=== PATIENT | female | born 1930 | race Caucasian/White ===

== ENCOUNTER 2018-04-07 15:16 | Emergency (ER) | payer OTHER, MEDICARE ==
--- NOTE | 2018-04-07 15:22 | PDOC ---
History of Present Illness - General History Source: Patient Exam Limitations: No Limitations - History of Present Illness Initial Comments: 04/07/18 15:58 The patient is an 87 year old female, with no significant past medical history, who presents to the emergency department with right shoulder pain. The patient states that she fell approximately 10 days ago. She did not seek medical attention at that time but her shoulder continued to bother her so yesterday, she had x-rays done by her PCP (Dr. Garza) which revealed a comminuted fracture of the right humeral neck with significant impaction and angulation in addition to inferior subluxation of the right humeral head. She has been taking Ibuprofen for her symptoms, without relief of symptoms. She states that Dr. Garza called her in a prescription for pain medication which she has picked up but has not started taking yet. She presents to the ED for further evaluation. She denies any other injury. She ambulates with a cane at baseline. Allergies: None reported. Past Surgical History: None reported. Social History: Non-smoker. Denies alcohol or drug use. PCP: Dr. Garza <Mariposa Wilkinson - Last Filed: 04/07/18 16:01> <Tari Novoa - Last Filed: 04/07/18 16:06> - General Chief Complaint: Injury Stated Complaint: PAIN S/P FALL Time Seen by Provider: 04/07/18 15:21 Past History <Mariposa Wilkinson - Last Filed: 04/07/18 16:01> <Tari Novoa - Last Filed: 04/07/18 16:06> - Past Medical History Allergies/Adverse Reactions: Allergies Allergy/AdvReac Type Severity Reaction Status Date / Time No Known Allergies Allergy Verified 04/07/18 15:33 Home Medications: Ambulatory Orders Vitamin E 1,000 unit PO DAILY 04/07/18 Review of Systems - Review of Systems Able to Perform ROS?: Yes Comments:: 04/07/18 16:01 GENERAL/CONSTITUTIONAL: No fever or chills. No weakness. HEAD, EYES, EARS, NOSE AND THROAT: No change in vision. No ear pain or discharge. No sore throat. CARDIOVASCULAR: No chest pain or shortness of breath. RESPIRATORY: No cough, wheezing, or hemoptysis. GASTROINTESTINAL: No nausea, vomiting, diarrhea or constipation. GENITOURINARY: No dysuria, frequency, or change in urination. MUSCULOSKELETAL: +Right shoulder pain. No muscle swelling or pain. No neck or back pain. SKIN: No rash. NEUROLOGIC: No headache, vertigo, loss of consciousness, or change in strength/ sensation. ENDOCRINE: No increased thirst. No abnormal weight change. HEMATOLOGIC/LYMPHATIC: No anemia, easy bleeding or history of blood clots. ALLERGIC/IMMUNOLOGIC: No hives or skin allergy. <Mariposa Wilkinson - Last Filed: 04/07/18 16:01> *Physical Exam - Vital Signs Last Vital Signs Temp Pulse Resp BP Pulse Ox 98 F 82 20 156/67 99 04/07/18 15:18 04/07/18 15:18 04/07/18 15:18 04/07/18 15:18 04/07/18 15:18 <Mariposa Wilkinson - Last Filed: 04/07/18 16:01> - Physical Exam Comments: GENERAL: Awake, alert, and fully oriented, in no acute distress HEAD: No signs of trauma EYES: PERRLA, EOMI, sclera anicteric, conjunctiva clear ENT: Auricles normal inspection, hearing grossly normal, nares patent, oropharynx clear without exudates. Moist mucosa NECK: Normal ROM, supple, no lymphadenopathy, JVD, or masses EXTREMITIES: R shoulder with tenderness over the proximal humerus. Dec ROM due to pain. Distal N/V intact. Remainder of extremities normal range of motion, no edema. No clubbing or cyanosis. No cords, erythema, or tenderness NEUROLOGICAL: Cranial nerves II through XII grossly intact. Normal speech. Motor and sensation intact. Walks with a cane on L side. SKIN: Warm, Dry, normal turgor, no rashes or lesions noted. <Tari Novoa - Last Filed: 04/07/18 16:06> Procedures - Splinting Sling: Yes <Tari Novoa - Last Filed: 04/07/18 16:06> Medical Decision Making - Medical Decision Making 04/07/18 16:05 Pt placed in sling. She just filled rx for pain medication from Dr. Garza. She walks with a cane, but uses it on the left side, so this will not interfere. Stable for NE home. <Tari Novoa - Last Filed: 04/07/18 16:06> *DC/Admit/Observation/Transfer - Attestations Scribe Attestion: 04/07/18 15:48 Documentation prepared by Mariposa Wilkinson, acting as medical associate for Tari Novoa MD. <Mariposa Wilkinson - Last Filed: 04/07/18 16:01> - Discharge Dispostion Decision to Admit order: No <Tari Novoa - Last Filed: 04/07/18 16:06> Diagnosis at time of Disposition: Fracture, humerus Qualifiers: Encounter type: initial encounter Humerus Location: proximal Fracture type: closed Fracture morphology: unspecified fracture morphology Laterality: right Qualified Code(s): S42.201A - Unspecified fracture of upper end of right humerus , initial encounter for closed fracture - Discharge Dispostion Disposition: HOME Condition at time of disposition: Stable
[2018-04-07 15:40] VITALS: BP 156/67; PULSE 82; TEMP 98; BMI 24.0
== END 2018-04-07 16:17 | disposition home or self-care (01) ==
LOC: FER 15:16
DX: S42.201A Unspecified fracture of upper end of right humerus, initial encounter for closed fracture (principal); W18.39XA Other fall on same level, initial encounter; Y93.89 Activity, other specified; Y92.9 Unspecified place or not applicable
CPT/HCPCS: 99281-25

== ENCOUNTER 2018-05-01 17:17 | Inpatient (IN) | payer MEDICARE, OTHER ==
[2018-05-01 18:44] LABS: BASO % 0.9 % (0-2.0); EOS % 1.3 % (0-4.5); HEMATOCRIT 24.3 % (32.4-45.2); HEMOGLOBIN 7.8 GM/dL (10.7-15.3); LYMPH % 17.2 % (8-40); MCH 26.5 pg (25.7-33.7); MCHC 32.2 g/dl (32.0-36.0); MEAN CELL VOLUME 82.3 fl (80-96); MEAN PLT VOLUME 6.7 fl (7.5-11.1); MONO % 7.8 % (3.8-10.2); NEUT % 72.8 % (42.8-82.8); PLATELET COUNT 420 K/MM3 (134-434); RBC 2.96 M/mm3 (3.60-5.2); RDW 17.7 % (11.6-15.6); WHITE BLOOD COUNT 7.7 K/mm3 (4.0-10.0)
--- NOTE | 2018-05-01 18:44 | PDOC ---
History of Present Illness - General Chief Complaint: Shortness of Breath Stated Complaint: CHEST PAIN Time Seen by Provider: 05/01/18 18:31 History Source: Patient - History of Present Illness Presenting Symptoms: Other Past History - Past Medical History Allergies/Adverse Reactions: Allergies Allergy/AdvReac Type Severity Reaction Status Date / Time No Known Allergies Allergy Verified 05/01/18 17:35 Home Medications: Ambulatory Orders Aspirin 324 mg PO PRN 05/01/18 COPD: No - Suicide/Smoking/Psychosocial Hx Smoking History: Former smoker Have you smoked in the past 12 months: No If you are a former smoker, when did you quit?: 1997 Information on smoking cessation initiated: No Hx Alcohol Use: No Drug/Substance Use Hx: No Substance Use Type: None Review of Systems - Review of Systems Constitutional: No: Chills, Fever Respiratory: No: Cough, Shortness of Breath Cardiac (ROS): No: Chest Pain, Lightheadedness, Palpitations ABD/GI: No: Nausea, Vomiting Neurological: No: Headache, Dizziness *Physical Exam - Vital Signs Last Vital Signs Temp Pulse Resp BP Pulse Ox 98.7 F 73 18 171/72 100 05/05/18 09:54 05/05/18 09:54 05/05/18 09:54 05/05/18 09:54 05/05/18 09:00 - Physical Exam Comments: 05/01/18 18:43 well nora pleasant elderly female lying on stretcher General Appearance: Yes: Appropriately Dressed. No: Apparent Distress HEENT: positive: Normal Voice Neck: positive: Supple Respiratory/Chest: positive: Lungs Clear, Normal Breath Sounds. negative: Respiratory Distress Cardiovascular: positive: Regular Rate, S1, S2 Extremity: positive: Pedal Edema Integumentary: positive: Dry, Warm, Other (small stage 2 ulcer to R buttocks, no e/o infection) Neurologic: positive: Fully Oriented, Alert, Normal Mood/Affect ED Treatment Course - LABORATORY CBC & Chemistry Diagram: 05/05/18 05:15 05/05/18 05:15 - ADDITIONAL ORDERS Additional order review: 05/01/18 18:15 RBC 2.96 L MCV 82.3 MCHC 32.2 RDW 17.7 H MPV 6.7 L Neutrophils % 72.8 Lymphocytes % 17.2 Monocytes % 7.8 Eosinophils % 1.3 Basophils % 0.9 - Medications Given in the ED: ED Medications Discontinued Medications Generic Name Dose Route Start Last Admin Trade Name Yoni PRN Reason Stop Dose Admin Acetaminophen 650 mg 05/01/18 19:00 05/01/18 19:22 Tylenol - PO 05/01/18 19:01 650 mg ONCE ONE Administration Acetaminophen 650 mg 05/01/18 22:50 05/04/18 02:17 Tylenol - PO 650 mg Q4H PRN Administration PAIN LEVEL 1-5 Amlodipine Besylate 5 mg 05/01/18 23:54 05/02/18 00:02 Norvasc - PO 05/01/18 23:55 5 mg ONCE ONE Administration Amlodipine Besylate 5 mg 05/02/18 10:00 05/02/18 09:28 Norvasc - PO 5 mg DAILY ELINA Administration Carvedilol 3.125 mg 05/02/18 12:00 05/04/18 09:54 Coreg - PO 3.125 mg BID ELINA Administration Collagenase 1 applic 05/03/18 10:00 05/04/18 10:42 Santyl - TP 1 applic DAILY ELINA Administration Enoxaparin Sodium 90 mg 05/02/18 16:30 05/02/18 16:30 Lovenox - SQ 05/02/18 16:31 Not Given ONCE ONE Furosemide 40 mg 05/01/18 20:46 05/01/18 20:57 Lasix Injection - IVPUSH 05/01/18 20:47 40 mg ONCE ONE Administration Furosemide 40 mg 05/02/18 12:00 05/04/18 09:54 Lasix Injection - IVPUSH 40 mg DAILY ELINA Administration Heparin Sodium (Porcine) 5,000 unit 05/02/18 06:00 05/02/18 13:21 Heparin - SQ 5,000 unit TID ELINA Administration Heparin Sodium (Porcine) 5,000 unit 05/03/18 22:00 05/04/18 09:54 Heparin - SQ 5,000 unit BID ELINA Administration Lisinopril 5 mg 05/02/18 10:00 05/04/18 09:54 Prinivil PO 5 mg DAILY ELINA Administration Oxycodone HCl 5 mg 05/02/18 09:35 05/02/18 10:14 Roxicodone - PO 05/02/18 09:36 5 mg ONCE ONE Administration Oxycodone HCl 5 mg 05/02/18 18:46 05/04/18 02:18 Roxicodone - PO 5 mg Q4H PRN Administration PAIN LEVEL 6-10 Oxycodone/Acetaminophen 1 combo 05/01/18 21:33 05/01/18 21:42 Percocet 5/325 - PO 05/01/18 21:34 1 combo ONCE ONE Administration Pantoprazole Sodium 40 mg 05/03/18 22:00 05/04/18 09:58 Protonix Iv IVPUSH 40 mg BID ELINA Administration Pneumococcal 13-Valent Conj Vacc 0.5 ml 05/02/18 09:00 05/02/18 09:19 Prevnar 13 Syringe - IM 05/02/18 09:01 0.5 ml .ONCE ONE Administration Senna 2 tab 05/02/18 22:00 05/03/18 22:48 Senna - PO Not Given HS ELINA Medical Decision Making - Medical Decision Making 05/01/18 18:39 87-year-old female, history of R breast cancer s/p surgery and XRT remotely, here with intermittent left-sided "discomfort" 2 days, but denies true pain. States sensation present whether at rest or on exertion. No shortness of breath , diaphoresis, nausea, vomiting or palpitations. No history of similar symptoms in the past. While in the ED, patient noted to have bilateral lower extremity edema, which patient states she did not notice until she was made aware when she got here. No leg pain, cough, f/c. Also c/o painful sore to R buttocks "for some time". 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 have PMD or die cutter and admits she has not seen a doctor in many years See exam R/o new onset CHF, less likely ACS, dissection or PE Stable w/ chest/lungs and b/l 2 edema -ekg -cxr -labs -anticipate admission 05/01/18 18:46 Signed out to AMINTA Ruiz pending w/u and admission 05/01/18 18:49 *DC/Admit/Observation/Transfer Diagnosis at time of Disposition: CHF exacerbation, Chest pain - Referrals - Patient Instructions - Post Discharge Activity
[2018-05-01 18:56] LABS: INR 1.14 (0.82-1.09); PROTHROMBIN TIME (PATIENT) 12.9 SEC (9.7-13.0)
[2018-05-01] MEDS ORDERED: ACETAMINOPHEN 325 MG TABLET (FP) PO ONE (19:00)
[2018-05-01 19:06] LABS: ALBUMIN 3.2 g/dl (3.4-5.0); ANION GAP 10 (8-16); BILIRUBIN,TOTAL 0.3 mg/dL (0.2-1.0); BLOOD UREA NITROGEN 35 mg/dL (7-18); CALCIUM 8.9 mg/dL (8.5-10.1); CHLORIDE 109 mmol/L (98-107); CO2 25 mmol/L (21-32); CREATININE 1.3 mg/dL (0.55-1.02); GLUCOSE,RANDOM 89 mg/dL (74-106); MAGNESIUM 2.4 mg/dL (1.8-2.4); POTASSIUM 4.2 mmol/L (3.5-5.1); SGOT/AST 19 U/L (15-37); SGPT/ALT 17 U/L (12-78); SODIUM 144 mmol/L (136-145); TOT PROT 6.7 g/dl (6.4-8.2)
[2018-05-01 19:10] LABS: ALK PHOS 241 U/L (45-117); N-TERMINAL BNP 2907.68 pg/ml (5-450)
[2018-05-01] MEDS ORDERED: ACETAMINOPHEN 325 MG TABLET (FP) ONE (19:20)
[2018-05-01] MEDS ORDERED: FUROSEMIDE 40 MG/4 ML INJECTABLE VIAL IVPUSH ONE (20:46)
[2018-05-01] MEDS ORDERED: FUROSEMIDE 40 MG/4 ML INJECTABLE VIAL ONE (20:51)
--- NOTE | 2018-05-01 20:51 | PDOC ---
*Physical Exam - Vital Signs Last Vital Signs Temp Pulse Resp BP Pulse Ox 98.0 F 86 16 172/81 100 05/01/18 17:35 05/01/18 20:33 05/01/18 20:33 05/01/18 20:33 05/01/18 20:33 - Physical Exam General Appearance: Yes: Appropriately Dressed Respiratory/Chest: positive: Rapid RR, Rales Cardiovascular: positive: Regular Rhythm, Regular Rate Female Pelvic Exam: positive: other (1 cm stage III sacral ulcer) Gastrointestinal/Abdominal: positive: Normal Bowel Sounds, Soft Extremity: positive: Normal Capillary Refill, Normal Inspection, Normal Range of Motion, Pedal Edema (b/l), Swelling. negative: Calf Tenderness, Erythema, Inflammation Integumentary: positive: Normal Color, Dry, Warm Neurologic: positive: Fully Oriented, Alert, Normal Mood/Affect Heart Score/ECG Review - History History: Moderately suspicious - Age Age: >/= 65 - ECG Intrepretation Rhythm: Regular Rhythm Comment:: 05/01/18 21:12 Sinus rhythm with PACs : 86bpm ED Treatment Course - LABORATORY CBC & Chemistry Diagram: 05/01/18 18:15 05/01/18 18:15 - ADDITIONAL ORDERS Additional order review: Laboratory Results 05/01/18 05/01/18 18:15 18:15 PT with INR 12.90 INR 1.14 Sodium 144 Potassium 4.2 Chloride 109 H Carbon Dioxide 25 Anion Gap 10 BUN 35 H Creatinine 1.3 H Creat Clearance w eGFR 38.93 Random Glucose 89 Calcium 8.9 Magnesium 2.4 Total Bilirubin 0.3 AST 19 ALT 17 Alkaline Phosphatase 241 H Creatine Kinase 52 Troponin I 0.02 B-Natriuretic Peptide 2907.68 H Total Protein 6.7 Albumin 3.2 L 05/01/18 18:15 RBC 2.96 L MCV 82.3 MCHC 32.2 RDW 17.7 H MPV 6.7 L Neutrophils % 72.8 Lymphocytes % 17.2 Monocytes % 7.8 Eosinophils % 1.3 Basophils % 0.9 - Medications Given in the ED: ED Medications Discontinued Medications Generic Name Dose Route Start Last Admin Trade Name Freq PRN Reason Stop Dose Admin Acetaminophen 650 mg 05/01/18 19:00 05/01/18 19:22 Tylenol - PO 05/01/18 19:01 650 mg ONCE ONE Administration Medical Decision Making - Medical Decision Making 05/01/18 20:49 Rales on exam. SOb on exertion, b/l lower extremity edema. will give lasix x 1 05/01/18 21:24 patient to admitted under hospitalist service *DC/Admit/Observation/Transfer Diagnosis at time of Disposition: CHF exacerbation Qualifiers: Heart failure type: unspecified Qualified Code(s): I50.9 - Heart failure, unspecified Chest pain Qualifiers: Chest pain type: chest pain on breathing Qualified Code(s): R07.1 - Chest pain on breathing - Discharge Dispostion Decision to Admit order: Yes - Referrals Referrals: Aashish Garza MD [Primary Care Provider] - - Patient Instructions - Post Discharge Activity
[2018-05-01] MEDS ORDERED: INSULIN (LEVEMIR) 100 UNITS/ML UNITS SQ ONE (21:55)
--- NOTE | 2018-05-01 22:19 | PN ---
Teaching Attending Note Name of Resident: Piero Zambrano ATTENDING PHYSICIAN STATEMENT I saw and evaluated the patient. I reviewed the resident's note and discussed the case with the resident. I agree with the resident's findings and plan as documented. SUBJECTIVE: Patient is an 87 year old woman with history of right breast cancer s/p surgery and radiotherapy here with upper abdominal pain 2 days. States sensation present whether at rest or on exertion. No shortness of breath, diaphoresis, nausea, vomiting or palpitations. No history of similar symptoms in the past. While in the ED, patient noted to have bilateral lower extremity edema, which patient states she did not notice until she was made aware when she got here. No leg pain, cough, f/c. Also c/o painful sore to R buttocks "for some time". 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 Normocephalic, atraumatic. External ears are normal and hearing is grossly intact. No nasal discharge. Neck: Supple, nontender. No palpable adenopathy or thyromegaly. No JVD Chest: Good effort. Clear to auscultation and percussion. Heart: Regular. Has S3; no rub or murmur Abdomen: Not distended, soft, nontender and no HSM. No rebound or guarding. Normoactive bowel sounds. Has kyphosis. Stage 3 intergluteal cleft ulcer. Ext: Peripheral pulses intact. Leg edema. Skin: Warm and dry. No petechiae, rash or ecchymosis. Neuro: Alert. Oriented x3. CN 2-12 grossly intact. Sensation grossly intact in all four extremities and DTR are symmetric. Home Medications Medication Instructions Recorded Aspirin 324 mg PO PRN 05/01/18 Abnormal Lab Results 05/01/18 05/01/18 18:15 18:15 RBC 2.96 L Hgb 7.8 L Hct 24.3 L RDW 17.7 H MPV 6.7 L Chloride 109 H BUN 35 H Creatinine 1.3 H Alkaline Phosphatase 241 H B-Natriuretic Peptide 2907.68 H Albumin 3.2 L Current Medications Generic Name Dose Route Start Last Admin Trade Name Freq PRN Reason Stop Dose Admin Acetaminophen 650 mg 05/01/18 22:50 Tylenol - PO Q4H PRN PAIN LEVEL 1-5 Amlodipine Besylate 5 mg 05/02/18 10:00 Norvasc - PO DAILY [facility] Docusate Sodium 100 mg 05/01/18 23:12 Colace - PO BID PRN CONSTIPATION Heparin Sodium (Porcine) 5,000 unit 05/02/18 06:00 Heparin - SQ TID [facility] Pneumococcal 13-Valent Conj Vacc 0.5 ml 05/02/18 08:00 Prevnar 13 Syringe - IM 05/02/18 08:01 .ONCE ONE Senna 2 tab 05/02/18 22:00 Senna - PO HS [facility] ASSESSMENT AND PLAN: 1. Abdominal pain - findings consistent with CHF. CXR shows cardiomegaly with possible right middle lobe cavitary lesions. No ACS changes on EKG. Made very little urine with 40 mg IV lasix. Will get ECHO, rule ACS, monitor on telemetry and give higher dose of lasix after ECHO. CT chest/abd/pelvis and d-dimer being done. Cardiology consult. 2. Hypertension - Treat with lisinopril and amlodipien. 3. Stage 3 Sacral Ulcer - Daily wound care, wound culture and consult wound care. Appropriate repositioning to avoid exacerbation of ulcer. 4. Anemia and elevated Alkaline Phosphate - Check GTT and do basic anemia work up. Concern - history of breast cancer 5. NATHAN - May signal reduced renal perfusion due to yet to be confirmed CHF. But based on her small size, age, poor nutritional intake and gender, she may indeed have advanced CKD despite creatinine of "only 1.3". Do basic nephrologic work up including kidney sonogram, PTH, phosphate etc. Avoid nephrotoxins. 6. DVT prophylaxis - Heparin 5000u sq tid. 7. Advance directives - Full code
[2018-05-01] MEDS ORDERED: DOCUSATE SODIUM 100 MG CAPSULE (FP) PO PRN (23:12)
--- NOTE | 2018-05-01 23:12 | HP ---
CHIEF COMPLAINT: upper abdominal discomfort and buttock "abscess" PCP: Dr. Garza HISTORY OF PRESENT ILLNESS: 87F w/ hx of R breast cancer s/p surgery and radiation presenting with upper abdominal pain and a painful right buttock "abscess." Per pt, her upper abdominal discomfort began a few months ago, is intermittent, dull in quality, sometimes radiates to her back, and is affected by change in position but not type of food. Her right buttock "abscess" began about 4-6 weeks ago and has remained stable since then. Pt endorses using warm compresses, "aloveri," and tylenol for it without significant relief. It is worsened by sitting or lying directly on it. Pt also endorses occasional pleuritic chest pain and occasional SOB. She denies fevers, chills, headache, palpitations, cough, PND, orthopnea, LE swelling, nausea, emesis, diarrhea, hematochezia, melena, change in stool caliber, dysuria, and urinary frequency. She endorses some constipation. She has not seen her PCP in several years, and has not seen her oncologist in about 12 years. She has never had a colonoscopy. At baseline, she ambulates with a cane and can walk about a half block and 2 flights of stairs, limited by leg weakness. ER course was notable for: (1) history (2) exam (3) HTN, anemia, elevated BNP, elevated creatinine, elevated ALP Recent Travel: PAST MEDICAL HISTORY: as stated above PAST SURGICAL HISTORY: right heel/foot surgery after injury Social History: Smokin pack year hx, 1 PPD x 5 years, quit decades ago Alcohol: social Drugs: denies Pt lives with in [place], has one child. She has an aid which helps around the house. 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 Family History: mother- MD father- MD sister- breast cancer Allergies No Known Allergies Allergy (Verified 05/01/18 17:35) HOME MEDICATIONS: Home Medications Medication Instructions Recorded Aspirin 324 mg PO PRN 05/01/18 REVIEW OF SYSTEMS CONSTITUTIONAL: Absent: fever, chills, diaphoresis, malaise, loss of appetite, weight change present: weakness HEENT: Absent: rhinorrhea, nasal congestion, throat pain, throat swelling, difficulty swallowing, mouth swelling, ear pain, eye pain, visual changes CARDIOVASCULAR: Absent: syncope, palpitations, irregular heart rate, lightheadedness present: chest pain, RESPIRATORY: Absent: cough, dyspnea with exertion, orthopnea, wheezing, stridor, hemoptysis present: shortness of breath GASTROINTESTINAL: Absent: abdominal distension, nausea, vomiting, diarrhea, melena, hematochezia present: abdominal discomfort, constipation, GENITOURINARY: Absent: dysuria, frequency, urgency, hesitancy, hematuria, flank pain, genital pain MUSCULOSKELETAL: Absent: myalgia, arthralgia, joint swelling, back pain, neck pain SKIN: Absent: rash, itching, pallor HEMATOLOGIC/IMMUNOLOGIC: Absent: easy bleeding, easy bruising, lymphadenopathy, frequent infections ENDOCRINE: Absent: unexplained weight gain, unexplained weight loss, heat intolerance, cold intolerance NEUROLOGIC: Absent: headache, focal weakness or paresthesias, dizziness, unsteady gait, seizure, mental status changes, bladder or bowel incontinence PSYCHIATRIC: Absent: anxiety, depression, suicidal or homicidal ideation, hallucinations. PHYSICAL EXAMINATION Vital Signs - 24 hr 05/01/18 05/01/18 05/01/18 17:35 20:33 22:20 Temperature 98.0 F Pulse Rate 84 Pulse Rate [ 86 85 Apical] Respiratory 24 16 Rate Blood Pressure 165/74 Blood Pressure 172/81 174/75 [Left Arm] O2 Sat by Pulse 99 100 Oximetry (%) GENERAL: elderly female, sitting in wheelchair, AAOx3, in NAD HEENT: NC, AT NECK: no JVD LUNGS: CTAB, no rales, wheezing, or rhonchi HEART: Regular rate and rhythm, normal S1 and S2 without murmur, rub or gallop. ABDOMEN: normoactive BS, soft, moderately tender in RUQ and epigastric region, ND, no organomegaly MUSCULOSKELETAL: 2+ b/l pitting LE edema NEUROLOGICAL: Cranial nerves II-XII intact. Normal speech, strength 5/5 throughout, sensory function intact throughout Buttock: stage 2-3 ulcer, about 1cm, in gluteal cleft. non-tender to palpation, minimal surrounding erythema Laboratory Results - last 24 hr 05/01/18 05/01/18 05/01/18 18:15 18:15 18:15 WBC 7.7 RBC 2.96 L Hgb 7.8 L Hct 24.3 L MCV 82.3 MCH 26.5 MCHC 32.2 RDW 17.7 H Plt Count 420 MPV 6.7 L Absolute Neuts (auto) 5.6 Neutrophils % 72.8 Lymphocytes % 17.2 Monocytes % 7.8 Eosinophils % 1.3 Basophils % 0.9 Nucleated RBC % 0 PT with INR 12.90 INR 1.14 Sodium 144 Potassium 4.2 Chloride 109 H Carbon Dioxide 25 Anion Gap 10 BUN 35 H Creatinine 1.3 H Creat Clearance w eGFR 38.93 Random Glucose 89 Calcium 8.9 Magnesium 2.4 Total Bilirubin 0.3 AST 19 ALT 17 Alkaline Phosphatase 241 H Creatine Kinase 52 Troponin I 0.02 B-Natriuretic Peptide 2907.68 H Total Protein 6.7 Albumin 3.2 L EKG: NSR CXR: My read- shallow lung robert, possible small left sided pleural effusion CT chest/abdomen/pelvis: ASSESSMENT/PLAN: 87F w/ hx of R breast cancer s/p surgery and radiation presenting with upper abdominal pain and a painful buttock ulcer. #chronic abdominal discomfort and RUQ/epigastric tenderness -possibly 2/2 cholelithiasis vs. constipation vs. diverticulosis vs. recurrence of cancer -f/u CT -f/u D-dimer -consider RUQ US -pain control -senna and colace #SOB -possibly 2/2 mild CHF exacerbation as evidenced by b/l LE edema, elevated BNP of 2900, SOB, and possibly pre-renal picture. R/O ACS -f/u echo -cards consult, Dr. Coto, f/u recs -strict I/Os, daily weights -one dose of lasix 40 given in ED. Denies current SOB, satting fine on RA, and no rales or JVD on exam. -continue to monitor clinical status and administer further doses of lasix if indicated -1st trop negative, f/u serial trops -cardiac tele #right shoulder pain -shoulder/humeral XR: comminuted fx in right humeral neck w/ moderate impaction and angulation. Inferior subluxation of humeral head. -ortho consulted, Dr. Gay, f/u recs -pain control #HTN -BP of 165/74 in ED, no hx of HTN -monitor BP -started norvasc 5mg and lisinopril daily #normocytic anemia -Hgb of 7.8, MCV of 82 -f/u FOBT and iron studies -pt has never had colonoscopy -possibly 2/2 recurrence of breast cancer #NATHAN vs. CKD -creatinine of 1.3, <20:1 BUN/creatinine ratio supporting pre-renal NATHAN -f/u renal US -f/u urine lytes -f/u PTH and Ph -trend creatinine #elevated ALP -f/u GGT to distinguish hepatic vs. bone etiology #buttock ulcer -stage 2-3 -pain control -warm compresses -wound care -reposition pt off of ulcer #FEN/ppx -no IVF -electrolytes wnl -sodium controlled diet -no GI ppx indicated -heparin 5000U TID #dispo -admit to tele Case discussed with attending, Dr. Cox. -Piero Zambrano MD PGY1 Visit type - Emergency Visit Emergency Visit: Yes ED Registration Date: 05/01/18 Care time: The patient presented to the Emergency Department on the above date and was hospitalized for further evaluation of their emergent condition. - New Patient This patient is new to me today: Yes Date on this admission: 05/02/18 - Critical Care Critical Care patient: No Hospitalist Screening - Colonoscopy Questionnaire Colonoscopy Questionnaire: Colonoscopy Questionnaire - Patient: 50 - 75 years old and never had a screening colonoscopy: Yes History of colon or rectal polyps, or CA: No History of IBD, Crohn's disease or UC: No History of abdominal radiation therapy as a child: No - Relative: 1 with colon or rectal CA, or polyps at age 60 or younger: Unknown Colon or rectal CA diagnosed at age 45 or younger: Unknown Multiple relatives with colon or rectal CA: Unknown - Outcome: Screening Result: Positive Screen
[2018-05-01] MEDS ORDERED: amLODIPine BESYLATE 5 MG TABLET (FP) PO ONE (23:54)
[2018-05-02] MEDS: HEPARIN NA (PORCINE) 5,000 UNITS/ML 1ML VIAL SQ SCH ×2 (06:10→13:21)
[2018-05-02 06:28] LABS: BASO % 0.5 % (0-2.0); EOS % 2.1 % (0-4.5); HEMATOCRIT 25.6 % (32.4-45.2); HEMOGLOBIN 8.5 GM/dL (10.7-15.3); LYMPH % 18.9 % (8-40); MCH 27.1 pg (25.7-33.7); MCHC 33.1 g/dl (32.0-36.0); MEAN CELL VOLUME 82.1 fl (80-96); NEUT % 71.5 % (42.8-82.8); PLATELET COUNT 440 K/MM3 (134-434); RBC 3.12 M/mm3 (3.60-5.2); RDW 18.1 % (11.6-15.6); WHITE BLOOD COUNT 8.6 K/mm3 (4.0-10.0)
[2018-05-02 06:58] LABS: ALBUMIN 3.4 g/dl (3.4-5.0); ANION GAP 9 (8-16); BLOOD UREA NITROGEN 33 mg/dL (7-18); CHLORIDE 105 mmol/L (98-107); CO2 27 mmol/L (21-32); GLUCOSE,RANDOM 100 mg/dL (74-106); POTASSIUM 3.9 mmol/L (3.5-5.1); SODIUM 141 mmol/L (136-145)
[2018-05-02 07:02] LABS: ALK PHOS 257 U/L (45-117); BILIRUBIN,TOTAL 0.3 mg/dL (0.2-1.0); CHOLESTEROL 161 mg/dL (50-200); CREATININE 1.3 mg/dL (0.55-1.02); HDL CHOLESTEROL 52 mg/dL (40-60); SGOT/AST 24 U/L (15-37); SGPT/ALT 17 U/L (12-78); TOT PROT 7.1 g/dl (6.4-8.2); TRIGLYCERIDES 150 mg/dL (35-160)
[2018-05-02] MEDS ORDERED: PNEUMOC 13-VAL CONJ-DIP CRM/PF 0.5 ML DISP.SYRIN IM ONE (09:00)
[2018-05-02] MEDS: LISINOPRIL 5 MG TABLET (FP) PO SCH (09:28)
[2018-05-02] MEDS ORDERED: oxyCODONE HCL 5 MG TABLET PO ONE (09:35)
[2018-05-02] MEDS ORDERED: amLODIPine BESYLATE 5 MG TABLET (FP) PO SCH (10:00)
--- NOTE | 2018-05-02 10:01 | CON.CARD ---
Consult Consult Specialty:: cardiology - History of Present Illness History of Present Illness: Patient is an 87 year old woman with history of right breast cancer s/p surgery and radiotherapy here with upper abdominal pain 2 days. States sensation present whether at rest or on exertion. No shortness of breath, diaphoresis, nausea, vomiting or palpitations. No history of similar symptoms in the past. While in the ED, patient noted to have bilateral lower extremity edema, which patient states she did not notice until she was made aware when she got here. No leg pain, cough, f/c. Also c/o painful sore to R buttocks "for some time". 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 and admits she has not seen a doctor in many years - History Source History Provided By: Patient, Medical Record - Alcohol/Substance Use Hx Alcohol Use: No - Smoking History Smoking history: Former smoker Have you smoked in the past 12 months: No If you are a former smoker, when did you quit?: 1997 Home Medications - Allergies Allergies/Adverse Reactions: Allergies Allergy/AdvReac Type Severity Reaction Status Date / Time No Known Allergies Allergy Verified 05/01/18 17:35 - Home Medications Home Medications: Ambulatory Orders Aspirin 324 mg PO PRN 05/01/18 Review of Systems - Review of Systems Constitutional: reports: No Symptoms Eyes: reports: No Symptoms HENT: reports: No Symptoms Neck: reports: No Symptoms Cardiovascular: reports: Edema Respiratory: reports: No Symptoms Gastrointestinal: reports: No Symptoms Genitourinary: reports: No Symptoms Breasts: reports: No Symptoms Reported Musculoskeletal: reports: No Symptoms Integumentary: reports: No Symptoms Neurological: reports: No Symptoms Endocrine: reports: No Symptoms Hematology/Lymphatic: reports: No Symptoms Psychiatric: reports: No Symptoms Vital Signs: Vital Signs Temperature 98.2 F 05/02/18 07:27 Pulse Rate 72 05/02/18 07:27 Respiratory Rate 18 05/02/18 07:39 Blood Pressure 159/82 05/02/18 07:27 O2 Sat by Pulse Oximetry (%) 98 05/02/18 07:39 Constitutional: Yes: Well Nourished, No Distress, Calm Eyes: Yes: WNL, Conjunctiva Clear, EOM Intact HENT: Yes: WNL, Atraumatic, Normocephalic Neck: Yes: WNL, Supple, Trachea Midline Respiratory: Yes: WNL, Regular, CTA Bilaterally Gastrointestinal: Yes: WNL, Normal Bowel Sounds Renal/: Yes: WNL Cardiovascular: Yes: WNL, Regular Rate and Rhythm Heart Sounds: Yes: S1, S2 Musculoskeletal: Yes: WNL Extremities: Yes: WNL Edema: Yes Integumentary: Yes: WNL Neurological: Yes: WNL, Alert, Oriented ...Motor Strength: WNL Psychiatric: Yes: WNL, Alert, Oriented - Other Data Labs, Other Data: CBC, BMP 05/02/18 05:30 05/02/18 05:30 INR, PTT INR 1.14 (0.82-1.09) 05/01/18 18:15 Troponin, BNP 05/01/18 05/02/18 05/02/18 18:15 01:24 05:30 Troponin I 0.02 0.02 0.02 B-Natriuretic Peptide 2907.68 H 05/02/18 06:25 Troponin I Cancelled B-Natriuretic Peptide Troponin, BNP 05/01/18 05/02/18 05/02/18 18:15 01:24 05:30 Troponin I 0.02 0.02 0.02 B-Natriuretic Peptide 2907.68 H 05/02/18 06:25 Troponin I Cancelled B-Natriuretic Peptide Imaging - Results Chest X-ray: Image Reviewed (no i/e) EKG: Image Reviewed (sr apc's) Problem List - Problems (1) CHF exacerbation Code(s): I50.9 - HEART FAILURE, UNSPECIFIED Qualifiers: Heart failure type: unspecified Qualified Code(s): I50.9 - Heart failure, unspecified (2) Chest pain Code(s): R07.9 - CHEST PAIN, UNSPECIFIED Qualifiers: Chest pain type: chest pain on breathing Qualified Code(s): R07.1 - Chest pain on breathing; R07.81 - Pleurodynia (3) Fracture, humerus Code(s): S42.309A - UNSP FRACTURE OF SHAFT OF HUMERUS, UNSP ARM, INIT Qualifiers: Encounter type: initial encounter Humerus Location: proximal Fracture type: closed Fracture morphology: unspecified fracture morphology Laterality : right Qualified Code(s): S42.201A - Unspecified fracture of upper end of right humerus, initial encounter for closed fracture Assessment/Plan edema chf exac echo showed lvh diastolic dysfunction , nl ef mod to severe mr, severe tr mild pht anemia h/o breast ca plan anemia w/u telemetry d/c norvasc (can exacerbate edema) LAsix IV increase SRAVAN i as needed add coreg 3.125
[2018-05-02] MEDS: ACETAMINOPHEN 325 MG TABLET (FP) PO PRN ×2 (10:12→22:10)
[2018-05-02 10:27] LABS: ARTERIAL BLD GAS O2 SATURATION 97.5 % (90-98.9); ARTERIAL BLOOD GAS BASE EXCESS 1.7 meq/l (-2-2); ARTERIAL BLOOD GAS PCO2 34.4 mmHg (35-45); ARTERIAL BLOOD GAS PO2 85.5 mmHg (68-100); ARTERIAL BLOOD GAS pH 7.47 (7.35-7.45)
[2018-05-02 10:30] LABS: ALLENS TEST POSITIVE
--- NOTE | 2018-05-02 10:41 | EKG ---
Test Reason : Blood Pressure : / mmHG Vent. Rate : 082 BPM Atrial Rate : 082 BPM P-R Int : 158 ms QRS Dur : 094 ms QT Int : 416 ms P-R-T Axes : 049 003 064 degrees QTc Int : 486 ms SINUS RHYTHM WITH PREMATURE ATRIAL COMPLEXES MODERATE VOLTAGE CRITERIA FOR LVH, MAY BE NORMAL VARIANT CANNOT RULE OUT SEPTAL INFARCT , AGE UNDETERMINED ABNORMAL ECG NO PREVIOUS ECGS AVAILABLE Confirmed by SAMANTHA SAEZ, PAVEL ([id number]) on 05/02/2018 10:41:42 AM Referred By: Confirmed By:PAVEL SINGH MD
--- NOTE | 2018-05-02 11:22 | PN ---
Progress Note (short form) - Note Progress Note: Subjective: The patient was seen and examined at the bedside she has complaints of left lateral breast pain. Pain was reproducible on exam. She also reports having lower extremity swelling but she does not know how long she has had it for. She states she hasn't seen a provider in "many years" D-dimer elevated. ABG performed, Aa gradient 21.2. Patient is not hypoxic, no tachycardia noted. Will check lower extremity duplex to r/o DVT. Discussed with Dr. Thompson who will evaluate the patient for V/Q scan (CTA considered and discussed with Dr. Austin, concern for ATN as the patient's CrCl 30 and would be unable to give the patient adequate hydration after contrast given possible CHF exacerbation component as well). Current Medications Generic Name Dose Route Start Last Admin Trade Name Freq PRN Reason Stop Dose Admin Acetaminophen 650 mg 05/01/18 22:50 05/02/18 10:12 Tylenol - PO 650 mg Q4H PRN Administration PAIN LEVEL 1-5 Amlodipine Besylate 5 mg 05/02/18 10:00 05/02/18 09:28 Norvasc - PO 5 mg DAILY ELINA Administration Docusate Sodium 100 mg 05/01/18 23:12 Colace - PO BID PRN CONSTIPATION Heparin Sodium (Porcine) 5,000 unit 05/02/18 06:00 05/02/18 06:10 Heparin - SQ 5,000 unit TID ELINA Administration Lisinopril 5 mg 05/02/18 10:00 05/02/18 09:28 Prinivil PO 5 mg DAILY ELINA Administration Senna 2 tab 05/02/18 22:00 Senna - PO HS ELINA Objective: Vital Signs Period Temp Pulse Resp BP Sys/Beltre Pulse Ox Last 24 Hr 97.7 F-98.4 F 70-86 16-24 155-189/74-84 98-100 Physical Exam: General: NAD, A&Ox3 Lungs: CTA bilaterally Heart: Left lateral breast with reproducible pain. RRR, S1S2 Abd: Distended. Soft, non-tender Ext: B/l lower extremity 1+ edema. No calf tenderness Neuro: CN 2-12 intact CBCD WBC 8.6 K/mm3 (4.0-10.0) 05/02/18 05:30 RBC 3.12 M/mm3 (3.60-5.2) L 05/02/18 05:30 Hgb 8.5 GM/dL (10.7-15.3) L 05/02/18 05:30 Hct 25.6 % (32.4-45.2) L 05/02/18 05:30 MCV 82.1 fl (80-96) 05/02/18 05:30 MCHC 33.1 g/dl (32.0-36.0) 05/02/18 05:30 RDW 18.1 % (11.6-15.6) H 05/02/18 05:30 Plt Count 440 K/MM3 (134-434) H 05/02/18 05:30 MPV 7.0 fl (7.5-11.1) L 05/02/18 05:30 CMP Sodium 141 mmol/L (136-145) 05/02/18 05:30 Potassium 3.9 mmol/L (3.5-5.1) 05/02/18 05:30 Chloride 105 mmol/L (98-107) 05/02/18 05:30 Carbon Dioxide 27 mmol/L (21-32) 05/02/18 05:30 Anion Gap 9 (8-16) 05/02/18 05:30 BUN 33 mg/dL (7-18) H 05/02/18 05:30 Creatinine 1.3 mg/dL (0.55-1.02) H 05/02/18 05:30 Creat Clearance w eGFR 38.93 (>60) 05/02/18 05:30 Random Glucose 100 mg/dL (74-106) 05/02/18 05:30 Calcium 9.0 mg/dL (8.5-10.1) 05/02/18 05:30 Total Bilirubin 0.3 mg/dL (0.2-1.0) 05/02/18 05:30 AST 24 U/L (15-37) 05/02/18 05:30 ALT 17 U/L (12-78) 05/02/18 05:30 Alkaline Phosphatase 257 U/L (45-117) H 05/02/18 05:30 Total Protein 7.1 g/dl (6.4-8.2) 05/02/18 05:30 Albumin 3.4 g/dl (3.4-5.0) 05/02/18 05:30 CARDIAC ENZYMES Creatine Kinase 52 IU/L (26-192) 05/01/18 18:15 Troponin I 0.02 ng/ml (0.00-0.05) 05/02/18 05:30 Assessment: This is an 87 year old female with PMHx of right breast cancer s/p lumpectomy/radiation, who presented to the ED with upper abdominal pain and right buttock pressure ulcers. Plan: 1) Shortness of breath, elevated d-dimer - CHF exacerbation vs. PE vs. malignancy CHF - Elevated BNP - ECHO reviewed - Strict I&O - Continue IV lasix - Appreciate cardiology consult PE - Clinical suspicion for PE given hx of malignancy and lytic lesions of CT - Per heme/onc, will hold off on giving dose of full dose lovenox for now until V/Q scan results - Cannot perform Chest CTA given elevated Cr - B/l lower extremity dopplers negative for DVT - For V/Q scan in the AM - Appreciate pulmonary consult - Appreciate heme/onc consult 2) Hx of right breast cancer, now with extensive lytic lesion and prominent pancreatic head - Head CT and chest CT to r/o mets - Awaiting oncology consult - Awaiting GI consult for evaluation of pancreatic head - Palliative care consult 3) NATHAN on CKD? - Unclear baseline - F/u kidney bladder ultrasound - F/u urine electrolytes - Appreciate nephrology consult 4) Anemia - F/u iron studies - Continue to trend H/H - F/u hematology consult 5) Right proximal humerus fracture - Continue sling - Appreciate ortho consult 6) pressure ulcers - turn and reposition - f/u wound consult CODE STATUS: FULL CODE Visit type - Emergency Visit Emergency Visit: Yes ED Registration Date: 05/01/18 Care time: The patient presented to the Emergency Department on the above date and was hospitalized for further evaluation of their emergent condition. - New Patient This patient is new to me today: Yes Date on this admission: 05/02/18 - Critical Care Critical Care patient: No
--- NOTE | 2018-05-02 12:06 | PN ---
Progress Note (short form) - Note Progress Note: PULMONARY CONSULTATION DICTATED 05/02/18 IMP CHEST PAIN LIKELY MUSCULOSKELETAL,CANNOT EXCLUDE PE,?METS DYSPNEA ?CHF LOWER EXT EDEMA HTN NATHAN ELEVATED D-DIMER NON-SPECIFIC ANEMIA H/O R BREAST CA S/P LUMPECTOMY/RT PLAN V/Q DUPLEX LOWER EXT ECHO DIURETICS MONITOR H+H,RENAL FUNCTION NORMAL TRANSFUSION THRESHOLD ANALGESICS DR NAZARIO Problem List - Problems (1) Anemia Code(s): D64.9 - ANEMIA, UNSPECIFIED (2) CHF exacerbation Code(s): I50.9 - HEART FAILURE, UNSPECIFIED Qualifiers: Heart failure type: unspecified Qualified Code(s): I50.9 - Heart failure, unspecified (3) Chest pain Code(s): R07.9 - CHEST PAIN, UNSPECIFIED Qualifiers: Chest pain type: chest pain on breathing Qualified Code(s): R07.1 - Chest pain on breathing; R07.81 - Pleurodynia (4) Elevated d-dimer Code(s): R79.89 - OTHER SPECIFIED ABNORMAL FINDINGS OF BLOOD CHEMISTRY (5) Acute kidney injury Code(s): N17.9 - ACUTE KIDNEY FAILURE, UNSPECIFIED
--- NOTE | 2018-05-02 13:02 | PN ---
Progress Note (short form) - Note Progress Note: Pt with minimally displaced R proximal humerus fracture. X-rays reviewed. Plan nonop care with sling. Will do full evaluation tomorrow AM.
--- NOTE | 2018-05-02 13:20 | CONS ---
DATE OF CONSULTATION: 05/02/2018 REFERRING PROVIDER: RAMAN Reed The patient is an 87-year-old white female with past right breast CA, status post lumpectomy and postoperatively treated with RT approximately 8 years ago, history of tobacco use, approximately 3 packs per week, quit 15 to 20 years ago. Recently diagnosed with hypertension. No history of cardiac and/or pulmonary disease, admitted to [facility] with complaint of left-sided chest pain, increasing with movement as well as inspiration, as well as increased bilateral lower extremity edema. Patient denied any fevers or chills, nausea, vomiting or diaphoresis. Patient apparently states that she fell approximately 3 years ago on her right side. Denied any chest trauma to the left. Patient denies any fevers or chills, nausea, vomiting or diaphoresis. Denies any history of DVT or PE in the past. She does complain of some shortness of breath with exertion. She denies orthopnea or PND. On admission, she had labs obtained, noted to have an elevated D-dimer of 2227, which is nonspecific. BNP was slightly elevated at 2907. She was also found to be in mild renal insufficiency with a BUN of 33, a creatinine 3.3. She was admitted to the telemetry unit for further monitoring. She was evaluated. She was placed on heparin subcutaneous, continued on anti- hypertensive medications as well as some Lasix for possible CHF. The patient is still complaining of left-sided chest pain, again, increasing with movement as well as occasional inspiration. Past medical history, again, includes right breast CA, status post lumpectomy, status post radiation therapy. SOCIAL HISTORY: History of smoking, quit 15 years ago. No occupational exposures. Current medications include Tylenol, Prinivil, Coreg, Colace, senna, and Lasix. PHYSICAL EXAMINATION: General: The patient is an elderly white female, awake, alert, in no acute distress. Vital Signs: She is afebrile. Blood pressure is 159/82. Respiratory rate 18. O2 saturation 98% on room air. HEENT: Normocephalic, atraumatic. Neck: Supple. Heart: Regular, S1, S2. Chest: Clear. Abdomen: Soft. Bowel sounds positive. Extremities: Bilateral extremity edema. LABORATORY DATA: BUN 33, creatinine 1.3. BNP is 2207. WBC is 7.7, hemoglobin 7.8, hematocrit 24.3. Blood gas: pH 7.47, pCO2 of 34, pO2 of 85, bicarbonate 24, and a saturation of 97.5. D-dimer, again, was 2227. Chest x-ray reveals no infiltrates and no effusions. IMPRESSION: 1. Chest pain syndrome, likely musculoskeletal, although cannot exclude possible pulmonary embolism. Patient has increased risk secondary to history of malignancy, relatively sedentary lifestyle. Cannot exclude possible metastatic disease, bone metastasis, in view of history of breast cancer. 2. Mild congestive heart failure. 3. Anemia. 4. Hypertension. 5. Acute kidney injury. PLAN: Ventilation/perfusion lung scan, duplex of lower extremities, echocardiogram. Continue Lasix, monitor renal function, supplemental O2 p.r.n., analgesics. Normal transfusion threshold, monitor hemoglobin and hematocrit, daily weight. KANDY NAZARIO M.D. [id number] MTDD
[2018-05-02] MEDS: FUROSEMIDE 40 MG/4 ML INJECTABLE VIAL IVPUSH SCH (13:21)
[2018-05-02] MEDS: CARVEDILOL 3.125 MG TABLET (FP) PO SCH ×2 (13:21→22:10)
--- NOTE | 2018-05-02 13:22 | CONSULT ---
Consultation: REQUESTING PROVIDER: Jazzmine Martinez NP CONSULT REQUEST: We have been asked to medically evaluate this patient for creatinine of 1.3. HISTORY OF PRESENT ILLNESS: This is a 87 year old female with a history of right breast cancer s/p mastectomy and radiation 5yrs ago, who presents with right abscess of the right buttock. We were called to evaluate lab finding of a creatinine of 1.3. Baseline unknown. No history of kidney disease as per patient. She has not seen her primary in "a few years". Ms. Crowder admits to taking Advil 2-3 pills per day for the past 2 weeks due to non specific musculoskeletal pain. She also takes aspirin daily. Of note she endorses some occasional shortness of breath, chest discomfort and bilateral leg swelling for the past two weeks. Do to these symptoms she took old pills she had at home from a previous surgery, she does not know exactly what medication, she thinks it was called hydrochlorothiazide. She took 5-6 of these pills with in the last few days. ER course notable for elevated D dimer; vital stable; PMHx: right breast CA, right femur fracture PSHx: right mastectomy, rods put in right leg due to fracture? NKDA PCP: Dr. Garza REVIEW OF SYSTEMS: CONSTITUTIONAL: Positive: generalized weakness Absent: fever, chills, diaphoresis, malaise, loss of appetite, weight change HEENT: Absent: rhinorrhea, nasal congestion, throat pain, throat swelling, difficulty swallowing, mouth swelling, ear pain, eye pain, visual changes CARDIOVASCULAR: Positive: chest discomfort around lateral chest gutierrez, bilateral lower extremity edema Absent: chest pain, syncope, palpitations, irregular heart rate, lightheadedness , RESPIRATORY: Positive: occasional SOB, dyspnea with exertion, Absent: cough, orthopnea, wheezing, stridor, hemoptysis GASTROINTESTINAL: Positive: abdominal pain Absent: abdominal distension, nausea, vomiting, diarrhea, constipation, melena , hematochezia GENITOURINARY: Absent: dysuria, frequency, urgency, hesitancy, hematuria, flank pain, genital pain MUSCULOSKELETAL: Absent: myalgia, arthralgia, joint swelling, back pain, neck pain SKIN: Absent: rash, itching, pallor HEMATOLOGIC/IMMUNOLOGIC: Absent: easy bleeding, easy bruising, lymphadenopathy, frequent infections ENDOCRINE: Absent: unexplained weight gain, unexplained weight loss, heat intolerance, cold intolerance NEUROLOGIC: Absent: headache, focal weakness or paresthesias, dizziness, unsteady gait, seizure, mental status changes, bladder or bowel incontinence PSYCHIATRIC: Absent: anxiety, depression, suicidal or homicidal ideation, hallucinations. PHYSICAL EXAMINATION Vital Signs - 24 hr 05/01/18 05/01/18 05/01/18 17:35 20:33 22:20 Temperature 98.0 F Pulse Rate 84 Pulse Rate [ 86 85 Apical] Respiratory 24 16 Rate Blood Pressure 165/74 Blood Pressure 172/81 174/75 [Left Arm] O2 Sat by Pulse 99 100 Oximetry (%) 05/01/18 05/02/18 05/02/18 22:30 02:00 03:47 Temperature 98.4 F 97.7 F Pulse Rate 79 72 Pulse Rate [ Apical] Respiratory 20 18 Rate Blood Pressure 189/84 180/81 155/77 Blood Pressure [Left Arm] O2 Sat by Pulse 100 Oximetry (%) 05/02/18 05/02/18 05/02/18 06:13 07:27 07:39 Temperature 98.2 F Pulse Rate 70 72 Pulse Rate [ Apical] Respiratory 20 18 18 Rate Blood Pressure 157/79 159/82 Blood Pressure [Left Arm] O2 Sat by Pulse 98 98 Oximetry (%) GENERAL: Awake, alert, and fully oriented, in no acute distress. LUNGS: scattered rhonchi HEART: Regular rate and rhythm, normal S1 and S2 without murmur, rub or gallop. ABDOMEN: Soft, nontender, not distended, normoactive bowel sounds, no guarding, no rebound, no masses. No hepatomegaly or splenomegaly. MUSCULOSKELETAL: Normal range of motion at all joints. No bony deformities or tenderness. No CVA tenderness. UPPER EXTREMITIES: 2+ pulses, warm, well-perfused. No cyanosis. No clubbing. Cap refill <2 seconds. No peripheral edema. LOWER EXTREMITIES: 2+ pulses, warm, well-perfused. No calf tenderness. bilateral pitting edema 2+ NEUROLOGICAL: Cranial nerves II-XII intact. Normal speech. Normal gait. PSYCHIATRIC: Cooperative. Good eye contact. Appropriate mood and affect. SKIN: right buttock pressure ulcer stage 2-3 Laboratory Results - last 24 hr 05/01/18 05/01/18 05/01/18 18:15 18:15 18:15 WBC 7.7 RBC 2.96 L Hgb 7.8 L Hct 24.3 L MCV 82.3 MCH 26.5 MCHC 32.2 RDW 17.7 H Plt Count 420 MPV 6.7 L Absolute Neuts (auto) 5.6 Neutrophils % 72.8 Lymphocytes % 17.2 Monocytes % 7.8 Eosinophils % 1.3 Basophils % 0.9 Nucleated RBC % 0 PT with INR 12.90 INR 1.14 D-Dimer Puncture Site ABG pH ABG pCO2 at Pt Temp ABG pO2 at Pt Temp ABG HCO3 ABG O2 Sat (Measured) ABG O2 Content ABG Base Excess Cory Test Oxygen Flow Rate Sodium 144 Potassium 4.2 Chloride 109 H Carbon Dioxide 25 Anion Gap 10 BUN 35 H Creatinine 1.3 H Creat Clearance w eGFR 38.93 Random Glucose 89 Hemoglobin A1c % Calcium 8.9 Phosphorus Magnesium 2.4 Ferritin Total Bilirubin 0.3 GGT AST 19 ALT 17 Alkaline Phosphatase 241 H Creatine Kinase 52 Troponin I 0.02 B-Natriuretic Peptide 2907.68 H Total Protein 6.7 Albumin 3.2 L Triglycerides Cholesterol Total LDL Cholesterol HDL Cholesterol 05/02/18 05/02/18 05/02/18 01:24 05:30 05:30 WBC 8.6 RBC 3.12 L Hgb 8.5 L Hct 25.6 L MCV 82.1 MCH 27.1 MCHC 33.1 RDW 18.1 H Plt Count 440 H MPV 7.0 L Absolute Neuts (auto) 6.1 Neutrophils % 71.5 Lymphocytes % 18.9 Monocytes % 7.0 Eosinophils % 2.1 Basophils % 0.5 Nucleated RBC % 0 PT with INR INR D-Dimer Puncture Site ABG pH ABG pCO2 at Pt Temp ABG pO2 at Pt Temp ABG HCO3 ABG O2 Sat (Measured) ABG O2 Content ABG Base Excess Cory Test Oxygen Flow Rate Sodium 141 Potassium 3.9 Chloride 105 Carbon Dioxide 27 Anion Gap 9 BUN 33 H Creatinine 1.3 H Creat Clearance w eGFR 38.93 Random Glucose 100 Hemoglobin A1c % Calcium 9.0 Phosphorus Magnesium Ferritin Total Bilirubin 0.3 GGT AST 24 ALT 17 Alkaline Phosphatase 257 H Creatine Kinase Troponin I 0.02 0.02 B-Natriuretic Peptide Total Protein 7.1 Albumin 3.4 Triglycerides 150 Cholesterol 161 Total LDL Cholesterol 94 HDL Cholesterol 52 05/02/18 05/02/18 05/02/18 05:30 06:25 06:25 WBC RBC Hgb Hct MCV MCH MCHC RDW Plt Count MPV Absolute Neuts (auto) Neutrophils % Lymphocytes % Monocytes % Eosinophils % Basophils % Nucleated RBC % PT with INR INR D-Dimer Puncture Site ABG pH ABG pCO2 at Pt Temp ABG pO2 at Pt Temp ABG HCO3 ABG O2 Sat (Measured) ABG O2 Content ABG Base Excess Cory Test Oxygen Flow Rate Sodium Potassium Chloride Carbon Dioxide Anion Gap BUN Creatinine Creat Clearance w eGFR Random Glucose Hemoglobin A1c % 6.1 H Calcium Phosphorus Magnesium Ferritin 53.4 Total Bilirubin GGT 323 H AST ALT Alkaline Phosphatase Creatine Kinase Troponin I Cancelled B-Natriuretic Peptide Total Protein Albumin Triglycerides Cholesterol Total LDL Cholesterol HDL Cholesterol 05/02/18 05/02/18 05/02/18 07:43 07:43 10:20 WBC RBC Hgb Hct MCV MCH MCHC RDW Plt Count MPV Absolute Neuts (auto) Neutrophils % Lymphocytes % Monocytes % Eosinophils % Basophils % Nucleated RBC % PT with INR INR D-Dimer 2227 H Puncture Site Left radial ABG pH 7.47 H ABG pCO2 at Pt Temp 34.4 L ABG pO2 at Pt Temp 85.5 ABG HCO3 24.8 ABG O2 Sat (Measured) 97.5 ABG O2 Content 10.6 L ABG Base Excess 1.7 Cory Test Positive Oxygen Flow Rate Yes Sodium Potassium Chloride Carbon Dioxide Anion Gap BUN Creatinine Creat Clearance w eGFR Random Glucose Hemoglobin A1c % Calcium Phosphorus 3.7 Magnesium Ferritin Total Bilirubin GGT AST ALT Alkaline Phosphatase Creatine Kinase Troponin I B-Natriuretic Peptide Total Protein Albumin Triglycerides Cholesterol Total LDL Cholesterol HDL Cholesterol Active Medications Generic Name Dose Route Start Last Admin Trade Name Freq PRN Reason Stop Dose Admin Acetaminophen 650 mg 05/01/18 22:50 05/02/18 10:12 Tylenol - PO 650 mg Q4H PRN Administration PAIN LEVEL 1-5 Carvedilol 3.125 mg 05/02/18 12:00 Coreg - PO BID ELINA Docusate Sodium 100 mg 05/01/18 23:12 Colace - PO BID PRN CONSTIPATION Furosemide 40 mg 05/02/18 12:00 Lasix Injection - IVPUSH DAILY ELINA Heparin Sodium (Porcine) 5,000 unit 05/02/18 06:00 05/02/18 06:10 Heparin - SQ 5,000 unit TID ELINA Administration Lisinopril 5 mg 05/02/18 10:00 05/02/18 09:28 Prinivil PO 5 mg DAILY ELINA Administration Senna 2 tab 05/02/18 22:00 Senna - PO HS ELINA ASSESSMENT/PLAN: This is a 87 year old female with a history of right breast Ca s/p mastectomy, who presents with generalized pain, shortness of breath, leg swelling, and elevated creatinine. Had not seen a doctor in many years. NO baseline labs. NATHAN vs CKD?. Need to evaluate to CHF. R/O PE. #NATHAN vs CKD: -urine studies, urine electrolytes, urine creatinine, urine urea -renal/ bladder ultrasound -primary office does not have any labs on patient for baseline -avoid nephrotoxic agents; #sob/edema; eval for CHF; PE -doppler -echo -v/q scan due to risk on RODNEY with contract for CTA -cont lasix #Anemia: work up Dispo: We will continue to follow the patient. Thank you for this consultative opportunity. Visit type - Emergency Visit Emergency Visit: No - New Patient This patient is new to me today: Yes Date on this admission: 05/02/18 - Critical Care Critical Care patient: No
--- NOTE | 2018-05-02 13:37 | PN ---
Teaching Attending Note Name of Resident: Donna Felix (Nephrology) ATTENDING PHYSICIAN STATEMENT I saw and evaluated the patient. I reviewed the resident's note and discussed the case with the resident. I agree with the resident's findings and plan as documented. Nephrology Pt is an 87 year old female with pmhx of right breast cancer who presents to the ER with lower extremity edema and mild progressive shortness of breath. I was called to evaluate her for elevated creatinine. She says that she has been taking daily nsaids (advil) daily for the last 2 weeks. She feels that her legs are starting to swell up. pmhx breast cancer pshx mastectomy nkda ros see hpi familh hx non contrib Current Medications Generic Name Dose Route Start Last Admin Trade Name Freq PRN Reason Stop Dose Admin Acetaminophen 650 mg 05/01/18 22:50 05/02/18 10:12 Tylenol - PO 650 mg Q4H PRN Administration PAIN LEVEL 1-5 Carvedilol 3.125 mg 05/02/18 12:00 05/02/18 13:21 Coreg - PO 3.125 mg BID ELINA Administration Docusate Sodium 100 mg 05/01/18 23:12 Colace - PO BID PRN CONSTIPATION Furosemide 40 mg 05/02/18 12:00 05/02/18 13:21 Lasix Injection - IVPUSH 40 mg DAILY ELINA Administration Heparin Sodium (Porcine) 5,000 unit 05/02/18 06:00 05/02/18 13:21 Heparin - SQ 5,000 unit TID ELINA Administration Lisinopril 5 mg 05/02/18 10:00 05/02/18 09:28 Prinivil PO 5 mg DAILY ELINA Administration Senna 2 tab 05/02/18 22:00 Senna - PO HS ELINA Laboratory Tests 05/01/18 05/01/18 05/02/18 18:15 18:15 05:30 Hgb 7.8 L 8.5 L ABG pH ABG pCO2 at Pt Temp ABG pO2 at Pt Temp Sodium Potassium Creatinine 1.3 H Iron TIBC Iron Saturation 05/02/18 05/02/18 05/02/18 05:30 05:30 10:20 Hgb ABG pH 7.47 H ABG pCO2 at Pt Temp 34.4 L ABG pO2 at Pt Temp 85.5 Sodium 141 Potassium 3.9 Creatinine 1.3 H Iron Pending TIBC Pending Iron Saturation Pending cardio s1s2 pulm scattered rhonchi GI soft ext edema neuro awake and alert skin neg rash circ pos pulses Impression 1. CKD vs NATHAN with unclear baseline 2. CHF 3. HTN 4. hx breast cancer 5. dyspnea 6. anemia 7. 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
[2018-05-02] MEDS ORDERED: ENOXAPARIN NA (PORCINE) 100 MG/1 ML DISP.SYRIN SQ ONE (16:30)
[2018-05-02 16:41] LABS: URINE APPEARANCE CLEAR; URINE BILIRUBIN NEGATIVE (<2.0 mg/dL); URINE COLOR STRAW; URINE GLUCOSE (UA) NEGATIVE (NEGATIVE); URINE KETONE NEGATIVE (NEGATIVE); URINE LEUK ESTERASE NEGATIVE (NEGATIVE); URINE NITRITE NEGATIVE (NEGATIVE); URINE PROTEIN NEGATIVE (NEGATIVE); URINE UROBILINOGEN NEGATIVE mg/dL (0.2-1.0)
--- NOTE | 2018-05-02 18:17 | CONSULT ---
Consult Consult Specialty:: Hematology/Oncology - History of Present Illness History of Present Illness: 87F w/ hx of R breast cancer s/p surgery and radiation presenting with upper abdominal pain and a painful right buttock "abscess." Per pt, her upper abdominal discomfort began a few months ago, is intermittent, dull in quality, sometimes radiates to her back, and is affected by change in position but not type of food. Her right buttock "abscess" began about 4-6 weeks ago and has remained stable since then. Pt endorses using warm compresses, "aloveri," and tylenol for it without significant relief. It is worsened by sitting or lying directly on it. Pt also endorses occasional pleuritic chest pain and occasional SOB. She denies fevers, chills, headache, palpitations, cough, PND, orthopnea, LE swelling, nausea, emesis, diarrhea, hematochezia, melena, change in stool caliber, dysuria, and urinary frequency. She endorses some constipation. She has not seen her PCP in several years, and has not seen her oncologist in about 12 years. She has never had a colonoscopy. At baseline, she ambulates with a cane and can walk about a half block and 2 flights of stairs, limited by leg weakness. - History Source History Provided By: Patient, Medical Record - Alcohol/Substance Use Hx Alcohol Use: No - Smoking History Smoking history: Former smoker Have you smoked in the past 12 months: No If you are a former smoker, when did you quit?: 1997 Home Medications - Allergies Allergies/Adverse Reactions: Allergies Allergy/AdvReac Type Severity Reaction Status Date / Time No Known Allergies Allergy Verified 05/01/18 17:35 - Home Medications Home Medications: Ambulatory Orders Aspirin 324 mg PO PRN 05/01/18 Physical Exam Vital Signs: Vital Signs Temperature 98.2 F 05/02/18 14:00 Pulse Rate 89 05/02/18 14:00 Respiratory Rate 18 05/02/18 07:39 Blood Pressure 137/67 05/02/18 14:00 O2 Sat by Pulse Oximetry (%) 98 05/02/18 07:39 Constitutional: Yes: Well Nourished, No Distress, Calm Eyes: Yes: Conjunctiva Clear HENT: Yes: Atraumatic, Normocephalic Neck: Yes: Supple, Trachea Midline Cardiovascular: Yes: Regular Rate and Rhythm Respiratory: Yes: Regular Gastrointestinal: Yes: Normal Bowel Sounds, Soft Edema: Yes Edema: LLE: 1+, RLE: 1+ Labs: CBC, BMP 05/02/18 05:30 05/02/18 05:30 Assessment/Plan concern for a metastatic malignancy MM labs tumor markers CT chest ?pain would be helped with RT pt to discuss with family on further proceedings DVT ppx, not treatment doses. await V/Q scan, non-specific D-dimer further recs through the course d/w pt
[2018-05-02] MEDS: SENNOSIDES 8.6MG TABLET (FP) PO SCH (22:10)
[2018-05-02] MEDS: oxyCODONE HCL 5 MG TABLET PO PRN (22:10)
--- NOTE | 2018-05-02 22:26 | PN ---
Progress Note (short form) - Note Progress Note: VAscular surgery Pt seen and examined. Coccyx ulcer - stage 3. Size is 1x1cm. clean , pink, good granulation. Cont to offload. Start santyl and optifoam dressing. Murali mena DO
[2018-05-03 06:23] LABS: BASO % 0.6 % (0-2.0); EOS % 1.9 % (0-4.5); HEMATOCRIT 24.3 % (32.4-45.2); HEMOGLOBIN 7.9 GM/dL (10.7-15.3); LYMPH % 17.4 % (8-40); MCH 26.6 pg (25.7-33.7); MCHC 32.6 g/dl (32.0-36.0); MEAN CELL VOLUME 81.9 fl (80-96); MONO % 8.1 % (3.8-10.2); PLATELET COUNT 358 K/MM3 (134-434); RBC 2.97 M/mm3 (3.60-5.2); RDW 17.1 % (11.6-15.6); WHITE BLOOD COUNT 6.1 K/mm3 (4.0-10.0)
[2018-05-03 06:55] LABS: CHLORIDE 103 mmol/L (98-107); POTASSIUM 4.2 mmol/L (3.5-5.1); SODIUM 139 mmol/L (136-145)
[2018-05-03 07:05] LABS: ALBUMIN 3.1 g/dl (3.4-5.0); ALK PHOS 227 U/L (45-117); ANION GAP 7 (8-16); BILIRUBIN,TOTAL 0.3 mg/dL (0.2-1.0); BLOOD UREA NITROGEN 41 mg/dL (7-18); CALCIUM 8.9 mg/dL (8.5-10.1); CO2 29 mmol/L (21-32); CREATININE 1.3 mg/dL (0.55-1.02); GLUCOSE,RANDOM 103 mg/dL (74-106); SGOT/AST 19 U/L (15-37); SGPT/ALT 16 U/L (12-78); TOT PROT 6.4 g/dl (6.4-8.2)
[2018-05-03 08:07] LABS: SERUM IRON SATURATION 9 % (15-55); TOTAL IRON BINDING CAPACITY 336 ug/dL (250-450); UIBC 306 ug/dL (118-369)
[2018-05-03] MEDS: CARVEDILOL 3.125 MG TABLET (FP) PO SCH ×2 (09:23→21:39)
[2018-05-03] MEDS: FUROSEMIDE 40 MG/4 ML INJECTABLE VIAL IVPUSH SCH (09:23)
[2018-05-03] MEDS: LISINOPRIL 5 MG TABLET (FP) PO SCH (09:23)
[2018-05-03] MEDS: COLLAGENASE CLOSTRIDIUM HIST. 30 GRAMS TUBE TP SCH (09:25)
--- NOTE | 2018-05-03 10:34 | PN ---
Physical Exam: SUBJECTIVE: Patient seen and examined. NO new complaints. Legs feel less heavy. Denies shortness of breath, chest pain. OBJECTIVE: Vital Signs Period Temp Pulse Resp BP Sys/Beltre Pulse Ox Last 24 Hr 98.2 F-98.6 F 65-89 18-18 121-137/57-74 97-100 GENERAL: The patient is awake, alert, and fully oriented, in no acute distress. LUNGS: scattered rhonchi HEART: Regular rate and rhythm, S1, S2 without murmur, rub or gallop. ABDOMEN: Soft, nontender, nondistended, normoactive bowel sounds, no guarding, no rebound, no hepatosplenomegaly, no masses. EXTREMITIES: 2+ pulses, warm, well-perfused, 2+ bilateral edema NEUROLOGICAL: Cranial nerves II through XII grossly intact. Normal speech, gait not observed. PSYCH: Normal mood, normal affect. SKIN: stage 3 right buttock decub ulcer; clean intact; no erythema or drainage Laboratory Results - last 24 hr 05/02/18 05/02/18 05/02/18 05:30 06:25 15:55 WBC RBC Hgb Hct MCV MCH MCHC RDW Plt Count MPV Absolute Neuts (auto) Neutrophils % Lymphocytes % Monocytes % Eosinophils % Basophils % Nucleated RBC % Sodium Potassium Chloride Carbon Dioxide Anion Gap BUN Creatinine Creat Clearance w eGFR Random Glucose Hemoglobin A1c % 6.1 H Calcium Iron 30 TIBC 336 Iron Saturation 9 L Total Bilirubin AST ALT Alkaline Phosphatase Total Protein Albumin Urine Color Urine Appearance Urine pH Ur Specific [place] Urine Protein Urine Glucose (UA) Urine Ketones Urine Blood Urine Nitrite Urine Bilirubin Urine Urobilinogen Ur Leukocyte Esterase Ur Random Sodium 116 Ur Random Potassium 28.0 Ur Random Chloride 136 Ur Random Urea Nitrogn Urine Creatinine 05/02/18 05/02/18 05/02/18 15:55 15:55 17:55 WBC RBC Hgb Hct MCV MCH MCHC RDW Plt Count MPV Absolute Neuts (auto) Neutrophils % Lymphocytes % Monocytes % Eosinophils % Basophils % Nucleated RBC % Sodium Potassium Chloride Carbon Dioxide Anion Gap BUN Creatinine Creat Clearance w eGFR Random Glucose Hemoglobin A1c % Calcium Iron TIBC Iron Saturation Total Bilirubin AST ALT Alkaline Phosphatase Total Protein Albumin Urine Color Straw Urine Appearance Clear Urine pH 5.0 Ur Specific [place] 1.011 Urine Protein Negative Urine Glucose (UA) Negative Urine Ketones Negative Urine Blood Negative Urine Nitrite Negative Urine Bilirubin Negative Urine Urobilinogen Negative Ur Leukocyte Esterase Negative Ur Random Sodium Ur Random Potassium Ur Random Chloride Ur Random Urea Nitrogn 387 Urine Creatinine 46.5 05/03/18 05/03/18 05:30 05:30 WBC 6.1 RBC 2.97 L Hgb 7.9 L Hct 24.3 L MCV 81.9 MCH 26.6 MCHC 32.6 RDW 17.1 H Plt Count 358 MPV 7.0 L Absolute Neuts (auto) 4.4 Neutrophils % 72.0 Lymphocytes % 17.4 Monocytes % 8.1 Eosinophils % 1.9 Basophils % 0.6 Nucleated RBC % 0 Sodium 139 Potassium 4.2 Chloride 103 Carbon Dioxide 29 Anion Gap 7 L BUN 41 H Creatinine 1.3 H Creat Clearance w eGFR 38.93 Random Glucose 103 Hemoglobin A1c % Calcium 8.9 Iron TIBC Iron Saturation Total Bilirubin 0.3 AST 19 ALT 16 Alkaline Phosphatase 227 H Total Protein 6.4 Albumin 3.1 L Urine Color Urine Appearance Urine pH Ur Specific [place] Urine Protein Urine Glucose (UA) Urine Ketones Urine Blood Urine Nitrite Urine Bilirubin Urine Urobilinogen Ur Leukocyte Esterase Ur Random Sodium Ur Random Potassium Ur Random Chloride Ur Random Urea Nitrogn Urine Creatinine Active Medications Generic Name Dose Route Start Last Admin Trade Name Freq PRN Reason Stop Dose Admin Acetaminophen 650 mg 05/01/18 22:50 05/02/18 22:10 Tylenol - PO 650 mg Q4H PRN Administration PAIN LEVEL 1-5 Carvedilol 3.125 mg 05/02/18 12:00 05/03/18 09:23 Coreg - PO 3.125 mg BID ELINA Administration Collagenase 1 applic 05/03/18 10:00 05/03/18 09:25 Santyl - TP 1 applic DAILY ELINA Administration Docusate Sodium 100 mg 05/01/18 23:12 Colace - PO BID PRN CONSTIPATION Furosemide 40 mg 05/02/18 12:00 05/03/18 09:23 Lasix Injection - IVPUSH 40 mg DAILY ELINA Administration Lisinopril 5 mg 05/02/18 10:00 05/03/18 09:23 Prinivil PO 5 mg DAILY ELINA Administration Oxycodone HCl 5 mg 05/02/18 18:46 05/02/18 22:10 Roxicodone - PO 5 mg Q4H PRN Administration PAIN LEVEL 6-10 Senna 2 tab 05/02/18 22:00 05/02/18 22:10 Senna - PO 2 tab HS ELINA Administration ASSESSMENT/PLAN: This is a 87 year old female with a history of right breast Ca s/p mastectomy, who presents with generalized pain, shortness of breath, leg swelling, and elevated creatinine. Had not seen a doctor in many years. NO baseline labs. NATHAN vs CKD?. Need to evaluate to CHF. R/O PE. #CKD: baseline unknown -currently stable creatinine still remains at 1.3; trend bmp -electrolytes wnl -renal imaging showing small non morphologic kidneys bilaterally -FeNa: 0.0: most likely from the CHF; continue dieresis -avoid nephrotoxic agents; #sob/edema;most likely secondary to CHF; r/o PE -ECHO evident for left ventricular diastolic dysfunction with normal ejection fraction; mod to severe mr, severe tr mild pht -v/q scan due to risk on RODNEY with contract for CTA -cont lasix -cardio on board #Anemia: work up in progress #breast CA with yasmin: -CT abdomen showing extensive lytic disease with multiple vertebral compressions with dilated bile ducts; need further eval -heme/onc recs #stage 3 decub ulcer -santly -vascular recs DVt ppl Visit type - Emergency Visit Emergency Visit: No - New Patient This patient is new to me today: No - Critical Care Critical Care patient: No
--- NOTE | 2018-05-03 12:08 | PN ---
Physical Exam: SUBJECTIVE: Patient seen and examined. OBJECTIVE: Vital Signs Period Temp Pulse Resp BP Sys/Beltre Pulse Ox Last 24 Hr 98.2 F-98.6 F 65-89 18-18 121-137/57-74 97-100 GENERAL: The patient is awake, alert, oriented, in mild distress secondary to pain under left breast LUNGS: CTA HEART: Regular rate and rhythm, S1, S2 ABDOMEN: Soft, nontender, nondistended EXTREMITIES: 2+ pulses, warm, well-perfused, 1+ edema bilaterally NEUROLOGICAL: Cranial nerves II through XII grossly intact. Laboratory Results - last 24 hr 05/02/18 05/02/18 05/02/18 05:30 15:55 15:55 WBC RBC Hgb Hct MCV MCH MCHC RDW Plt Count MPV Absolute Neuts (auto) Neutrophils % Lymphocytes % Monocytes % Eosinophils % Basophils % Nucleated RBC % Sodium Potassium Chloride Carbon Dioxide Anion Gap BUN Creatinine Creat Clearance w eGFR Random Glucose Calcium Iron 30 TIBC 336 Iron Saturation 9 L Total Bilirubin AST ALT Alkaline Phosphatase Total Protein Albumin Urine Color Straw Urine Appearance Clear Urine pH 5.0 Ur Specific [place] 1.011 Urine Protein Negative Urine Glucose (UA) Negative Urine Ketones Negative Urine Blood Negative Urine Nitrite Negative Urine Bilirubin Negative Urine Urobilinogen Negative Ur Leukocyte Esterase Negative Ur Random Sodium 116 Ur Random Potassium 28.0 Ur Random Chloride 136 Ur Random Urea Nitrogn Urine Creatinine 05/02/18 05/02/18 05/03/18 15:55 17:55 05:30 WBC 6.1 RBC 2.97 L Hgb 7.9 L Hct 24.3 L MCV 81.9 MCH 26.6 MCHC 32.6 RDW 17.1 H Plt Count 358 MPV 7.0 L Absolute Neuts (auto) 4.4 Neutrophils % 72.0 Lymphocytes % 17.4 Monocytes % 8.1 Eosinophils % 1.9 Basophils % 0.6 Nucleated RBC % 0 Sodium Potassium Chloride Carbon Dioxide Anion Gap BUN Creatinine Creat Clearance w eGFR Random Glucose Calcium Iron TIBC Iron Saturation Total Bilirubin AST ALT Alkaline Phosphatase Total Protein Albumin Urine Color Urine Appearance Urine pH Ur Specific [place] Urine Protein Urine Glucose (UA) Urine Ketones Urine Blood Urine Nitrite Urine Bilirubin Urine Urobilinogen Ur Leukocyte Esterase Ur Random Sodium Ur Random Potassium Ur Random Chloride Ur Random Urea Nitrogn 387 Urine Creatinine 46.5 05/03/18 05:30 WBC RBC Hgb Hct MCV MCH MCHC RDW Plt Count MPV Absolute Neuts (auto) Neutrophils % Lymphocytes % Monocytes % Eosinophils % Basophils % Nucleated RBC % Sodium 139 Potassium 4.2 Chloride 103 Carbon Dioxide 29 Anion Gap 7 L BUN 41 H Creatinine 1.3 H Creat Clearance w eGFR 38.93 Random Glucose 103 Calcium 8.9 Iron TIBC Iron Saturation Total Bilirubin 0.3 AST 19 ALT 16 Alkaline Phosphatase 227 H Total Protein 6.4 Albumin 3.1 L Urine Color Urine Appearance Urine pH Ur Specific [place] Urine Protein Urine Glucose (UA) Urine Ketones Urine Blood Urine Nitrite Urine Bilirubin Urine Urobilinogen Ur Leukocyte Esterase Ur Random Sodium Ur Random Potassium Ur Random Chloride Ur Random Urea Nitrogn Urine Creatinine Active Medications Generic Name Dose Route Start Last Admin Trade Name Freq PRN Reason Stop Dose Admin Acetaminophen 650 mg 05/01/18 22:50 05/02/18 22:10 Tylenol - PO 650 mg Q4H PRN Administration PAIN LEVEL 1-5 Carvedilol 3.125 mg 05/02/18 12:00 05/03/18 09:23 Coreg - PO 3.125 mg BID ELINA Administration Collagenase 1 applic 05/03/18 10:00 05/03/18 09:25 Santyl - TP 1 applic DAILY ELINA Administration Docusate Sodium 100 mg 05/01/18 23:12 Colace - PO BID PRN CONSTIPATION Furosemide 40 mg 05/02/18 12:00 05/03/18 09:23 Lasix Injection - IVPUSH 40 mg DAILY ELINA Administration Lisinopril 5 mg 05/02/18 10:00 05/03/18 09:23 Prinivil PO 5 mg DAILY ELINA Administration Oxycodone HCl 5 mg 05/02/18 18:46 05/02/18 22:10 Roxicodone - PO 5 mg Q4H PRN Administration PAIN LEVEL 6-10 Senna 2 tab 05/02/18 22:00 05/02/18 22:10 Senna - PO 2 tab HS ELINA Administration Imaging 05/01 CXR: no acute process 05/02 CTAP: (1) extensive lytic metastatic disease, areas of cortical destruction ; (2) multi vertebral compression deformities; (3) intrahepatic ducts moderately dilated extending to pancreatic head ASSESSMENT/PLAN 87 year-old female with PMH significant for right breast cancer s/p lumpectomy/ radiation x 40 years, diastolic heart failure, and severe valvular disease. Breast cancer --multiple pathologic compression fractures spine and multiple rib fractures and right humeral fracture --CEA elevated, PTH elevated, CA19-9 pending --protein studies pending --Dr. Padilla following Diastolic heart failure Severe valvular disease --05/02 Echo: moderate cLVH, LV normal; RV normal; BLAE; moderate to severe MR ; severe TR; pHTN; mild AI; mild PI --Lasix IV 40mg daily Shortness of breath Elevated d-dimer --r/o PE, VQ scan Monday --05/02 US BLE: negative for DVT --per heme/onc, hold off on giving full-dose lovenox until V/Q scan results CKD --Cr steady 1.3-1.4 --US renal unremarkable --US bladder: no acute process; post-void residual 290cc's --renal following Pressure ulcers --daily collagenase FEN Fluids: PO intake adequate Electrolytes: replete as indicated Nutrition: regular diet DVT prophylaxis: subq heparin Dispo: continues to require inpatient care. Full code. Visit type - Emergency Visit Emergency Visit: Yes ED Registration Date: 05/01/18 Care time: The patient presented to the Emergency Department on the above date and was hospitalized for further evaluation of their emergent condition. - New Patient This patient is new to me today: Yes Date on this admission: 05/05/18 - Critical Care Critical Care patient: No
--- NOTE | 2018-05-03 12:23 | PN ---
Progress Note, Physician Chief Complaint: Pt sitting up in chair; c/o left axillary sharp pains, relieved by pressing on the area. History of Present Illness: Patient is an 87 year old white woman with history of right breast cancer s/p surgery and radiotherapy here with upper abdominal pain 2 days. States sensation present whether at rest or on exertion. No shortness of breath, diaphoresis, nausea, vomiting or palpitations. No history of similar symptoms in the past. While in the ED, patient noted to have bilateral lower extremity edema, which patient states she did not notice until she was made aware when she got here. No leg pain, cough, f/c. Also c/o painful sore to R buttocks "for some time". 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 she has not seen a doctor in many years - Current Medication List Current Medications: Active Medications Acetaminophen (Tylenol -) 650 mg PO Q4H PRN PRN Reason: PAIN LEVEL 1-5 Last Admin: 05/02/18 22:10 Dose: 650 mg Carvedilol (Coreg -) 3.125 mg PO BID [facility] Last Admin: 05/03/18 09:23 Dose: 3.125 mg Collagenase (Santyl -) 1 applic TP DAILY [facility] [place] Last Admin: 05/03/18 09:25 Dose: 1 applic Docusate Sodium (Colace -) 100 mg PO BID PRN PRN Reason: CONSTIPATION Furosemide (Lasix Injection -) 40 mg IVPUSH DAILY [facility] [place] Last Admin: 05/03/18 09:23 Dose: 40 mg Lisinopril (Prinivil) 5 mg PO DAILY [facility] [place] Last Admin: 05/03/18 09:23 Dose: 5 mg Oxycodone HCl (Roxicodone -) 5 mg PO Q4H PRN PRN Reason: PAIN LEVEL 6-10 Last Admin: 05/02/18 22:10 Dose: 5 mg Senna (Senna -) 2 tab PO HS [facility] [place] Last Admin: 05/02/18 22:10 Dose: 2 tab - Objective Vital Signs: Vital Signs Temperature 98.3 F 05/03/18 08:13 Pulse Rate 80 05/03/18 08:13 Respiratory Rate 18 05/03/18 08:13 Blood Pressure 132/63 05/03/18 08:13 O2 Sat by Pulse Oximetry (%) 97 06/21/18 08:09 Constitutional: Yes: Calm, Thin Eyes: Yes: WNL HENT: Yes: WNL Neck: Yes: Supple Cardiovascular: Yes: Murmur, S1, S2 Respiratory: Yes: Regular Gastrointestinal: Yes: Soft ...Rectal Exam: Yes: Deferred Genitourinary: No: Anuria Breast(s): Yes: WNL Musculoskeletal: Yes: Back Pain Extremities: Yes: Cool Edema: No Peripheral Pulses WNL: Yes Integumentary: Yes: WNL Neurological: Yes: Alert, Oriented, Weakness Psychiatric: Yes: Alert, Oriented Labs: CBC, BMP 05/03/18 05:30 05/03/18 05:30 INR, PTT INR 1.14 (0.82-1.09) 05/01/18 18:15 Abnormal Lab Results 05/02/18 05/04/18 05/04/18 07:43 05:30 05:30 RBC Hgb Hct RDW MPV Retic Count 1.78 H BUN 45 H Creatinine 1.4 H Alkaline Phosphatase 214 H Total Protein 6.0 L Albumin 2.8 L PTH Intact 104 H Crossmatch 05/04/18 05/04/18 05:30 09:30 RBC 2.84 L Hgb 7.7 L Hct 23.1 L RDW 17.9 H MPV 7.3 L Retic Count BUN Creatinine Alkaline Phosphatase Total Protein Albumin PTH Intact Crossmatch See Detail - ....Imaging Other: Image Reviewed Problem List - Problems (1) Breast CA Assessment/Plan: breast CA with metastases. Chronic "pain in the ribs", usually right-sided. CT chest: extensive bone metastases., especially vertebral. 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 Not in acute distress (respiratory-verdin). On ACEI. Consider stopping furosemide, as BUN/Cr are rising. F/u BUN/Cr, electrolyes, Is and Os, and daily weight/ Code(s): I50.30 - UNSPECIFIED DIASTOLIC (CONGESTIVE) HEART FAILURE
--- NOTE | 2018-05-03 13:00 | PN ---
Progress Note (short form) - Note Progress Note: PULMONARY Denies shortness of breath, still with left sided chest pain. CT chest done not read, but appears to have large hiatal hernia. No infiltrates/masses in lung robert. Vital Signs Period Temp Pulse Resp BP Sys/Beltre Pulse Ox Last 24 Hr 98.2 F-98.6 F 65-89 18-18 121-137/57-74 97-100 Gen: NAD in chair Heart: RRR Lung: decreased breath sounds at the bases Abd: soft, nontender Ext: no edema CBC, BMP 05/03/18 05:30 05/03/18 05:30 Active Medications Acetaminophen (Tylenol -) 650 mg PO Q4H PRN PRN Reason: PAIN LEVEL 1-5 Last Admin: 05/02/18 22:10 Dose: 650 mg Carvedilol (Coreg -) 3.125 mg PO BID [facility] Last Admin: 05/03/18 09:23 Dose: 3.125 mg Collagenase (Santyl -) 1 applic TP DAILY [facility] Last Admin: 05/03/18 09:25 Dose: 1 applic Docusate Sodium (Colace -) 100 mg PO BID PRN PRN Reason: CONSTIPATION Furosemide (Lasix Injection -) 40 mg IVPUSH DAILY [facility] Last Admin: 05/03/18 09:23 Dose: 40 mg Lisinopril (Prinivil) 5 mg PO DAILY [facility] Last Admin: 05/03/18 09:23 Dose: 5 mg Oxycodone HCl (Roxicodone -) 5 mg PO Q4H PRN PRN Reason: PAIN LEVEL 6-10 Last Admin: 05/02/18 22:10 Dose: 5 mg Senna (Senna -) 2 tab PO HS [facility] Last Admin: 05/02/18 22:10 Dose: 2 tab A/P Chest Pain Hiatal Hernia Acute Kidney Injury Anemia h/o Breast Ca - pain control - f/u official CT read - monitor urine output, creatinine - do not suspect pulmonary etiology of her chest pain - DVT prophylaxis
[2018-05-03] MEDS: ACETAMINOPHEN 325 MG TABLET (FP) PO PRN (13:46)
[2018-05-03] MEDS: oxyCODONE HCL 5 MG TABLET PO PRN (13:47)
--- NOTE | 2018-05-03 14:34 | PN ---
Teaching Attending Note Name of Resident: Donna Felix (Nephrology) ATTENDING PHYSICIAN STATEMENT I saw and evaluated the patient. I reviewed the resident's note and discussed the case with the resident. I agree with the resident's findings and plan as documented. Renal Pt seen and examined at bedside. She is out of bed to chair. She denies shortness of breath. She is awake and alert. She feels that her lower ext edema is improving. Current Medications Generic Name Dose Route Start Last Admin Trade Name Freq PRN Reason Stop Dose Admin Acetaminophen 650 mg 05/01/18 22:50 05/03/18 13:46 Tylenol - PO 650 mg Q4H PRN Administration PAIN LEVEL 1-5 Carvedilol 3.125 mg 05/02/18 12:00 05/03/18 09:23 Coreg - PO 3.125 mg BID ELINA Administration Collagenase 1 applic 05/03/18 10:00 05/03/18 09:25 Santyl - TP 1 applic DAILY ELINA Administration Docusate Sodium 100 mg 05/01/18 23:12 Colace - PO BID PRN CONSTIPATION Furosemide 40 mg 05/02/18 12:00 05/03/18 09:23 Lasix Injection - IVPUSH 40 mg DAILY ELINA Administration Heparin Sodium (Porcine) 5,000 unit 05/03/18 22:00 Heparin - SQ BID ELINA Lisinopril 5 mg 05/02/18 10:00 05/03/18 09:23 Prinivil PO 5 mg DAILY ELINA Administration Oxycodone HCl 5 mg 05/02/18 18:46 05/03/18 13:47 Roxicodone - PO 5 mg Q4H PRN Administration PAIN LEVEL 6-10 Senna 2 tab 05/02/18 22:00 05/02/18 22:10 Senna - PO 2 tab HS ELINA Administration Laboratory Tests 05/02/18 05/03/18 15:55 05:30 Creatinine 1.3 H Urine Protein Negative Urine Blood Negative cardio s1s2 reg pulm clear GI soft ext plus 1 edema, improved neuro awake and alert Impression 1. likely CKD 2. CHF 3. HTN 4. hx breast cancer 5. dyspnea 6. anemia 7. elevated d-dimer Plan - cont to monitor renal function - UA is negative for blood or protein - cont with lasix, can likely transition to PO in next day or so - renal ultrasound reviewed - oncology follow up - pulm input appreciated - anemia workup - will follow
--- NOTE | 2018-05-03 15:40 | PN ---
Progress Note (short form) - Note Progress Note: pt seen and examined. feels a bit better than yesterday. No bowel or bladder incontinence. Constitutional: Yes: Well Nourished, No Distress, Calm Eyes: Yes: Conjunctiva Clear HENT: Yes: Atraumatic, Normocephalic Neck: Yes: Supple, Trachea Midline Cardiovascular: Yes: Regular Rate and Rhythm Respiratory: Yes: Regular Gastrointestinal: Yes: Normal Bowel Sounds, Soft Edema: Yes Edema: LLE: 1+, RLE: 1+ Temp Pulse Resp BP Pulse Ox 98.0 F 73 18 118/57 97 05/03/18 14:00 05/03/18 14:00 05/03/18 08:13 05/03/18 14:00 05/03/18 08:09 CBC, BMP 05/03/18 05:30 05/03/18 05:30 Current Medications Generic Name Dose Route Start Last Admin Trade Name Freq PRN Reason Stop Dose Admin Acetaminophen 650 mg 05/01/18 22:50 05/03/18 13:46 Tylenol - PO 650 mg Q4H PRN Administration PAIN LEVEL 1-5 Carvedilol 3.125 mg 05/02/18 12:00 05/03/18 09:23 Coreg - PO 3.125 mg BID ELINA Administration Collagenase 1 applic 05/03/18 10:00 05/03/18 09:25 Santyl - TP 1 applic DAILY ELINA Administration Docusate Sodium 100 mg 05/01/18 23:12 Colace - PO BID PRN CONSTIPATION Furosemide 40 mg 05/02/18 12:00 05/03/18 09:23 Lasix Injection - IVPUSH 40 mg DAILY ELINA Administration Heparin Sodium (Porcine) 5,000 unit 05/03/18 22:00 Heparin - SQ BID ELINA Lisinopril 5 mg 05/02/18 10:00 05/03/18 09:23 Prinivil PO 5 mg DAILY ELINA Administration Oxycodone HCl 5 mg 05/02/18 18:46 05/03/18 13:47 Roxicodone - PO 5 mg Q4H PRN Administration PAIN LEVEL 6-10 Senna 2 tab 05/02/18 22:00 05/02/18 22:10 Senna - PO 2 tab HS ELINA Administration Extensive Bony met disease (pt with personal Hx of Breast Ca) Biliary dilatation--pancreatic mass Multiple vertebral compression fractures Anemia ?NATHAN/CKD sacral ulcer Send anemia screening labs, including ANABELL ,to send FOBT. transfusion if further goes down tumor markers pending CT chest read pending No biopsy ordered yet as of today, because pt says shes is discussing with family and physician acquaintances before proceeding further. Explained to her the current imaging findings. DVT ppx
--- NOTE | 2018-05-03 16:08 | CON.GI ---
Consult Consult Specialty:: Gastroenterology Referred by:: Dr. Cox Reason for Consultation:: Pancreatic lesion - History of Present Illness History of Present Illness: Patient is an 87 year old female with a new diagnosis of Diastolic CHF on this admission, breast cancer s/p lumpectomy/radiation who presented with RUQ, RLQ, and LLQ abdominal pain for the past two weeks. Patient reports the pain is sharp in nature, non-radiating and intermittent occurring sporadically with sudden movements lasting for about 10 minutes. When the pain happens she rates it an 8/10 associated with nausea. Lifting her leg has some mild relief of pain. Patient reports unintentional weight loss of 40 pounds in less than a months with a significant decrease in her appetite. Patient also reports worsening constipation, having bowel movements every 3-4 days. Patient has not followed up with a PCP in over 10 years. Patient admits to taking aleve and advil 2-3 times a day for the past two weeks due to the abdominal pain. Patient's reports her last colonoscopy/endoscopy was over 10 years ago. Otherwise, patient denies fever, chills, vomiting, dysphagia, chest pain, palpitations, shortness of breath, rash, pruritis, jaundice, hematemesis, hematuria, melena, dark urine, dysuria, urgency, recent antibiotic use, diet changes. Patient denies any history of blood transfusions, hepatitis, autoimmune disorders. - History Source History Provided By: Patient Limitations to Obtaining History: No Limitations - Past Medical History Cardio/Vascular: Yes: CHF Heme/Onc: Yes: Cancer (Breast cancer s/p radiation/chemo) - Past Surgical History Past Surgical History: Yes: Cholecystectomy Additional Surgical History: Reports right foot surgery after injury - Alcohol/Substance Use Hx Alcohol Use: No - Smoking History Smoking history: Former smoker Have you smoked in the past 12 months: No If you are a former smoker, when did you quit?: 1997 - Social History Usual Living Arrangement: With Spouse ADL: Support Services History of Recent Travel: No <Tika Vasquez - Last Filed: 05/03/18 18:12> - Past Medical History Heme/Onc: Yes: Cancer - Social History 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 at age 98), Sister (Breast cancer age 61) <Tika Vasquez - Last Filed: 05/03/18 18:12> Review of Systems - Review of Systems Constitutional: reports: Loss of Appetite, Malaise, Unintentional Wgt. Loss. denies: Chills, Diaphoresis, Fever, Lethargy, Night Sweats HENT: reports: No Symptoms. denies: Difficult Swallowing, Epistaxis Neck: reports: No Symptoms. denies: Decreased ROM, Swollen Glands Cardiovascular: reports: No Symptoms. denies: Chest Pain, Edema, Palpitations Respiratory: reports: No Symptoms. denies: Cough, Hemoptysis, SOB Gastrointestinal: reports: Abdominal Pain, Constipation, Nausea. denies: Dysphagia, Melena, Rectal Bleeding, Vomiting, Vomiting Blood Genitourinary: reports: Frequency. denies: Burning, Discharge, Dysuria, Flank Pain, Hematuria Musculoskeletal: reports: Back Pain, Decreased ROM Neurological: reports: Confusion. denies: Change in Speech, Headache, Numbness , Seizure Hematology/Lymphatic: denies: Easily Bruised <Tika Vasquez - Last Filed: 05/03/18 18:12> Physical Exam-GI Vital Signs: Vital Signs Temperature 98.0 F 05/03/18 14:00 Pulse Rate 73 05/03/18 14:00 Respiratory Rate 18 05/03/18 08:13 Blood Pressure 118/57 05/03/18 14:00 O2 Sat by Pulse Oximetry (%) 97 05/03/18 08:09 Constitutional: Yes: Well Nourished, No Distress, Calm Eyes: Yes: Conjunctiva Clear, PERRL. No: Sclera Icterus HENT: Yes: WNL, Atraumatic, Normocephalic. No: Epistaxis, Pharyngeal Erythema Neck: Yes: WNL, Supple, Trachea Midline. No: Decreased ROM, Tenderness Cardiovascular: Yes: Regular Rate and Rhythm, S1, S2. No: Tachycardia, Pulse Irregular, Bruit, JVD Respiratory: Yes: Regular, Diminished (throughout bases bilaterally). No: Accessory Muscle Use, Rales, SOB, Wheezes Gastrointestinal Inspection: Yes: Scars (RUQ incisional scar and below umbilicus ). No: Ascites, Distention ...Auscultate: Yes: Hyperactive Bowel Sounds ...Palpate: Yes: Soft, Tenderness (Upon palpation of RUQ and (+) Mcgraw's sign) . No: Firm/Rigid, Guarding, Hepatomegaly ...Percussion: No: Fluid Wave, Tympanitic ...Rectal Exam: Yes: Guaiac Positive, Hemorrhoids/External, Sphincter Tone Normal. No: Erythema Genitourinary: No: Bladder Distention, CVA Tenderness - Left, CVA Tenderness - Right Extremities: Yes: Other (Right 1x1cm buttock ulceration). No: Calf Tenderness, Cold, Cool, Cyanosis Edema: Yes Edema: LLE: Trace, RLE: Trace Neurological: Yes: Alert, Oriented, Confusion. No: Aphasia, Facial Droop, Lethargy Psychiatric: Yes: WNL, Alert, Oriented Labs: CBC, BMP 05/03/18 05:30 05/03/18 05:30 INR, PTT INR 1.14 (0.82-1.09) 05/01/18 18:15 <Tika Vasquez - Last Filed: 05/03/18 18:12> Vital Signs: Vital Signs Temperature 98.0 F 05/03/18 20:30 Pulse Rate 74 05/03/18 20:30 Respiratory Rate 18 05/03/18 20:30 Blood Pressure 148/73 05/03/18 20:30 O2 Sat by Pulse Oximetry (%) 96 05/03/18 20:30 Labs: CBC, BMP 05/03/18 05:30 05/03/18 05:30 INR, PTT INR 1.14 (0.82-1.09) 05/01/18 18:15 <Damir White - Last Filed: 05/03/18 21:47> Imaging - Results Cat Scan: Report Reviewed, Image Reviewed Ultrasound: Report Reviewed, Image Reviewed <Tika Vasquez - Last Filed: 05/03/18 18:12> Problem List - Problems (1) 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 (2) Anemia Code(s): D64.9 - ANEMIA, UNSPECIFIED Qualifiers: Anemia type: other cause Other causes of anemia: chronic disease, 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 (3) Cholestasis Code(s): K83.1 - OBSTRUCTION OF BILE DUCT (4) CHF exacerbation Code(s): I50.9 - HEART FAILURE, UNSPECIFIED Qualifiers: Heart failure type: diastolic Qualified Code(s): I50.33 - Acute on chronic diastolic (congestive) heart failure (5) Acute kidney injury Code(s): N17.9 - ACUTE KIDNEY FAILURE, UNSPECIFIED <Tika Vasquez - Last Filed: 05/03/18 18:12> Assessment/Plan Patient is an 87 year old female with a history of breast cancer with no follow up with PCP for over [address] revealed marked dilation of intrahepatic ducts and CBD dilation with enlargement of pancreatic head. This might possibly be due to a pancreatic neoplasm causing ductal dilation. Patient would likely need an EUS and biopsy of the pancreas for further evaluation, which is done in tertiary centers, and would defer the decision to oncology. Patient also found to have anemia between 7-8 and given the history of NSAID use, patient might have GI bleed and would ideally require a colonoscopy/endoscopy to rule out GI bleed. However, patient is currently in CHF exacerbation and when speaking to patient about the risks and benefits of the procedure, she was hesitant about going forward with the procedure, as she would like more time to think about it. FOBT done at bedside and was guaiac positive. Until then, patient is to be NPO and Protonix 40mg BID incase patient decompensates and needs an emergent scope <Tika Vasquez - Last Filed: 05/03/18 18:12> ATTENDING PHYSICIAN STATEMENT I saw and evaluated the patient. I reviewed the resident's note and discussed the case with the resident. I agree with the resident's findings and plan as documented with the exception that a shallow decubitus is noted at the sacrum not the right buttock. She also appears to have had rods placed for a right femur fracture rather than a foot surgery. The patient denies having had chemotherapy and upon my further questioning cannot recall whether or not she ever had an EGD or a colonoscopy SUBJECTIVE: 87F with significant weight c/o bilateral subcostal pain, back pain , a sacral sore and weakness has lytic bone metastastases and ductal dilation suggesting a pancreatic head mass ( CT lacked IV contrast) OBJECTIVE: Pale appearing, pleasant and cooperative but forgetful and inconsistent with parts of her history Lungs: crackles at both bases Cor: RR , nl S1S2 Abd: soft, healed short oblique RUQ incision, no masses, no tenderness Sacral decubitus with adjacent other pressure areas on the buttocks and right hip incision c/w erlin insertions Elevated alk phos and GGT noted. 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 Before pursuing EUS at another institution will get either repeat CT with contrast or MRI of pancreas with contrast to confirm pancreatic head neoplasm if/when her renal function permits. I discussed the EUS ability to make a diagnosis with biopsy with Teresa as well as the likely need for ERCP to place palliative stents when jaundice ensues. We discussed the grim prognosis associated with pancreatic neoplasms. She is inclined to decline any invasive measures. I gave her my business card so that her son ( [facility] [employer] professor) can octavio me to discuss her case. I also explained to Teresa that she should ideally have an EGD and a colonoscopy to determine the source of her anemia and bleeding. I discussed the potential risks of perforation and and bleeding and the need for a bowel prep and anesthesia. She again cited her age and is declining such an evaluation. <Damir White - Last Filed: 05/03/18 21:47>
--- NOTE | 2018-05-03 19:22 | CON.ORTH ---
Consult - History of Present Illness History of Present Illness: This is an 87-year-old female who was admitted for multiple medical issues who was noted to have a right proximal humerus fracture. The patient reports she fell about a month ago and suffered the fracture. Since then, it is feeling much better. She feels a little persistent weakness in the arm but no pain. She has no numbness or tingling. She reports no other joint pains. - Past Medical History Cardio/Vascular: Yes: CHF - Past Surgical History Past Surgical History: Yes: Cholecystectomy Additional Surgical History: Reports right foot surgery after injury - Alcohol/Substance Use Hx Alcohol Use: No - Smoking History Smoking history: Former smoker Have you smoked in the past 12 months: No If you are a former smoker, when did you quit?: 1997 - Social History Usual Living Arrangement: With Spouse ADL: Support Services History of Recent Travel: No Home Medications - Allergies Allergies/Adverse Reactions: Allergies Allergy/AdvReac Type Severity Reaction Status Date / Time No Known Allergies Allergy Verified 05/01/18 17:35 - Home Medications Home Medications: Ambulatory Orders Aspirin 324 mg PO PRN 05/01/18 Family Disease History - Family Disease History Family Disease History: Heart Disease: Mother ( from [place] at age 60), [place]: Father (Prostate cancer. at age 98), Sister (Breast cancer age 61) Physical Exam for Ortho Vital Signs: Vital Signs Temperature 98.0 F 05/03/18 14:00 Pulse Rate 73 05/03/18 14:00 Respiratory Rate 18 05/03/18 08:13 Blood Pressure 118/57 05/03/18 14:00 O2 Sat by Pulse Oximetry (%) 97 05/03/18 08:09 Constitutional: Yes: Well Nourished, No Distress, Calm Extremities: Yes: Other (Examination of the right shoulder demonstrates no skin lesions. There is no swelling. There is no tenderness to palpation. There is active forward flexion to 150. There is abduction to 90. There is external rotation to 40. She has good strength in her rotator cuff. Her neurovascular exam is intact distally.) Labs: CBC, BMP 05/03/18 05:30 05/03/18 05:30 INR, PTT INR 1.14 (0.82-1.09) 05/01/18 18:15 Imaging - Results X-ray: Report Reviewed, Image Reviewed (There is an impacted fracture of the right proximal humerus with satisfactory alignment. Mild displacement.) Problem List - Problems (1) 2-part displaced fracture of surgical neck of right humerus, initial encounter for closed fracture Assessment/Plan: I reviewed today's findings with the patient. She is healing amazingly well from her proximal humerus fracture. She should continue to use the arm. She has no restrictions. She can follow up as an outpatient if necessary. Code(s): S42.221A - 2-PART DISP FX OF SURGICAL NECK OF RIGHT HUMERUS, INIT
--- NOTE | 2018-05-03 21:49 | PN ---
Teaching Attending Note Name of Resident: Tika Vasquez (see GI consult note) ATTENDING PHYSICIAN STATEMENT I saw and evaluated the patient. I reviewed the resident's note and discussed the case with the resident. I agree with the resident's findings and plan as documented. SUBJECTIVE: OBJECTIVE: ASSESSMENT AND PLAN:
[2018-05-03] MEDS: SENNOSIDES 8.6MG TABLET (FP) PO SCH ×2 (22:39→22:48)
[2018-05-03] MEDS: HEPARIN NA (PORCINE) 5,000 UNITS/ML 1ML VIAL SQ SCH (22:39)
[2018-05-03] MEDS: PANTOPRAZOLE SODIUM 40 MG VIAL IVPUSH SCH (22:40)
[2018-05-04] MEDS: ACETAMINOPHEN 325 MG TABLET (FP) PO PRN ×2 (02:17→18:55)
[2018-05-04] MEDS: oxyCODONE HCL 5 MG TABLET PO PRN ×2 (02:18→18:48)
[2018-05-04 06:53] LABS: BASO % 0.6 % (0-2.0); EOS % 2.3 % (0-4.5); HEMATOCRIT 23.1 % (32.4-45.2); HEMOGLOBIN 7.7 GM/dL (10.7-15.3); LYMPH % 18.6 % (8-40); MCH 27.1 pg (25.7-33.7); MCHC 33.3 g/dl (32.0-36.0); MEAN CELL VOLUME 81.5 fl (80-96); MEAN PLT VOLUME 7.3 fl (7.5-11.1); MONO % 6.7 % (3.8-10.2); NEUT % 71.8 % (42.8-82.8); PLATELET COUNT 345 K/MM3 (134-434); RBC 2.84 M/mm3 (3.60-5.2); RDW 17.9 % (11.6-15.6); WHITE BLOOD COUNT 6.7 K/mm3 (4.0-10.0)
[2018-05-04 07:01] LABS: ALBUMIN 2.8 g/dl (3.4-5.0); ANION GAP 9 (8-16); BLOOD UREA NITROGEN 45 mg/dL (7-18); CALCIUM 8.5 mg/dL (8.5-10.1); CHLORIDE 103 mmol/L (98-107); CO2 28 mmol/L (21-32); GLUCOSE,RANDOM 98 mg/dL (74-106); MAGNESIUM 2.1 mg/dL (1.8-2.4); POTASSIUM 4.1 mmol/L (3.5-5.1); SODIUM 140 mmol/L (136-145)
[2018-05-04 07:08] LABS: ALK PHOS 214 U/L (45-117); BILIRUBIN,TOTAL 0.3 mg/dL (0.2-1.0); CREATININE 1.4 mg/dL (0.55-1.02); LDH 214 U/L (84-246); SGOT/AST 30 U/L (15-37); SGPT/ALT 18 U/L (12-78)
--- NOTE | 2018-05-04 07:11 | PN ---
Physical Exam: SUBJECTIVE: Patient seen and examined following rapid response. Complaining of dizziness and intermittent, severe pain under left breast radiating laterally "on the chest wall." Rapid response was called and responded to by resident team. Patient had been oob to chair when she became very dizzy. Initial vitals BP 75/28, p46. Transferred to bed and placed in reverse trendelenburg, BP improved 127/54, p59. OBJECTIVE: Vital Signs Period Temp Pulse Resp BP Sys/Beltre Pulse Ox Last 24 Hr 98.0 F-98.5 F 66-80 18-18 118-153/57-76 96-97 GENERAL: The patient is awake, alert, oriented, in mild distress secondary to pain and dizziness. Pale. LUNGS: CTA HEART: Regular rate and rhythm, S1, S2 ABDOMEN: Soft, nontender, nondistended EXTREMITIES: 2+ pulses, warm, well-perfused, 1+ edema bilaterally NEUROLOGICAL: Cranial nerves II through XII grossly intact. Laboratory Results - last 24 hr 05/02/18 05/02/18 05/03/18 05:30 07:43 05:30 Sodium 139 Potassium 4.2 Chloride 103 Carbon Dioxide 29 Anion Gap 7 L BUN 41 H Creatinine 1.3 H Creat Clearance w eGFR 38.93 Random Glucose 103 Calcium 8.9 Iron 30 TIBC 336 Iron Saturation 9 L Total Bilirubin 0.3 AST 19 ALT 16 Alkaline Phosphatase 227 H Total Protein 6.4 Albumin 3.1 L PTH Intact 104 H Active Medications Generic Name Dose Route Start Last Admin Trade Name Freq PRN Reason Stop Dose Admin Acetaminophen 650 mg 05/01/18 22:50 05/04/18 02:17 Tylenol - PO 650 mg Q4H PRN Administration PAIN LEVEL 1-5 Carvedilol 3.125 mg 05/02/18 12:00 05/03/18 21:39 Coreg - PO 3.125 mg BID ELINA Administration Collagenase 1 applic 05/03/18 10:00 05/03/18 09:25 Santyl - TP 1 applic DAILY ELINA Administration Docusate Sodium 100 mg 05/01/18 23:12 Colace - PO BID PRN CONSTIPATION Furosemide 40 mg 05/02/18 12:00 05/03/18 09:23 Lasix Injection - IVPUSH 40 mg DAILY ELINA Administration Heparin Sodium (Porcine) 5,000 unit 05/03/18 22:00 05/03/18 22:39 Heparin - SQ 5,000 unit BID ELINA Administration Lisinopril 5 mg 05/02/18 10:00 05/03/18 09:23 Prinivil PO 5 mg DAILY ELINA Administration Oxycodone HCl 5 mg 05/02/18 18:46 05/04/18 02:18 Roxicodone - PO 5 mg Q4H PRN Administration PAIN LEVEL 6-10 Pantoprazole Sodium 40 mg 05/03/18 22:00 05/03/18 22:40 Protonix Iv IVPUSH 40 mg BID ELINA Administration Senna 2 tab 05/02/18 22:00 05/03/18 22:48 Senna - PO Not Given HS ELINA Imaging 05/01 CXR: no acute process 05/02 CTAP: (1) extensive lytic metastatic disease, areas of cortical destruction ; (2) multi vertebral compression deformities; (3) intrahepatic ducts moderately dilated extending to pancreatic head ASSESSMENT/PLAN 87 year-old female with PMH significant for right breast cancer s/p lumpectomy/ radiation x 40 years, diastolic heart failure, and severe valvular disease. Episode bradycardia and hypotension --transfer back to telemetry --24 hour holter --d/c carvedilol --hold Lasix and increase lisinopril as needed --orthostatics Microcytic anemia Iron-deficiency anemia --pale, dizzy, Hg 7.7 --transfuse 1 U PRBC, check cbc and re-evaluate for possible second unit Breast cancer --multiple pathologic compression fractures spine and multiple rib fractures and right humeral fracture --CEA elevated, PTH elevated, CA19-9 wnl --because rods in leg, will obtain CT of T and L spine (concern for T-10 epidural disease) --protein studies pending --Dr. Padilla following Diastolic heart failure Severe valvular disease --05/02 Echo: moderate cLVH, LV normal; RV normal; BLAE; moderate to severe MR ; severe TR; pHTN; mild AI; mild PI --hold lasix due to hypotensive event Shortness of breath Elevated d-dimer --r/o PE, VQ scan Monday --05/02 US BLE: negative for DVT --per heme/onc, hold off on giving full-dose lovenox until V/Q scan results CKD --Cr steady 1.3-1.4 --US renal unremarkable --US bladder: no acute process; post-void residual 290cc's --renal following Pressure ulcers --daily collagenase FEN Fluids: PO intake adequate Electrolytes: replete as indicated Nutrition: regular diet DVT prophylaxis: subq heparin Dispo: continues to require inpatient care. Full code. Visit type - Emergency Visit Emergency Visit: Yes ED Registration Date: 05/01/18 Care time: The patient presented to the Emergency Department on the above date and was hospitalized for further evaluation of their emergent condition. - New Patient This patient is new to me today: No - Critical Care Critical Care patient: Yes Total Critical Care Time (in minutes): 60 Critical Care Statement: The care of this patient involved high complexity decision making to prevent further life threatening deterioration of the patient 's condition and/or to evaluate & treat vital organ system(s) failure or risk of failure.
[2018-05-04] MEDS ORDERED: PT OWN MED DRAWER 7, Y5N ONE (08:46)
[2018-05-04] MEDS: LISINOPRIL 5 MG TABLET (FP) PO SCH (09:54)
[2018-05-04] MEDS: HEPARIN NA (PORCINE) 5,000 UNITS/ML 1ML VIAL SQ SCH ×2 (09:54→22:02)
[2018-05-04] MEDS: CARVEDILOL 3.125 MG TABLET (FP) PO SCH (09:54)
[2018-05-04] MEDS: FUROSEMIDE 40 MG/4 ML INJECTABLE VIAL IVPUSH SCH (09:54)
[2018-05-04] MEDS: PANTOPRAZOLE SODIUM 40 MG VIAL IVPUSH SCH ×2 (09:58→22:03)
--- NOTE | 2018-05-04 10:18 | PN ---
<Tika Vasquez - Last Filed: 05/04/18 10:41> Progress Note, Physician History of Present Illness: Patient today reports no abdominal pain. She does not know if she had a bowel movement or not. 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 Otherwise, patient denies any shortness of breath, chest pain, palpitations, hematozhezia, hematemesis, melena, hematuria, dizziness, dysuria. - Current Medication List Current Medications: Active Medications Acetaminophen (Tylenol -) 650 mg PO Q4H PRN PRN Reason: PAIN LEVEL 1-5 Last Admin: 05/04/18 02:17 Dose: 650 mg Carvedilol (Coreg -) 3.125 mg PO BID [facility] Last Admin: 05/03/18 21:39 Dose: 3.125 mg Collagenase (Santyl -) 1 applic TP DAILY [facility] Last Admin: 05/03/18 09:25 Dose: 1 applic Docusate Sodium (Colace -) 100 mg PO BID PRN PRN Reason: CONSTIPATION Furosemide (Lasix Injection -) 40 mg IVPUSH DAILY [facility] Last Admin: 05/03/18 09:23 Dose: 40 mg Heparin Sodium (Porcine) (Heparin -) 5,000 unit SQ BID [facility] Last Admin: 05/03/18 22:39 Dose: 5,000 unit Lisinopril (Prinivil) 5 mg PO DAILY [facility] Last Admin: 05/03/18 09:23 Dose: 5 mg Oxycodone HCl (Roxicodone -) 5 mg PO Q4H PRN PRN Reason: PAIN LEVEL 6-10 Last Admin: 05/04/18 02:18 Dose: 5 mg Pantoprazole Sodium (Protonix Iv) 40 mg IVPUSH BID [facility] Last Admin: 05/03/18 22:40 Dose: 40 mg Senna (Senna -) 2 tab PO HS [facility] Last Admin: 05/03/18 22:48 Dose: Not Given - Objective Vital Signs: Vital Signs Temperature 97.8 F 05/04/18 09:10 Pulse Rate 75 05/04/18 09:10 Respiratory Rate 17 05/04/18 09:10 Blood Pressure 130/64 05/04/18 09:10 O2 Sat by Pulse Oximetry (%) 99 05/04/18 09:00 Constitutional: Yes: No Distress, Calm, Thin Eyes: Yes: Conjunctiva Clear. No: Diplopia, Sclera Icterus Cardiovascular: Yes: Regular Rate and Rhythm, S1, S2. No: Bruit, JVD Respiratory: Yes: Regular, Other (bibasilar crackles) Gastrointestinal: Yes: Normal Bowel Sounds, Soft, Other (oblique RUQ incision). No: Ascites, Tenderness, Tenderness, Epigastrium Extremities: Yes: Other (Right 1x1cm buttock ulceration). No: Amputation, Calf Tenderness, Cold, Cool Edema: No Neurological: Yes: WNL, Alert. 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 Anemia workup in progress Will possibly require ERCP to place palliative stents Patient can likely be taken off NPO Continue CBC, hepatic panel, and coag monitoring daily <Damir White - Last Filed: 05/04/18 18:52> Progress Note, Physician - Current Medication List Current Medications: Active Medications Acetaminophen (Tylenol -) 650 mg PO Q4H PRN PRN Reason: PAIN LEVEL 1-5 Collagenase (Santyl -) 1 applic TP DAILY [facility] Docusate Sodium (Colace -) 100 mg PO BID PRN PRN Reason: CONSTIPATION Heparin Sodium (Porcine) (Heparin -) 5,000 unit SQ BID [facility] Lisinopril (Prinivil) 5 mg PO DAILY [facility] Oxycodone HCl (Roxicodone -) 5 mg PO Q8H PRN PRN Reason: PAIN LEVEL 6-10 Pantoprazole Sodium (Protonix Iv) 40 mg IVPUSH BID [facility] Senna (Senna -) 2 tab PO HS [facility] - Objective Vital Signs: Vital Signs Temperature 97.9 F 05/04/18 17:56 Pulse Rate 68 05/04/18 17:56 Respiratory Rate 18 05/04/18 17:56 Blood Pressure 145/70 05/04/18 17:56 O2 Sat by Pulse Oximetry (%) 99 05/04/18 09:00 Labs: CBC, BMP 05/04/18 05:30 05/04/18 05:30 INR, PTT INR 1.14 (0.82-1.09) 05/01/18 18:15 Impression/Plan Impression/Plan: ATTENDING PHYSICIAN STATEMENT I saw and evaluated the patient. I reviewed the resident's note and discussed the case with the resident. I agree with the resident's findings and plan as documented. SUBJECTIVE: Above events noted. Teresa is conversant and free of abdominal pain at present. NO overt bleeding so diet resumed. Still declining and endoscopy. Her son has not yet called me OBJECTIVE: Abd: softly distended, BS normoactive, nontender ASSESSMENT AND PLAN: Diet advanced. Agree with transfusion. Will honor patient' s decision not to undergo evaluation for anemia or pancreatic tumor. Visit type - Emergency Visit Emergency Visit: Yes ED Registration Date: 05/01/18 Care time: The patient presented to the Emergency Department on the above date and was hospitalized for further evaluation of their emergent condition. - New Patient This patient is new to me today: No - Critical Care Critical Care patient: No
--- NOTE | 2018-05-04 10:22 | PN ---
Progress Note, Physician History of Present Illness: pulmonary alert,feeling better,less dyspneic,cp about the same - Current Medication List Current Medications: Active Medications Acetaminophen (Tylenol -) 650 mg PO Q4H PRN PRN Reason: PAIN LEVEL 1-5 Last Admin: 05/04/18 02:17 Dose: 650 mg Carvedilol (Coreg -) 3.125 mg PO BID [facility] Last Admin: 05/04/18 09:54 Dose: 3.125 mg Collagenase (Santyl -) 1 applic TP DAILY [facility] Last Admin: 05/03/18 09:25 Dose: 1 applic Docusate Sodium (Colace -) 100 mg PO BID PRN PRN Reason: CONSTIPATION Furosemide (Lasix Injection -) 40 mg IVPUSH DAILY [facility] Last Admin: 05/04/18 09:54 Dose: 40 mg Heparin Sodium (Porcine) (Heparin -) 5,000 unit SQ BID [facility] Last Admin: 05/04/18 09:54 Dose: 5,000 unit Lisinopril (Prinivil) 5 mg PO DAILY [facility] Last Admin: 05/04/18 09:54 Dose: 5 mg Oxycodone HCl (Roxicodone -) 5 mg PO Q4H PRN PRN Reason: PAIN LEVEL 6-10 Last Admin: 05/04/18 02:18 Dose: 5 mg Pantoprazole Sodium (Protonix Iv) 40 mg IVPUSH BID [facility] Last Admin: 05/04/18 09:58 Dose: 40 mg Senna (Senna -) 2 tab PO HS [facility] Last Admin: 05/03/18 22:48 Dose: Not Given - Objective Vital Signs: Vital Signs Temperature 97.8 F 05/04/18 09:10 Pulse Rate 75 05/04/18 09:10 Respiratory Rate 17 05/04/18 09:10 Blood Pressure 130/64 05/04/18 09:10 O2 Sat by Pulse Oximetry (%) 99 05/04/18 09:00 Constitutional: Yes: Well Nourished, Calm Eyes: Yes: WNL HENT: Yes: WNL Neck: Yes: WNL Cardiovascular: Yes: Regular Rate and Rhythm, S1, S2 Respiratory: Yes: Rales (few rales left base) Gastrointestinal: Yes: Normal Bowel Sounds, Soft Extremities: Yes: WNL Edema: No Labs: CBC, BMP 05/04/18 05:30 05/04/18 05:30 INR, PTT INR 1.14 (0.82-1.09) 05/01/18 18:15 Problem List - Problems (1) Anemia Code(s): D64.9 - ANEMIA, UNSPECIFIED Qualifiers: Qualified 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 (2) CHF exacerbation Code(s): I50.9 - HEART FAILURE, UNSPECIFIED Qualifiers: Qualified Code(s): I50.33 - Acute on chronic diastolic (congestive) heart failure (3) Chest pain Code(s): R07.9 - CHEST PAIN, UNSPECIFIED Qualifiers: Qualified Code(s): R07.1 - Chest pain on breathing; R07.81 - Pleurodynia (4) Elevated d-dimer Code(s): R79.89 - OTHER SPECIFIED ABNORMAL FINDINGS OF BLOOD CHEMISTRY (5) Acute kidney injury Code(s): N17.9 - ACUTE KIDNEY FAILURE, UNSPECIFIED Assessment/Plan IMP CHEST PAIN LIKELY MUSCULOSKELETAL,?METS DYSPNEA ?CHF LOWER EXT EDEMA HTN NATHAN ELEVATED D-DIMER NON-SPECIFIC ANEMIA H/O R BREAST CA S/P LUMPECTOMY/RT EXTENSIVE BONY METS ON CHEST CT PLAN DIURETICS MONITOR H+H,RENAL FUNCTION NORMAL TRANSFUSION THRESHOLD ANALGESICS DR NAZARIO Problem List - Problems (1) Anemia Code(s): D64.9 - ANEMIA, UNSPECIFIED (2) CHF exacerbation Code(s): I50.9 - HEART FAILURE, UNSPECIFIED Qualifiers: Heart failure type: unspecified Qualified Code(s): I50.9 - Heart failure, unspecified (3) Chest pain Code(s): R07.9 - CHEST PAIN, UNSPECIFIED Qualifiers: Chest pain type: chest pain on breathing Qualified Code(s): R07.1 - Chest pain on breathing; R07.81 - Pleurodynia (4) Elevated d-dimer Code(s): R79.89 - OTHER SPECIFIED ABNORMAL FINDINGS OF BLOOD CHEMISTRY (5) Acute kidney injury Code(s): N17.9 - ACUTE KIDNEY FAILURE, UNSPECIFIED
[2018-05-04] MEDS: COLLAGENASE CLOSTRIDIUM HIST. 30 GRAMS TUBE TP SCH (10:42)
[2018-05-04] MEDS ORDERED: DOCUSATE SODIUM 100 MG CAPSULE (FP) PO PRN (11:04)
[2018-05-04] MEDS ORDERED: oxyCODONE HCL 5 MG TABLET PO PRN (11:04)
--- NOTE | 2018-05-04 12:06 | PN ---
Progress Note, Physician Chief Complaint: episode of bradycardia and hypotension History of Present Illness: Patient is an 87 year old woman with history of right breast cancer s/p surgery and radiotherapy here with upper abdominal pain 2 days. States sensation present whether at rest or on exertion. No shortness of breath, diaphoresis, nausea, vomiting or palpitations. No history of similar symptoms in the past. While in the ED, patient noted to have bilateral lower extremity edema, which patient states she did not notice until she was made aware when she got here. No leg pain, cough, f/c. Also c/o painful sore to R buttocks "for some time". 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 and admits she has not seen a doctor in many years - Current Medication List Current Medications: Active Medications Acetaminophen (Tylenol -) 650 mg PO Q4H PRN PRN Reason: PAIN LEVEL 1-5 Collagenase (Santyl -) 1 applic TP DAILY [facility] Docusate Sodium (Colace -) 100 mg PO BID PRN PRN Reason: CONSTIPATION Furosemide (Lasix Injection -) 40 mg IVPUSH DAILY [facility] Heparin Sodium (Porcine) (Heparin -) 5,000 unit SQ BID [facility] Lisinopril (Prinivil) 5 mg PO DAILY [facility] Oxycodone HCl (Roxicodone -) 5 mg PO Q8H PRN PRN Reason: PAIN LEVEL 6-10 Pantoprazole Sodium (Protonix Iv) 40 mg IVPUSH BID [facility] Senna (Senna -) 2 tab PO HS [facility] - Objective Vital Signs: Vital Signs Temperature 97.8 F 05/04/18 11:01 Pulse Rate 72 05/04/18 11:01 Respiratory Rate 18 05/04/18 11:01 Blood Pressure 125/73 05/04/18 11:01 O2 Sat by Pulse Oximetry (%) 99 05/04/18 09:00 Eyes: Yes: WNL, Conjunctiva Clear, EOM Intact HENT: Yes: WNL, Atraumatic, Normocephalic Neck: Yes: WNL, Supple, Trachea Midline Cardiovascular: Yes: WNL, Regular Rate and Rhythm Respiratory: Yes: WNL, Regular, CTA Bilaterally Gastrointestinal: Yes: WNL, Normal Bowel Sounds Genitourinary: Yes: WNL Musculoskeletal: Yes: WNL Extremities: Yes: WNL Edema: No Integumentary: Yes: WNL Neurological: Yes: WNL, Alert, Oriented ...Motor Strength: WNL Psychiatric: Yes: WNL Labs: CBC, BMP 05/04/18 05:30 05/04/18 05:30 INR, PTT INR 1.14 (0.82-1.09) 05/01/18 18:15 Problem List - Problems (1) CHF exacerbation Code(s): I50.9 - HEART FAILURE, UNSPECIFIED Qualifiers: Heart failure type: diastolic Qualified Code(s): I50.33 - Acute on chronic diastolic (congestive) heart failure (2) Chest pain Code(s): R07.9 - CHEST PAIN, UNSPECIFIED Qualifiers: Chest pain type: chest pain on breathing Qualified Code(s): R07.1 - Chest pain on breathing; R07.81 - Pleurodynia (3) Fracture, humerus Code(s): S42.309A - UNSP FRACTURE OF SHAFT OF HUMERUS, UNSP ARM, INIT Qualifiers: Encounter type: initial encounter Humerus Location: proximal Fracture type: closed Fracture morphology: unspecified fracture morphology Laterality : right Qualified Code(s): S42.201A - Unspecified fracture of upper end of right humerus, initial encounter for closed fracture Assessment/Plan episode of bradycardia and hypotension ? vaso vagal? edema- resolved chf exac -resolved echo showed lvh diastolic dysfunction , nl ef mod to severe mr, severe tr mild pht anemia breast ca with mets to the bone plan anemia - consider PRBC transfer back to telemetry 24 holter d/c coreg d/c LAsix IV restart po 24-48 hrs f/u bun cr increase SRAVAN i as needed
--- NOTE | 2018-05-04 13:05 | RAPID ---
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 Coto aware vitals stable now and improved Possible transfusion Primary team notified EKG Trop Labs: CBC, BMP 05/04/18 05:30 05/04/18 05:30
--- NOTE | 2018-05-04 14:38 | PN ---
Progress Note, Physician History of Present Illness: Pt seen and examined at bedside. She is awake and appears comfortable. She denies shortness of breath. - Current Medication List Current Medications: Active Medications Acetaminophen (Tylenol -) 650 mg PO Q4H PRN PRN Reason: PAIN LEVEL 1-5 Collagenase (Santyl -) 1 applic TP DAILY [facility] Docusate Sodium (Colace -) 100 mg PO BID PRN PRN Reason: CONSTIPATION Heparin Sodium (Porcine) (Heparin -) 5,000 unit SQ BID [facility] Lisinopril (Prinivil) 5 mg PO DAILY [facility] Oxycodone HCl (Roxicodone -) 5 mg PO Q8H PRN PRN Reason: PAIN LEVEL 6-10 Pantoprazole Sodium (Protonix Iv) 40 mg IVPUSH BID [facility] Senna (Senna -) 2 tab PO HS [facility] - Objective Vital Signs: Vital Signs Temperature 97.8 F 05/04/18 11:01 Pulse Rate 60 05/04/18 12:18 Respiratory Rate 18 05/04/18 12:18 Blood Pressure 122/53 05/04/18 12:18 O2 Sat by Pulse Oximetry (%) 99 05/04/18 09:00 Constitutional: Yes: Calm Eyes: Yes: Conjunctiva Clear HENT: Yes: Atraumatic Neck: Yes: Supple Cardiovascular: Yes: S1, S2 Respiratory: Yes: CTA Bilaterally Gastrointestinal: Yes: Soft Genitourinary: Yes: WNL Edema: Yes Edema: LLE: Trace, RLE: Trace Neurological: Yes: Oriented Psychiatric: Yes: Oriented Labs: CBC, BMP 05/04/18 05:30 05/04/18 05:30 INR, PTT INR 1.14 (0.82-1.09) 05/01/18 18:15 Problem List - Problems (1) CKD (chronic kidney disease) Code(s): N18.9 - CHRONIC KIDNEY DISEASE, UNSPECIFIED (2) Anemia Code(s): D64.9 - ANEMIA, UNSPECIFIED Qualifiers: Anemia type: other cause Other causes of anemia: chronic disease, 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 (3) Breast CA Code(s): C50.919 - MALIGNANT NEOPLASM OF UNSP SITE OF UNSPECIFIED FEMALE BREAST Assessment/Plan Current Medications Generic Name Dose Route Start Last Admin Trade Name Freq PRN Reason Stop Dose Admin Acetaminophen 650 mg 05/04/18 11:04 Tylenol - PO Q4H PRN PAIN LEVEL 1-5 Collagenase 1 applic 05/05/18 10:00 Santyl - TP DAILY [facility] Docusate Sodium 100 mg 05/04/18 11:04 Colace - PO BID PRN CONSTIPATION Heparin Sodium (Porcine) 5,000 unit 05/04/18 22:00 Heparin - SQ BID [facility] Lisinopril 5 mg 05/05/18 10:00 Prinivil PO DAILY [facility] Oxycodone HCl 5 mg 05/04/18 11:35 Roxicodone - PO Q8H PRN PAIN LEVEL 6-10 Pantoprazole Sodium 40 mg 05/04/18 22:00 Protonix Iv IVPUSH BID [facility] Senna 2 tab 05/04/18 22:00 Senna - PO HS [facility] Impression 1. likely CKD 2. CHF 3. HTN 4. hx breast cancer 5. dyspnea 6. anemia 7. elevated d-dimer Plan - change lasix to PO - repeat labs in am - oncolgy follow up - cont to monitor renal function - UA is negative for blood or protein - anemia workup
--- NOTE | 2018-05-04 16:06 | PN ---
Progress Note (short form) - Note Progress Note: Patient seen and examined Currently receiving packed cells Complains of generalized weakness and discomfort in shoulder ribs. No localizing pain in back Last Vital Signs Temp Pulse Resp BP Pulse Ox 98.2 F 62 18 127/48 99 05/04/18 14:00 05/04/18 14:00 05/04/18 14:00 05/04/18 14:00 05/04/18 09:00 HEENT: HANNAH, EOM Intact Oropharynx: No thrush, No mucositis Neck: Supple Nodes: Without adenopathy Breasts: S/p RT to right breast with radiation changes Cor: RSR, No murmurs, No gallops Lungs: Clear to P&A Abd: Soft, Normal bowel sounds, No organomegaly Ext:No significant edema Skin: No rashes, Integument intact CBC, BMP 05/04/18 05:30 05/04/18 05:30 Current Medications Generic Name Dose Route Start Last Admin Trade Name Freq PRN Reason Stop Dose Admin Acetaminophen 650 mg 05/04/18 11:04 Tylenol - PO Q4H PRN PAIN LEVEL 1-5 Collagenase 1 applic 05/05/18 10:00 Santyl - TP DAILY [facility] Docusate Sodium 100 mg 05/04/18 11:04 Colace - PO BID PRN [facility]ST[facility] Heparin Sodium (Porcine) 5,000 unit 05/04/18 22:00 Heparin - SQ BID [facility] Lisinopril 5 mg 05/05/18 10:00 Prinivil PO DAILY [facility] Oxycodone HCl 5 mg 05/04/18 11:35 Roxicodone - PO Q8H PRN PAIN LEVEL 6-10 Pantoprazole Sodium 40 mg 05/04/18 22:00 Protonix Iv IVPUSH BID [facility] Senna 2 tab 05/04/18 22:00 Senna - PO HS [facility] Impression: \ Anemia- likely multifacorial. Serum Fe++-30 TIBC--330 Fe++ sat--11% Such that one component of anemia is iron deficiency Multiple pathologic compression fractures spine and multiple rib fractures and right humeral fracture As patient has rods in leg , will obtain CT of T and L spine ( concern of T-10 epidural disease) Protein studies pending Distant history of right breast cancer treated with surgery and Rt about 40 years ago.
[2018-05-04 21:48] LABS: HEMATOCRIT 28.1 % (32.4-45.2); HEMOGLOBIN 9.4 GM/dL (10.7-15.3); MCH 27.4 pg (25.7-33.7); MCHC 33.3 g/dl (32.0-36.0); MEAN CELL VOLUME 82.4 fl (80-96); MEAN PLT VOLUME 7.4 fl (7.5-11.1); PLATELET COUNT 379 K/MM3 (134-434); RBC 3.41 M/mm3 (3.60-5.2); WHITE BLOOD COUNT 6.4 K/mm3 (4.0-10.0)
[2018-05-04] MEDS ORDERED: CARVEDILOL 3.125 MG TABLET (FP) PO SCH (22:00)
[2018-05-04] MEDS: SENNOSIDES 8.6MG TABLET (FP) PO SCH (22:02)
[2018-05-05 07:50] LABS: BASO % 0.5 % (0-2.0); EOS % 2.4 % (0-4.5); HEMATOCRIT 26.8 % (32.4-45.2); LYMPH % 22.2 % (8-40); MCH 27.5 pg (25.7-33.7); MCHC 33.7 g/dl (32.0-36.0); MEAN CELL VOLUME 81.6 fl (80-96); MEAN PLT VOLUME 7.2 fl (7.5-11.1); MONO % 8.6 % (3.8-10.2); NEUT % 66.3 % (42.8-82.8); PLATELET COUNT 342 K/MM3 (134-434); RBC 3.28 M/mm3 (3.60-5.2); RDW 17.3 % (11.6-15.6); WHITE BLOOD COUNT 6.4 K/mm3 (4.0-10.0)
[2018-05-05 09:03] LABS: ALBUMIN 2.8 g/dl (3.4-5.0); ALK PHOS 244 U/L (45-117); ANION GAP 8 (8-16); BILIRUBIN,TOTAL 0.6 mg/dL (0.2-1.0); BLOOD UREA NITROGEN 50 mg/dL (7-18); CALCIUM 8.6 mg/dL (8.5-10.1); CHLORIDE 104 mmol/L (98-107); CO2 30 mmol/L (21-32); CREATININE 1.2 mg/dL (0.55-1.02); GLUCOSE,RANDOM 104 mg/dL (74-106); SGOT/AST 83 U/L (15-37); SGPT/ALT 67 U/L (12-78); SODIUM 142 mmol/L (136-145); TOT PROT 6.1 g/dl (6.4-8.2)
[2018-05-05] MEDS ORDERED: FUROSEMIDE 40 MG/4 ML INJECTABLE VIAL IVPUSH SCH (10:00)
[2018-05-05] MEDS: LISINOPRIL 5 MG TABLET (FP) PO SCH (10:09)
[2018-05-05] MEDS: HEPARIN NA (PORCINE) 5,000 UNITS/ML 1ML VIAL SQ SCH ×2 (10:10→21:24)
[2018-05-05] MEDS: PANTOPRAZOLE SODIUM 40 MG VIAL IVPUSH SCH ×2 (10:10→21:24)
[2018-05-05 11:01] LABS: MAGNESIUM 2.2 mg/dL (1.8-2.4)
[2018-05-05] MEDS: ACETAMINOPHEN 325 MG TABLET (FP) PO PRN (12:27)
--- NOTE | 2018-05-05 12:47 | PN ---
Progress Note, Physician Chief Complaint: Pt A&Ozx3; lying in bed; no longer has pain in leftr axillary area. History of Present Illness: Patient is an 87 year old white woman with history of right breast cancer s/p surgery and radiotherapy here with upper abdominal pain 2 days. States sensation present whether at rest or on exertion. No shortness of breath, diaphoresis, nausea, vomiting or palpitations. No history of similar symptoms in the past. While in the ED, patient noted to have bilateral lower extremity edema, which patient states she did not notice until she was made aware when she got here. No leg pain, cough, f/c. Also c/o painful sore to R buttocks "for some time". 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 not seen a doctor in many years - Current Medication List Current Medications: Active Medications Acetaminophen (Tylenol -) 650 mg PO Q4H PRN PRN Reason: PAIN LEVEL 1-5 Last Admin: 05/05/18 12:27 Dose: 650 mg Collagenase (Santyl -) 1 applic TP DAILY [facility] Docusate Sodium (Colace -) 100 mg PO BID PRN PRN Reason: CONSTIPATION Heparin Sodium (Porcine) (Heparin -) 5,000 unit SQ BID [facility] Last Admin: 05/05/18 10:10 Dose: 5,000 unit Lisinopril (Prinivil) 5 mg PO DAILY [facility] Last Admin: 05/05/18 10:09 Dose: 5 mg Oxycodone HCl (Roxicodone -) 5 mg PO Q8H PRN PRN Reason: PAIN LEVEL 6-10 Last Admin: 05/04/18 18:48 Dose: 5 mg Pantoprazole Sodium (Protonix Iv) 40 mg IVPUSH BID [facility] Last Admin: 05/05/18 10:10 Dose: 40 mg Senna (Senna -) 2 tab PO HS [facility] Last Admin: 05/04/18 22:02 Dose: Not Given - Objective Vital Signs: Vital Signs Temperature 98.7 F 05/05/18 09:54 Pulse Rate 73 05/05/18 09:54 Respiratory Rate 18 05/05/18 09:54 Blood Pressure 171/72 05/05/18 09:54 O2 Sat by Pulse Oximetry (%) 100 05/05/18 09:00 Constitutional: Yes: Calm, Thin Eyes: Yes: WNL HENT: Yes: WNL Neck: Yes: WNL Cardiovascular: Yes: Regular Rate and Rhythm Respiratory: Yes: Regular Gastrointestinal: Yes: Soft ...Rectal Exam: Yes: Deferred Genitourinary: No: Anuria Musculoskeletal: Yes: Muscle Weakness Edema: No Peripheral Pulses WNL: Yes Integumentary: Yes: WNL Neurological: Yes: Alert, Oriented, Weakness Psychiatric: Yes: WNL Labs: CBC, BMP 05/05/18 05:15 05/05/18 05:30 INR, PTT INR 1.14 (0.82-1.09) 05/01/18 18:15 Problem List - Problems (1) Breast CA Assessment/Plan: breast CA with metastases. Chronic "pain in the ribs", usually right-sided; presnelty asyjmptomatic. CT chest: extensive bone metastases., especially vertebral. 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 Not in acute distress (respiratory-verdin). On ACEI. Stopped furosemide, as BUN/Cr are rising. Avoid dehydration. F/u BUN/Cr, electrolyes, Is and Os, and daily weight/ Code(s): I50.30 - UNSPECIFIED DIASTOLIC (CONGESTIVE) HEART FAILURE
--- NOTE | 2018-05-05 13:48 | PN ---
Progress Note (short form) - Note Progress Note: PULMONARY States chest pain resolving. Denies shortness of breath. Vital Signs Period Temp Pulse Resp BP Sys/Beltre Pulse Ox Last 24 Hr 97.9 F-99 F 62-73 18-18 127-171/48-73 100-100 Gen: NAD in chair Heart: RRR Lung: decreased breath sounds at the bases Abd: soft, nontender Ext: no edema CBC, BMP 05/05/18 05:15 05/05/18 05:30 Active Medications Acetaminophen (Tylenol -) 650 mg PO Q4H PRN PRN Reason: PAIN LEVEL 1-5 Last Admin: 05/05/18 12:27 Dose: 650 mg Collagenase (Santyl -) 1 applic TP DAILY [facility] Docusate Sodium (Colace -) 100 mg PO BID PRN PRN Reason: CONSTIPATION Heparin Sodium (Porcine) (Heparin -) 5,000 unit SQ BID [facility] Last Admin: 05/05/18 10:10 Dose: 5,000 unit Lisinopril (Prinivil) 5 mg PO DAILY [facility] Last Admin: 05/05/18 10:09 Dose: 5 mg Oxycodone HCl (Roxicodone -) 5 mg PO Q8H PRN PRN Reason: PAIN LEVEL 6-10 Last Admin: 05/04/18 18:48 Dose: 5 mg Pantoprazole Sodium (Protonix Iv) 40 mg IVPUSH BID [facility] Last Admin: 05/05/18 10:10 Dose: 40 mg Senna (Senna -) 2 tab PO HS [facility] Last Admin: 05/04/18 22:02 Dose: Not Given A/P Chest Pain Hiatal Hernia Acute Kidney Injury Anemia h/o Breast Ca - pain control - monitor urine output, creatinine - do not suspect pulmonary etiology of her chest pain - DVT prophylaxis
--- NOTE | 2018-05-05 14:12 | PN ---
Progress Note, Physician History of Present Illness: Pt seen and examined at bedside. She is awake and appears comfortable. She denies shortness of breath. - Current Medication List Current Medications: Active Medications Acetaminophen (Tylenol -) 650 mg PO Q4H PRN PRN Reason: PAIN LEVEL 1-5 Last Admin: 05/05/18 12:27 Dose: 650 mg Collagenase (Santyl -) 1 applic TP DAILY [facility] Docusate Sodium (Colace -) 100 mg PO BID PRN PRN Reason: CONSTIPATION Heparin Sodium (Porcine) (Heparin -) 5,000 unit SQ BID [facility] Last Admin: 05/05/18 10:10 Dose: 5,000 unit Lisinopril (Prinivil) 5 mg PO DAILY [facility] Last Admin: 05/05/18 10:09 Dose: 5 mg Oxycodone HCl (Roxicodone -) 5 mg PO Q8H PRN PRN Reason: PAIN LEVEL 6-10 Last Admin: 05/04/18 18:48 Dose: 5 mg Pantoprazole Sodium (Protonix Iv) 40 mg IVPUSH BID [facility] Last Admin: 05/05/18 10:10 Dose: 40 mg Senna (Senna -) 2 tab PO HS [facility] Last Admin: 05/04/18 22:02 Dose: Not Given - Objective Vital Signs: Vital Signs Temperature 98.7 F 05/05/18 09:54 Pulse Rate 73 05/05/18 09:54 Respiratory Rate 18 05/05/18 09:54 Blood Pressure 171/72 05/05/18 09:54 O2 Sat by Pulse Oximetry (%) 100 05/05/18 09:00 Constitutional: Yes: Calm Eyes: Yes: Conjunctiva Clear HENT: Yes: Atraumatic Cardiovascular: Yes: S1, S2 Gastrointestinal: Yes: Soft Genitourinary: Yes: WNL Edema: Yes Edema: LLE: Trace, RLE: Trace Neurological: Yes: Oriented Psychiatric: Yes: Oriented Labs: CBC, BMP 05/05/18 05:15 05/05/18 05:30 INR, PTT INR 1.14 (0.82-1.09) 05/01/18 18:15 Problem List - Problems (1) CKD (chronic kidney disease) Code(s): N18.9 - CHRONIC KIDNEY DISEASE, UNSPECIFIED (2) Anemia Code(s): D64.9 - ANEMIA, UNSPECIFIED Qualifiers: Anemia type: other cause Other causes of anemia: chronic disease, 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 (3) Breast CA Code(s): C50.919 - MALIGNANT NEOPLASM OF UNSP SITE OF UNSPECIFIED FEMALE BREAST Assessment/Plan Current Medications Generic Name Dose Route Start Last Admin Trade Name Freq PRN Reason Stop Dose Admin Acetaminophen 650 mg 05/04/18 11:04 05/05/18 12:27 Tylenol - PO 650 mg Q4H PRN Administration PAIN LEVEL 1-5 Collagenase 1 applic 05/05/18 10:00 Santyl - TP DAILY [facility] Docusate Sodium 100 mg 05/04/18 11:04 Colace - PO BID PRN CONSTIPATION Heparin Sodium (Porcine) 5,000 unit 05/04/18 22:00 05/05/18 10:10 Heparin - SQ 5,000 unit BID [facility] Administration Lisinopril 5 mg 05/05/18 10:00 05/05/18 10:09 Prinivil PO 5 mg DAILY [facility] Administration Oxycodone HCl 5 mg 05/04/18 11:35 05/04/18 18:48 Roxicodone - PO 5 mg Q8H PRN Administration PAIN LEVEL 6-10 Pantoprazole Sodium 40 mg 05/04/18 22:00 05/05/18 10:10 Protonix Iv IVPUSH 40 mg BID [facility] Administration Senna 2 tab 05/04/18 22:00 05/04/18 22:02 Senna - PO Not Given HS [facility] Impression 1. likely CKD 2. CHF 3. HTN 4. hx breast cancer 5. dyspnea 6. anemia 7. elevated d-dimer 8. metastatic disease Plan - lasix on hold, will evaluate for diuretics in am - renal function is starting to improve - repeat labs in am - oncolgy follow up - cont to monitor renal function - UA is negative for blood or protein
--- NOTE | 2018-05-05 14:41 | PN ---
Physical Exam: SUBJECTIVE: Patient seen and examined OBJECTIVE: Vital Signs Period Temp Pulse Resp BP Sys/Beltre Pulse Ox Last 24 Hr 97.9 F-99 F 68-73 18-18 144-171/57-73 100-100 GENERAL: The patient is awake, alert, oriented, in mild distress secondary to pain and dizziness. Pale. LUNGS: CTA HEART: Regular rate and rhythm, S1, S2 ABDOMEN: Soft, nontender, nondistended EXTREMITIES: 2+ pulses, warm, well-perfused, 1+ edema bilaterally NEUROLOGICAL: Cranial nerves II through XII grossly intact. Laboratory Results - last 24 hr 05/03/18 05/03/18 05/04/18 05:30 05:30 05:30 WBC RBC Hgb Hct MCV MCH MCHC RDW Plt Count MPV Absolute Neuts (auto) Neutrophils % Lymphocytes % Monocytes % Eosinophils % Basophils % Nucleated RBC % Sodium Potassium Chloride Carbon Dioxide Anion Gap BUN Creatinine Creat Clearance w eGFR Random Glucose Calcium Magnesium Total Bilirubin AST ALT Alkaline Phosphatase Troponin I Total Protein Albumin Carcinoembryonic Ag 40.8 H CA 19-9 Antigen 5 Blood Type A POSITIVE Antibody Screen Negative Crossmatch See Detail 05/04/18 05/04/18 05/05/18 18:20 20:45 05:15 WBC 6.4 RBC 3.41 L Hgb 9.4 L Hct 28.1 L D MCV 82.4 MCH 27.4 MCHC 33.3 RDW 17.0 H Plt Count 379 MPV 7.4 L Absolute Neuts (auto) Neutrophils % Lymphocytes % Monocytes % Eosinophils % Basophils % Nucleated RBC % Sodium 142 Potassium 4.0 Chloride 104 Carbon Dioxide 30 Anion Gap 8 BUN 50 H Creatinine 1.2 H Creat Clearance w eGFR 42.70 Random Glucose 104 Calcium 8.6 Magnesium 2.2 Total Bilirubin 0.6 AST 83 H ALT 67 Alkaline Phosphatase 244 H D Troponin I < 0.02 < 0.02 Total Protein 6.1 L Albumin 2.8 L Carcinoembryonic Ag CA 19-9 Antigen Blood Type Antibody Screen Crossmatch 05/05/18 05/05/18 05/05/18 05:15 05:30 05:30 WBC 6.4 RBC 3.28 L Hgb 9.0 L Hct 26.8 L MCV 81.6 MCH 27.5 MCHC 33.7 RDW 17.3 H Plt Count 342 MPV 7.2 L Absolute Neuts (auto) 4.3 Neutrophils % 66.3 Lymphocytes % 22.2 Monocytes % 8.6 Eosinophils % 2.4 Basophils % 0.5 Nucleated RBC % 0 Sodium Cancelled Potassium Cancelled Chloride Cancelled Carbon Dioxide Cancelled Anion Gap Cancelled BUN Cancelled Creatinine Cancelled Creat Clearance w eGFR Cancelled Random Glucose Cancelled Calcium Cancelled Magnesium Cancelled Total Bilirubin Cancelled AST Cancelled ALT Cancelled Alkaline Phosphatase Cancelled Troponin I Cancelled Cancelled Total Protein Cancelled Albumin Cancelled Carcinoembryonic Ag CA 19-9 Antigen Blood Type Antibody Screen Crossmatch Active Medications Generic Name Dose Route Start Last Admin Trade Name Freq PRN Reason Stop Dose Admin Acetaminophen 650 mg 05/04/18 11:04 05/05/18 12:27 Tylenol - PO 650 mg Q4H PRN Administration PAIN LEVEL 1-5 Collagenase 1 applic 05/05/18 10:00 Santyl - TP DAILY [facility] Docusate Sodium 100 mg 05/04/18 11:04 Colace - PO BID PRN CONSTIPATION Heparin Sodium (Porcine) 5,000 unit 05/04/18 22:00 05/05/18 10:10 Heparin - SQ 5,000 unit BID [facility] Administration Lisinopril 5 mg 05/05/18 10:00 05/05/18 10:09 Prinivil PO 5 mg DAILY [facility] Administration Oxycodone HCl 5 mg 05/04/18 11:35 05/04/18 18:48 Roxicodone - PO 5 mg Q8H PRN Administration PAIN LEVEL 6-10 Pantoprazole Sodium 40 mg 05/04/18 22:00 05/05/18 10:10 Protonix Iv IVPUSH 40 mg BID [facility] Administration Senna 2 tab 05/04/18 22:00 05/04/18 22:02 Senna - PO Not Given HS [facility] Imaging 05/01 CXR: no acute process 05/02 CTAP: (1) extensive lytic metastatic disease, areas of cortical destruction ; (2) multi vertebral compression deformities; (3) intrahepatic ducts moderately dilated extending to pancreatic head ASSESSMENT/PLAN 87 year-old female with PMH significant for right breast cancer s/p lumpectomy/ radiation x 40 years, diastolic heart failure, and severe valvular disease. Episode bradycardia and hypotension --transfer back to telemetry --24 hour holter --d/c carvedilol --hold Lasix and increase lisinopril as needed --orthostatics Microcytic anemia Iron-deficiency anemia --Hg 7.7, was transfused 1 U PRBC on 05/04-->9.4-->9.0 Breast cancer --multiple pathologic compression fractures spine and multiple rib fractures and right humeral fracture --CEA elevated, PTH elevated, CA19-9 wnl --because rods in leg, will obtain CT of T and L spine (concern for T-10 epidural disease) --protein studies pending --Dr. Padilla following Diastolic heart failure Severe valvular disease --05/02 Echo: moderate cLVH, LV normal; RV normal; BLAE; moderate to severe MR ; severe TR; pHTN; mild AI; mild PI --hold lasix due to hypotensive event Shortness of breath Elevated d-dimer --r/o PE, VQ scan Monday --05/02 US BLE: negative for DVT --per heme/onc, hold off on giving full-dose lovenox until V/Q scan results CKD --Cr steady 1.3-1.4 --US renal unremarkable --US bladder: no acute process; post-void residual 290cc's --renal following Pressure ulcers --daily collagenase FEN Fluids: PO intake adequate Electrolytes: replete as indicated Nutrition: regular diet DVT prophylaxis: subq heparin Dispo: continues to require inpatient care. Full code. Visit type - Emergency Visit Emergency Visit: Yes ED Registration Date: 05/01/18 Care time: The patient presented to the Emergency Department on the above date and was hospitalized for further evaluation of their emergent condition. - New Patient This patient is new to me today: Yes Date on this admission: 05/06/18 - Critical Care Critical Care patient: No
[2018-05-05] MEDS: COLLAGENASE CLOSTRIDIUM HIST. 30 GRAMS TUBE TP SCH (15:29)
--- NOTE | 2018-05-05 17:39 | PN ---
Progress Note (short form) - Note Progress Note: Patient seen and examined Feels well. Denies any complaints Last Vital Signs Temp Pulse Resp BP Pulse Ox 98.1 F 70 18 148/70 100 05/05/18 14:00 05/05/18 14:00 05/05/18 09:54 05/05/18 14:00 05/05/18 09:00 Cor: RSR, No murmurs, No gallops Lungs: Clear to P&A Abd: Soft, Normal bowel sounds, No organomegaly Ext:No significant edema Abnormal Lab Results 05/04/18 05/04/18 05/05/18 05:30 20:45 05:15 RBC 3.41 L Hgb 9.4 L Hct 28.1 L D RDW 17.0 H MPV 7.4 L BUN 50 H Creatinine 1.2 H AST 83 H Alkaline Phosphatase 244 H D Total Protein 6.1 L Albumin 2.8 L Crossmatch See Detail 05/05/18 05:15 RBC 3.28 L Hgb 9.0 L Hct 26.8 L RDW 17.3 H MPV 7.2 L BUN Creatinine AST Alkaline Phosphatase Total Protein Albumin Crossmatch Active Medications Generic Name Dose Route Start Last Admin Trade Name Freq PRN Reason Stop Dose Admin Acetaminophen 650 mg 05/04/18 11:04 05/05/18 12:27 Tylenol - PO 650 mg Q4H PRN Administration PAIN LEVEL 1-5 Collagenase 1 applic 05/05/18 10:00 05/05/18 15:29 Santyl - TP 1 applic DAILY [facility] Administration Docusate Sodium 100 mg 05/04/18 11:04 Colace - PO BID PRN CONSTIPATION Heparin Sodium (Porcine) 5,000 unit 05/04/18 22:00 05/05/18 10:10 Heparin - SQ 5,000 unit BID [facility] Administration Lisinopril 5 mg 05/05/18 10:00 05/05/18 10:09 Prinivil PO 5 mg DAILY [facility] Administration Oxycodone HCl 5 mg 05/04/18 11:35 05/04/18 18:48 Roxicodone - PO 5 mg Q8H PRN Administration PAIN LEVEL 6-10 Pantoprazole Sodium 40 mg 05/04/18 22:00 05/05/18 10:10 Protonix Iv IVPUSH 40 mg BID [facility] Administration Senna 2 tab 05/04/18 22:00 05/04/18 22:02 Senna - PO Not Given HS [facility]INA A/P 87 y/o patient extensive lytic skeletal disease,T10 fx on CT scans. ? [ pancreatic mass. h/o breast cancer 40 yrs. ago, had taken tamoxifen will check tumor markers. Myeloma w/u pending discussed with patinet --to consider biopsy of lytic lesions
[2018-05-05] MEDS: SENNOSIDES 8.6MG TABLET (FP) PO SCH (21:24)
[2018-05-05] MEDS: oxyCODONE HCL 5 MG TABLET PO PRN (21:36)
[2018-05-06 06:42] LABS: SERUM IRON SATURATION 7 % (15-55); TOTAL IRON BINDING CAPACITY 268 ug/dL (250-450); UIBC 248 ug/dL (118-369)
[2018-05-06] MEDS: LISINOPRIL 5 MG TABLET (FP) PO SCH (10:12)
[2018-05-06] MEDS: PANTOPRAZOLE SODIUM 40 MG VIAL IVPUSH SCH ×2 (10:12→21:26)
[2018-05-06] MEDS: HEPARIN NA (PORCINE) 5,000 UNITS/ML 1ML VIAL SQ SCH ×2 (10:12→21:26)
[2018-05-06] MEDS: oxyCODONE HCL 5 MG TABLET PO PRN ×2 (10:12→21:26)
[2018-05-06] MEDS: COLLAGENASE CLOSTRIDIUM HIST. 30 GRAMS TUBE TP SCH (10:14)
[2018-05-06] MEDS: ACETAMINOPHEN 325 MG TABLET (FP) PO PRN ×2 (12:06→17:29)
--- NOTE | 2018-05-06 12:15 | PN ---
Progress Note (short form) - Note Progress Note: PULMONARY Denies shortness of breath or chest pain. Vital Signs Period Temp Pulse Resp BP Sys/Beltre Pulse Ox Last 24 Hr 98.1 F-99 F 67-77 18-20 146-188/70-85 98-99 Gen: NAD at rest Heart: RRR Lung: decreased breath sounds at the bases Abd: soft, nontender Ext: no edema CBC, BMP 05/05/18 05:15 05/05/18 05:30 Active Medications Acetaminophen (Tylenol -) 650 mg PO Q4H PRN PRN Reason: PAIN LEVEL 1-5 Last Admin: 05/06/18 12:06 Dose: 650 mg Collagenase (Santyl -) 1 applic TP DAILY [facility] Last Admin: 05/06/18 10:14 Dose: 1 applic Docusate Sodium (Colace -) 100 mg PO BID PRN PRN Reason: CONSTIPATION Heparin Sodium (Porcine) (Heparin -) 5,000 unit SQ BID [facility] Last Admin: 05/06/18 10:12 Dose: 5,000 unit Lisinopril (Prinivil) 5 mg PO DAILY [facility] Last Admin: 05/06/18 10:12 Dose: 5 mg Oxycodone HCl (Roxicodone -) 5 mg PO Q8H PRN PRN Reason: PAIN LEVEL 6-10 Last Admin: 05/06/18 10:12 Dose: 5 mg Pantoprazole Sodium (Protonix Iv) 40 mg IVPUSH BID [facility] Last Admin: 05/06/18 10:12 Dose: 40 mg Senna (Senna -) 2 tab PO HS [facility] Last Admin: 05/05/18 21:24 Dose: 2 tab A/P Chest Pain likely from bone lytic lesions Hiatal Hernia Acute Kidney Injury Anemia h/o Breast Ca - pain control - monitor urine output, creatinine - do not suspect pulmonary etiology of her chest pain - DVT prophylaxis
--- NOTE | 2018-05-06 13:21 | PN ---
Physical Exam: SUBJECTIVE: Patient seen and examined at bedside. Very subdued. Asking about her diagnosis, recalls speaking with Dr. Padilla but feels she just wasn't ready "to take it in." Discussed probable cancer diagnosis. Dr. Hoffman will speak to patient today more specifically about disease, testing, and treatment. OBJECTIVE: Vital Signs Period Temp Pulse Resp BP Sys/Beltre Pulse Ox Last 24 Hr 98.1 F-99 F 67-77 18-20 146-188/70-85 98-99 GENERAL: The patient is awake, alert, oriented, subdued. LUNGS: CTA HEART: Regular rate and rhythm, S1, S2 ABDOMEN: Soft, nontender, nondistended EXTREMITIES: 2+ pulses, warm, well-perfused, 1+ edema bilaterally NEUROLOGICAL: Cranial nerves II through XII grossly intact. Laboratory Results - last 24 hr 05/04/18 05:30 Iron 20 L TIBC 268 Iron Saturation 7 L Active Medications Generic Name Dose Route Start Last Admin Trade Name Freq PRN Reason Stop Dose Admin Acetaminophen 650 mg 05/04/18 11:04 05/06/18 12:06 Tylenol - PO 650 mg Q4H PRN Administration PAIN LEVEL 1-5 Collagenase 1 applic 05/05/18 10:00 05/06/18 10:14 Santyl - TP 1 applic DAILY [facility] Administration Docusate Sodium 100 mg 05/04/18 11:04 Colace - PO BID PRN CONSTIPATION Heparin Sodium (Porcine) 5,000 unit 05/04/18 22:00 05/06/18 10:12 Heparin - SQ 5,000 unit BID [facility] Administration Lisinopril 5 mg 05/05/18 10:00 05/06/18 10:12 Prinivil PO 5 mg DAILY [facility] Administration Oxycodone HCl 5 mg 05/04/18 11:35 05/06/18 10:12 Roxicodone - PO 5 mg Q8H PRN Administration PAIN LEVEL 6-10 Pantoprazole Sodium 40 mg 05/04/18 22:00 05/06/18 10:12 Protonix Iv IVPUSH 40 mg BID [facility] Administration Senna 2 tab 05/04/18 22:00 05/05/18 21:24 Senna - PO 2 tab HS [facility] Administration ASSESSMENT/PLAN: Imaging 05/01 CXR: no acute process 05/02 CTAP: (1) extensive lytic metastatic disease, areas of cortical destruction ; (2) multi vertebral compression deformities; (3) intrahepatic ducts moderately dilated extending to pancreatic head ASSESSMENT/PLAN 87 year-old female with PMH significant for right breast cancer s/p lumpectomy/ radiation x 40 years, diastolic heart failure, and severe valvular disease. Episode bradycardia and hypotension 05/04 --continue telemetry Microcytic anemia Iron-deficiency anemia --pale, dizzy, Hg 7.7 on 05/04, transfused 1U PRBC with good response--> 9.4 Breast cancer --multiple pathologic compression fractures spine and multiple rib fractures and right humeral fracture --CEA elevated, PTH elevated, CA19-9 wnl --because rods in leg, will obtain CT of T and L spine (concern for T-10 epidural disease) --protein studies pending --will request IR bone biopsy --oncology following Diastolic heart failure Severe valvular disease --05/02 Echo: moderate cLVH, LV normal; RV normal; BLAE; moderate to severe MR ; severe TR; pHTN; mild AI; mild PI --hold lasix due to hypotensive event Shortness of breath Elevated d-dimer --r/o PE, VQ scan Monday --05/02 US BLE: negative for DVT --per heme/onc, hold off on giving full-dose lovenox until V/Q scan results CKD --Cr steady 1.3-1.4 --US renal unremarkable --US bladder: no acute process; post-void residual 290cc's --renal following Pressure ulcers --daily collagenase FEN Fluids: PO intake adequate Electrolytes: replete as indicated Nutrition: regular diet DVT prophylaxis: subq heparin Dispo: continues to require inpatient care. Full code. Visit type - Emergency Visit Emergency Visit: Yes ED Registration Date: 05/01/18 Care time: The patient presented to the Emergency Department on the above date and was hospitalized for further evaluation of their emergent condition. - New Patient This patient is new to me today: No - Critical Care Critical Care patient: No
[2018-05-06] MEDS: CARVEDILOL 3.125 MG TABLET (FP) PO SCH ×2 (13:43→21:26)
--- NOTE | 2018-05-06 14:08 | PN ---
Progress Note (short form) - Note Progress Note: Patient seen and examined Feels well. Denies any complaints Last Vital Signs Temp Pulse Resp BP Pulse Ox 98.2 F 68 18 160/70 99 05/06/18 17:00 05/06/18 17:00 05/06/18 17:00 05/06/18 17:00 05/06/18 09:00 Cor: RSR, No murmurs, No gallops Lungs: Clear to P&A Abd: Soft, Normal bowel sounds, No organomegaly Ext:No significant edema Abnormal Lab Results 05/04/18 05:30 Iron 20 L Iron Saturation 7 L Active Medications Generic Name Dose Route Start Last Admin Trade Name Freq PRN Reason Stop Dose Admin Acetaminophen 650 mg 05/04/18 11:04 05/06/18 17:29 Tylenol - PO 650 mg Q4H PRN Administration PAIN LEVEL 1-5 Carvedilol 3.125 mg 05/06/18 13:30 05/06/18 21:26 Coreg - PO 3.125 mg BID [facility] Administration Collagenase 1 applic 05/05/18 10:00 05/06/18 10:14 Santyl - TP 1 applic DAILY [facility] Administration Docusate Sodium 100 mg 05/04/18 11:04 Colace - PO BID PRN CONSTIPATION Heparin Sodium (Porcine) 5,000 unit 05/04/18 22:00 05/06/18 21:26 Heparin - SQ 5,000 unit BID [facility] Administration Lisinopril 5 mg 05/05/18 10:00 05/06/18 10:12 Prinivil PO 5 mg DAILY [facility] Administration Oxycodone HCl 5 mg 05/04/18 11:35 05/06/18 21:26 Roxicodone - PO 5 mg Q8H PRN Administration PAIN LEVEL 6-10 Pantoprazole Sodium 40 mg 05/04/18 22:00 05/06/18 21:26 Protonix Iv IVPUSH 40 mg BID [facility] Administration Senna 2 tab 05/04/18 22:00 05/06/18 21:26 Senna - PO 2 tab HS [facility] Administration A/P 87 y/o patient extensive lytic skeletal disease,T10 fx on CT scans. ? pancreatic mass. h/o breast cancer 40 yrs. ago, had taken tamoxifen Fractured rt. humerus/rib fx, vertebral fx--healing well will check tumor markers-- CA27.29/CA19.9/CEA/CA 125 Myeloma w/u pending discussed with patinet --to consider biopsy of lytic lesions. will discuss with IR may be a candidate for low intensity therapy and zometa based on work up will discuss with son
--- NOTE | 2018-05-06 15:02 | PN ---
Progress Note, Physician History of Present Illness: Pt seen and examined at bedside. She is sitting up in bed. She complains of right shoulder pain. She denies shortness of breath. - Current Medication List Current Medications: Active Medications Acetaminophen (Tylenol -) 650 mg PO Q4H PRN PRN Reason: PAIN LEVEL 1-5 Last Admin: 05/06/18 12:06 Dose: 650 mg Carvedilol (Coreg -) 3.125 mg PO BID [facility] Last Admin: 05/06/18 13:43 Dose: 3.125 mg Collagenase (Santyl -) 1 applic TP DAILY [facility] Last Admin: 05/06/18 10:14 Dose: 1 applic Docusate Sodium (Colace -) 100 mg PO BID PRN PRN Reason: CONSTIPATION Heparin Sodium (Porcine) (Heparin -) 5,000 unit SQ BID [facility] Last Admin: 05/06/18 10:12 Dose: 5,000 unit Lisinopril (Prinivil) 5 mg PO DAILY [facility] Last Admin: 05/06/18 10:12 Dose: 5 mg Oxycodone HCl (Roxicodone -) 5 mg PO Q8H PRN PRN Reason: PAIN LEVEL 6-10 Last Admin: 05/06/18 10:12 Dose: 5 mg Pantoprazole Sodium (Protonix Iv) 40 mg IVPUSH BID [facility] Last Admin: 05/06/18 10:12 Dose: 40 mg Senna (Senna -) 2 tab PO HS [facility] Last Admin: 05/05/18 21:24 Dose: 2 tab - Objective Vital Signs: Vital Signs Temperature 98.8 F 05/06/18 10:00 Pulse Rate 77 05/06/18 10:00 Respiratory Rate 18 05/06/18 10:00 Blood Pressure 180/78 05/06/18 10:00 O2 Sat by Pulse Oximetry (%) 99 05/06/18 09:00 Constitutional: Yes: Calm Eyes: Yes: Conjunctiva Clear HENT: Yes: Atraumatic Cardiovascular: Yes: S1, S2 Respiratory: Yes: CTA Bilaterally Gastrointestinal: Yes: Soft Genitourinary: Yes: WNL Musculoskeletal: Yes: WNL Edema: Yes Edema: LLE: Trace, RLE: Trace Neurological: Yes: Oriented Psychiatric: Yes: Oriented Labs: CBC, BMP 05/05/18 05:15 05/05/18 05:30 INR, PTT INR 1.14 (0.82-1.09) 05/01/18 18:15 Problem List - Problems (1) CKD (chronic kidney disease) Code(s): N18.9 - CHRONIC KIDNEY DISEASE, UNSPECIFIED (2) Anemia Code(s): D64.9 - ANEMIA, UNSPECIFIED Qualifiers: Anemia type: other cause Other causes of anemia: chronic disease, 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 (3) Breast CA Code(s): C50.919 - MALIGNANT NEOPLASM OF UNSP SITE OF UNSPECIFIED FEMALE BREAST Assessment/Plan Current Medications Generic Name Dose Route Start Last Admin Trade Name Freq PRN Reason Stop Dose Admin Acetaminophen 650 mg 05/04/18 11:04 05/06/18 12:06 Tylenol - PO 650 mg Q4H PRN Administration PAIN LEVEL 1-5 Carvedilol 3.125 mg 05/06/18 13:30 05/06/18 13:43 Coreg - PO 3.125 mg BID [facility] Administration Collagenase 1 applic 05/05/18 10:00 05/06/18 10:14 Santyl - TP 1 applic DAILY [facility] Administration Docusate Sodium 100 mg 05/04/18 11:04 Colace - PO BID PRN CONSTIPATION Heparin Sodium (Porcine) 5,000 unit 05/04/18 22:00 05/06/18 10:12 Heparin - SQ 5,000 unit BID [facility] Administration Lisinopril 5 mg 05/05/18 10:00 05/06/18 10:12 Prinivil PO 5 mg DAILY [facility] Administration Oxycodone HCl 5 mg 05/04/18 11:35 05/06/18 10:12 Roxicodone - PO 5 mg Q8H PRN Administration PAIN LEVEL 6-10 Pantoprazole Sodium 40 mg 05/04/18 22:00 05/06/18 10:12 Protonix Iv IVPUSH 40 mg BID [facility] Administration Senna 2 tab 05/04/18 22:00 05/05/18 21:24 Senna - PO 2 tab HS [facility]INA Administration Impression 1. likely CKD 2. CHF 3. HTN 4. hx breast cancer 5. dyspnea 6. anemia 7. elevated d-dimer 8. metastatic disease Plan - check bmp - lasix on hold - oncolgy follow up - cont to monitor renal function - UA is negative for blood or protein
[2018-05-06] MEDS: SENNOSIDES 8.6MG TABLET (FP) PO SCH (21:26)
[2018-05-07 06:43] LABS: CHLORIDE 104 mmol/L (98-107); POTASSIUM 4.4 mmol/L (3.5-5.1); SODIUM 140 mmol/L (136-145)
[2018-05-07 07:15] LABS: ANION GAP 9 (8-16); BLOOD UREA NITROGEN 40 mg/dL (7-18); CO2 27 mmol/L (21-32); CREATININE 1.1 mg/dL (0.55-1.02); GLUCOSE,RANDOM 91 mg/dL (74-106)
[2018-05-07] MEDS ORDERED: PT OWN MED DRAWER 7, Y5N ONE (08:07)
--- NOTE | 2018-05-07 08:48 | PN ---
Progress Note, Physician Chief Complaint: Pt A&Ozx3; lying in bed; no longer has pain in leftr axillary area. History of Present Illness: Patient is an 87 year old white woman with history of right breast cancer s/p surgery and radiotherapy here with upper abdominal pain 2 days. States sensation present whether at rest or on exertion. No shortness of breath, diaphoresis, nausea, vomiting or palpitations. No history of similar symptoms in the past. While in the ED, patient noted to have bilateral lower extremity edema, which patient states she did not notice until she was made aware when she got here. No leg pain, cough, f/c. Also c/o painful sore to R buttocks "for some time". 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 and admits she has not seen a doctor in many years - Current Medication List Current Medications: Active Medications Acetaminophen (Tylenol -) 650 mg PO Q4H PRN PRN Reason: PAIN LEVEL 1-5 Last Admin: 05/06/18 17:29 Dose: 650 mg Carvedilol (Coreg -) 3.125 mg PO BID [facility] Last Admin: 05/06/18 21:26 Dose: 3.125 mg Collagenase (Santyl -) 1 applic TP DAILY [facility] Last Admin: 05/06/18 10:14 Dose: 1 applic Docusate Sodium (Colace -) 100 mg PO BID PRN PRN Reason: CONSTIPATION Heparin Sodium (Porcine) (Heparin -) 5,000 unit SQ BID [facility] Last Admin: 05/06/18 21:26 Dose: 5,000 unit Lisinopril (Prinivil) 5 mg PO DAILY [facility] Last Admin: 05/06/18 10:12 Dose: 5 mg Oxycodone HCl (Roxicodone -) 5 mg PO Q8H PRN PRN Reason: PAIN LEVEL 6-10 Last Admin: 05/06/18 21:26 Dose: 5 mg Pantoprazole Sodium (Protonix Iv) 40 mg IVPUSH BID [facility] Last Admin: 05/06/18 21:26 Dose: 40 mg Senna (Senna -) 2 tab PO HS [facility] Last Admin: 05/06/18 21:26 Dose: 2 tab - Objective Vital Signs: Vital Signs Temperature 97.9 F 05/07/18 06:00 Pulse Rate 68 05/07/18 06:00 Respiratory Rate 20 05/07/18 06:00 Blood Pressure 146/68 05/07/18 06:00 O2 Sat by Pulse Oximetry (%) 95 05/06/18 21:00 Constitutional: Yes: Calm Eyes: Yes: WNL HENT: Yes: WNL Neck: Yes: WNL Cardiovascular: Yes: Regular Rate and Rhythm Respiratory: Yes: Diminished Gastrointestinal: Yes: Soft ...Rectal Exam: Yes: Deferred Genitourinary: No: Anuria Breast(s): Yes: Other Musculoskeletal: Yes: Muscle Pain, Muscle Weakness Extremities: Yes: Cool Edema: No Peripheral Pulses WNL: Yes Integumentary: Yes: WNL Neurological: Yes: Alert, Oriented, Weakness Psychiatric: Yes: WNL Labs: CBC, BMP 05/05/18 05:15 05/07/18 05:45 INR, PTT INR 1.14 (0.82-1.09) 05/01/18 18:15 Problem List - Problems (1) Breast CA Assessment/Plan: breast CA with metastases. Chronic "pain in the ribs", usually right-sided; presnelty asyjmptomatic. CT chest: extensive bone metastases., especially vertebral. Continue pain management. 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 Not in acute distress (respiratory-verdin). On ACEI. Stopped furosemide, as BUN/Cr are rising. Avoid dehydration. F/u BUN/Cr, electrolyes, Is and Os, and daily weight/ Code(s): I50.30 - UNSPECIFIED DIASTOLIC (CONGESTIVE) HEART FAILURE
--- NOTE | 2018-05-07 09:00 | PN ---
Progress Note, Physician Chief Complaint: episode of bradycardia and hypotension History of Present Illness: Patient is an 87 year old woman with history of right breast cancer s/p surgery and radiotherapy here with upper abdominal pain 2 days. States sensation present whether at rest or on exertion. No shortness of breath, diaphoresis, nausea, vomiting or palpitations. No history of similar symptoms in the past. While in the ED, patient noted to have bilateral lower extremity edema, which patient states she did not notice until she was made aware when she got here. No leg pain, cough, f/c. Also c/o painful sore to R buttocks "for some time". 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 and admits she has not seen a doctor in many years - Current Medication List Current Medications: Active Medications Acetaminophen (Tylenol -) 650 mg PO Q4H PRN PRN Reason: PAIN LEVEL 1-5 Last Admin: 05/06/18 17:29 Dose: 650 mg Carvedilol (Coreg -) 3.125 mg PO BID [facility] Last Admin: 05/06/18 21:26 Dose: 3.125 mg Collagenase (Santyl -) 1 applic TP DAILY [facility] Last Admin: 05/06/18 10:14 Dose: 1 applic Docusate Sodium (Colace -) 100 mg PO BID PRN PRN Reason: CONSTIPATION Heparin Sodium (Porcine) (Heparin -) 5,000 unit SQ BID [facility] Last Admin: 05/06/18 21:26 Dose: 5,000 unit Lisinopril (Prinivil) 5 mg PO DAILY [facility] Last Admin: 05/06/18 10:12 Dose: 5 mg Oxycodone HCl (Roxicodone -) 5 mg PO Q8H PRN PRN Reason: PAIN LEVEL 6-10 Last Admin: 05/06/18 21:26 Dose: 5 mg Pantoprazole Sodium (Protonix Iv) 40 mg IVPUSH BID [facility] Last Admin: 05/06/18 21:26 Dose: 40 mg Senna (Senna -) 2 tab PO HS [facility] Last Admin: 05/06/18 21:26 Dose: 2 tab - Objective Vital Signs: Vital Signs Temperature 97.9 F 05/07/18 06:00 Pulse Rate 68 05/07/18 06:00 Respiratory Rate 20 05/07/18 06:00 Blood Pressure 146/68 05/07/18 06:00 O2 Sat by Pulse Oximetry (%) 95 05/06/18 21:00 Eyes: Yes: WNL, Conjunctiva Clear, EOM Intact HENT: Yes: WNL, Atraumatic, Normocephalic Neck: Yes: WNL, Supple, Trachea Midline Cardiovascular: Yes: WNL, Regular Rate and Rhythm Respiratory: Yes: WNL, Regular, CTA Bilaterally Gastrointestinal: Yes: WNL, Normal Bowel Sounds Genitourinary: Yes: WNL Musculoskeletal: Yes: WNL Extremities: Yes: WNL Edema: No Integumentary: Yes: WNL Neurological: Yes: WNL, Alert, Oriented ...Motor Strength: WNL Psychiatric: Yes: WNL Labs: CBC, BMP 05/05/18 05:15 05/07/18 05:45 INR, PTT INR 1.14 (0.82-1.09) 05/01/18 18:15 Problem List - Problems (1) CHF exacerbation Code(s): I50.9 - HEART FAILURE, UNSPECIFIED Qualifiers: Heart failure type: diastolic Qualified Code(s): I50.33 - Acute on chronic diastolic (congestive) heart failure (2) Chest pain Code(s): R07.9 - CHEST PAIN, UNSPECIFIED Qualifiers: Chest pain type: chest pain on breathing Qualified Code(s): R07.1 - Chest pain on breathing; R07.81 - Pleurodynia (3) Fracture, humerus Code(s): S42.309A - UNSP FRACTURE OF SHAFT OF HUMERUS, UNSP ARM, INIT Qualifiers: Encounter type: initial encounter Humerus Location: proximal Fracture type: closed Fracture morphology: unspecified fracture morphology Laterality : right Qualified Code(s): S42.201A - Unspecified fracture of upper end of right humerus, initial encounter for closed fracture Assessment/Plan - Problems (1) Breast CA Assessment/Plan: breast CA with metastases. Chronic "pain in the ribs", usually right-sided; presnelty asyjmptomatic. CT chest: extensive bone metastases., especially vertebral. 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 Not in acute distress (respiratory-verdin). On ACEI. Stopped furosemide, as BUN/Cr are rising. Avoid dehydration. F/u BUN/Cr, electrolyes, Is and Os, and daily weight/ Code(s): I50.30 - UNSPECIFIED DIASTOLIC (CONGESTIVE) HEART FAILURE
[2018-05-07] MEDS: HEPARIN NA (PORCINE) 5,000 UNITS/ML 1ML VIAL SQ SCH (09:21)
[2018-05-07] MEDS: PANTOPRAZOLE SODIUM 40 MG VIAL IVPUSH SCH ×2 (09:21→21:52)
[2018-05-07] MEDS: LISINOPRIL 5 MG TABLET (FP) PO SCH (09:23)
[2018-05-07] MEDS: CARVEDILOL 3.125 MG TABLET (FP) PO SCH ×2 (09:23→21:52)
--- NOTE | 2018-05-07 12:18 | PN ---
Progress Note (short form) - Note Progress Note: Denies shortness of breath or chest pain. No acute events overnight. Intake & Output 05/04/18 05/05/18 05/06/18 05/07/18 23:59 23:59 23:59 23:59 Intake Total 780 1060 900 210 Output Total 300 Balance 780 1060 600 210 Weight 133 lb 132 lb 3.2 oz 134 lb 6 oz 135 lb Last Vital Signs Temp Pulse Resp BP Pulse Ox 98.1 F 75 20 174/77 95 05/07/18 10:00 05/07/18 10:00 05/07/18 10:00 05/07/18 10:00 05/07/18 10:00 Active Medications Acetaminophen (Tylenol -) 650 mg PO Q4H PRN PRN Reason: PAIN LEVEL 1-5 Last Admin: 05/06/18 17:29 Dose: 650 mg Carvedilol (Coreg -) 3.125 mg PO BID [facility] Last Admin: 05/07/18 09:23 Dose: 3.125 mg Collagenase (Santyl -) 1 applic TP DAILY [facility] Last Admin: 05/06/18 10:14 Dose: 1 applic Docusate Sodium (Colace -) 100 mg PO BID PRN PRN Reason: CONSTIPATION Heparin Sodium (Porcine) (Heparin -) 5,000 unit SQ BID [facility] Last Admin: 05/07/18 09:21 Dose: 5,000 unit Lisinopril (Prinivil) 5 mg PO DAILY [facility] Last Admin: 05/07/18 09:23 Dose: 5 mg Pantoprazole Sodium (Protonix Iv) 40 mg IVPUSH BID [facility] Last Admin: 05/07/18 09:21 Dose: 40 mg Senna (Senna -) 2 tab PO HS [facility] Last Admin: 05/06/18 21:26 Dose: 2 tab Gen: NAD at rest Heart: RRR Lung: decreased breath sounds at the bases Abd: soft, nontender Ext: no edema Laboratory Results - last 24 hr 05/07/18 05:45 Sodium 140 Potassium 4.4 Chloride 104 Carbon Dioxide 27 Anion Gap 9 BUN 40 H Creatinine 1.1 H Creat Clearance w eGFR 47.21 Random Glucose 91 Calcium 9.0 A/P Chest Pain likely from bone lytic lesions Hiatal Hernia Acute Kidney Injury Anemia h/o Breast Ca - pain control - monitor urine output, creatinine - do not suspect pulmonary etiology of her chest pain - DVT prophylaxis Dr Peña
[2018-05-07 14:43] VITALS: BMI 23.1
--- NOTE | 2018-05-07 14:50 | PN ---
Progress Note, Physician History of Present Illness: Pt seen and examined at bedside. She is awake and alert. She denies shortness of breath. - Current Medication List Current Medications: Active Medications Acetaminophen (Tylenol -) 650 mg PO Q4H PRN PRN Reason: PAIN LEVEL 1-5 Last Admin: 05/06/18 17:29 Dose: 650 mg Carvedilol (Coreg -) 3.125 mg PO BID [facility] Last Admin: 05/07/18 09:23 Dose: 3.125 mg Collagenase (Santyl -) 1 applic TP DAILY [facility] Last Admin: 05/06/18 10:14 Dose: 1 applic Docusate Sodium (Colace -) 100 mg PO BID PRN PRN Reason: CONSTIPATION Heparin Sodium (Porcine) (Heparin -) 5,000 unit SQ BID [facility] Last Admin: 05/07/18 09:21 Dose: 5,000 unit Lisinopril (Prinivil) 5 mg PO DAILY [facility] Last Admin: 05/07/18 09:23 Dose: 5 mg Pantoprazole Sodium (Protonix Iv) 40 mg IVPUSH BID [facility] Last Admin: 05/07/18 09:21 Dose: 40 mg Senna (Senna -) 2 tab PO HS [facility] Last Admin: 05/06/18 21:26 Dose: 2 tab - Objective Vital Signs: Vital Signs Temperature 97.7 F 05/07/18 13:57 Pulse Rate 71 05/07/18 13:57 Respiratory Rate 20 05/07/18 13:57 Blood Pressure 135/58 05/07/18 13:57 O2 Sat by Pulse Oximetry (%) 95 05/07/18 10:00 Constitutional: Yes: Calm Eyes: Yes: Conjunctiva Clear HENT: Yes: Atraumatic Neck: Yes: Supple Cardiovascular: Yes: S1, S2 Respiratory: Yes: CTA Bilaterally Gastrointestinal: Yes: Soft Genitourinary: Yes: WNL Edema: LLE: Trace, RLE: Trace Neurological: Yes: Oriented Psychiatric: Yes: Oriented Labs: CBC, BMP 05/05/18 05:15 05/07/18 05:45 INR, PTT INR 1.14 (0.82-1.09) 05/01/18 18:15 Problem List - Problems (1) CKD (chronic kidney disease) Code(s): N18.9 - CHRONIC KIDNEY DISEASE, UNSPECIFIED (2) Anemia Code(s): D64.9 - ANEMIA, UNSPECIFIED Qualifiers: Anemia type: other cause Other causes of anemia: chronic disease, 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 (3) Breast CA Code(s): C50.919 - MALIGNANT NEOPLASM OF UNSP SITE OF UNSPECIFIED FEMALE BREAST Assessment/Plan Current Medications Generic Name Dose Route Start Last Admin Trade Name Freq PRN Reason Stop Dose Admin Acetaminophen 650 mg 05/04/18 11:04 05/06/18 12:06 Tylenol - PO 650 mg Q4H PRN Administration PAIN LEVEL 1-5 Carvedilol 3.125 mg 05/06/18 13:30 05/06/18 13:43 Coreg - PO 3.125 mg BID [facility] Administration Collagenase 1 applic 05/05/18 10:00 05/06/18 10:14 Santyl - TP 1 applic DAILY [facility] Administration Docusate Sodium 100 mg 05/04/18 11:04 Colace - PO BID PRN CONSTIPATION Heparin Sodium (Porcine) 5,000 unit 05/04/18 22:00 05/06/18 10:12 Heparin - SQ 5,000 unit BID [facility] Administration Lisinopril 5 mg 05/05/18 10:00 05/06/18 10:12 Prinivil PO 5 mg DAILY [facility] Administration Oxycodone HCl 5 mg 05/04/18 11:35 05/06/18 10:12 Roxicodone - PO 5 mg Q8H PRN Administration PAIN LEVEL 6-10 Pantoprazole Sodium 40 mg 05/04/18 22:00 05/06/18 10:12 Protonix Iv IVPUSH 40 mg BID [facility] Administration Senna 2 tab 05/04/18 22:00 05/05/18 21:24 Senna - PO 2 tab HS [facility] Administration Impression 1. likely CKD 2. CHF 3. HTN 4. hx breast cancer 5. dyspnea 6. anemia 7. elevated d-dimer 8. metastatic disease Plan - lasix on hold - labs reviewed - volume status is stable - scans show metastatic disease - oncology follow up
--- NOTE | 2018-05-07 16:01 | PN ---
Physical Exam: SUBJECTIVE: Patient seen and examined OBJECTIVE: Vital Signs Period Temp Pulse Resp BP Sys/Beltre Pulse Ox Last 24 Hr 97.7 F-98.2 F 63-75 18-20 135-174/58-77 95-95 GENERAL: The patient is awake, alert, and fully oriented, in no acute distress. HEAD: Normal with no signs of trauma. EYES: PERRL, extraocular movements intact, sclera anicteric, conjunctiva clear. No ptosis. ENT: Ears normal, nares patent, oropharynx clear without exudates, moist mucous membranes. NECK: Trachea midline, full range of motion, supple. LUNGS: Breath sounds equal, clear to auscultation bilaterally, no wheezes, no crackles, no accessory muscle use. HEART: Regular rate and rhythm, S1, S2 without murmur, rub or gallop. ABDOMEN: Soft, nontender, nondistended, normoactive bowel sounds, no guarding, no rebound, no hepatosplenomegaly, no masses. EXTREMITIES: 2+ pulses, warm, well-perfused, no edema. NEUROLOGICAL: Cranial nerves II through XII grossly intact. Normal speech, gait not observed. PSYCH: Normal mood, normal affect. SKIN: Warm, dry, normal turgor, no rashes or lesions noted Laboratory Results - last 24 hr 05/04/18 05/07/18 05:30 05:45 Sodium 140 Potassium 4.4 Chloride 104 Carbon Dioxide 27 Anion Gap 9 BUN 40 H Creatinine 1.1 H Creat Clearance w eGFR 47.21 Random Glucose 91 Calcium 9.0 Blood Type A POSITIVE Antibody Screen Negative Crossmatch See Detail Active Medications Generic Name Dose Route Start Last Admin Trade Name Garyq PRN Reason Stop Dose Admin Acetaminophen 650 mg 05/04/18 11:04 05/06/18 17:29 Tylenol - PO 650 mg Q4H PRN Administration PAIN LEVEL 1-5 Carvedilol 3.125 mg 05/06/18 13:30 05/07/18 09:23 Coreg - PO 3.125 mg BID [facility] Administration Collagenase 1 applic 05/05/18 10:00 05/06/18 10:14 Santyl - TP 1 applic DAILY [facility] Administration Docusate Sodium 100 mg 05/04/18 11:04 Colace - PO BID PRN CONSTIPATION Heparin Sodium (Porcine) 5,000 unit 05/04/18 22:00 05/07/18 09:21 Heparin - SQ 5,000 unit BID [facility] Administration Lisinopril 5 mg 05/05/18 10:00 05/07/18 09:23 Prinivil PO 5 mg DAILY [facility] Administration Pantoprazole Sodium 40 mg 05/04/18 22:00 05/07/18 09:21 Protonix Iv IVPUSH 40 mg BID [facility] Administration Senna 2 tab 05/04/18 22:00 05/06/18 21:26 Senna - PO 2 tab HS [facility] Administration Imaging 05/01 CXR: no acute process 05/02 CTAP: (1) extensive lytic metastatic disease, areas of cortical destruction ; (2) multi vertebral compression deformities; (3) intrahepatic ducts moderately dilated extending to pancreatic head 05/07 CT thoracic/lumbar: extensive metastatic disease; extensive destructive changes T10 vertebral body, bilateral pedicles, posterior elements, epidural mass compressing the spinal cord ASSESSMENT/PLAN 87 year-old female with PMH significant for right breast cancer s/p lumpectomy/ radiation x 40 years, diastolic heart failure, and severe valvular disease. Episode bradycardia and hypotension 05/04 --resolved --continue telemetry Microcytic anemia Iron-deficiency anemia --last transfused 05/04 --h/h stable Breast cancer Metastatic disease --05/07 CT thoracic/lumbar: extensive metastatic disease; extensive destructive changes T10 vertebral body, bilateral pedicles, posterior elements, epidural mass compressing the spinal cord --IR bone biopsy scheduled for 05/08 --oncology following Diastolic heart failure Severe valvular disease --05/02 Echo: moderate cLVH, LV normal; RV normal; BLAE; moderate to severe MR ; severe TR; pHTN; mild AI; mild PI --continue carvedilol --continue to hold lasix Shortness of breath Elevated d-dimer --Wells score low risk, seen and evaluated by pulmonolgy, no further workup for PE CKD --Cr 1.1 --US renal unremarkable --US bladder: no acute process; post-void residual 290cc's --renal following Pressure ulcers --daily collagenase FEN Fluids: PO intake adequate Electrolytes: replete as indicated Nutrition: regular diet DVT prophylaxis: HOLD subq heparin for bone biopsy tomorrow. Last dose 05/07 at 9 :20am. Dispo: continues to require inpatient care. Full code. Visit type - Emergency Visit Emergency Visit: Yes ED Registration Date: 05/01/18 Care time: The patient presented to the Emergency Department on the above date and was hospitalized for further evaluation of their emergent condition. - New Patient This patient is new to me today: No - Critical Care Critical Care patient: No
[2018-05-07] MEDS: COLLAGENASE CLOSTRIDIUM HIST. 30 GRAMS TUBE TP SCH (16:33)
[2018-05-07] MEDS: ACETAMINOPHEN 325 MG TABLET (FP) PO PRN ×2 (18:33→21:52)
--- NOTE | 2018-05-07 20:41 | PN ---
Progress Note (short form) - Note Progress Note: Patient seen and examined right shoulder pain Last Vital Signs Temp Pulse Resp BP Pulse Ox 98.2 F 68 18 160/70 99 05/06/18 17:00 05/06/18 17:00 05/06/18 17:00 05/06/18 17:00 05/06/18 09:00 Cor: RSR, No murmurs, No gallops Lungs: Clear to P&A Abd: Soft, Normal bowel sounds, No organomegaly Ext:No significant edema Breast exam. Rt. lumpectomy scar/RT changes no discrete masses/adenopathy Abnormal Lab Results 05/04/18 05/07/18 05:30 05:45 BUN 40 H Creatinine 1.1 H Crossmatch See Detail Active Medications Generic Name Dose Route Start Last Admin Trade Name Freq PRN Reason Stop Dose Admin Acetaminophen 650 mg 05/04/18 11:04 05/07/18 18:33 Tylenol - PO 650 mg Q4H PRN Administration PAIN LEVEL 1-5 Carvedilol 3.125 mg 05/06/18 13:30 05/07/18 09:23 Coreg - PO 3.125 mg BID [facility] Administration Collagenase 1 applic 05/05/18 10:00 05/07/18 16:33 Santyl - TP 1 applic DAILY [facility] Administration Docusate Sodium 100 mg 05/04/18 11:04 Colace - PO BID PRN CONSTIPATION Lisinopril 5 mg 05/05/18 10:00 05/07/18 09:23 Prinivil PO 5 mg DAILY [facility] Administration Pantoprazole Sodium 40 mg 05/04/18 22:00 05/07/18 09:21 Protonix Iv IVPUSH 40 mg BID [facility] Administration Senna 2 tab 05/04/18 22:00 05/06/18 21:26 Senna - PO 2 tab HS [facility] Administration A/P 87 y/o patient extensive lytic skeletal disease, rt. humeral fx, vertebral fractures h/o breast cancer 40 yrs. ago,s/p rt. lumpectomy/RT,tamoxifen CA27.29 , CA 125 pending CA 19.9--nl. CEA elevated Myeloma markers pending to consider IR guided biopsy of lytic lesion may be a candidate for low intensity therapy and zometa based on diagnosis--? breast cancer ? myeloma prominent pancreatic head , dialted hepatic duts ( s/p cholecystectomy)- nl bilirubin/Ca 19.9 discussed with patients son in detail discussed with primary team and IR
[2018-05-07] MEDS ORDERED: oxyCODONE HCL 5 MG TABLET PO PRN (21:29)
[2018-05-07] MEDS: SENNOSIDES 8.6MG TABLET (FP) PO SCH (21:52)
--- NOTE | 2018-05-07 22:02 | EKG ---
Test Reason : Blood Pressure : / mmHG Vent. Rate : 062 BPM Atrial Rate : 062 BPM P-R Int : 164 ms QRS Dur : 108 ms QT Int : 464 ms P-R-T Axes : 028 -07 014 degrees QTc Int : 470 ms NORMAL SINUS RHYTHM VOLTAGE CRITERIA FOR LEFT VENTRICULAR HYPERTROPHY CANNOT RULE OUT SEPTAL INFARCT (CITED ON OR BEFORE 01-MAY-2018) POSSIBLE LATERAL INFARCT , AGE UNDETERMINED ABNORMAL ECG WHEN COMPARED WITH ECG OF 01-MAY-2018 17:27, PREMATURE ATRIAL COMPLEXES ARE NO LONGER PRESENT Confirmed by CHEYENNE LYLE MD ([id number]) on 05/07/2018 10:01:53 PM Referred By: SUKUMAR MADRID DR Confirmed By:CHEYENNE LYLE MD
[2018-05-07] MEDS: DEXAMETHASONE SOD PHOSPHATE 4 MG/1 ML VIAL IVPB SCH (22:34)
[2018-05-08] MEDS: DEXAMETHASONE SOD PHOSPHATE 4 MG/1 ML VIAL IVPB SCH ×3 (06:13→21:32)
[2018-05-08 06:16] LABS: CARCINOEMBRYONIC ANTIGEN 41.7 ng/mL (0.0-4.7)
[2018-05-08 06:18] LABS: BASO % 0.3 % (0-2.0); EOS % 0.5 % (0-4.5); HEMOGLOBIN 9.9 GM/dL (10.7-15.3); LYMPH % 12.6 % (8-40); MCH 27.7 pg (25.7-33.7); MEAN CELL VOLUME 83.8 fl (80-96); MEAN PLT VOLUME 7.3 fl (7.5-11.1); MONO % 1.9 % (3.8-10.2); NEUT % 84.7 % (42.8-82.8); PLATELET COUNT 391 K/MM3 (134-434); RBC 3.58 M/mm3 (3.60-5.2); RDW 17.9 % (11.6-15.6); WHITE BLOOD COUNT 6.2 K/mm3 (4.0-10.0)
[2018-05-08 06:39] LABS: INR 1.03 (0.82-1.09); PROTHROMBIN TIME (PATIENT) 11.6 SEC (9.7-13.0)
[2018-05-08 07:14] LABS: ALBUMIN 3.3 g/dl (3.4-5.0); ANION GAP 8 (8-16); BLOOD UREA NITROGEN 36 mg/dL (7-18); CALCIUM 9.3 mg/dL (8.5-10.1); CHLORIDE 105 mmol/L (98-107); CO2 28 mmol/L (21-32); GLUCOSE,RANDOM 147 mg/dL (74-106); MAGNESIUM 2.4 mg/dL (1.8-2.4); SODIUM 141 mmol/L (136-145)
[2018-05-08 07:21] LABS: ALK PHOS 319 U/L (45-117); BILIRUBIN,TOTAL 0.4 mg/dL (0.2-1.0); CREATININE 1.3 mg/dL (0.55-1.02); SGOT/AST 107 U/L (15-37); SGPT/ALT 109 U/L (12-78); TOT PROT 7.2 g/dl (6.4-8.2)
--- NOTE | 2018-05-08 09:32 | HOL ---
Hook-up date: 2018-05-05 10:16:00 Duration: 24:00:00 Test Indications: NEAR SYNCOPE, HYPOTENSION, JAH Medications: [id number] QRS complexes 30 Ventricular ectopics which represent <1 % of total QRS comp. 250 Supraventricular ectopics which represent <1 % of total QRS comp. * Paced QRS complexs which represent % of total QRS comp. * % of Time Classified as Noise VENTRICULAR ECTOPY 30 Isolated 0 Bigeminal Cycles 0 Couplets 0 Runs 0 Beats in Runs * Beats LONGEST at * BPM at :: -- * Beats FASTEST at * BPM at :: -- SUPRAVENTRICULAR ECTOPY 210 Isolated 8 Couplets 5 Runs 24 Beats in Runs 7 Beats LONGEST at 122 BPM at 09:41:53 2018-05-06 6 Beats FASTEST at 177 BPM at 19:58:46 2018-05-05 HEART RATES 56 MIN at 16:19:00 2018-05-05 71 AVG 103 MAX at 05:47:46 2018-05-06 LONGEST RR 1.296 secs at 16:14:33 2018-05-05 SCANNED BY: JEFFERSON 05/06/18 1. BASELINE RHYTHM IS SINUS RHYTHM WITH AVERAGE HEART RATE OF 71 BPM. RATES VARIED FROM 56 TO 103 BPM. 2. RARE VENTRICULAR ECTOPIES ( PVCS ) 3. OCCASIONAL ATRIAL ECTOPIES INCLUDING 210 ATRIAL PREMATURE COMPLEXES, 5 RUNS OF NONSUSTAINED SVT, LONGEST [address] SIGNIFICANT ST-T ABNORMALITIES 5. DIARY WAS NOT SUBMITTED Confirmed by CHEYENNE LYLE MD ([id number]) on 05/08/2018 9:32:21 AM Referred By: Long THAKKAR Overread By: CHEYENNE LYLE MD
[2018-05-08] MEDS: LISINOPRIL 5 MG TABLET (FP) PO SCH (11:25)
[2018-05-08] MEDS: COLLAGENASE CLOSTRIDIUM HIST. 30 GRAMS TUBE TP SCH (11:25)
[2018-05-08] MEDS: PANTOPRAZOLE SODIUM 40 MG VIAL IVPUSH SCH (11:25)
[2018-05-08] MEDS: CARVEDILOL 3.125 MG TABLET (FP) PO SCH ×2 (11:25→21:32)
--- NOTE | 2018-05-08 12:04 | PN ---
Physical Exam: SUBJECTIVE: Patient seen and examined. She is for IR biopsy today. c/o low back pain and shoulder pain. Otherwise doing well. OBJECTIVE: Vital Signs Period Temp Pulse Resp BP Sys/Beltre Pulse Ox Last 24 Hr 97.7 F-98.6 F 65-79 14-22 135-165/58-83 100-100 PE Neuro: alert, awake, cn 2-12intact Pulm: CTAB CV: s1 s2 rrr no mrg Abd: s nt nd + bs Ext: low back tenderness, left> r shoulder tenderness, no le edema Laboratory Results - last 24 hr 05/04/18 05/05/18 05/07/18 05:30 05:15 05:45 WBC RBC Hgb Hct MCV MCH MCHC RDW Plt Count MPV Absolute Neuts (auto) Neutrophils % Lymphocytes % Monocytes % Eosinophils % Basophils % Nucleated RBC % PT with INR INR PTT (Actin FS) Sodium Potassium Chloride Carbon Dioxide Anion Gap BUN Creatinine Creat Clearance w eGFR Random Glucose Calcium Magnesium Total Bilirubin AST ALT Alkaline Phosphatase Total Protein Albumin Carcinoembryonic Ag 41.7 H CA 19-9 Antigen 6 CA 27-29 983 H CA 125 Antigen 104.3 H Blood Type A POSITIVE Antibody Screen Negative Crossmatch See Detail 05/08/18 05/08/18 05/08/18 06:00 06:00 06:00 WBC 6.2 RBC 3.58 L Hgb 9.9 L Hct 30.0 L MCV 83.8 MCH 27.7 MCHC 33.0 RDW 17.9 H Plt Count 391 MPV 7.3 L Absolute Neuts (auto) 5.2 Neutrophils % 84.7 H D Lymphocytes % 12.6 D Monocytes % 1.9 L Eosinophils % 0.5 Basophils % 0.3 Nucleated RBC % 0 PT with INR 11.60 INR 1.03 PTT (Actin FS) 38.0 Sodium 141 Potassium 5.0 Chloride 105 Carbon Dioxide 28 Anion Gap 8 BUN 36 H Creatinine 1.3 H Creat Clearance w eGFR 38.93 Random Glucose 147 H Calcium 9.3 Magnesium 2.4 Total Bilirubin 0.4 AST 107 H ALT 109 H Alkaline Phosphatase 319 H D Total Protein 7.2 Albumin 3.3 L Carcinoembryonic Ag CA 19-9 Antigen CA 27-29 CA 125 Antigen Blood Type Antibody Screen Crossmatch Active Medications Generic Name Dose Route Start Last Admin Trade Name Freq PRN Reason Stop Dose Admin Acetaminophen 650 mg 05/04/18 11:04 05/07/18 21:52 Tylenol - PO 650 mg Q4H PRN Administration PAIN LEVEL 1-5 Carvedilol 3.125 mg 05/06/18 13:30 05/08/18 11:25 Coreg - PO 3.125 mg BID ELINA Administration Collagenase 1 applic 05/05/18 10:00 05/08/18 11:25 Santyl - TP 1 applic DAILY ELINA Administration Dexamethasone Sodium Phosphate 4 mg 05/07/18 22:15 05/08/18 06:13 Decadron Injection - IVPB 4 mg TID ELINA Administration Docusate Sodium 100 mg 05/04/18 11:04 Colace - PO BID PRN CONSTIPATION Lisinopril 5 mg 05/05/18 10:00 05/08/18 11:25 Prinivil PO 5 mg DAILY ELINA Administration Oxycodone HCl 5 mg 05/07/18 21:29 05/07/18 21:53 Roxicodone - PO 5 mg Q8H PRN Administration PAIN LEVEL 6-10 Pantoprazole Sodium 40 mg 05/04/18 22:00 05/08/18 11:25 Protonix Iv IVPUSH 40 mg BID ELINA Administration Senna 2 tab 05/04/18 22:00 05/07/18 21:52 Senna - PO 2 tab HS ELINA Administration Imaging 05/02 CTAP: (1) extensive lytic metastatic disease, areas of cortical destruction ; (2) multi vertebral compression deformities; (3) intrahepatic ducts moderately dilated extending to pancreatic head 05/07 CT thoracic/lumbar: extensive metastatic disease; extensive destructive changes T10 vertebral body, bilateral pedicles, posterior elements, epidural mass compressing the spinal cord 05/02 Echo: moderate cLVH, LV normal; RV normal; BLAE; moderate to severe MR; severe TR; pHTN; mild AI; mild PI Assessment: 87 year old female with PMHx of right breast cancer s/p lumpectomy/ radiation x 40 years, diastolic heart failure, and severe valvular disease. 1. hx of Breast cancer with metastatic disease - For IR biopsy today - Oncology following 2. T9-10 epidural disease /cord compression on CT - Started dexamethasone 4mg Q 8h - Neurology and rad-onc consult 3. Diastolic heart failure, severe valvular disease - Continue carvedilol - Lasix on hold 4. Episode bradycardia and hypotension 05/04 - Resolved 5. Iron-deficiency anemia - Last transfused 05/04 6. Shortness of breath - Elevated d-dimer, pulm eval, no further work up for PE 7. CKD - Around baseline, mildly elevated - on SRAVAN - Renal seeing 8. Pressure ulcers - Daily collagenase 9. DVT prophylaxis - HOLD subq heparin for bone biopsy Visit type - Emergency Visit Emergency Visit: Yes ED Registration Date: 05/01/18 Care time: The patient presented to the Emergency Department on the above date and was hospitalized for further evaluation of their emergent condition. - New Patient This patient is new to me today: Yes Date on this admission: 05/08/18 - Critical Care Critical Care patient: No
[2018-05-08] MEDS ORDERED: ACETAMINOPHEN 325 MG TABLET (FP) PO PRN (12:41)
--- NOTE | 2018-05-08 12:58 | PN ---
Progress Note (short form) - Note Progress Note: Denies shortness of breath or chest pain. No acute events overnight. For IR biopsy. Intake & Output 05/05/18 05/06/18 05/07/18 05/08/18 23:59 23:59 23:59 23:59 Intake Total 1060 900 380 220 Output Total 300 Balance 1060 600 380 220 Weight 132 lb 3.2 oz 134 lb 6 oz 135 lb 133 lb 6.4 oz Last Vital Signs Temp Pulse Resp BP Pulse Ox 98.4 F 73 14 165/80 100 05/08/18 10:00 05/08/18 10:29 05/08/18 10:29 05/08/18 10:29 05/08/18 10:29 Active Medications Acetaminophen (Tylenol -) 650 mg PO Q8H PRN PRN Reason: PAIN LEVEL 1-5 Carvedilol (Coreg -) 3.125 mg PO BID [facility] Last Admin: 05/08/18 11:25 Dose: 3.125 mg Collagenase (Santyl -) 1 applic TP DAILY [facility] Last Admin: 05/08/18 11:25 Dose: 1 applic Dexamethasone Sodium Phosphate (Decadron Injection -) 4 mg IVPB TID [facility] Last Admin: 05/08/18 06:13 Dose: 4 mg Docusate Sodium (Colace -) 100 mg PO BID PRN PRN Reason: CONSTIPATION Lisinopril (Prinivil) 5 mg PO DAILY [facility] Last Admin: 05/08/18 11:25 Dose: 5 mg Oxycodone HCl (Roxicodone -) 5 mg PO Q6H PRN PRN Reason: PAIN LEVEL 6-10 Pantoprazole Sodium (Protonix Iv) 40 mg IVPUSH DAILY [facility] Senna (Senna -) 2 tab PO HS [facility] Last Admin: 05/07/18 21:52 Dose: 2 tab Gen: NAD at rest Heart: RRR Lung: decreased breath sounds at the bases Abd: soft, nontender Ext: no edema Laboratory Results - last 24 hr 05/04/18 05/05/18 05/07/18 05:30 05:15 05:45 WBC RBC Hgb Hct MCV MCH MCHC RDW Plt Count MPV Absolute Neuts (auto) Neutrophils % Lymphocytes % Monocytes % Eosinophils % Basophils % Nucleated RBC % PT with INR INR PTT (Actin FS) Sodium Potassium Chloride Carbon Dioxide Anion Gap BUN Creatinine Creat Clearance w eGFR Random Glucose Calcium Magnesium Total Bilirubin AST ALT Alkaline Phosphatase Total Protein Albumin Carcinoembryonic Ag 41.7 H CA 19-9 Antigen 6 CA 27-29 983 H CA 125 Antigen 104.3 H Blood Type A POSITIVE Antibody Screen Negative Crossmatch See Detail 05/08/18 05/08/18 05/08/18 06:00 06:00 06:00 WBC 6.2 RBC 3.58 L Hgb 9.9 L Hct 30.0 L MCV 83.8 MCH 27.7 MCHC 33.0 RDW 17.9 H Plt Count 391 MPV 7.3 L Absolute Neuts (auto) 5.2 Neutrophils % 84.7 H D Lymphocytes % 12.6 D Monocytes % 1.9 L Eosinophils % 0.5 Basophils % 0.3 Nucleated RBC % 0 PT with INR 11.60 INR 1.03 PTT (Actin FS) 38.0 Sodium 141 Potassium 5.0 Chloride 105 Carbon Dioxide 28 Anion Gap 8 BUN 36 H Creatinine 1.3 H Creat Clearance w eGFR 38.93 Random Glucose 147 H Calcium 9.3 Magnesium 2.4 Total Bilirubin 0.4 AST 107 H ALT 109 H Alkaline Phosphatase 319 H D Total Protein 7.2 Albumin 3.3 L Carcinoembryonic Ag CA 19-9 Antigen CA 27-29 CA 125 Antigen Blood Type Antibody Screen Crossmatch A/P Chest Pain likely from bone lytic lesions Hiatal Hernia Acute Kidney Injury Anemia h/o Breast Ca - For IR biopsy - pain control - monitor urine output, creatinine - DVT prophylaxis Dr Peña
--- NOTE | 2018-05-08 13:20 | CONSULT ---
Consult - text type - Consultation Consultation Note: Patient seen and examined. Chart and films reviewed. Full consult dictated # [id number]. Briefly, 87 yo woman with a history of breast cancer admitted with diffuse osteolytic metastases found to have cord compression at T9, epidural and thecal sac compression at several lumbar levels and a C-spine CT pending. CEA, Ca 27- 29 and CA 15-3 are all elevated. I agree with biopsy to confirm the nature of the metastases and I offered palliative spine RT, which the patient would like to consider and speak with her son before agreeing. I left my card for them to call with any questions.
--- NOTE | 2018-05-08 14:40 | PN ---
Progress Note (short form) - Note Progress Note: pt seen and examined +back pain -ve incontinence. Constitutional: Yes: Well Nourished, No Distress, Calm Eyes: Yes: Conjunctiva Clear HENT: Yes: Atraumatic, Normocephalic Neck: Yes: Supple, Trachea Midline Cardiovascular: Yes: Regular Rate and Rhythm Respiratory: Yes: Regular Gastrointestinal: Yes: Normal Bowel Sounds, Soft Edema: Yes Edema: LLE: 1+, RLE: 1+ Last Vital Signs Temp Pulse Resp BP Pulse Ox 98.4 F 73 14 165/80 100 05/08/18 10:00 05/08/18 10:29 05/08/18 10:29 05/08/18 10:29 05/08/18 10:29 CBC, BMP 05/08/18 06:00 05/08/18 06:00 Current Medications Generic Name Dose Route Start Last Admin Trade Name Freq PRN Reason Stop Dose Admin Acetaminophen 650 mg 05/08/18 12:41 Tylenol - PO Q8H PRN PAIN LEVEL 1-5 Carvedilol 3.125 mg 05/06/18 13:30 05/08/18 11:25 Coreg - PO 3.125 mg BID ELINA Administration Collagenase 1 applic 05/05/18 10:00 05/08/18 11:25 Santyl - TP 1 applic DAILY ELINA Administration Dexamethasone Sodium Phosphate 4 mg 05/07/18 22:15 05/08/18 14:35 Decadron Injection - IVPB 4 mg TID ELINA Administration Docusate Sodium 100 mg 05/04/18 11:04 Colace - PO BID PRN CONSTIPATION Lisinopril 5 mg 05/05/18 10:00 05/08/18 11:25 Prinivil PO 5 mg DAILY ELINA Administration Morphine Sulfate 1 mg 05/08/18 14:39 Morphine Injection - IVPUSH 05/08/18 14:40 ONCE ONE Oxycodone HCl 5 mg 05/08/18 12:27 Roxicodone - PO Q6H PRN PAIN LEVEL 6-10 Pantoprazole Sodium 40 mg 05/09/18 10:00 Protonix Iv IVPUSH DAILY ELINA Senna 2 tab 05/04/18 22:00 05/07/18 21:52 Senna - PO 2 tab HS ELINA Administration Extensive Bony met disease (pt with personal Hx of Breast Ca) NOW cord compression at T9, epidural and thecal sac compression at several lumbar levels Biliary dilatation--pancreatic mass Multiple vertebral compression fractures Anemia--s/p PRBCs ?NATHAN/CKD sacral ulcer s/p IR guided biopsy tumor markers reviewed---will need to await path diagnosis PAIN control appreciate brian c/w present steroids 4mg IV TID with steroid support d/w Son tristan over the phone also request social service intervention--son expressing wishes towards assisted living
[2018-05-08] MEDS ORDERED: MORPHINE SULFATE 2 MG/ML VIAL IVPUSH ONE ×2 (14:45→15:00)
--- NOTE | 2018-05-08 15:50 | PN ---
Progress Note, Physician History of Present Illness: Pt seen and examined at bedside. She is awake and alert. She denies shortness of breath. - Current Medication List Current Medications: Active Medications Acetaminophen (Tylenol -) 650 mg PO Q8H PRN PRN Reason: PAIN LEVEL 1-5 Carvedilol (Coreg -) 3.125 mg PO BID [facility] Last Admin: 05/08/18 11:25 Dose: 3.125 mg Collagenase (Santyl -) 1 applic TP DAILY [facility] Last Admin: 05/08/18 11:25 Dose: 1 applic Dexamethasone Sodium Phosphate (Decadron Injection -) 4 mg IVPB TID [facility] Last Admin: 05/08/18 14:35 Dose: 4 mg Docusate Sodium (Colace -) 100 mg PO BID PRN PRN Reason: CONSTIPATION Lisinopril (Prinivil) 5 mg PO DAILY [facility] Last Admin: 05/08/18 11:25 Dose: 5 mg Oxycodone HCl (Roxicodone -) 5 mg PO Q6H PRN PRN Reason: PAIN LEVEL 6-10 Pantoprazole Sodium (Protonix Iv) 40 mg IVPUSH DAILY [facility] Senna (Senna -) 2 tab PO HS [facility] Last Admin: 05/07/18 21:52 Dose: 2 tab - Objective Vital Signs: Vital Signs Temperature 98 F 05/08/18 14:34 Pulse Rate 72 05/08/18 14:34 Respiratory Rate 16 05/08/18 14:34 Blood Pressure 143/70 05/08/18 14:34 O2 Sat by Pulse Oximetry (%) 100 05/08/18 10:29 Constitutional: Yes: Calm Eyes: Yes: Conjunctiva Clear HENT: Yes: Atraumatic Cardiovascular: Yes: S1, S2 Respiratory: Yes: CTA Bilaterally Gastrointestinal: Yes: Soft Genitourinary: Yes: WNL Edema: Yes Edema: LLE: 1+, RLE: 1+ Neurological: Yes: Oriented Psychiatric: Yes: Oriented Labs: CBC, BMP 05/08/18 06:00 05/08/18 06:00 INR, PTT INR 1.03 (0.82-1.09) 05/08/18 06:00 Problem List - Problems (1) CKD (chronic kidney disease) Code(s): N18.9 - CHRONIC KIDNEY DISEASE, UNSPECIFIED (2) Anemia Code(s): D64.9 - ANEMIA, UNSPECIFIED Qualifiers: Anemia type: other cause Other causes of anemia: chronic disease, 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 (3) Breast CA Code(s): C50.919 - MALIGNANT NEOPLASM OF UNSP SITE OF UNSPECIFIED FEMALE BREAST Assessment/Plan Current Medications Generic Name Dose Route Start Last Admin Trade Name Freq PRN Reason Stop Dose Admin Acetaminophen 650 mg 05/08/18 12:41 Tylenol - PO Q8H PRN PAIN LEVEL 1-5 Carvedilol 3.125 mg 05/06/18 13:30 05/08/18 11:25 Coreg - PO 3.125 mg BID ELINA Administration Collagenase 1 applic 05/05/18 10:00 05/08/18 11:25 Santyl - TP 1 applic DAILY ELINA Administration Dexamethasone Sodium Phosphate 4 mg 05/07/18 22:15 05/08/18 14:35 Decadron Injection - IVPB 4 mg TID ELINA Administration Docusate Sodium 100 mg 05/04/18 11:04 Colace - PO BID PRN CONSTIPATION Lisinopril 5 mg 05/05/18 10:00 05/08/18 11:25 Prinivil PO 5 mg DAILY ELINA Administration Oxycodone HCl 5 mg 05/08/18 12:27 Roxicodone - PO Q6H PRN PAIN LEVEL 6-10 Pantoprazole Sodium 40 mg 05/09/18 10:00 Protonix Iv IVPUSH DAILY ELINA Senna 2 tab 05/04/18 22:00 05/07/18 21:52 Senna - PO 2 tab HS ELINA Administration Impression 1. likely CKD 2. CHF 3. HTN 4. hx breast cancer 5. dyspnea 6. anemia 7. elevated d-dimer 8. metastatic disease Plan - cont to monitor volume status - lasix on hold for now, may need to restart - scans show metastatic disease - oncology follow up appreciated - cardiology follow up Dr Austin
--- NOTE | 2018-05-08 18:41 | CONSULT ---
Consult - text type - Consultation Consultation Note: NEUROLOGY CONSULTATION is greatly appreciated: This 87 yo RH woman with HTN- on prinival and carvedilol has distant h/o Breast Ca, perhaps 30 years ago. Now admitted after a few months of increasing pain especially involving the left ribs and both shoulders. W/U shows diffuse skeletal metastases including multiple spinal levels most significantly at T10 where epidural extension and cord compression are noted. CT of the brain is normal. Now on Decadron 4 mg q 8 hrs since 05/07. Pt notes some mid-back and periscapular pain. Left rib pains can awaken her at night "when she turns." No numbness or tingling in the feet. No bowel or bladder changes. Waliking has "slowed" over the last few months and she picked up a cane at [facility] 6 weeks ago "for balance." LEONARDO: Thin. Kyphotic. Mid-back palp tenderness. NEURO: MS/ speech: Normal CN II-XII: Normal Motor: No drift or tremor. Normal strength, bulk and tone. Normal reflexes. Toes downgoing. Coord: No FTN dystaxia Sensory: Decreased vib in feet. Normal at knees. Romberg Neg. Gait: Sl flexed and shuffling. IMP: Non-focal exam. No clinical evidence for sig. Myelopathy. SUGGEST: Continue decadron 4 mg q 8 hrs for now. RT consult for a lower thoracic portal. PT for gait with walker. Check B12 levels. Thank you very much, Tristan Farnk MD
[2018-05-08] MEDS: SENNOSIDES 8.6MG TABLET (FP) PO SCH (21:32)
[2018-05-08] MEDS: oxyCODONE HCL 5 MG TABLET PO PRN (21:32)
[2018-05-09 00:09] LABS: FREE KAPPA,SERUM 28.7 mg/L (3.3-19.4)
--- NOTE | 2018-05-09 04:55 | PN ---
Progress Note, Physician Chief Complaint: Pt A&Ozx3; lying in bed; recurring nagging pain (moderate-severe) in both axillary areas.Fair appetite. History of Present Illness: Patient is an 87 year old white woman with history of right breast cancer s/p surgery and radiotherapy here with upper abdominal pain 2 days. States sensation present whether at rest or on exertion. No shortness of breath, diaphoresis, nausea, vomiting or palpitations. No history of similar symptoms in the past. While in the ED, patient noted to have bilateral lower extremity edema, which patient states she did not notice until she was made aware when she got here. No leg pain, cough, f/c. Also c/o painful sore to R buttocks "for some time". 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 have PMD or field technical specialist and admits she has not seen a doctor in many years - Current Medication List Current Medications: Active Medications Acetaminophen (Tylenol -) 650 mg PO Q8H PRN PRN Reason: PAIN LEVEL 1-5 Last Admin: 05/08/18 17:51 Dose: 650 mg Carvedilol (Coreg -) 3.125 mg PO BID [facility] Last Admin: 05/08/18 21:32 Dose: 3.125 mg Collagenase (Santyl -) 1 applic TP DAILY [facility] Last Admin: 05/08/18 11:25 Dose: 1 applic Dexamethasone Sodium Phosphate (Decadron Injection -) 4 mg IVPB TID [facility] Last Admin: 05/08/18 21:32 Dose: 4 mg Docusate Sodium (Colace -) 100 mg PO BID PRN PRN Reason: CONSTIPATION Lisinopril (Prinivil) 5 mg PO DAILY [facility] Last Admin: 05/08/18 11:25 Dose: 5 mg Oxycodone HCl (Roxicodone -) 5 mg PO Q6H PRN PRN Reason: PAIN LEVEL 6-10 Last Admin: 05/08/18 21:32 Dose: 5 mg Pantoprazole Sodium (Protonix Iv) 40 mg IVPUSH DAILY [facility] Senna (Senna -) 2 tab PO HS [facility] Last Admin: 05/08/18 21:32 Dose: Not Given - Objective Vital Signs: Vital Signs Temperature 98.2 F 05/09/18 02:05 Pulse Rate 79 05/09/18 02:05 Respiratory Rate 18 05/09/18 02:05 Blood Pressure 138/64 05/09/18 02:05 O2 Sat by Pulse Oximetry (%) 97 05/08/18 20:52 Constitutional: Yes: Calm Eyes: Yes: WNL HENT: Yes: WNL Neck: Yes: WNL Cardiovascular: Yes: WNL Respiratory: Yes: Diminished Gastrointestinal: Yes: Soft ...Rectal Exam: Yes: Deferred Genitourinary: No: Anuria Edema: No Peripheral Pulses WNL: Yes Integumentary: Yes: WNL Neurological: Yes: Alert, Oriented, Weakness Psychiatric: Yes: WNL Labs: CBC, BMP 05/08/18 06:00 05/08/18 06:00 INR, PTT INR 1.03 (0.82-1.09) 05/08/18 06:00 Abnormal Lab Results 05/04/18 05/05/18 05/07/18 05:30 05:15 05:45 RBC Hgb Hct RDW MPV Neutrophils % Monocytes % BUN Creatinine Random Glucose AST ALT Alkaline Phosphatase Albumin Carcinoembryonic Ag 41.7 H CA 27-29 983 H CA 125 Antigen 104.3 H Total Protein (ANABELL) 5.8 L [id number] ANABELL 1.1 H Free Nice LC, Quant 28.7 H 05/08/18 05/08/18 06:00 06:00 RBC 3.58 L Hgb 9.9 L Hct 30.0 L RDW 17.9 H MPV 7.3 L Neutrophils % 84.7 H D Monocytes % 1.9 L BUN 36 H Creatinine 1.3 H Random Glucose 147 H AST 107 H ALT 109 H Alkaline Phosphatase 319 H D Albumin 3.3 L Carcinoembryonic Ag CA 27-29 CA 125 Antigen Total Protein (ANABELL) [id number] ANABELL Free Nice LC, Quant - ....Imaging Cat Scan: Image Reviewed Problem List - Problems (1) Breast CA Assessment/Plan: breast CA with metastases. Chronic "pain in the ribs". CT chest: extensive bone metastases; pathologic fractures throughout the spine. Pain management: will discontinue Tylenol due to rising LFTs. On oxycodone. 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 Not in acute distress (respiratory-verdin). On ACEI. Stopped furosemide, as BUN/Cr are rising. Discussed today with living nurse ( Dr. Austin). Avoid dehydration. F/u BUN/Cr, electrolyes, Is and Os, and daily weight/ Code(s): I50.30 - UNSPECIFIED DIASTOLIC (CONGESTIVE) HEART FAILURE
[2018-05-09] MEDS: DEXAMETHASONE SOD PHOSPHATE 4 MG/1 ML VIAL IVPB SCH ×3 (05:54→21:33)
[2018-05-09 07:10] LABS: URIC ACID 6.3 mg/dL (2.6-7.2)
[2018-05-09 07:11] LABS: LDH 260 U/L (84-246)
[2018-05-09 09:28] LABS: ALBUMIN 3.1 g/dl (3.4-5.0); ALK PHOS 263 U/L (45-117); ANION GAP 10 (8-16); BILIRUBIN,TOTAL 0.3 mg/dL (0.2-1.0); BLOOD UREA NITROGEN 45 mg/dL (7-18); CHLORIDE 105 mmol/L (98-107); CO2 24 mmol/L (21-32); CREATININE 1.1 mg/dL (0.55-1.02); GLUCOSE,RANDOM 128 mg/dL (74-106); POTASSIUM 5.1 mmol/L (3.5-5.1); SGOT/AST 70 U/L (15-37); SGPT/ALT 96 U/L (12-78); SODIUM 139 mmol/L (136-145); TOT PROT 6.7 g/dl (6.4-8.2)
[2018-05-09] MEDS: oxyCODONE HCL 5 MG TABLET PO PRN (09:50)
[2018-05-09] MEDS: CARVEDILOL 3.125 MG TABLET (FP) PO SCH ×2 (09:51→21:32)
[2018-05-09] MEDS: PANTOPRAZOLE SODIUM 40 MG VIAL IVPUSH SCH (09:51)
[2018-05-09] MEDS: LISINOPRIL 5 MG TABLET (FP) PO SCH (09:51)
[2018-05-09] MEDS: COLLAGENASE CLOSTRIDIUM HIST. 30 GRAMS TUBE TP SCH (09:55)
--- NOTE | 2018-05-09 11:19 | PN ---
Progress Note, Physician Chief Complaint: episode of bradycardia and hypotension History of Present Illness: Patient is an 87 year old woman with history of right breast cancer s/p surgery and radiotherapy here with upper abdominal pain 2 days. States sensation present whether at rest or on exertion. No shortness of breath, diaphoresis, nausea, vomiting or palpitations. No history of similar symptoms in the past. While in the ED, patient noted to have bilateral lower extremity edema, which patient states she did not notice until she was made aware when she got here. No leg pain, cough, f/c. Also c/o painful sore to R buttocks "for some time". 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 have PMD or energy professional and admits she has not seen a doctor in many years - Current Medication List Current Medications: Active Medications Carvedilol (Coreg -) 3.125 mg PO BID [facility] Last Admin: 05/09/18 09:51 Dose: 3.125 mg Collagenase (Santyl -) 1 applic TP DAILY [facility] Last Admin: 05/09/18 09:55 Dose: 1 applic Dexamethasone Sodium Phosphate (Decadron Injection -) 4 mg IVPB TID [facility] Last Admin: 05/09/18 05:54 Dose: 4 mg Docusate Sodium (Colace -) 100 mg PO BID PRN PRN Reason: CONSTIPATION Lisinopril (Prinivil) 5 mg PO DAILY [facility] Last Admin: 05/09/18 09:51 Dose: 5 mg Oxycodone HCl (Roxicodone -) 5 mg PO Q6H PRN PRN Reason: PAIN LEVEL 6-10 Last Admin: 05/09/18 09:50 Dose: 5 mg Pantoprazole Sodium (Protonix Iv) 40 mg IVPUSH DAILY [facility] Last Admin: 05/09/18 09:51 Dose: 40 mg Senna (Senna -) 2 tab PO HS [facility] Last Admin: 05/08/18 21:32 Dose: Not Given - Objective Vital Signs: Vital Signs Temperature 98.2 F 05/09/18 02:05 Pulse Rate 79 05/09/18 02:05 Respiratory Rate 18 05/09/18 02:05 Blood Pressure 138/64 05/09/18 02:05 O2 Sat by Pulse Oximetry (%) 97 05/08/18 20:52 Eyes: Yes: WNL, Conjunctiva Clear, EOM Intact HENT: Yes: WNL, Atraumatic, Normocephalic Neck: Yes: WNL, Supple, Trachea Midline Cardiovascular: Yes: WNL, Regular Rate and Rhythm Respiratory: Yes: WNL, Regular, CTA Bilaterally Gastrointestinal: Yes: WNL, Normal Bowel Sounds Genitourinary: Yes: WNL Musculoskeletal: Yes: WNL Extremities: Yes: WNL Edema: No Integumentary: Yes: WNL Neurological: Yes: WNL, Alert, Oriented ...Motor Strength: WNL Psychiatric: Yes: WNL Labs: CBC, BMP 05/08/18 06:00 05/09/18 06:00 INR, PTT INR 1.03 (0.82-1.09) 05/08/18 06:00 Problem List - Problems (1) Fracture, humerus Code(s): S42.309A - UNSP FRACTURE OF SHAFT OF HUMERUS, UNSP ARM, INIT Qualifiers: Encounter type: initial encounter Humerus Location: proximal Fracture type: closed Fracture morphology: unspecified fracture morphology Laterality : right Qualified Code(s): S42.201A - Unspecified fracture of upper end of right humerus, initial encounter for closed fracture Assessment/Plan - Problems (1) Breast CA Assessment/Plan: breast CA with metastases. Chronic "pain in the ribs". CT chest: extensive bone metastases; pathologic fractures throughout the spine. Pain management: will discontinue Tylenol due to rising LFTs. On oxycodone. 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 Not in acute distress (respiratory-verdin). On ACEI. Stopped furosemide, as BUN/Cr are rising. Discussed today with clin asst ( Dr. Austin). Avoid dehydration. F/u BUN/Cr, electrolyes, Is and Os, and daily weight/ Code(s): I50.30 - UNSPECIFIED DIASTOLIC (CONGESTIVE) HEART FAILURE
--- NOTE | 2018-05-09 12:30 | PN ---
Physical Exam: SUBJECTIVE: Patient seen and examined. Is feeling vague after oxycodone, she has pain but is sitting up in chair tolerating. Son at bedside OBJECTIVE: Vital Signs Period Temp Pulse Resp BP Sys/Beltre Pulse Ox Last 24 Hr 98 F-99.0 F 72-81 16-18 138-155/64-70 97-97 PE Neuro: alert, awake, cn 2-12intact Pulm: CTAB CV: s1 s2 rrr no mrg Abd: s nt nd + bs Ext: low back tenderness, left> r shoulder tenderness, trace le edema Laboratory Results - last 24 hr 05/04/18 05/09/18 05/09/18 05:30 06:00 06:00 Sodium 139 Cancelled Potassium 5.1 Cancelled Chloride 105 Cancelled Carbon Dioxide 24 Cancelled Anion Gap 10 Cancelled BUN 45 H Cancelled Creatinine 1.1 H Cancelled Creat Clearance w eGFR 47.21 Cancelled Random Glucose 128 H Cancelled Uric Acid 6.3 Calcium 9.0 Cancelled Total Bilirubin 0.3 Cancelled AST 70 H Cancelled ALT 96 H Cancelled Alkaline Phosphatase 263 H D Cancelled LD Total 260 H Creatine Kinase 30 Total Protein 6.7 Cancelled Albumin 3.1 L Cancelled Beta Globulins 0.8 ANABELL & SPEP Interp Total Protein (ANABELL) 5.8 L Albumin (ANABELL) 2.9 Albumin/Globulin (ANABELL) 1.1 Imqix-0-Nasjhrtjy ANABELL 0.3 Vbuas-1-Nrdlioifi ANABELL 1.1 H Gamma Globulins (ANABELL) 0.7 ANABELL M-Kishore Not observed ANABELL Comments Comment: IEP IgG 709 IEP IgA 97 IEP IgM 103 Free [place] LC, Quant 28.7 H Free Lambda LC, Quant 21.4 Free [place]/Lambda Ratio 1.34 Active Medications Generic Name Dose Route Start Last Admin Trade Name Freq PRN Reason Stop Dose Admin Carvedilol 3.125 mg 05/06/18 13:30 05/09/18 09:51 Coreg - PO 3.125 mg BID ELINA Administration Collagenase 1 applic 05/05/18 10:00 05/09/18 09:55 Santyl - TP 1 applic DAILY ELINA Administration Dexamethasone Sodium Phosphate 4 mg 05/07/18 22:15 05/09/18 05:54 Decadron Injection - IVPB 4 mg TID ELINA Administration Docusate Sodium 100 mg 05/04/18 11:04 Colace - PO BID PRN CONSTIPATION Lisinopril 5 mg 05/05/18 10:00 05/09/18 09:51 Prinivil PO 5 mg DAILY ELINA Administration Oxycodone HCl 5 mg 05/08/18 12:27 05/09/18 09:50 Roxicodone - PO 5 mg Q6H PRN Administration PAIN LEVEL 6-10 Pantoprazole Sodium 40 mg 05/09/18 10:00 05/09/18 09:51 Protonix Iv IVPUSH 40 mg DAILY ELINA Administration Senna 2 tab 05/04/18 22:00 05/08/18 21:32 Senna - PO Not Given HS ELINA Imaging 05/02 CTAP: (1) extensive lytic metastatic disease, areas of cortical destruction ; (2) multi vertebral compression deformities; (3) intrahepatic ducts moderately dilated extending to pancreatic head 05/07 CT thoracic/lumbar: extensive metastatic disease; extensive destructive changes T10 vertebral body, bilateral pedicles, posterior elements, epidural mass compressing the spinal cord 05/02 Echo: moderate cLVH, LV normal; RV normal; BLAE; moderate to severe MR; severe TR; pHTN; mild AI; mild PI Assessment: 87 year old female with PMHx of right breast cancer s/p lumpectomy/ radiation x 40 years, diastolic heart failure, and severe valvular disease. 1. hx of Breast cancer with metastatic disease - Biopsy 05/08, results pending - Oncology following 2. 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 Diastolic heart failure, severe valvular disease - Continue carvedilol - Resume po lasix q48 4. Episode bradycardia and hypotension 05/04 - Resolved 5. Iron-deficiency anemia - Last transfused 05/04 6. Shortness of breath - Elevated d-dimer, pulm eval, no further work up for PE 7. CKD - Around baseline - On SRAVAN - Renal seeing 8. Pressure ulcers - Daily collagenase 9. Elevated LFTs - Improved today, alk phos elevated - Abd US ordered 10. DVT prophylaxis - Resume sq heparin Visit type - Emergency Visit Emergency Visit: Yes ED Registration Date: 05/01/18 Care time: The patient presented to the Emergency Department on the above date and was hospitalized for further evaluation of their emergent condition. - New Patient This patient is new to me today: No - Critical Care Critical Care patient: No
--- NOTE | 2018-05-09 12:30 | PN ---
Progress Note, Physician History of Present Illness: Pt seen and examined at bedside. She is awake and alert. She is developing edema in her legs. - Current Medication List Current Medications: Active Medications Carvedilol (Coreg -) 3.125 mg PO BID [facility] Last Admin: 05/09/18 09:51 Dose: 3.125 mg Collagenase (Santyl -) 1 applic TP DAILY [facility] Last Admin: 05/09/18 09:55 Dose: 1 applic Dexamethasone Sodium Phosphate (Decadron Injection -) 4 mg IVPB TID [facility] Last Admin: 05/09/18 05:54 Dose: 4 mg Docusate Sodium (Colace -) 100 mg PO BID PRN PRN Reason: CONSTIPATION Lisinopril (Prinivil) 5 mg PO DAILY [facility] Last Admin: 05/09/18 09:51 Dose: 5 mg Oxycodone HCl (Roxicodone -) 5 mg PO Q6H PRN PRN Reason: PAIN LEVEL 6-10 Last Admin: 05/09/18 09:50 Dose: 5 mg Pantoprazole Sodium (Protonix Iv) 40 mg IVPUSH DAILY [facility] Last Admin: 05/09/18 09:51 Dose: 40 mg Senna (Senna -) 2 tab PO HS [facility] Last Admin: 05/08/18 21:32 Dose: Not Given - Objective Vital Signs: Vital Signs Temperature 98.4 F 05/09/18 10:00 Pulse Rate 75 05/09/18 10:00 Respiratory Rate 18 05/09/18 10:00 Blood Pressure 147/68 05/09/18 10:00 O2 Sat by Pulse Oximetry (%) 97 05/09/18 10:00 Constitutional: Yes: Calm Eyes: Yes: Conjunctiva Clear HENT: Yes: Atraumatic Cardiovascular: Yes: S1, S2 Respiratory: Yes: CTA Bilaterally Gastrointestinal: Yes: Normal Bowel Sounds, Soft Genitourinary: Yes: WNL Musculoskeletal: Yes: Other (shoulder pain) Edema: Yes Edema: LLE: 1+, RLE: 1+ Neurological: Yes: Oriented Psychiatric: Yes: Oriented Labs: CBC, BMP 05/08/18 06:00 05/09/18 06:00 INR, PTT INR 1.03 (0.82-1.09) 05/08/18 06:00 Problem List - Problems (1) CKD (chronic kidney disease) Code(s): N18.9 - CHRONIC KIDNEY DISEASE, UNSPECIFIED (2) Anemia Code(s): D64.9 - ANEMIA, UNSPECIFIED Qualifiers: Anemia type: other cause Other causes of anemia: chronic disease, 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 (3) Breast CA Code(s): C50.919 - MALIGNANT NEOPLASM OF UNSP SITE OF UNSPECIFIED FEMALE BREAST Assessment/Plan Current Medications Generic Name Dose Route Start Last Admin Trade Name Freq PRN Reason Stop Dose Admin Carvedilol 3.125 mg 05/06/18 13:30 05/09/18 09:51 Coreg - PO 3.125 mg BID ELINA Administration Collagenase 1 applic 05/05/18 10:00 05/09/18 09:55 Santyl - TP 1 applic DAILY ELINA Administration Dexamethasone Sodium Phosphate 4 mg 05/07/18 22:15 05/09/18 05:54 Decadron Injection - IVPB 4 mg TID ELINA Administration Docusate Sodium 100 mg 05/04/18 11:04 Colace - PO BID PRN CONSTIPATION Lisinopril 5 mg 05/05/18 10:00 05/09/18 09:51 Prinivil PO 5 mg DAILY ELINA Administration Oxycodone HCl 5 mg 05/08/18 12:27 05/09/18 09:50 Roxicodone - PO 5 mg Q6H PRN Administration PAIN LEVEL 6-10 Pantoprazole Sodium 40 mg 05/09/18 10:00 05/09/18 09:51 Protonix Iv IVPUSH 40 mg DAILY ELINA Administration Senna 2 tab 05/04/18 22:00 05/08/18 21:32 Senna - PO Not Given HS ELINA Impression 1. likely CKD 2. CHF 3. HTN 4. hx breast cancer 5. dyspnea 6. anemia 7. elevated d-dimer 8. metastatic disease Plan - restart lasix, can give q 48 hrs - cardiology follow up - monitor renal function - oncology follow up - cardiology follow up Dr Austin
--- NOTE | 2018-05-09 13:09 | PN ---
Progress Note, Physician History of Present Illness: pulmonary alert,nad,-sob,+intermittent left sided cp.pt s/p bone bx path pending - Current Medication List Current Medications: Active Medications Carvedilol (Coreg -) 3.125 mg PO BID [facility] Last Admin: 05/09/18 09:51 Dose: 3.125 mg Collagenase (Santyl -) 1 applic TP DAILY [facility] Last Admin: 05/09/18 09:55 Dose: 1 applic Dexamethasone Sodium Phosphate (Decadron Injection -) 4 mg IVPB TID [facility] Last Admin: 05/09/18 05:54 Dose: 4 mg Docusate Sodium (Colace -) 100 mg PO BID PRN PRN Reason: CONSTIPATION Furosemide (Lasix -) 40 mg PO Q48H [facility] Heparin Sodium (Porcine) (Heparin -) 5,000 unit SQ BID [facility] Lisinopril (Prinivil) 5 mg PO DAILY [facility] Last Admin: 05/09/18 09:51 Dose: 5 mg Oxycodone HCl (Roxicodone -) 5 mg PO Q6H PRN PRN Reason: PAIN LEVEL 6-10 Last Admin: 05/09/18 09:50 Dose: 5 mg Pantoprazole Sodium (Protonix Iv) 40 mg IVPUSH DAILY [facility] Last Admin: 05/09/18 09:51 Dose: 40 mg Senna (Senna -) 2 tab PO HS [facility] Last Admin: 05/08/18 21:32 Dose: Not Given - Objective Vital Signs: Vital Signs Temperature 98.4 F 05/09/18 10:00 Pulse Rate 75 05/09/18 10:00 Respiratory Rate 18 05/09/18 10:00 Blood Pressure 147/68 05/09/18 10:00 O2 Sat by Pulse Oximetry (%) 97 05/09/18 10:00 Constitutional: Yes: Well Nourished, Calm Eyes: Yes: WNL HENT: Yes: WNL Neck: Yes: WNL Cardiovascular: Yes: Regular Rate and Rhythm, S1, S2 Respiratory: Yes: Diminished Gastrointestinal: Yes: Normal Bowel Sounds, Soft Extremities: Yes: WNL Edema: Yes Labs: CBC, BMP 05/08/18 06:00 05/09/18 06:00 INR, PTT INR 1.03 (0.82-1.09) 05/08/18 06:00 Problem List - Problems (1) Anemia Code(s): D64.9 - ANEMIA, UNSPECIFIED Qualifiers: Anemia type: other cause Other causes of anemia: chronic disease, 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 (2) CHF exacerbation Code(s): I50.9 - HEART FAILURE, UNSPECIFIED Qualifiers: Heart failure type: diastolic Qualified Code(s): I50.33 - Acute on chronic diastolic (congestive) heart failure (3) Chest pain Code(s): R07.9 - CHEST PAIN, UNSPECIFIED Qualifiers: Chest pain type: chest pain on breathing Qualified Code(s): R07.1 - Chest pain on breathing; R07.81 - Pleurodynia (4) Elevated d-dimer Code(s): R79.89 - OTHER SPECIFIED ABNORMAL FINDINGS OF BLOOD CHEMISTRY (5) Acute kidney injury Code(s): N17.9 - ACUTE KIDNEY FAILURE, UNSPECIFIED Assessment/Plan IMP CHEST PAIN LIKELY SECONDARY TO OSTEOLYTIC METS DYSPNEA ?CHF LOWER EXT EDEMA HTN NATHAN ANEMIA H/O R BREAST CA S/P LUMPECTOMY/RT EXTENSIVE BONY METS CORD COMPRESSION PLAN CHECK BONE BX RT DIURETICS MONITOR LYTES,RENAL FUNCTION ANALGESICS DECADRON DR NAZARIO Problem List - Problems (1) Anemia Code(s): D64.9 - ANEMIA, UNSPECIFIED (2) CHF exacerbation Code(s): I50.9 - HEART FAILURE, UNSPECIFIED Qualifiers: Heart failure type: unspecified Qualified Code(s): I50.9 - Heart failure, unspecified (3) Chest pain Code(s): R07.9 - CHEST PAIN, UNSPECIFIED Qualifiers: Chest pain type: chest pain on breathing Qualified Code(s): R07.1 - Chest pain on breathing; R07.81 - Pleurodynia (4) Elevated d-dimer Code(s): R79.89 - OTHER SPECIFIED ABNORMAL FINDINGS OF BLOOD CHEMISTRY (5) Acute kidney injury Code(s): N17.9 - ACUTE KIDNEY FAILURE, UNSPECIFIED
[2018-05-09] MEDS: FUROSEMIDE 40 MG TABLET (FP) PO SCH (16:00)
--- NOTE | 2018-05-09 16:27 | PN ---
Progress Note (short form) - Note Progress Note: pt seen and examined up in chair. feels "less" pain as she is "occupied" with others. Constitutional: Yes: Well Nourished, No Distress, Calm Eyes: Yes: Conjunctiva Clear HENT: Yes: Atraumatic, Normocephalic Neck: Yes: Supple, Trachea Midline Cardiovascular: Yes: Regular Rate and Rhythm Respiratory: Yes: Regular Gastrointestinal: Yes: Normal Bowel Sounds, Soft Edema: Yes Edema: LLE: 1+, RLE: 1+ Last Vital Signs Temp Pulse Resp BP Pulse Ox 98.4 F 73 14 165/80 100 05/08/18 10:00 05/08/18 10:29 05/08/18 10:29 05/08/18 10:29 05/08/18 10:29 CBC, BMP 05/08/18 06:00 05/08/18 06:00 Current Medications Generic Name Dose Route Start Last Admin Trade Name Freq PRN Reason Stop Dose Admin Acetaminophen 650 mg 05/08/18 12:41 Tylenol - PO Q8H PRN PAIN LEVEL 1-5 Carvedilol 3.125 mg 05/06/18 13:30 05/08/18 11:25 Coreg - PO 3.125 mg BID ELINA Administration Collagenase 1 applic 05/05/18 10:00 05/08/18 11:25 Santyl - TP 1 applic DAILY ELINA Administration Dexamethasone Sodium Phosphate 4 mg 05/07/18 22:15 05/08/18 14:35 Decadron Injection - IVPB 4 mg TID ELINA Administration Docusate Sodium 100 mg 05/04/18 11:04 Colace - PO BID PRN CONSTIPATION Lisinopril 5 mg 05/05/18 10:00 05/08/18 11:25 Prinivil PO 5 mg DAILY ELINA Administration Morphine Sulfate 1 mg 05/08/18 14:39 Morphine Injection - IVPUSH 05/08/18 14:40 ONCE ONE Oxycodone HCl 5 mg 05/08/18 12:27 Roxicodone - PO Q6H PRN PAIN LEVEL 6-10 Pantoprazole Sodium 40 mg 05/09/18 10:00 Protonix Iv IVPUSH DAILY ELINA Senna 2 tab 05/04/18 22:00 05/07/18 21:52 Senna - PO 2 tab HS ELINA Administration Extensive Bony met disease (pt with personal Hx of Breast Ca) NOW cord compression at T9, epidural and thecal sac compression at several lumbar levels Multiple vertebral compression fractures Anemia--s/p PRBCs ?NATHAN/CKD sacral ulcer Biopsy--prelim consistent with carcinoma. Awaiting further characterization c/w steroids, ppi support Pal XRT to spine-spoke to SWer, will need transport arrangements pain control-today slightly better as per the pt. monitor crit,repeat CBC once RT started DVT ppx son was updated the plan over phone.
[2018-05-09] MEDS: SENNOSIDES 8.6MG TABLET (FP) PO SCH (21:29)
[2018-05-09] MEDS: HEPARIN NA (PORCINE) 5,000 UNITS/ML 1ML VIAL SQ SCH (21:33)
[2018-05-10] MEDS: DEXAMETHASONE SOD PHOSPHATE 4 MG/1 ML VIAL IVPB SCH ×3 (05:13→22:14)
[2018-05-10 07:56] LABS: BASO % 0.3 % (0-2.0); HEMATOCRIT 25.4 % (32.4-45.2); HEMOGLOBIN 8.4 GM/dL (10.7-15.3); MCH 27.5 pg (25.7-33.7); MCHC 32.8 g/dl (32.0-36.0); MEAN CELL VOLUME 83.8 fl (80-96); MONO % 3.4 % (3.8-10.2); NEUT % 88.3 % (42.8-82.8); PLATELET COUNT 307 K/MM3 (134-434); RBC 3.03 M/mm3 (3.60-5.2); RDW 18.5 % (11.6-15.6); WHITE BLOOD COUNT 9.5 K/mm3 (4.0-10.0)
[2018-05-10 08:31] LABS: ALBUMIN 2.9 g/dl (3.4-5.0); ANION GAP 10 (8-16); BILIRUBIN,TOTAL 0.3 mg/dL (0.2-1.0); BLOOD UREA NITROGEN 50 mg/dL (7-18); CALCIUM 8.7 mg/dL (8.5-10.1); CHLORIDE 105 mmol/L (98-107); CO2 26 mmol/L (21-32); CREATININE 1.2 mg/dL (0.55-1.02); GLUCOSE,RANDOM 122 mg/dL (74-106); POTASSIUM 4.9 mmol/L (3.5-5.1); SGOT/AST 30 U/L (15-37); SGPT/ALT 65 U/L (12-78); SODIUM 141 mmol/L (136-145); TOT PROT 6.1 g/dl (6.4-8.2)
[2018-05-10 08:32] LABS: ALK PHOS 238 U/L (45-117)
[2018-05-10] MEDS: HEPARIN NA (PORCINE) 5,000 UNITS/ML 1ML VIAL SQ SCH ×2 (09:14→22:14)
[2018-05-10] MEDS: PANTOPRAZOLE SODIUM 40 MG VIAL IVPUSH SCH (09:14)
[2018-05-10] MEDS: CARVEDILOL 3.125 MG TABLET (FP) PO SCH ×2 (09:19→22:14)
[2018-05-10] MEDS: LISINOPRIL 5 MG TABLET (FP) PO SCH (09:20)
[2018-05-10] MEDS: COLLAGENASE CLOSTRIDIUM HIST. 30 GRAMS TUBE TP SCH (09:32)
--- NOTE | 2018-05-10 09:43 | CONS ---
DATE OF CONSULTATION: 05/08/2018 CHIEF COMPLAINT: "I know I have cancer all over." HISTORY OF PRESENT ILLNESS: The patient is an 87-year-old woman with known history of metastatic breast cancer. She states she knows about cancer in her right hip. She was treated with lumpectomy, radiation therapy and endocrine therapy many years ago for an early breast cancer when she worked at [employer] [facility] [employer]. She presented to the emergency room last week with progressive weakness and inability to take care of herself. She also had abdominal pain and an abscess on her right buttock. Evaluation showed a fracture of the right humerus. Orthopedic showed that she was healing very well from the fracture and no additional intervention was necessary. Abdominopelvic CT scan on May 02 showed evidence of widely metastatic disease in the bone with lytic disease and multiple compression fractures in multiple vertebrae. A lumbar spine CT and thoracic spine CT on May 07 showed osteolytic lesions in the sacrum, left iliac bone, S1, S2 with an epidural mass compressing the thecal sac, also osteolytic lesions at L3 involving the posterior cortex at L3 with epidural mass compressing the thecal sac, osteolytic lesion at L1 with compression and pathologic fracture with retropulsion of the cortex. Thoracic spine CT showed evidence of cord compression at the T9 area. There was also extensive destructive change of T10, osteolytic lesions in T11, T8, T7, T5, T4. Patient had a cervical spine CAT scan today and a biopsy. We are asked to evaluate for the possibility of palliative radiation therapy to the spinal lesions. The patient states that her pain is migratory. She will have pain all over primarily in her back but not specifically in 1 location. When I interviewed her the majority of her pain was in the upper lumbar area, not in the lumbosacral area or in the midthoracic or cervical area. She understands her poor prognosis. 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 [employer] [employer]. Her son is a professor at [employer]. She has not had any incontinence or inability to walk. She has been started on Decadron. MEDICATIONS: Dexamethasone 4 mg IV t.i.d.; Prinivil 5 mg p.o. daily; Coreg 3.125 mg b.i.d.; Roxicodone 5 mg p.o. q.6 hours as needed; Protonix 40 mg IV daily; Senna, Colace and Tylenol p.r.n. ALLERGIES: None. PAST MEDICAL HISTORY: Significant for hypertension, breast cancer, status post radiation. The patient does not believe that she had chemotherapy in the past. She has had breast surgery. She had a right heel foot surgery after an injury. FAMILY HISTORY: Positive for breast cancer in a sister who at the age of 61. Mother succumbed to a heart attack. Father had prostate cancer but in his late 90s. She has 1 son as mentioned above and 2 grandchildren who are healthy. 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. 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 She cannot recall how long she has been retired, how long she has lived at her current home or how long she has been . She states that her mind is weakening unfortunately. REVIEW OF SYSTEMS: Positive for some memory difficulties. Negative for other neurologic, endocrine, cardiac, pulmonary, gastrointestinal, musculoskeletal, lymphatic, hematologic, psychiatric complaints except as noted above. She is reluctant to take pain medication. LABORATORY DATA: May 08, 2018, white count 6.2, hemoglobin 9.9, hematocrit 30, platelets 391. Chemistry normal except for BUN of 36, creatinine 1.3. Glucose is 147. AST 107, ALT 109, alkaline phosphatase 319, albumin 3.3. CA 125 is 104.3, CA 27-29 is 983 and CEA is 41.7. These are all elevated. PHYSICAL EXAMINATION: Vital Signs: 98.4 degrees Fahrenheit, pulse 73, 157/75 mmHg, respirations 14, 100% oxygen saturation on room air, pain level is 8, fatigue level is 7. HEENT: There is mild pallor without icterus or palpable adenopathy. Musculoskeletal: She has diffuse bone tenderness particularly from the thoracic, lumbar, sacral areas. Right arm has good motion. Chest: Clear. Heart: Regular. Abdomen: There is no abdominal distention or tenderness. Extremities: She has good strength in her lower extremities. RADIOLOGIC DATA: Please see HPI. PATHOLOGIC DATA: Pending receipt. PERFORMANCE STATUS: 70. NUTRITIONAL STATUS: Fair. QUALITY OF LIFE: Fair. ICD-10 CODE: C79.51. IMPRESSION: The patient is an 87-year-old woman with metastatic cancer to the bone. It is possible that this is breast cancer. I agree with biopsy to get hormone receptor and HER2 markers and also to rule out other primary possibilities in which case systemic therapy could be offered and could be different than for breast cancer. I did talk to the patient about palliative radiation therapy to the spinal sites that are risking a spinal cord and nerve injury. These would be predominantly at the T9 and lumbar areas. We talked about the 2 weeks of radiation that I would recommend and the possible side effects of fatigue, esophagitis and enteritis. The patient would like to talk to her son about this option. She understands her prognosis is poor and may want just pain medication. PLAN: I will visit the patient again tomorrow to see if she is willing to come across the street for planning and to begin radiation therapy. We would need to get approval from the administration. NAKIA NICHOLAS M.D. [id number] cc: RAMAN Foley MD Smitha Mellacheruvu, MD Rajendra Rampersaud, MD Adam Fink, MD
--- NOTE | 2018-05-10 11:35 | PN ---
Physical Exam: SUBJECTIVE: Patient seen and examined. No changes OBJECTIVE: Vital Signs Period Temp Pulse Resp BP Sys/Beltre Pulse Ox Last 24 Hr 98.0 F-98.7 F 67-80 16-18 138-168/57-77 100-100 PE Neuro: alert, awake, cn 2-12intact Pulm: CTAB CV: s1 s2 rrr no mrg Abd: s nt nd + bs Ext: lower ext edema improved Laboratory Results - last 24 hr 05/10/18 05/10/18 06:30 06:30 WBC 9.5 RBC 3.03 L Hgb 8.4 L Hct 25.4 L D MCV 83.8 MCH 27.5 MCHC 32.8 RDW 18.5 H Plt Count 307 D MPV 8.0 Absolute Neuts (auto) 8.3 Neutrophils % 88.3 H Lymphocytes % 8.0 D Monocytes % 3.4 L Eosinophils % 0.0 D Basophils % 0.3 Nucleated RBC % 0 Sodium 141 Potassium 4.9 Chloride 105 Carbon Dioxide 26 Anion Gap 10 BUN 50 H Creatinine 1.2 H Creat Clearance w eGFR 42.70 Random Glucose 122 H Calcium 8.7 Total Bilirubin 0.3 AST 30 ALT 65 Alkaline Phosphatase 238 H D Total Protein 6.1 L Albumin 2.9 L Active Medications Generic Name Dose Route Start Last Admin Trade Name Freq PRN Reason Stop Dose Admin Carvedilol 3.125 mg 05/06/18 13:30 05/10/18 09:19 Coreg - PO 3.125 mg BID ELINA Administration Collagenase 1 applic 05/05/18 10:00 05/10/18 09:32 Santyl - TP Not Given DAILY [facility] Dexamethasone Sodium Phosphate 4 mg 05/07/18 22:15 05/10/18 05:13 Decadron Injection - IVPB 4 mg TID ELINA Administration Docusate Sodium 100 mg 05/04/18 11:04 Colace - PO BID PRN CONSTIPATION Furosemide 40 mg 05/09/18 14:45 05/09/18 16:00 Lasix - PO 40 mg Q2D ELINA Administration Heparin Sodium (Porcine) 5,000 unit 05/09/18 22:00 05/10/18 09:14 Heparin - SQ 5,000 unit BID ELINA Administration Lisinopril 5 mg 05/05/18 10:00 05/10/18 09:20 Prinivil PO 5 mg DAILY ELINA Administration Oxycodone HCl 5 mg 05/08/18 12:27 05/09/18 09:50 Roxicodone - PO 5 mg Q6H PRN Administration PAIN LEVEL 6-10 Pantoprazole Sodium 40 mg 05/09/18 10:00 05/10/18 09:14 Protonix Iv IVPUSH 40 mg DAILY ELINA Administration Senna 2 tab 05/04/18 22:00 05/09/18 21:29 Senna - PO Not Given HS ELINA Tramadol HCl 50 mg 05/09/18 15:08 Ultram - PO Q6H PRN PAIN LEVEL 4 - 6 Assessment: 87 year old female with PMHx of right breast cancer s/p lumpectomy/ radiation x 40 years, diastolic heart failure, and severe valvular disease. 1. hx of Breast cancer with metastatic disease - Biopsy 05/08, results pending - Oncology following 2. 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 Diastolic heart failure, severe valvular disease - Continue carvedilol - Resume po lasix q48 4. Episode bradycardia and hypotension 05/04 - Resolved 5. Iron-deficiency anemia - Last transfused 05/04 6. Shortness of breath - Elevated d-dimer, pulm eval, no further work up for PE 7. CKD - Around baseline - On SRAVAN - Renal seeing 8. Pressure ulcers - Daily collagenase 9. Elevated LFTs - Alk phos elevated - Abd US noted, CBD dilation normal for age and post cholecystectomy 10. DVT prophylaxis - Heparin sq Visit type - Emergency Visit Emergency Visit: Yes ED Registration Date: 05/01/18 Care time: The patient presented to the Emergency Department on the above date and was hospitalized for further evaluation of their emergent condition. - New Patient This patient is new to me today: No - Critical Care Critical Care patient: No
--- NOTE | 2018-05-10 15:31 | PN ---
Progress Note, Physician History of Present Illness: Pt seen and examined at bedside. She denies shortness of breath. - Current Medication List Current Medications: Active Medications Carvedilol (Coreg -) 3.125 mg PO BID [facility] Last Admin: 05/10/18 09:19 Dose: 3.125 mg Collagenase (Santyl -) 1 applic TP DAILY [facility] Last Admin: 05/10/18 09:32 Dose: Not Given Dexamethasone Sodium Phosphate (Decadron Injection -) 4 mg IVPB TID [facility] Last Admin: 05/10/18 15:11 Dose: 4 mg Docusate Sodium (Colace -) 100 mg PO BID PRN PRN Reason: CONSTIPATION Furosemide (Lasix -) 40 mg PO Q2D [facility] Last Admin: 05/09/18 16:00 Dose: 40 mg Heparin Sodium (Porcine) (Heparin -) 5,000 unit SQ BID [facility] Last Admin: 05/10/18 09:14 Dose: 5,000 unit Lisinopril (Prinivil) 5 mg PO DAILY [facility] Last Admin: 05/10/18 09:20 Dose: 5 mg Oxycodone HCl (Roxicodone -) 5 mg PO Q6H PRN PRN Reason: PAIN LEVEL 6-10 Last Admin: 05/09/18 09:50 Dose: 5 mg Pantoprazole Sodium (Protonix -) 40 mg PO DAILY [facility] Senna (Senna -) 2 tab PO HS [facility] Last Admin: 05/09/18 21:29 Dose: Not Given Tramadol HCl (Ultram -) 50 mg PO Q6H PRN PRN Reason: PAIN LEVEL 4 - 6 - Objective Vital Signs: Vital Signs Temperature 97.5 F L 05/10/18 15:03 Pulse Rate 71 05/10/18 15:03 Respiratory Rate 16 05/10/18 15:03 Blood Pressure 149/77 05/10/18 08:58 O2 Sat by Pulse Oximetry (%) 100 05/10/18 08:46 Constitutional: Yes: Calm Eyes: Yes: Conjunctiva Clear HENT: Yes: Atraumatic Neck: Yes: Supple Cardiovascular: Yes: S1, S2 Respiratory: Yes: CTA Bilaterally Gastrointestinal: Yes: Soft Genitourinary: Yes: WNL Musculoskeletal: Yes: Other (shoulder pain) Edema: Yes Edema: LLE: Trace, RLE: Trace Neurological: Yes: Oriented Psychiatric: Yes: Oriented Labs: CBC, BMP 05/10/18 06:30 05/10/18 06:30 INR, PTT INR 1.03 (0.82-1.09) 05/08/18 06:00 Problem List - Problems (1) CKD (chronic kidney disease) Code(s): N18.9 - CHRONIC KIDNEY DISEASE, UNSPECIFIED (2) Anemia Code(s): D64.9 - ANEMIA, UNSPECIFIED Qualifiers: Anemia type: other cause Other causes of anemia: chronic disease, 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 (3) Breast CA Code(s): C50.919 - MALIGNANT NEOPLASM OF UNSP SITE OF UNSPECIFIED FEMALE BREAST Assessment/Plan Current Medications Generic Name Dose Route Start Last Admin Trade Name Freq PRN Reason Stop Dose Admin Carvedilol 3.125 mg 05/06/18 13:30 05/10/18 09:19 Coreg - PO 3.125 mg BID [facility] Administration Collagenase 1 applic 05/05/18 10:00 05/10/18 09:32 Santyl - TP Not Given DAILY [facility] Dexamethasone Sodium Phosphate 4 mg 05/07/18 22:15 05/10/18 15:11 Decadron Injection - IVPB 4 mg TID [facility]INA Administration Docusate Sodium 100 mg 05/04/18 11:04 Colace - PO BID PRN CONSTIPATION Furosemide 40 mg 05/09/18 14:45 05/09/18 16:00 Lasix - PO 40 mg Q2D [facility] Administration Heparin Sodium (Porcine) 5,000 unit 05/09/18 22:00 05/10/18 09:14 Heparin - SQ 5,000 unit BID [facility] Administration Lisinopril 5 mg 05/05/18 10:00 05/10/18 09:20 Prinivil PO 5 mg DAILY [facility] Administration Oxycodone HCl 5 mg 05/08/18 12:27 05/09/18 09:50 Roxicodone - PO 5 mg Q6H PRN Administration PAIN LEVEL 6-10 Pantoprazole Sodium 40 mg 05/11/18 10:00 Protonix - PO DAILY [facility] Senna 2 tab 05/04/18 22:00 05/09/18 21:29 Senna - PO Not Given HS [facility] Tramadol HCl 50 mg 05/09/18 15:08 Ultram - PO Q6H PRN PAIN LEVEL 4 - 6 Impression 1. likely CKD 2. CHF 3. HTN 4. hx breast cancer 5. dyspnea 6. anemia 7. elevated d-dimer 8. metastatic disease Plan - cont with lasix - monitor volume status - repeat labs in am - discussed with medical team - oncology input appreciated Dr Austin
[2018-05-10] MEDS: traMADol HCL 50 MG TABLET PO PRN ×2 (16:18→22:12)
--- NOTE | 2018-05-10 16:34 | PN ---
Progress Note (short form) - Note Progress Note: pt seen and examined feels that she had a "long day". Tristan outside the room. Spoke to them Constitutional: Yes: Well Nourished, No Distress, Calm Eyes: Yes: Conjunctiva Clear HENT: Yes: Atraumatic, Normocephalic Neck: Yes: Supple, Trachea Midline Cardiovascular: Yes: Regular Rate and Rhythm Respiratory: Yes: Regular Gastrointestinal: Yes: Normal Bowel Sounds, Soft Edema: Yes Edema: LLE: 1+, RLE: 1+ Last Vital Signs Temp Pulse Resp BP Pulse Ox 97.9 F 69 18 148/68 100 05/10/18 16:23 05/10/18 16:23 05/10/18 16:23 05/10/18 16:23 05/10/18 08:46 CBC, BMP 05/10/18 06:30 05/10/18 06:30 Current Medications Generic Name Dose Route Start Last Admin Trade Name Freq PRN Reason Stop Dose Admin Carvedilol 3.125 mg 05/06/18 13:30 05/10/18 09:19 Coreg - PO 3.125 mg BID [facility] Administration Collagenase 1 applic 05/05/18 10:00 05/10/18 09:32 Santyl - TP Not Given DAILY [facility] Dexamethasone Sodium Phosphate 4 mg 05/07/18 22:15 05/10/18 15:11 Decadron Injection - IVPB 4 mg TID [facility] Administration Docusate Sodium 100 mg 05/04/18 11:04 Colace - PO BID PRN CONSTIPATION Furosemide 40 mg 05/09/18 14:45 05/09/18 16:00 Lasix - PO 40 mg Q2D [facility] Administration Heparin Sodium (Porcine) 5,000 unit 05/09/18 22:00 05/10/18 09:14 Heparin - SQ 5,000 unit BID [facility] Administration Lisinopril 5 mg 05/05/18 10:00 05/10/18 09:20 Prinivil PO 5 mg DAILY [facility] Administration Oxycodone HCl 5 mg 05/08/18 12:27 05/09/18 09:50 Roxicodone - PO 5 mg Q6H PRN Administration PAIN LEVEL 6-10 Pantoprazole Sodium 40 mg 05/11/18 10:00 Protonix - PO DAILY [facility] Senna 2 tab 05/04/18 22:00 05/09/18 21:29 Senna - PO Not Given HS [facility] Tramadol HCl 50 mg 05/09/18 15:08 05/10/18 16:18 Ultram - PO 50 mg Q6H PRN Administration PAIN LEVEL 4 - 6 Metastatic disease with Extensive Bony met disease (pt with personal Hx of Breast Ca), cord compression at T9, epidural and thecal sac compression at several lumbar levels Multiple vertebral compression fractures Anemia--s/p PRBCs Biopsy--prelim consistent with carcinoma. Awaiting further characterization c/w steroids, ppi support for RT today CBC in the am DVT ppx PT eval-- ?bedside walker possible appreciate SWer assistance in Dispo plan
--- NOTE | 2018-05-10 17:06 | PN ---
Progress Note (short form) - Note Progress Note: Biopsy is positive for carcinoma - further characterization is pending. We started RT to the T8-L3 vertebral bodies today. We will also begin S1-S3 irradiation tomorrow. We are unable to treat T3-T5 at this time because of sever kyphosis and patient comfort. If she eventually improves and is able to lay flat then we can add T3-T5 if still problematic. Please premeciate for comfort tomorrow. Problem List - Problems (1) Breast CA Code(s): C50.919 - MALIGNANT NEOPLASM OF UNSP SITE OF UNSPECIFIED FEMALE BREAST Qualifiers: Estrogen receptor status: positive Patient sex: female Laterality: right
--- NOTE | 2018-05-10 17:44 | PATH ---
Surgical Pathology Report Patient Name: DARIA MCKENNA [facility]. Rec. #: [id number] /Age/Gender: 1930 (Age: 87) / F Account: [id number] Location: 4 SO PEDS/ADOL Taken: 05/08/2018 Received: 05/08/2018 Reported: 05/10/2018 Physicians: John Menendez ACNP Specimen(s) Received RIGHT PELVIC BONE BX Clinical History 87 yr old female with history of breast cancer now with numerous lytic bony lesions Final Diagnosis RIGHT PELVIC BONE, BIOPSY: METASTATIC CARCINOMA, CONSISTENT WITH DUCTAL CARCINOMA OF THE BREAST PRIMARY. COMMENT: Tumor cells formed cribriform and solid nests patterns in a fibrous stroma. Immunochemistry stains performed at [facility] ([id number]) and interpreted at [facility] showed that the tumor cells are positive for Jo-3, GCDFP, and negative for mammaglobin. The findings are consistent with ductal carcinoma of the breast primary. Results of Estrogen Receptor (ER) and Progesterone Receptor (PA) studies performed at [facility] are as follows: ER (clone [id number] mouse monoclonal antibody by Leica): 95% nuclear staining with strong intensity (Positive). PA (clone16 mouse monoclonal antibody by Leica): 60% nuclear staining with moderate intensity (Positive). This case was discussed with Dr. Anne on May 10, 2018. Electronically Signed Cheerlle Levin M.D. Gross Description Received in formalin labeled "right pelvic bone biopsy," are 5 nayak, cylindrical portions of soft tissue and possible bone ranging from 0.5-1.0 cm in length and averaging 0.1 cm in diameter. The specimens are submitted in toto in one cassette, following decalcification. /05/08/201805/08/2018
--- NOTE | 2018-05-10 22:01 | PN ---
Progress Note, Physician Chief Complaint: Pt A&Ozx3; History of Present Illness: Patient is an 87 year old white woman with history of right breast cancer s/p surgery and radiotherapy here with upper abdominal pain 2 days. States sensation present whether at rest or on exertion. No shortness of breath, diaphoresis, nausea, vomiting or palpitations. No history of similar symptoms in the past. While in the ED, patient noted to have bilateral lower extremity edema, which patient states she did not notice until she was made aware when she got here. No leg pain, cough, f/c. Also c/o painful sore to R buttocks "for some time". 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 and admits she has not seen a doctor in many years - Current Medication List Current Medications: Active Medications Carvedilol (Coreg -) 3.125 mg PO BID [facility] Last Admin: 05/10/18 09:19 Dose: 3.125 mg Collagenase (Santyl -) 1 applic TP DAILY [facility] Last Admin: 05/10/18 09:32 Dose: Not Given Dexamethasone Sodium Phosphate (Decadron Injection -) 4 mg IVPB TID [facility] Last Admin: 05/10/18 15:11 Dose: 4 mg Docusate Sodium (Colace -) 100 mg PO BID PRN PRN Reason: CONSTIPATION Furosemide (Lasix -) 40 mg PO Q2D [facility] Last Admin: 05/09/18 16:00 Dose: 40 mg Heparin Sodium (Porcine) (Heparin -) 5,000 unit SQ BID [facility] Last Admin: 05/10/18 09:14 Dose: 5,000 unit Lisinopril (Prinivil) 5 mg PO DAILY [facility] Last Admin: 05/10/18 09:20 Dose: 5 mg Oxycodone HCl (Roxicodone -) 5 mg PO Q6H PRN PRN Reason: PAIN LEVEL 6-10 Last Admin: 05/09/18 09:50 Dose: 5 mg Pantoprazole Sodium (Protonix -) 40 mg PO DAILY [facility] Senna (Senna -) 2 tab PO HS [facility] Last Admin: 05/09/18 21:29 Dose: Not Given Tramadol HCl (Ultram -) 50 mg PO Q6H PRN PRN Reason: PAIN LEVEL 4 - 6 Last Admin: 05/10/18 16:18 Dose: 50 mg - Objective Vital Signs: Vital Signs Temperature 97.9 F 05/10/18 16:23 Pulse Rate 69 05/10/18 16:23 Respiratory Rate 18 05/10/18 16:23 Blood Pressure 148/68 05/10/18 16:23 O2 Sat by Pulse Oximetry (%) 100 05/10/18 08:46 Constitutional: Yes: Calm Eyes: Yes: WNL HENT: Yes: WNL Neck: Yes: WNL Respiratory: Yes: Regular Gastrointestinal: Yes: Soft ...Rectal Exam: Yes: Deferred Genitourinary: No: Anuria Breast(s): Yes: WNL Musculoskeletal: Yes: Back Pain, Muscle Weakness, Other Extremities: Yes: Cool Edema: No Peripheral Pulses WNL: Yes Integumentary: Yes: WNL Neurological: Yes: Alert, Oriented, Weakness Psychiatric: Yes: Alert, Oriented Labs: CBC, BMP 05/10/18 06:30 05/10/18 06:30 INR, PTT INR 1.03 (0.82-1.09) 05/08/18 06:00 Problem List - Problems (1) Breast CA Assessment/Plan: breast CA with metastases. Chronic "pain in the ribs". CT chest: extensive bone metastases; pathologic fractures throughout the spine. Pain management: discontinued Tylenol due to rising LFTs (which have returned to normal). On oxycodone. For radiation therapy today. Code(s): C50.919 - MALIGNANT NEOPLASM OF UNSP SITE OF UNSPECIFIED FEMALE BREAST Qualifiers: Estrogen receptor status: positive Patient sex: female Laterality: right (2) Anemia Assessment/Plan: fall in Hb toady (9.9-->8.4); f/u with hem/onc. 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 Not in acute distress (respiratory-verdin). On ACEI. NOw on furosemide again (every other day). F/u BUN/Cr, electrolytes, Is and Os, and daily weight/ Code(s): I50.30 - UNSPECIFIED DIASTOLIC (CONGESTIVE) HEART FAILURE (4) HTN (hypertension) Assessment/Plan: On lisinopril, carvedilol, and furosemide. Adjust doses as needed (BP slightly high today). Code(s): I10 - ESSENTIAL (PRIMARY) HYPERTENSION
[2018-05-10] MEDS: SENNOSIDES 8.6MG TABLET (FP) PO SCH (22:12)
[2018-05-11] MEDS: traMADol HCL 50 MG TABLET PO PRN ×3 (04:48→21:18)
[2018-05-11] MEDS: oxyCODONE HCL 5 MG TABLET PO PRN ×2 (05:49→23:12)
[2018-05-11] MEDS: DEXAMETHASONE SOD PHOSPHATE 4 MG/1 ML VIAL IVPB SCH ×3 (05:49→21:17)
[2018-05-11 07:07] LABS: HEMATOCRIT 25.5 % (32.4-45.2); HEMOGLOBIN 8.5 GM/dL (10.7-15.3); LYMPH % 8.6 % (8-40); MCH 27.8 pg (25.7-33.7); MCHC 33.2 g/dl (32.0-36.0); MEAN CELL VOLUME 83.7 fl (80-96); MEAN PLT VOLUME 8.3 fl (7.5-11.1); MONO % 4.4 % (3.8-10.2); PLATELET COUNT 324 K/MM3 (134-434); RBC 3.05 M/mm3 (3.60-5.2); RDW 18.1 % (11.6-15.6); WHITE BLOOD COUNT 8.4 K/mm3 (4.0-10.0)
[2018-05-11] MEDS: HEPARIN NA (PORCINE) 5,000 UNITS/ML 1ML VIAL SQ SCH ×2 (09:08→21:17)
[2018-05-11] MEDS: CARVEDILOL 3.125 MG TABLET (FP) PO SCH ×2 (09:08→21:18)
[2018-05-11] MEDS: LISINOPRIL 5 MG TABLET (FP) PO SCH (09:08)
[2018-05-11] MEDS: PANTOPRAZOLE 40 MG TABLET (FP) PO SCH (09:08)
[2018-05-11] MEDS: FUROSEMIDE 40 MG TABLET (FP) PO SCH (09:08)
--- NOTE | 2018-05-11 10:07 | PN ---
Progress Note, Physician History of Present Illness: Pt seen and examined at bedside. She is awake and alert. She denies shortness of breath. - Current Medication List Current Medications: Active Medications Anastrozole (Arimidex -) 1 mg PO DAILY [facility] Carvedilol (Coreg -) 3.125 mg PO BID [facility] Last Admin: 05/11/18 09:08 Dose: 3.125 mg Collagenase (Santyl -) 1 applic TP DAILY [facility] Last Admin: 05/10/18 09:32 Dose: Not Given Dexamethasone Sodium Phosphate (Decadron Injection -) 4 mg IVPB TID [facility] Last Admin: 05/11/18 05:49 Dose: 4 mg Docusate Sodium (Colace -) 100 mg PO BID PRN PRN Reason: CONSTIPATION Furosemide (Lasix -) 40 mg PO Q2D [facility] Last Admin: 05/11/18 09:08 Dose: 40 mg Heparin Sodium (Porcine) (Heparin -) 5,000 unit SQ BID [facility] Last Admin: 05/11/18 09:08 Dose: 5,000 unit Lisinopril (Prinivil) 5 mg PO DAILY [facility] Last Admin: 05/11/18 09:08 Dose: 5 mg Oxycodone HCl (Roxicodone -) 5 mg PO Q6H PRN PRN Reason: PAIN LEVEL 6-10 Last Admin: 05/11/18 05:49 Dose: 5 mg Pantoprazole Sodium (Protonix -) 40 mg PO DAILY [facility] Last Admin: 05/11/18 09:08 Dose: 40 mg Senna (Senna -) 2 tab PO HS [facility] Last Admin: 05/10/18 22:12 Dose: 2 tab Tramadol HCl (Ultram -) 50 mg PO Q6H PRN PRN Reason: PAIN LEVEL 4 - 6 Last Admin: 05/11/18 09:08 Dose: 50 mg - Objective Vital Signs: Vital Signs Temperature 97.9 F 05/11/18 06:00 Pulse Rate 66 05/11/18 06:00 Respiratory Rate 18 05/11/18 08:18 Blood Pressure 158/89 05/11/18 06:00 O2 Sat by Pulse Oximetry (%) 100 05/11/18 08:18 Constitutional: Yes: Calm Eyes: Yes: Conjunctiva Clear HENT: Yes: Atraumatic Neck: Yes: Supple Cardiovascular: Yes: S1, S2 Respiratory: Yes: CTA Bilaterally Gastrointestinal: Yes: Soft Genitourinary: Yes: WNL Musculoskeletal: Yes: Other (bone pain) Edema: Yes Edema: LLE: 1+, RLE: 1+ Neurological: Yes: Oriented Psychiatric: Yes: Oriented Labs: CBC, BMP 05/11/18 05:45 05/10/18 06:30 INR, PTT INR 1.03 (0.82-1.09) 05/08/18 06:00 Problem List - Problems (1) CKD (chronic kidney disease) Code(s): N18.9 - CHRONIC KIDNEY DISEASE, UNSPECIFIED (2) Anemia Code(s): D64.9 - ANEMIA, UNSPECIFIED Qualifiers: Anemia type: other cause Other causes of anemia: chronic disease, 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 (3) Breast CA Code(s): C50.919 - MALIGNANT NEOPLASM OF UNSP SITE OF UNSPECIFIED FEMALE BREAST Qualifiers: Estrogen receptor status: positive Patient sex: female Laterality: right Assessment/Plan Current Medications Generic Name Dose Route Start Last Admin Trade Name Freq PRN Reason Stop Dose Admin Anastrozole 1 mg 05/11/18 10:00 Arimidex - PO DAILY [facility] Carvedilol 3.125 mg 05/06/18 13:30 05/11/18 09:08 Coreg - PO 3.125 mg BID ELINA Administration Collagenase 1 applic 05/05/18 10:00 05/10/18 09:32 Santyl - TP Not Given DAILY [facility] Dexamethasone Sodium Phosphate 4 mg 05/07/18 22:15 05/11/18 05:49 Decadron Injection - IVPB 4 mg TID [facility]INA Administration Docusate Sodium 100 mg 05/04/18 11:04 Colace - PO BID PRN CONSTIPATION Furosemide 40 mg 05/09/18 14:45 05/11/18 09:08 Lasix - PO 40 mg Q2D [facility]INA Administration Heparin Sodium (Porcine) 5,000 unit 05/09/18 22:00 05/11/18 09:08 Heparin - SQ 5,000 unit BID ELINA Administration Lisinopril 5 mg 05/05/18 10:00 05/11/18 09:08 Prinivil PO 5 mg DAILY [facility] Administration Oxycodone HCl 5 mg 05/08/18 12:27 05/11/18 05:49 Roxicodone - PO 5 mg Q6H PRN Administration PAIN LEVEL 6-10 Pantoprazole Sodium 40 mg 05/11/18 10:00 05/11/18 09:08 Protonix - PO 40 mg DAILY [facility] Administration Senna 2 tab 05/04/18 22:00 05/10/18 22:12 Senna - PO 2 tab HS [facility] Administration Tramadol HCl 50 mg 05/09/18 15:08 05/11/18 09:08 Ultram - PO 50 mg Q6H PRN Administration PAIN LEVEL 4 - 6 Impression 1. likely CKD 2. CHF 3. HTN 4. hx breast cancer 5. dyspnea 6. anemia 7. elevated d-dimer 8. metastatic disease 9. carcinoma Plan - cont with lasix every other day and monitor volume status - pt getting radiation therapy - oncology follow up - monitor lytes - encourage PO intake Dr Austin
--- NOTE | 2018-05-11 11:17 | PN ---
Physical Exam: SUBJECTIVE: Patient seen and examined. She is on her way to RT. No acute issues OBJECTIVE: Vital Signs Period Temp Pulse Resp BP Sys/Beltre Pulse Ox Last 24 Hr 97.5 F-98.4 F 66-77 16-18 129-158/68-89 100-100 PE Neuro: alert, awake, cn 2-12intact Pulm: CTAB CV: s1 s2 rrr no mrg Abd: s nt nd + bs Ext: Left hip tendenderness, shoulder tenderness less, trace edema Laboratory Results - last 24 hr 05/11/18 05:45 WBC 8.4 RBC 3.05 L Hgb 8.5 L Hct 25.5 L MCV 83.7 MCH 27.8 MCHC 33.2 RDW 18.1 H Plt Count 324 MPV 8.3 Absolute Neuts (auto) 7.3 Neutrophils % 87.0 H Lymphocytes % 8.6 Monocytes % 4.4 Eosinophils % 0.0 Basophils % 0.0 Nucleated RBC % 0 Active Medications Generic Name Dose Route Start Last Admin Trade Name Freq PRN Reason Stop Dose Admin Anastrozole 1 mg 05/11/18 10:00 Arimidex - PO DAILY [facility] Carvedilol 3.125 mg 05/06/18 13:30 05/11/18 09:08 Coreg - PO 3.125 mg BID [facility]INA Administration Collagenase 1 applic 05/05/18 10:00 05/10/18 09:32 Santyl - TP Not Given DAILY [facility] Dexamethasone Sodium Phosphate 4 mg 05/07/18 22:15 05/11/18 05:49 Decadron Injection - IVPB 4 mg TID [facility] Administration Docusate Sodium 100 mg 05/04/18 11:04 Colace - PO BID PRN CONSTIPATION Furosemide 40 mg 05/09/18 14:45 05/11/18 09:08 Lasix - PO 40 mg Q2D [facility] Administration Heparin Sodium (Porcine) 5,000 unit 05/09/18 22:00 05/11/18 09:08 Heparin - SQ 5,000 unit BID [facility] Administration Lisinopril 5 mg 05/05/18 10:00 05/11/18 09:08 Prinivil PO 5 mg DAILY [facility] Administration Oxycodone HCl 5 mg 05/08/18 12:27 05/11/18 05:49 Roxicodone - PO 5 mg Q6H PRN Administration PAIN LEVEL 6-10 Pantoprazole Sodium 40 mg 05/11/18 10:00 05/11/18 09:08 Protonix - PO 40 mg DAILY [facility] Administration Senna 2 tab 05/04/18 22:00 05/10/18 22:12 Senna - PO 2 tab HS [facility] Administration Tramadol HCl 50 mg 05/09/18 15:08 05/11/18 09:08 Ultram - PO 50 mg Q6H PRN Administration PAIN LEVEL 4 - 6 Assessment: 87 year old female with PMHx of right breast cancer s/p lumpectomy/ radiation x 40 years, diastolic heart failure, and severe valvular disease. 1. hx of Breast cancer with metastatic disease - Biopsy 05/08, results pending - Oncology following 2. T9-10 epidural disease /cord compression on CT - Continue dexamethasone 4mg Q 8h - RT 12/23 today 3. Diastolic heart failure, severe valvular disease - Continue carvedilol - Resume po lasix q48 4. Episode bradycardia and hypotension 05/04 - Resolved 5. Iron-deficiency anemia - Last transfused 05/04 6. Shortness of breath - Elevated d-dimer, pulm eval, no further work up for PE 7. CKD - Around baseline - On SRAVAN - Renal seeing 8. Pressure ulcers - Daily collagenase 9. Elevated LFTs - Improving - Abd US noted, CBD dilation normal for age and post cholecystectomy 10. DVT prophylaxis - Heparin sq Visit type - Emergency Visit Emergency Visit: Yes ED Registration Date: 05/01/18 Care time: The patient presented to the Emergency Department on the above date and was hospitalized for further evaluation of their emergent condition. - New Patient This patient is new to me today: No - Critical Care Critical Care patient: No
--- NOTE | 2018-05-11 11:50 | PN ---
Progress Note, Physician Chief Complaint: episode of bradycardia and hypotension History of Present Illness: Patient is an 87 year old woman with history of right breast cancer s/p surgery and radiotherapy here with upper abdominal pain 2 days. States sensation present whether at rest or on exertion. No shortness of breath, diaphoresis, nausea, vomiting or palpitations. No history of similar symptoms in the past. While in the ED, patient noted to have bilateral lower extremity edema, which patient states she did not notice until she was made aware when she got here. No leg pain, cough, f/c. Also c/o painful sore to R buttocks "for some time". 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 and admits she has not seen a doctor in many years - Current Medication List Current Medications: Active Medications Anastrozole (Arimidex -) 1 mg PO DAILY [facility] Carvedilol (Coreg -) 3.125 mg PO BID [facility] Last Admin: 05/11/18 09:08 Dose: 3.125 mg Collagenase (Santyl -) 1 applic TP DAILY [facility] Last Admin: 05/10/18 09:32 Dose: Not Given Dexamethasone Sodium Phosphate (Decadron Injection -) 4 mg IVPB TID [facility] Last Admin: 05/11/18 05:49 Dose: 4 mg Docusate Sodium (Colace -) 100 mg PO BID PRN PRN Reason: CONSTIPATION Furosemide (Lasix -) 40 mg PO Q2D [facility] Last Admin: 05/11/18 09:08 Dose: 40 mg Heparin Sodium (Porcine) (Heparin -) 5,000 unit SQ BID [facility] Last Admin: 05/11/18 09:08 Dose: 5,000 unit Lisinopril (Prinivil) 5 mg PO DAILY [facility] Last Admin: 05/11/18 09:08 Dose: 5 mg Oxycodone HCl (Roxicodone -) 5 mg PO Q6H PRN PRN Reason: PAIN LEVEL 6-10 Last Admin: 05/11/18 05:49 Dose: 5 mg Pantoprazole Sodium (Protonix -) 40 mg PO DAILY [facility] Last Admin: 05/11/18 09:08 Dose: 40 mg Senna (Senna -) 2 tab PO HS [facility] Last Admin: 05/10/18 22:12 Dose: 2 tab Tramadol HCl (Ultram -) 50 mg PO Q6H PRN PRN Reason: PAIN LEVEL 4 - 6 Last Admin: 05/11/18 09:08 Dose: 50 mg - Objective Vital Signs: Vital Signs Temperature 98.4 F 05/11/18 10:00 Pulse Rate 77 05/11/18 10:00 Respiratory Rate 18 05/11/18 10:00 Blood Pressure 129/83 05/11/18 10:00 O2 Sat by Pulse Oximetry (%) 100 05/11/18 08:18 Eyes: Yes: WNL, Conjunctiva Clear, EOM Intact HENT: Yes: WNL, Atraumatic, Normocephalic Neck: Yes: WNL, Supple, Trachea Midline Cardiovascular: Yes: WNL, Regular Rate and Rhythm Respiratory: Yes: WNL, Regular, CTA Bilaterally Gastrointestinal: Yes: WNL, Normal Bowel Sounds Genitourinary: Yes: WNL Musculoskeletal: Yes: WNL Extremities: Yes: WNL Edema: No Integumentary: Yes: WNL Neurological: Yes: WNL, Alert, Oriented ...Motor Strength: WNL Psychiatric: Yes: WNL Labs: CBC, BMP 05/11/18 05:45 05/10/18 06:30 INR, PTT INR 1.03 (0.82-1.09) 05/08/18 06:00 Problem List - Problems (1) Fracture, humerus Code(s): S42.309A - UNSP FRACTURE OF SHAFT OF HUMERUS, UNSP ARM, INIT Qualifiers: Encounter type: initial encounter Humerus Location: proximal Fracture type: closed Fracture morphology: unspecified fracture morphology Laterality : right Qualified Code(s): S42.201A - Unspecified fracture of upper end of right humerus, initial encounter for closed fracture Assessment/Plan - Problems (1) Breast CA Assessment/Plan: breast CA with metastases. Chronic "pain in the ribs". CT chest: extensive bone metastases; pathologic fractures throughout the spine. Pain management: discontinued Tylenol due to rising LFTs (which have returned to normal). On oxycodone. For radiation therapy today. Code(s): C50.919 - MALIGNANT NEOPLASM OF UNSP SITE OF UNSPECIFIED FEMALE BREAST Qualifiers: Estrogen receptor status: positive Patient sex: female Laterality: right (2) Anemia Assessment/Plan: fall in Hb toady (9.9-->8.4); f/u with hem/onc. 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 Not in acute distress (respiratory-verdin). On ACEI. NOw on furosemide again (every other day). F/u BUN/Cr, electrolytes, Is and Os, and daily weight/ Code(s): I50.30 - UNSPECIFIED DIASTOLIC (CONGESTIVE) HEART FAILURE (4) HTN (hypertension) Assessment/Plan: On lisinopril, carvedilol, and furosemide. Adjust doses as needed (BP slightly high today). Code(s): I10 - ESSENTIAL (PRIMARY) HYPERTENSION
[2018-05-11] MEDS: COLLAGENASE CLOSTRIDIUM HIST. 30 GRAMS TUBE TP SCH (12:24)
[2018-05-11] MEDS: ANASTROZOLE 1 MG TABLET PO SCH (12:33)
[2018-05-11] MEDS: SENNOSIDES 8.6MG TABLET (FP) PO SCH (21:18)
--- NOTE | 2018-05-11 22:40 | PN ---
Progress Note (short form) - Note Progress Note: pt seen and examined denies any complains Constitutional: Yes: Well Nourished, No Distress, Calm Eyes: Yes: Conjunctiva Clear HENT: Yes: Atraumatic, Normocephalic Neck: Yes: Supple, Trachea Midline Cardiovascular: Yes: Regular Rate and Rhythm Respiratory: Yes: Regular Gastrointestinal: Yes: Normal Bowel Sounds, Soft Edema: Yes Edema: LLE: 1+, RLE: 1+ Last Vital Signs Temp Pulse Resp BP Pulse Ox 97.9 F 69 18 148/68 100 05/10/18 16:23 05/10/18 16:23 05/10/18 16:23 05/10/18 16:23 05/10/18 08:46 CBC, BMP 05/10/18 06:30 05/10/18 06:30 Current Medications Generic Name Dose Route Start Last Admin Trade Name Freq PRN Reason Stop Dose Admin Carvedilol 3.125 mg 05/06/18 13:30 05/10/18 09:19 Coreg - PO 3.125 mg BID ELINA Administration Collagenase 1 applic 05/05/18 10:00 05/10/18 09:32 Santyl - TP Not Given DAILY ELINA Dexamethasone Sodium Phosphate 4 mg 05/07/18 22:15 05/10/18 15:11 Decadron Injection - IVPB 4 mg TID ELINA Administration Docusate Sodium 100 mg 05/04/18 11:04 Colace - PO BID PRN CONSTIPATION Furosemide 40 mg 05/09/18 14:45 05/09/18 16:00 Lasix - PO 40 mg Q2D ELINA Administration Heparin Sodium (Porcine) 5,000 unit 05/09/18 22:00 05/10/18 09:14 Heparin - SQ 5,000 unit BID ELINA Administration Lisinopril 5 mg 05/05/18 10:00 05/10/18 09:20 Prinivil PO 5 mg DAILY [facility]INA Administration Oxycodone HCl 5 mg 05/08/18 12:27 05/09/18 09:50 Roxicodone - PO 5 mg Q6H PRN Administration PAIN LEVEL 6-10 Pantoprazole Sodium 40 mg 05/11/18 10:00 Protonix - PO DAILY ELINA Senna 2 tab 05/04/18 22:00 05/09/18 21:29 Senna - PO Not Given HS [facility]INA Tramadol HCl 50 mg 05/09/18 15:08 05/10/18 16:18 Ultram - PO 50 mg Q6H PRN Administration PAIN LEVEL 4 - 6 ER+ TX+ Breast Ca, Metastatic disease with Extensive Bony met disease (pt with personal Hx of Breast Ca), cord compression at T9, epidural and thecal sac compression at several lumbar levels Multiple vertebral compression fractures Anemia--s/p PRBCs ER+ TX+ Breast ca (HER2 pending) Start AI today c/w steroids, ppi support for RT today monitor Hct--transfuse prn Zometa at some point. DVT ppx
[2018-05-12] MEDS: DEXAMETHASONE SOD PHOSPHATE 4 MG/1 ML VIAL IVPB SCH ×3 (05:25→21:09)
[2018-05-12] MEDS ORDERED: PNEUMOC 13-VAL CONJ-DIP CRM/PF 0.5 ML DISP.SYRIN IM ONE (06:49)
[2018-05-12] MEDS ORDERED: DOCUSATE SODIUM 100 MG CAPSULE (FP) PO PRN (06:53)
[2018-05-12 07:43] LABS: ALBUMIN 3.2 g/dl (3.4-5.0); ANION GAP 9 (8-16); BLOOD UREA NITROGEN 64 mg/dL (7-18); CHLORIDE 101 mmol/L (98-107); CO2 28 mmol/L (21-32); CREATININE 1.2 mg/dL (0.55-1.02); GLUCOSE,RANDOM 136 mg/dL (74-106); POTASSIUM 4.9 mmol/L (3.5-5.1); SGOT/AST 38 U/L (15-37); SGPT/ALT 71 U/L (12-78); SODIUM 138 mmol/L (136-145)
[2018-05-12 07:44] LABS: ALK PHOS 244 U/L (45-117); BILIRUBIN,TOTAL 0.4 mg/dL (0.2-1.0); TOT PROT 6.9 g/dl (6.4-8.2)
[2018-05-12] MEDS: HEPARIN NA (PORCINE) 5,000 UNITS/ML 1ML VIAL SQ SCH ×2 (10:41→21:09)
[2018-05-12] MEDS: CARVEDILOL 3.125 MG TABLET (FP) PO SCH ×2 (10:41→21:08)
[2018-05-12] MEDS: PANTOPRAZOLE 40 MG TABLET (FP) PO SCH (10:41)
[2018-05-12] MEDS: LISINOPRIL 5 MG TABLET (FP) PO SCH (10:41)
[2018-05-12] MEDS: COLLAGENASE CLOSTRIDIUM HIST. 30 GRAMS TUBE TP SCH (10:41)
[2018-05-12] MEDS: DOCUSATE SODIUM 100 MG CAPSULE (FP) PO SCH ×2 (10:41→21:08)
[2018-05-12] MEDS: ANASTROZOLE 1 MG TABLET PO SCH (11:33)
--- NOTE | 2018-05-12 13:18 | PN ---
Progress Note (short form) - Note Progress Note: Patient seen in follow up. No new complaints. No significant events overnight. Inpatient Meds reviewed. Current Medications Generic Name Dose Route Start Last Admin Trade Name Yoni PRN Reason Stop Dose Admin Anastrozole 1 mg 05/11/18 10:00 05/12/18 11:33 Arimidex - PO 1 mg DAILY [facility]INA Administration Carvedilol 3.125 mg 05/06/18 13:30 05/12/18 10:41 Coreg - PO 3.125 mg BID ELINA Administration Collagenase 1 applic 05/12/18 10:00 05/12/18 10:41 Santyl - TP 1 applic DAILY [facility]INA Administration Dexamethasone Sodium Phosphate 4 mg 05/07/18 22:15 05/12/18 13:12 Decadron Injection - IVPB 4 mg TID ELINA Administration Docusate Sodium 100 mg 05/12/18 10:00 05/12/18 10:41 Colace - PO 100 mg BID ELINA Administration Furosemide 40 mg 05/09/18 14:45 05/11/18 09:08 Lasix - PO 40 mg Q2D ELINA Administration Heparin Sodium (Porcine) 5,000 unit 05/09/18 22:00 05/12/18 10:41 Heparin - SQ 5,000 unit BID [facility]INA Administration Lisinopril 5 mg 05/12/18 10:00 05/12/18 10:41 Prinivil PO 5 mg DAILY [facility] Administration Oxycodone HCl 5 mg 05/08/18 12:27 05/11/18 23:12 Roxicodone - PO 5 mg Q6H PRN Administration PAIN LEVEL 6-10 Pantoprazole Sodium 40 mg 05/11/18 10:00 05/12/18 10:41 Protonix - PO 40 mg DAILY [facility] Administration Senna 2 tab 05/12/18 22:00 Senna - PO HS [facility] Tramadol HCl 50 mg 05/09/18 15:08 05/11/18 21:18 Ultram - PO 50 mg Q6H PRN Administration PAIN LEVEL 4 - 6 On Examination: General: In no acute distress, sitting in chair Extremities: No pallor or icterus. No pedal edema. No palpable lymphadenopathy. CVS: S1, S2, regular, no gallop or murmur. Chest: good air entry bilaterally, clear Abdomen: Non-distended, non-tender, no palpable organomegaly. Neuro: Alert, oriented, non-focal. Labs: CBC, BMP 05/11/18 05:45 05/12/18 06:00 Assessment. Newly diagnosed HR positive breast Ca, metastatic disease with extensive bone involvement. Cord compression at T9, epidural and thecal sac, multiple vertebral compression fractures Anemia - managed with red cell transfusion. Started AI therapy. Continue steroids, PPI. Pain control.
--- NOTE | 2018-05-12 13:52 | PN ---
Physical Exam: SUBJECTIVE: Patient seen and examined at the bedside. Feels well today, in no distress. Had RT yesterdsay. OBJECTIVE: Vital Signs Period Temp Pulse Resp BP Sys/Beltre Pulse Ox Last 24 Hr 97.0 F-99.2 F 68-78 18-20 148-163/65-84 98 GENERAL: The patient is awake, alert, and fully oriented, in no acute distress. HEAD: Normal with no signs of trauma. EYES: PERRL, extraocular movements intact, sclera anicteric, conjunctiva clear. No ptosis. ENT: Ears normal, nares patent, oropharynx clear without exudates, moist mucous membranes. NECK: Trachea midline, full range of motion, supple. LUNGS: Breath sounds equal, clear to auscultation bilaterally HEART: Regular rate and rhythm ABDOMEN: Soft, nontender, nondistended, normoactive bowel sounds EXTREMITIES: no edema. NEUROLOGICAL: Normal speech, gait not observed. PSYCH: Normal mood, normal affect. SKIN: Warm, dry, normal turgor, no rashes or lesions noted Laboratory Results - last 24 hr 05/12/18 06:00 Sodium 138 Potassium 4.9 Chloride 101 Carbon Dioxide 28 Anion Gap 9 BUN 64 H Creatinine 1.2 H Creat Clearance w eGFR 42.70 Random Glucose 136 H Calcium 9.0 Total Bilirubin 0.4 AST 38 H ALT 71 Alkaline Phosphatase 244 H Total Protein 6.9 Albumin 3.2 L Active Medications Generic Name Dose Route Start Last Admin Trade Name Freq PRN Reason Stop Dose Admin Anastrozole 1 mg 05/11/18 10:00 05/12/18 11:33 Arimidex - PO 1 mg DAILY [facility] Administration Carvedilol 3.125 mg 05/06/18 13:30 05/12/18 10:41 Coreg - PO 3.125 mg BID [facility]INA Administration Collagenase 1 applic 05/12/18 10:00 05/12/18 10:41 Santyl - TP 1 applic DAILY [facility] Administration Dexamethasone Sodium Phosphate 4 mg 05/07/18 22:15 05/12/18 13:12 Decadron Injection - IVPB 4 mg TID [facility]INA Administration Docusate Sodium 100 mg 05/12/18 10:00 05/12/18 10:41 Colace - PO 100 mg BID [facility]INA Administration Furosemide 40 mg 05/09/18 14:45 05/11/18 09:08 Lasix - PO 40 mg Q2D [facility]INA Administration Heparin Sodium (Porcine) 5,000 unit 05/09/18 22:00 05/12/18 10:41 Heparin - SQ 5,000 unit BID [facility] Administration Lisinopril 5 mg 05/12/18 10:00 05/12/18 10:41 Prinivil PO 5 mg DAILY [facility] Administration Oxycodone HCl 5 mg 05/08/18 12:27 05/11/18 23:12 Roxicodone - PO 5 mg Q6H PRN Administration PAIN LEVEL 6-10 Pantoprazole Sodium 40 mg 05/11/18 10:00 05/12/18 10:41 Protonix - PO 40 mg DAILY [facility] Administration Senna 2 tab 05/12/18 22:00 Senna - PO HS [facility]INA Tramadol HCl 50 mg 05/09/18 15:08 05/11/18 21:18 Ultram - PO 50 mg Q6H PRN Administration PAIN LEVEL 4 - 6 ASSESSMENT/PLAN: Patient is an 87 year old female witha signficant past medical history of right breast cancer with lumpectomy, diastolic heart failure with severe valvular disease. She presents to the ED on 05/01/2018 with chest pain, acute on chronic CHF. Spine Found to have T9-10 epidural disease w/cord compression. On Dexamethasone 4mg q8. On radiation therapy, had RT yesterday. Card: Diastolic heart failure with evere valvular disease. On Coreq BId, Lasix q48 hours. Monitor intake and output. Heme/Onc: Breast cancer with mets. 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 Started on Anastrazole. Heme/Onc following. Iron-deficiency anemia, monitor cbc. Anemia, s/p prbcs. CBC in a.m. Renal: CKD, creat 1.2 fen Tolerating PO monitor electrolytes low salt Prophy: heparin full code Visit type - Emergency Visit Emergency Visit: Yes ED Registration Date: 05/01/18 Care time: The patient presented to the Emergency Department on the above date and was hospitalized for further evaluation of their emergent condition. - New Patient This patient is new to me today: Yes Date on this admission: 05/12/18 - Critical Care Critical Care patient: No - Discharge Referral Referred to [facility] Med P.C.: No
--- NOTE | 2018-05-12 18:54 | PN ---
Progress Note (short form) - Note Progress Note: NEUROLOGY FOLLOW-UP: Events reviewed. Biopsy + Ductal breast Ca. Now on Arimidex. Received her first spinal RT. On Decadron IV 4 mg TID Pt denies sig pain (hasn't required Oxycodone since yesterday). Ambulating without discomfort (feels walking is better.) NEURO: Awake, alert, mild OMS Normal strength throughout. Reduced reflexes in legs. Toes downgoing. +cogwheel rigidity in both arms increased with reinforcement. Normal vibration in feet. Romberg neg. Gait stable slight shuffling, without assistance. IMP: 1. No clinical evidence of myelopathy (although the patient does note improved gait on Decadron). 2. Mild Parkinsonism SUGGEST: Decrease decadron to 4 mg q 12 hrs and switch IV to PO in preparation of D/C. Discharge with walker and neuro f/u as out patient. Continue out patient RT. Thank you dandy much, Tristan Frank MD
[2018-05-12] MEDS: oxyCODONE HCL 5 MG TABLET PO PRN (19:03)
[2018-05-12] MEDS: SENNOSIDES 8.6MG TABLET (FP) PO SCH (21:08)
[2018-05-13] MEDS ORDERED: LIDOCAINE 5% TOPICAL PATCH TP ONE (00:01)
[2018-05-13] MEDS ORDERED: oxyCODONE HCL 5 MG TABLET PO PRN ×2 (00:02→00:03)
[2018-05-13] MEDS ORDERED: diazePAM 2 MG TABLET PO ONE (05:14)
--- NOTE | 2018-05-13 05:14 | PN ---
Progress Note (short form) - Note Progress Note: Pt noted to have pain medications not work. Previously added lidoderm patch. Upon evaluation pt is markedly anxious with slight trembling at rest and in severe pain. Explained to her that this is both related to her cancer and spinal lesion and how the goal is to just tolerate the pain and not necessarily take away all of the pain. Will sign out to day team to suggest some adjustments further with pain regiment if possible. Pt remarks how she just want to sleep, but can't due to all of this. --One-time valium 2mg PO dose for anxiety
[2018-05-13] MEDS: DEXAMETHASONE SOD PHOSPHATE 4 MG/1 ML VIAL IVPB SCH ×3 (05:28→21:39)
[2018-05-13 08:31] LABS: BASO % 0.1 % (0-2.0); HEMOGLOBIN 10.3 GM/dL (10.7-15.3); LYMPH % 3.1 % (8-40); MCHC 32.2 g/dl (32.0-36.0); MEAN CELL VOLUME 83.9 fl (80-96); MONO % 9.4 % (3.8-10.2); NEUT % 87.4 % (42.8-82.8); PLATELET COUNT 436 K/MM3 (134-434); RBC 3.82 M/mm3 (3.60-5.2); RDW 18.5 % (11.6-15.6); WHITE BLOOD COUNT 11.6 K/mm3 (4.0-10.0)
[2018-05-13 08:52] LABS: CHLORIDE 101 mmol/L (98-107); POTASSIUM 5.1 mmol/L (3.5-5.1); SODIUM 137 mmol/L (136-145)
[2018-05-13 09:19] LABS: ALBUMIN 3.4 g/dl (3.4-5.0); ALK PHOS 241 U/L (45-117); ANION GAP 10 (8-16); BILIRUBIN,TOTAL 0.4 mg/dL (0.2-1.0); BLOOD UREA NITROGEN 68 mg/dL (7-18); CALCIUM 9.1 mg/dL (8.5-10.1); CO2 26 mmol/L (21-32); GLUCOSE,RANDOM 123 mg/dL (74-106); SGOT/AST 37 U/L (15-37); SGPT/ALT 76 U/L (12-78); TOT PROT 7.4 g/dl (6.4-8.2)
[2018-05-13] MEDS ORDERED: PT OWN MED DRAWER 7, Y5N ONE (09:40)
[2018-05-13] MEDS: DOCUSATE SODIUM 100 MG CAPSULE (FP) PO SCH ×2 (09:43→21:40)
[2018-05-13] MEDS: HEPARIN NA (PORCINE) 5,000 UNITS/ML 1ML VIAL SQ SCH ×2 (09:43→21:39)
[2018-05-13] MEDS: LISINOPRIL 5 MG TABLET (FP) PO SCH (09:43)
[2018-05-13] MEDS: CARVEDILOL 3.125 MG TABLET (FP) PO SCH ×2 (09:43→21:40)
[2018-05-13] MEDS: PANTOPRAZOLE 40 MG TABLET (FP) PO SCH (09:43)
[2018-05-13] MEDS: FUROSEMIDE 40 MG TABLET (FP) PO SCH (09:43)
[2018-05-13] MEDS: ANASTROZOLE 1 MG TABLET PO SCH (09:44)
[2018-05-13] MEDS: COLLAGENASE CLOSTRIDIUM HIST. 30 GRAMS TUBE TP SCH (09:45)
--- NOTE | 2018-05-13 10:56 | PN ---
Physical Exam: SUBJECTIVE: Patient seen and examined. Feels "dazed" after taking valium for anxiety. States she felt anxious this morning and had left breast pain. Refusing oxicodone and valium. Willing to try low dose morphine. OBJECTIVE: Vital Signs Period Temp Pulse Resp BP Sys/Beltre Pulse Ox Last 24 Hr 98.2 F-98.7 F 70-75 18-20 162-166/79-92 GENERAL: The patient is awake, alert, and fully oriented, in no acute distress. HEAD: Normal with no signs of trauma. EYES: PERRL, extraocular movements intact, sclera anicteric, conjunctiva clear. No ptosis. ENT: Ears normal, nares patent, oropharynx clear without exudates, moist mucous membranes. NECK: Trachea midline, full range of motion, supple. LUNGS: Breath sounds equal, clear to auscultation bilaterally HEART: Regular rate and rhythm ABDOMEN: Soft, nontender, nondistended, normoactive bowel sounds, no guarding EXTREMITIES: non pitting lower ext edema NEUROLOGICAL: Normal speech, gait not observed. PSYCH: Normal mood, normal affect. SKIN: Warm, dry, normal turgor, no rashes or lesions noted Laboratory Results - last 24 hr 05/13/18 05/13/18 07:30 07:30 WBC 11.6 H RBC 3.82 Hgb 10.3 L Hct 32.0 L D MCV 83.9 MCH 27.0 MCHC 32.2 RDW 18.5 H Plt Count 436 H D MPV 8.0 Absolute Neuts (auto) 10.1 Neutrophils % 87.4 H Lymphocytes % 3.1 L D Monocytes % 9.4 D Eosinophils % 0.0 Basophils % 0.1 D Nucleated RBC % 0 Sodium 137 Potassium 5.1 Chloride 101 Carbon Dioxide 26 Anion Gap 10 BUN 68 H Creatinine 1.0 Creat Clearance w eGFR 52.69 Random Glucose 123 H Calcium 9.1 Total Bilirubin 0.4 AST 37 ALT 76 Alkaline Phosphatase 241 H Total Protein 7.4 Albumin 3.4 Active Medications Generic Name Dose Route Start Last Admin Trade Name Freq PRN Reason Stop Dose Admin Anastrozole 1 mg 05/11/18 10:00 05/13/18 09:44 Arimidex - PO 1 mg DAILY [facility]INA Administration Carvedilol 3.125 mg 05/06/18 13:30 05/13/18 09:43 Coreg - PO 3.125 mg BID ELINA Administration Collagenase 1 applic 05/12/18 10:00 05/13/18 09:45 Santyl - TP 1 applic DAILY ELINA Administration Dexamethasone Sodium Phosphate 4 mg 05/07/18 22:15 05/13/18 05:28 Decadron Injection - IVPB 4 mg TID ELINA Administration Docusate Sodium 100 mg 05/12/18 10:00 05/13/18 09:43 Colace - PO 100 mg BID ELINA Administration Furosemide 40 mg 05/09/18 14:45 05/13/18 09:43 Lasix - PO 40 mg Q2D ELINA Administration Heparin Sodium (Porcine) 5,000 unit 05/09/18 22:00 05/13/18 09:43 Heparin - SQ 5,000 unit BID ELINA Administration Lisinopril 5 mg 05/12/18 10:00 05/13/18 09:43 Prinivil PO 5 mg DAILY ELINA Administration Miscellaneous 1 each 05/13/18 22:00 Lidoderm Patch Removal MC DAILY@2200 ELINA Oxycodone HCl 10 mg 05/13/18 00:02 05/13/18 00:14 Roxicodone - PO 10 mg Q6H PRN Administration Pain 7-10 Oxycodone HCl 5 mg 05/13/18 00:03 Roxicodone - PO Q4H PRN Pain 4-6 Pantoprazole Sodium 40 mg 05/11/18 10:00 05/13/18 09:43 Protonix - PO 40 mg DAILY ELINA Administration Senna 2 tab 05/12/18 22:00 05/12/18 21:08 Senna - PO 2 tab HS ELINA Administration ASSESSMENT/PLAN: Patient is an 87 year old female with a significant past medical history of right breast cancer with lumpectomy, diastolic heart failure with severe valvular disease. She presents to the ED on 05/01/2018 with chest pain, acute on chronic CHF. Spine Found to have T9-10 epidural disease w/cord compression. On Dexamethasone 4mg q8. On radiation therapy, had RT Monday. Card: Diastolic heart failure with severe valvular disease. On Coreq BID, Lasix q48 hours. Monitor intake and output. Heme/Onc: Breast cancer with mets. s/p biopsy right pelvic bone biopsy with final diagnosis of metastatic carcinoma consistent with ductal carcinoma of the breast primary. Started on Anastrazole. Heme/Onc following. Pain managed with ultram and morphine. Patient refusing oxycodone and valium. Iron-deficiency anemia, monitor cbc. Anemia, s/p prbcs. CBC in a.m. Renal: CKD, creat 1.0, Bun rising. renal following, notes reviewed. Will add low dose gabapentin for left sided breast pain as per renal recomm. fen Tolerating PO monitor electrolytes low salt Prophy: heparin full code Visit type - Emergency Visit Emergency Visit: Yes ED Registration Date: 05/01/18 Care time: The patient presented to the Emergency Department on the above date and was hospitalized for further evaluation of their emergent condition. - New Patient This patient is new to me today: No - Critical Care Critical Care patient: No - Discharge Referral Referred to [facility] Med P.C.: No
[2018-05-13] MEDS ORDERED: LORazepam 1 MG TABLET PO PRN (11:01)
--- NOTE | 2018-05-13 11:06 | PN ---
Progress Note (short form) - Note Progress Note: RENAL pt awake and alert complains of left upper quadrant pain Last Vital Signs Temp Pulse Resp BP Pulse Ox 98.2 F 70 18 163/92 98 05/13/18 05:53 05/13/18 05:53 05/13/18 05:53 05/13/18 05:53 05/12/18 09:00 lungs clear anteriorly cvs s1s2 rr abd soft ext +edema neuro a+ox3 CBC, BMP 05/13/18 07:30 05/13/18 07:30 Current Medications Generic Name Dose Route Start Last Admin Trade Name Freq PRN Reason Stop Dose Admin Anastrozole 1 mg 05/11/18 10:00 05/13/18 09:44 Arimidex - PO 1 mg DAILY ELINA Administration Carvedilol 3.125 mg 05/06/18 13:30 05/13/18 09:43 Coreg - PO 3.125 mg BID ELINA Administration Collagenase 1 applic 05/12/18 10:00 05/13/18 09:45 Santyl - TP 1 applic DAILY ELINA Administration Dexamethasone Sodium Phosphate 4 mg 05/07/18 22:15 05/13/18 05:28 Decadron Injection - IVPB 4 mg TID ELINA Administration Docusate Sodium 100 mg 05/12/18 10:00 05/13/18 09:43 Colace - PO 100 mg BID ELINA Administration Furosemide 40 mg 05/09/18 14:45 05/13/18 09:43 Lasix - PO 40 mg Q2D ELINA Administration Heparin Sodium (Porcine) 5,000 unit 05/09/18 22:00 05/13/18 09:43 Heparin - SQ 5,000 unit BID ELINA Administration Lisinopril 5 mg 05/12/18 10:00 05/13/18 09:43 Prinivil PO 5 mg DAILY ELINA Administration Miscellaneous 1 each 05/13/18 22:00 Lidoderm Patch Removal MC DAILY@2200 ELINA Morphine Sulfate 0.5 mg 05/13/18 11:00 Morphine Injection - IM Q6H PRN PAIN LEVEL 7 - 10 Pantoprazole Sodium 40 mg 05/11/18 10:00 05/13/18 09:43 Protonix - PO 40 mg DAILY ELINA Administration Senna 2 tab 05/12/18 22:00 05/12/18 21:08 Senna - PO 2 tab HS ELINA Administration Tramadol HCl 50 mg 05/13/18 11:00 Ultram - PO Q8H PRN PAIN LEVEL 4 - 6 IMPRESSION renal function is better bun is high in part from steroids pain on left side possibly from t9-10 mets/fx/cord compression PLAN continue current management add gabapentin or lyrica MV
[2018-05-13] MEDS: ACETAMINOPHEN 325 MG TABLET (FP) PO PRN (11:53)
[2018-05-13] MEDS: traMADol HCL 50 MG TABLET PO PRN (11:53)
--- NOTE | 2018-05-13 15:42 | PN ---
Progress Note (short form) - Note Progress Note: Patient seen in follow up. Reports feeling 'dizzy' presently, otherwise well. No significant events overnight. Inpatient Meds reviewed. Current Medications Generic Name Dose Route Start Last Admin Trade Name Freq PRN Reason Stop Dose Admin Acetaminophen 650 mg 05/13/18 11:47 05/13/18 11:53 Tylenol - PO 650 mg Q6H PRN Administration PAIN LEVEL 4 - 6 Anastrozole 1 mg 05/11/18 10:00 05/13/18 09:44 Arimidex - PO 1 mg DAILY ELINA Administration Carvedilol 3.125 mg 05/06/18 13:30 05/13/18 09:43 Coreg - PO 3.125 mg BID ELINA Administration Collagenase 1 applic 05/12/18 10:00 05/13/18 09:45 Santyl - TP 1 applic DAILY ELINA Administration Dexamethasone Sodium Phosphate 4 mg 05/07/18 22:15 05/13/18 14:15 Decadron Injection - IVPB 4 mg TID ELINA Administration Docusate Sodium 100 mg 05/12/18 10:00 05/13/18 09:43 Colace - PO 100 mg BID ELINA Administration Furosemide 40 mg 05/09/18 14:45 05/13/18 09:43 Lasix - PO 40 mg Q2D ELINA Administration Heparin Sodium (Porcine) 5,000 unit 05/09/18 22:00 05/13/18 09:43 Heparin - SQ 5,000 unit BID ELINA Administration Lisinopril 5 mg 05/12/18 10:00 05/13/18 09:43 Prinivil PO 5 mg DAILY ELINA Administration Lorazepam 1 mg 05/13/18 11:01 Ativan - PO Q8H PRN ANXIETY Miscellaneous 1 each 05/13/18 22:00 Lidoderm Patch Removal MC DAILY@2200 ELINA Morphine Sulfate 0.5 mg 05/13/18 11:00 Morphine Sulfate IM Q6H PRN PAIN LEVEL 7 - 10 Pantoprazole Sodium 40 mg 05/11/18 10:00 05/13/18 09:43 Protonix - PO 40 mg DAILY ELINA Administration Senna 2 tab 05/12/18 22:00 05/12/18 21:08 Senna - PO 2 tab HS ELINA Administration Tramadol HCl 50 mg 05/13/18 11:00 05/13/18 11:53 Ultram - PO 50 mg Q8H PRN Administration PAIN LEVEL 4 - 6 On Examination: Last Vital Signs Temp Pulse Resp BP Pulse Ox 97.9 F 73 20 153/77 91 L 05/13/18 09:00 05/13/18 13:16 05/13/18 13:16 05/13/18 13:16 05/13/18 09:00 General: In no acute distress, sitting in chair Extremities: No pallor or icterus. No pedal edema. No palpable lymphadenopathy. CVS: S1, S2, regular, no gallop or murmur. Chest: good air entry bilaterally, clear Abdomen: Non-distended, non-tender, no palpable organomegaly. Neuro: Alert, oriented, non-focal. Labs: CBC, BMP 05/13/18 07:30 05/13/18 07:30 Assessment. Newly diagnosed HR positive breast Ca, metastatic disease with extensive bone involvement. Cord compression at T9, epidural and thecal sac, multiple vertebral compression fractures Anemia - managed with red cell transfusion. Started AI therapy. Continue steroids, PPI. Pain control. Non-specific 'dizziness' presently -no focal findings - possibly drug-related - observe for now, caution ambulating. Rising BUN noted, on diuresis. Attributed to steroids. Renal following. Consider stopping diuretics/hydrating if clinically appears hypovolemic - defer to Renal in that regard.
[2018-05-13] MEDS: LIDOCAINE PATCH REMOVAL MC SCH (21:40)
[2018-05-13] MEDS: SENNOSIDES 8.6MG TABLET (FP) PO SCH (21:40)
[2018-05-13] MEDS: MORPHINE SULFATE 2 MG/ML VIAL IM PRN (21:40)
[2018-05-13] MEDS: GABAPENTIN 100 MG CAPSULE (FP) PO SCH (22:08)
[2018-05-14] MEDS: DEXAMETHASONE SOD PHOSPHATE 4 MG/1 ML VIAL IVPB SCH ×3 (06:01→21:09)
[2018-05-14 07:03] LABS: BASO % 0.1 % (0-2.0); HEMATOCRIT 29.1 % (32.4-45.2); HEMOGLOBIN 9.7 GM/dL (10.7-15.3); LYMPH % 5.3 % (8-40); MCH 27.7 pg (25.7-33.7); MCHC 33.3 g/dl (32.0-36.0); MEAN CELL VOLUME 83.3 fl (80-96); MEAN PLT VOLUME 7.7 fl (7.5-11.1); MONO % 6.9 % (3.8-10.2); NEUT % 87.7 % (42.8-82.8); PLATELET COUNT 336 K/MM3 (134-434); RBC 3.49 M/mm3 (3.60-5.2); RDW 17.7 % (11.6-15.6); WHITE BLOOD COUNT 8.8 K/mm3 (4.0-10.0)
[2018-05-14 07:20] LABS: CHLORIDE 102 mmol/L (98-107); POTASSIUM 4.9 mmol/L (3.5-5.1); SODIUM 138 mmol/L (136-145)
[2018-05-14 07:32] LABS: ALBUMIN 2.7 g/dl (3.4-5.0); ALK PHOS 190 U/L (45-117); ANION GAP 8 (8-16); BILIRUBIN,TOTAL 0.5 mg/dL (0.2-1.0); BLOOD UREA NITROGEN 66 mg/dL (7-18); CALCIUM 8.4 mg/dL (8.5-10.1); CO2 28 mmol/L (21-32); GLUCOSE,RANDOM 101 mg/dL (74-106); SGOT/AST 27 U/L (15-37); SGPT/ALT 60 U/L (12-78)
[2018-05-14] MEDS ORDERED: PT OWN MED DRAWER 7, Y5N ONE (09:11)
[2018-05-14] MEDS: HEPARIN NA (PORCINE) 5,000 UNITS/ML 1ML VIAL SQ SCH ×2 (09:51→21:09)
[2018-05-14] MEDS: GABAPENTIN 100 MG CAPSULE (FP) PO SCH (09:51)
[2018-05-14] MEDS: LISINOPRIL 5 MG TABLET (FP) PO SCH (09:51)
[2018-05-14] MEDS: DOCUSATE SODIUM 100 MG CAPSULE (FP) PO SCH ×2 (09:51→21:09)
[2018-05-14] MEDS: PANTOPRAZOLE 40 MG TABLET (FP) PO SCH (09:51)
[2018-05-14] MEDS: CARVEDILOL 3.125 MG TABLET (FP) PO SCH ×2 (09:51→21:09)
[2018-05-14] MEDS: ANASTROZOLE 1 MG TABLET PO SCH (09:51)
[2018-05-14] MEDS: COLLAGENASE CLOSTRIDIUM HIST. 30 GRAMS TUBE TP SCH (10:59)
--- NOTE | 2018-05-14 13:37 | PN ---
Progress Note, Physician Chief Complaint: episode of bradycardia and hypotension History of Present Illness: Patient is an 87 year old woman with history of right breast cancer s/p surgery and radiotherapy here with upper abdominal pain 2 days. States sensation present whether at rest or on exertion. No shortness of breath, diaphoresis, nausea, vomiting or palpitations. No history of similar symptoms in the past. While in the ED, patient noted to have bilateral lower extremity edema, which patient states she did not notice until she was made aware when she got here. No leg pain, cough, f/c. Also c/o painful sore to R buttocks "for some time". 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 and admits she has not seen a doctor in many years - Current Medication List Current Medications: Active Medications Acetaminophen (Tylenol -) 650 mg PO Q6H PRN PRN Reason: PAIN LEVEL 4 - 6 Last Admin: 05/13/18 11:53 Dose: 650 mg Anastrozole (Arimidex -) 1 mg PO DAILY [facility] Last Admin: 05/14/18 09:51 Dose: 1 mg Carvedilol (Coreg -) 3.125 mg PO BID [facility] Last Admin: 05/14/18 09:51 Dose: 3.125 mg Collagenase (Santyl -) 1 applic TP DAILY [facility] Last Admin: 05/14/18 10:59 Dose: 1 applic Dexamethasone Sodium Phosphate (Decadron Injection -) 4 mg IVPB TID [facility] Last Admin: 05/14/18 06:01 Dose: 4 mg Docusate Sodium (Colace -) 100 mg PO BID [facility] Last Admin: 05/14/18 09:51 Dose: 100 mg Furosemide (Lasix -) 40 mg PO Q2D [facility] Last Admin: 05/13/18 09:43 Dose: 40 mg Gabapentin (Neurontin -) 100 mg PO DAILY [facility] Last Admin: 05/14/18 09:51 Dose: 100 mg Heparin Sodium (Porcine) (Heparin -) 5,000 unit SQ BID [facility] Last Admin: 05/14/18 09:51 Dose: 5,000 unit Lisinopril (Prinivil) 5 mg PO DAILY [facility] Last Admin: 05/14/18 09:51 Dose: 5 mg Lorazepam (Ativan -) 1 mg PO Q8H PRN PRN Reason: ANXIETY Miscellaneous (Lidoderm Patch Removal) 1 each MC DAILY@2200 [facility] Last Admin: 05/13/18 21:40 Dose: 1 each Morphine Sulfate (Morphine Sulfate) 0.5 mg IM Q6H PRN PRN Reason: PAIN LEVEL 7 - 10 Last Admin: 05/13/18 21:40 Dose: 0.5 mg Pantoprazole Sodium (Protonix -) 40 mg PO DAILY [facility] Last Admin: 05/14/18 09:51 Dose: 40 mg Senna (Senna -) 2 tab PO HS [facility] Last Admin: 05/13/18 21:40 Dose: 2 tab Tramadol HCl (Ultram -) 50 mg PO Q8H PRN PRN Reason: PAIN LEVEL 4 - 6 Last Admin: 05/13/18 11:53 Dose: 50 mg - Objective Vital Signs: Vital Signs Temperature 98.2 F 05/14/18 09:48 Pulse Rate 76 05/14/18 09:48 Respiratory Rate 17 05/14/18 09:48 Blood Pressure 148/69 05/14/18 09:48 O2 Sat by Pulse Oximetry (%) 92 L 05/13/18 21:00 Eyes: Yes: WNL, Conjunctiva Clear, EOM Intact HENT: Yes: WNL, Atraumatic, Normocephalic Neck: Yes: WNL, Supple, Trachea Midline Cardiovascular: Yes: WNL, Regular Rate and Rhythm Respiratory: Yes: WNL, Regular, CTA Bilaterally Gastrointestinal: Yes: WNL, Normal Bowel Sounds Genitourinary: Yes: WNL Musculoskeletal: Yes: WNL Extremities: Yes: WNL Edema: No Integumentary: Yes: WNL Neurological: Yes: WNL, Alert, Oriented ...Motor Strength: WNL Psychiatric: Yes: WNL Labs: CBC, BMP 05/14/18 06:30 05/14/18 06:30 INR, PTT INR 1.03 (0.82-1.09) 05/08/18 06:00 Problem List - Problems (1) Fracture, humerus Code(s): S42.309A - UNSP FRACTURE OF SHAFT OF HUMERUS, UNSP ARM, INIT Qualifiers: Encounter type: initial encounter Humerus Location: proximal Fracture type: closed Fracture morphology: unspecified fracture morphology Laterality : right Qualified Code(s): S42.201A - Unspecified fracture of upper end of right humerus, initial encounter for closed fracture Assessment/Plan - Problems (1) Breast CA Assessment/Plan: breast CA with metastases. Chronic "pain in the ribs". CT chest: extensive bone metastases; pathologic fractures throughout the spine. Pain management: discontinued Tylenol due to rising LFTs (which have returned to normal). On oxycodone. For radiation therapy today. Code(s): C50.919 - MALIGNANT NEOPLASM OF UNSP SITE OF UNSPECIFIED FEMALE BREAST Qualifiers: Estrogen receptor status: positive Patient sex: female Laterality: right (2) Anemia Assessment/Plan: fall in Hb toady (9.9-->8.4); f/u with hem/onc. 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 Not in acute distress (respiratory-verdin). On ACEI. NOw on furosemide again (every other day). F/u BUN/Cr, electrolytes, Is and Os, and daily weight/ Code(s): I50.30 - UNSPECIFIED DIASTOLIC (CONGESTIVE) HEART FAILURE (4) HTN (hypertension) Assessment/Plan: On lisinopril, carvedilol, and furosemide. Adjust doses as needed (BP slightly high today). Code(s): I10 - ESSENTIAL (PRIMARY) HYPERTENSION
--- NOTE | 2018-05-14 13:51 | PN ---
Physical Exam: SUBJECTIVE: Patient seen and examined. States she is feeling a bit better, the warm towel to her left under arm is helping pain. OBJECTIVE: Vital Signs Period Temp Pulse Resp BP Sys/Beltre Pulse Ox Last 24 Hr 97.5 F-98.2 F 65-76 17-20 148-156/69-78 92 PE Neuro: alert, awake, cn 2-12intact Pulm: CTAB CV: s1 s2 rrr no mrg Abd: s nt nd + bs Ext: Left axilla tenderness, + 1 b/l edema Laboratory Results - last 24 hr 05/14/18 05/14/18 06:30 06:30 WBC 8.8 RBC 3.49 L Hgb 9.7 L Hct 29.1 L MCV 83.3 MCH 27.7 MCHC 33.3 RDW 17.7 H Plt Count 336 D MPV 7.7 Absolute Neuts (auto) 7.8 Neutrophils % 87.7 H Lymphocytes % 5.3 L D Monocytes % 6.9 Eosinophils % 0.0 Basophils % 0.1 Nucleated RBC % 0 Sodium 138 Potassium 4.9 Chloride 102 Carbon Dioxide 28 Anion Gap 8 BUN 66 H Creatinine 1.0 Creat Clearance w eGFR 52.69 Random Glucose 101 Calcium 8.4 L Total Bilirubin 0.5 AST 27 ALT 60 Alkaline Phosphatase 190 H D Total Protein 6.0 L Albumin 2.7 L Active Medications Generic Name Dose Route Start Last Admin Trade Name Freq PRN Reason Stop Dose Admin Acetaminophen 650 mg 05/13/18 11:47 05/13/18 11:53 Tylenol - PO 650 mg Q6H PRN Administration PAIN LEVEL 4 - 6 Anastrozole 1 mg 05/11/18 10:00 05/14/18 09:51 Arimidex - PO 1 mg DAILY [facility] Administration Carvedilol 3.125 mg 05/06/18 13:30 05/14/18 09:51 Coreg - PO 3.125 mg BID [facility] Administration Collagenase 1 applic 05/12/18 10:00 05/14/18 10:59 Santyl - TP 1 applic DAILY [facility] Administration Dexamethasone Sodium Phosphate 4 mg 05/07/18 22:15 05/14/18 06:01 Decadron Injection - IVPB 4 mg TID [facility] Administration Docusate Sodium 100 mg 05/12/18 10:00 05/14/18 09:51 Colace - PO 100 mg BID [facility] Administration Furosemide 40 mg 05/09/18 14:45 05/13/18 09:43 Lasix - PO 40 mg Q2D [facility] Administration Gabapentin 100 mg 05/13/18 22:00 05/14/18 09:51 Neurontin - PO 100 mg DAILY [facility] Administration Heparin Sodium (Porcine) 5,000 unit 05/09/18 22:00 05/14/18 09:51 Heparin - SQ 5,000 unit BID [facility] Administration Lisinopril 5 mg 05/12/18 10:00 05/14/18 09:51 Prinivil PO 5 mg DAILY [facility] Administration Lorazepam 1 mg 05/13/18 11:01 Ativan - PO Q8H PRN ANXIETY Miscellaneous 1 each 05/13/18 22:00 05/13/18 21:40 Lidoderm Patch Removal MC 1 each DAILY@2200 [facility] Administration Morphine Sulfate 0.5 mg 05/13/18 11:00 05/13/18 21:40 Morphine Sulfate IM 0.5 mg Q6H PRN Administration PAIN LEVEL 7 - 10 Pantoprazole Sodium 40 mg 05/11/18 10:00 05/14/18 09:51 Protonix - PO 40 mg DAILY [facility] Administration Senna 2 tab 05/12/18 22:00 05/13/18 21:40 Senna - PO 2 tab HS [facility] Administration Tramadol HCl 50 mg 05/13/18 11:00 05/13/18 11:53 Ultram - PO 50 mg Q8H PRN Administration PAIN LEVEL 4 - 6 Assessment: 87 year old female with PMHx of right breast cancer s/p lumpectomy/ radiation x 40 years, diastolic heart failure, and severe valvular disease. 1. hx of Breast cancer with metastatic disease - Biopsy 05/08, results pending - Oncology following 2. 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 Diastolic heart failure, severe valvular disease - Continue carvedilol - Lasix q48 4. Episode bradycardia and hypotension 05/04 - Resolved 5. Iron-deficiency anemia - Last transfused 05/04 6. Shortness of breath - Elevated d-dimer, pulm eval, no further work up for PE 7. CKD - Around baseline - On SRAVAN - Renal seeing 8. Pressure ulcers - Daily collagenase 9. Elevated LFTs - Improving - Abd US noted, CBD dilation normal for age and post cholecystectomy 10. DVT prophylaxis - Heparin sq Dispo: - DC SNF and finish RT v home v complete here, discussed w/ social work Visit type - Emergency Visit Emergency Visit: Yes ED Registration Date: 05/01/18 Care time: The patient presented to the Emergency Department on the above date and was hospitalized for further evaluation of their emergent condition. - New Patient This patient is new to me today: No - Critical Care Critical Care patient: No
[2018-05-14 14:11] LABS: TOTAL PROTEIN, URINE 17.3 mg/dL (Not Estab.)
[2018-05-14] MEDS: ACETAMINOPHEN 325 MG TABLET (FP) PO PRN (14:34)
[2018-05-14] MEDS: MORPHINE SULFATE 2 MG/ML VIAL IM PRN (14:34)
[2018-05-14] MEDS: traMADol HCL 50 MG TABLET PO PRN (15:40)
--- NOTE | 2018-05-14 16:29 | PN ---
Progress Note, Physician History of Present Illness: Pt seen and examined at bedside. She denies shortness of breath. - Current Medication List Current Medications: Active Medications Acetaminophen (Tylenol -) 650 mg PO Q6H PRN PRN Reason: PAIN LEVEL 4 - 6 Last Admin: 05/14/18 14:34 Dose: 650 mg Anastrozole (Arimidex -) 1 mg PO DAILY [facility] Last Admin: 05/14/18 09:51 Dose: 1 mg Carvedilol (Coreg -) 3.125 mg PO BID [facility] Last Admin: 05/14/18 09:51 Dose: 3.125 mg Collagenase (Santyl -) 1 applic TP DAILY [facility] Last Admin: 05/14/18 10:59 Dose: 1 applic Dexamethasone Sodium Phosphate (Decadron Injection -) 4 mg IVPB TID [facility] Last Admin: 05/14/18 14:34 Dose: 4 mg Docusate Sodium (Colace -) 100 mg PO BID [facility] Last Admin: 05/14/18 09:51 Dose: 100 mg Furosemide (Lasix -) 40 mg PO Q2D [facility] Last Admin: 05/13/18 09:43 Dose: 40 mg Gabapentin (Neurontin -) 100 mg PO DAILY [facility] Last Admin: 05/14/18 09:51 Dose: 100 mg Heparin Sodium (Porcine) (Heparin -) 5,000 unit SQ BID [facility] Last Admin: 05/14/18 09:51 Dose: 5,000 unit Lisinopril (Prinivil) 5 mg PO DAILY [facility] Last Admin: 05/14/18 09:51 Dose: 5 mg Lorazepam (Ativan -) 1 mg PO Q8H PRN PRN Reason: ANXIETY Miscellaneous (Lidoderm Patch Removal) 1 each MC DAILY@2200 [facility] Last Admin: 05/13/18 21:40 Dose: 1 each Morphine Sulfate (Morphine Sulfate) 0.5 mg IM Q6H PRN PRN Reason: PAIN LEVEL 7 - 10 Last Admin: 05/14/18 14:34 Dose: 0.5 mg Pantoprazole Sodium (Protonix -) 40 mg PO DAILY [facility] Last Admin: 05/14/18 09:51 Dose: 40 mg Senna (Senna -) 2 tab PO HS [facility] Last Admin: 05/13/18 21:40 Dose: 2 tab Tramadol HCl (Ultram -) 50 mg PO Q8H PRN PRN Reason: PAIN LEVEL 4 - 6 Last Admin: 05/14/18 15:40 Dose: 50 mg - Objective Vital Signs: Vital Signs Temperature 98.2 F 05/14/18 09:48 Pulse Rate 76 05/14/18 09:48 Respiratory Rate 17 05/14/18 09:48 Blood Pressure 148/69 05/14/18 09:48 O2 Sat by Pulse Oximetry (%) 92 L 05/13/18 21:00 Constitutional: Yes: Calm Eyes: Yes: Conjunctiva Clear HENT: Yes: Atraumatic Neck: Yes: Supple Cardiovascular: Yes: S1, S2 Respiratory: Yes: CTA Bilaterally Gastrointestinal: Yes: Soft Musculoskeletal: Yes: WNL Edema: Yes Edema: LLE: Trace, RLE: Trace Neurological: Yes: Oriented Psychiatric: Yes: Oriented Labs: CBC, BMP 05/14/18 06:30 05/14/18 06:30 INR, PTT INR 1.03 (0.82-1.09) 05/08/18 06:00 Problem List - Problems (1) CKD (chronic kidney disease) Code(s): N18.9 - CHRONIC KIDNEY DISEASE, UNSPECIFIED (2) Anemia Code(s): D64.9 - ANEMIA, UNSPECIFIED Qualifiers: Anemia type: other cause Other causes of anemia: chronic disease, 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 (3) Breast CA Code(s): C50.919 - MALIGNANT NEOPLASM OF UNSP SITE OF UNSPECIFIED FEMALE BREAST Qualifiers: Estrogen receptor status: positive Patient sex: female Laterality: right Assessment/Plan Current Medications Generic Name Dose Route Start Last Admin Trade Name Yoni PRN Reason Stop Dose Admin Acetaminophen 650 mg 05/13/18 11:47 05/14/18 14:34 Tylenol - PO 650 mg Q6H PRN Administration PAIN LEVEL 4 - 6 Anastrozole 1 mg 05/11/18 10:00 05/14/18 09:51 Arimidex - PO 1 mg DAILY [facility] Administration Carvedilol 3.125 mg 05/06/18 13:30 05/14/18 09:51 Coreg - PO 3.125 mg BID [facility] Administration Collagenase 1 applic 05/12/18 10:00 05/14/18 10:59 Santyl - TP 1 applic DAILY [facility] Administration Dexamethasone Sodium Phosphate 4 mg 05/07/18 22:15 05/14/18 14:34 Decadron Injection - IVPB 4 mg TID [facility] Administration Docusate Sodium 100 mg 05/12/18 10:00 05/14/18 09:51 Colace - PO 100 mg BID [facility] Administration Furosemide 40 mg 05/09/18 14:45 05/13/18 09:43 Lasix - PO 40 mg Q2D [facility] Administration Gabapentin 100 mg 05/13/18 22:00 05/14/18 09:51 Neurontin - PO 100 mg DAILY [facility] Administration Heparin Sodium (Porcine) 5,000 unit 05/09/18 22:00 05/14/18 09:51 Heparin - SQ 5,000 unit BID [facility] Administration Lisinopril 5 mg 05/12/18 10:00 05/14/18 09:51 Prinivil PO 5 mg DAILY [facility] Administration Lorazepam 1 mg 05/13/18 11:01 Ativan - PO Q8H PRN ANXIETY Miscellaneous 1 each 05/13/18 22:00 05/13/18 21:40 Lidoderm Patch Removal MC 1 each DAILY@2200 [facility] Administration Morphine Sulfate 0.5 mg 05/13/18 11:00 05/14/18 14:34 Morphine Sulfate IM 0.5 mg Q6H PRN Administration PAIN LEVEL 7 - 10 Pantoprazole Sodium 40 mg 05/11/18 10:00 05/14/18 09:51 Protonix - PO 40 mg DAILY [facility] Administration Senna 2 tab 05/12/18 22:00 05/13/18 21:40 Senna - PO 2 tab HS [facility] Administration Tramadol HCl 50 mg 05/13/18 11:00 05/14/18 15:40 Ultram - PO 50 mg Q8H PRN Administration PAIN LEVEL 4 - 6 Impression 1. likely CKD 2. CHF 3. HTN 4. hx breast cancer 5. dyspnea 6. anemia 7. elevated d-dimer 8. metastatic disease 9. carcinoma Plan - renal function stable - cont current lasix dose - monitor volume status - discussed with medical team - encourage PO intake Dr Austin
[2018-05-14] MEDS ORDERED: MORPHINE SULFATE 2 MG/ML VIAL SQ ONE (17:03)
--- NOTE | 2018-05-14 19:25 | PN ---
Progress Note (short form) - Note Progress Note: Patient seen and examined left lower rib cage pain Last Vital Signs Temp Pulse Resp BP Pulse Ox 98.1 F 74 18 145/77 100 05/14/18 18:00 05/14/18 18:00 05/14/18 18:00 05/14/18 18:00 05/14/18 09:00 Cor: RSR, No murmurs, No gallops Lungs: Clear to P&A Abd: Soft, Normal bowel sounds, No organomegaly Ext:No significant edema Breast exam. Rt. lumpectomy scar/RT changes no discrete masses/adenopathy Abnormal Lab Results 05/04/18 05/14/18 05/14/18 09:30 06:30 06:30 RBC 3.49 L Hgb 9.7 L Hct 29.1 L RDW 17.7 H Neutrophils % 87.7 H Lymphocytes % 5.3 L D BUN 66 H Calcium 8.4 L Alkaline Phosphatase 190 H D Total Protein 6.0 L Albumin 2.7 L Crossmatch See Detail Home Medication List Medication Instructions Recorded Confirmed Type Aspirin 324 mg PO PRN 05/01/18 05/01/18 History Active Medications Generic Name Dose Route Start Last Admin Trade Name Freq PRN Reason Stop Dose Admin Acetaminophen 650 mg 05/13/18 11:47 05/14/18 14:34 Tylenol - PO 650 mg Q6H PRN Administration PAIN LEVEL 4 - 6 Carvedilol 3.125 mg 05/06/18 13:30 05/14/18 09:51 Coreg - PO 3.125 mg BID [facility] Administration Collagenase 1 applic 05/12/18 10:00 05/14/18 10:59 Santyl - TP 1 applic DAILY [facility] Administration Dexamethasone Sodium Phosphate 4 mg 05/07/18 22:15 05/14/18 14:34 Decadron Injection - IVPB 4 mg TID [facility] Administration Docusate Sodium 100 mg 05/12/18 10:00 05/14/18 09:51 Colace - PO 100 mg BID [facility] Administration Furosemide 40 mg 05/09/18 14:45 05/13/18 09:43 Lasix - PO 40 mg Q2D [facility] Administration Gabapentin 100 mg 05/13/18 22:00 05/14/18 09:51 Neurontin - PO 100 mg DAILY [facility] Administration Heparin Sodium (Porcine) 5,000 unit 05/09/18 22:00 05/14/18 09:51 Heparin - SQ 5,000 unit BID [facility] Administration Lisinopril 5 mg 05/12/18 10:00 05/14/18 09:51 Prinivil PO 5 mg DAILY [facility] Administration Lorazepam 1 mg 05/13/18 11:01 Ativan - PO Q8H PRN ANXIETY Miscellaneous 1 each 05/13/18 22:00 05/13/18 21:40 Lidoderm Patch Removal MC 1 each DAILY@2200 [facility] Administration Morphine Sulfate 0.5 mg 05/13/18 11:00 05/14/18 14:34 Morphine Sulfate IM 0.5 mg Q6H PRN Administration PAIN LEVEL 7 - 10 Nystatin 500,000 units 05/15/18 00:00 Nystatin Oral Suspension - PO Q6HPO [facility] Pantoprazole Sodium 40 mg 05/11/18 10:00 05/14/18 09:51 Protonix - PO 40 mg DAILY [facility] Administration Senna 2 tab 05/12/18 22:00 05/13/18 21:40 Senna - PO 2 tab HS [facility] Administration Tramadol HCl 50 mg 05/13/18 11:00 05/14/18 15:40 Ultram - PO 50 mg Q8H PRN Administration PAIN LEVEL 4 - 6 A/P 87 y/o patient extensive lytic skeletal disease, rt. humeral fx, vertebral fractures h/o breast cancer 40 yrs. ago,s/p rt. lumpectomy/RT,tamoxifen Biopsy consistent with breast primary -- ER+/MS+ Will add Her2 testing Will discuss with rad-onc-- ? add left rib cage RT on arimidex will dose zometa after RT will add nystatin for thrush pain control
[2018-05-14] MEDS: SENNOSIDES 8.6MG TABLET (FP) PO SCH (21:09)
[2018-05-14] MEDS: LIDOCAINE PATCH REMOVAL MC SCH (21:09)
[2018-05-14] MEDS: NYSTATIN 500,000 UNITS/5 ML SUSPENSION PO SCH (23:51)
[2018-05-15] MEDS: DEXAMETHASONE SOD PHOSPHATE 4 MG/1 ML VIAL IVPB SCH ×3 (05:21→21:12)
[2018-05-15] MEDS: NYSTATIN 500,000 UNITS/5 ML SUSPENSION PO SCH ×4 (05:21→23:19)
[2018-05-15 07:53] LABS: BASO % 0.1 % (0-2.0); HEMATOCRIT 27.9 % (32.4-45.2); LYMPH % 3.6 % (8-40); MCH 27.3 pg (25.7-33.7); MCHC 32.4 g/dl (32.0-36.0); MEAN CELL VOLUME 84.2 fl (80-96); MEAN PLT VOLUME 8.4 fl (7.5-11.1); MONO % 7.6 % (3.8-10.2); NEUT % 88.7 % (42.8-82.8); PLATELET COUNT 334 K/MM3 (134-434); RBC 3.31 M/mm3 (3.60-5.2); RDW 18.4 % (11.6-15.6); WHITE BLOOD COUNT 8.2 K/mm3 (4.0-10.0)
[2018-05-15 08:41] LABS: CHLORIDE 103 mmol/L (98-107); POTASSIUM 4.9 mmol/L (3.5-5.1); SODIUM 140 mmol/L (136-145)
[2018-05-15 08:57] LABS: ALBUMIN 2.7 g/dl (3.4-5.0); ALK PHOS 172 U/L (45-117); ANION GAP 11 (8-16); BILIRUBIN,TOTAL 0.4 mg/dL (0.2-1.0); BLOOD UREA NITROGEN 66 mg/dL (7-18); CALCIUM 8.3 mg/dL (8.5-10.1); CO2 26 mmol/L (21-32); GLUCOSE,RANDOM 109 mg/dL (74-106); SGOT/AST 20 U/L (15-37); SGPT/ALT 50 U/L (12-78); TOT PROT 5.8 g/dl (6.4-8.2)
[2018-05-15] MEDS ORDERED: PT OWN MED DRAWER 7, Y5N ONE (09:34)
[2018-05-15] MEDS: PANTOPRAZOLE 40 MG TABLET (FP) PO SCH (09:38)
[2018-05-15] MEDS: traMADol HCL 50 MG TABLET PO PRN (09:38)
[2018-05-15] MEDS: DOCUSATE SODIUM 100 MG CAPSULE (FP) PO SCH ×2 (09:38→21:12)
[2018-05-15] MEDS: FUROSEMIDE 40 MG TABLET (FP) PO SCH (09:38)
[2018-05-15] MEDS: GABAPENTIN 100 MG CAPSULE (FP) PO SCH (09:38)
[2018-05-15] MEDS: LISINOPRIL 5 MG TABLET (FP) PO SCH (09:39)
[2018-05-15] MEDS: CARVEDILOL 3.125 MG TABLET (FP) PO SCH ×2 (09:39→21:12)
[2018-05-15] MEDS: HEPARIN NA (PORCINE) 5,000 UNITS/ML 1ML VIAL SQ SCH ×2 (09:39→21:12)
[2018-05-15] MEDS: MORPHINE SULFATE 2 MG/ML VIAL IM PRN (12:45)
[2018-05-15] MEDS: COLLAGENASE CLOSTRIDIUM HIST. 30 GRAMS TUBE TP SCH (12:46)
--- NOTE | 2018-05-15 15:13 | PN ---
Physical Exam: SUBJECTIVE: Patient away at RT. Per RN pre medicated prior to leaving with hopes of controlling pain level upon return OBJECTIVE: Vital Signs Period Temp Pulse Resp BP Sys/Beltre Pulse Ox Last 24 Hr 97.4 F-98.3 F 68-77 18-19 137-152/69-81 98-100 PT away at RT Laboratory Results - last 24 hr 05/04/18 05/15/18 05/15/18 09:30 06:55 06:55 WBC 8.2 RBC 3.31 L Hgb 9.0 L Hct 27.9 L MCV 84.2 MCH 27.3 MCHC 32.4 RDW 18.4 H Plt Count 334 MPV 8.4 Absolute Neuts (auto) 7.3 Neutrophils % 88.7 H Lymphocytes % 3.6 L D Monocytes % 7.6 Eosinophils % 0.0 Basophils % 0.1 Nucleated RBC % 0 Sodium 140 Potassium 4.9 Chloride 103 Carbon Dioxide 26 Anion Gap 11 BUN 66 H Creatinine 1.0 Creat Clearance w eGFR 52.69 Random Glucose 109 H Calcium 8.3 L Total Bilirubin 0.4 AST 20 ALT 50 Alkaline Phosphatase 172 H D Total Protein 5.8 L Albumin 2.7 L Crossmatch See Detail Active Medications Generic Name Dose Route Start Last Admin Trade Name Freq PRN Reason Stop Dose Admin Acetaminophen 650 mg 05/13/18 11:47 05/14/18 14:34 Tylenol - PO 650 mg Q6H PRN Administration PAIN LEVEL 4 - 6 Carvedilol 3.125 mg 05/06/18 13:30 05/15/18 09:39 Coreg - PO 3.125 mg BID [facility] Administration Collagenase 1 applic 05/12/18 10:00 05/15/18 12:46 Santyl - TP 1 applic DAILY [facility] Administration Dexamethasone Sodium Phosphate 4 mg 05/07/18 22:15 05/15/18 14:23 Decadron Injection - IVPB 4 mg TID [facility] Administration Docusate Sodium 100 mg 05/12/18 10:00 05/15/18 09:38 Colace - PO 100 mg BID [facility] Administration Furosemide 40 mg 05/09/18 14:45 05/15/18 09:38 Lasix - PO 40 mg Q2D [facility] Administration Gabapentin 100 mg 05/13/18 22:00 05/15/18 09:38 Neurontin - PO 100 mg DAILY [facility] Administration Heparin Sodium (Porcine) 5,000 unit 05/09/18 22:00 05/15/18 09:39 Heparin - SQ 5,000 unit BID [facility] Administration Lisinopril 5 mg 05/12/18 10:00 05/15/18 09:39 Prinivil PO 5 mg DAILY [facility] Administration Lorazepam 1 mg 05/13/18 11:01 Ativan - PO Q8H PRN ANXIETY Miscellaneous 1 each 05/13/18 22:00 05/14/18 21:09 Lidoderm Patch Removal MC 1 each DAILY@2200 [facility] Administration Morphine Sulfate 0.5 mg 05/13/18 11:00 05/15/18 12:45 Morphine Sulfate IM 0.5 mg Q6H PRN Administration PAIN LEVEL 7 - 10 Nystatin 500,000 units 05/15/18 00:00 05/15/18 12:44 Nystatin Oral Suspension - PO 500,000 units Q6HPO [facility] Administration Pantoprazole Sodium 40 mg 05/11/18 10:00 05/15/18 09:38 Protonix - PO 40 mg DAILY [facility] Administration Senna 2 tab 05/12/18 22:00 05/14/18 21:09 Senna - PO 2 tab HS [facility] Administration Tramadol HCl 50 mg 05/13/18 11:00 05/15/18 09:38 Ultram - PO 50 mg Q8H PRN Administration PAIN LEVEL 4 - 6 Assessment: 87 year old female with PMHx of right breast cancer s/p lumpectomy/ radiation x 40 years, diastolic heart failure, and severe valvular disease. 1. hx of Breast cancer with metastatic disease - Biopsy 05/08, results pending - Oncology following 2. 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 Diastolic heart failure, severe valvular disease - Continue carvedilol - Lasix q48 4. Episode bradycardia and hypotension 05/04 - Resolved 5. Iron-deficiency anemia - Last transfused 05/04 6. Shortness of breath - Elevated d-dimer, pulm eval, no further work up for PE 7. CKD - Around baseline - On SRAVAN - Renal seeing 8. Pressure ulcers - Daily collagenase 9. Elevated LFTs - Improving - Abd US noted, CBD dilation normal for age and post cholecystectomy 10. DVT prophylaxis - Heparin sq Visit type - Emergency Visit Emergency Visit: Yes ED Registration Date: 05/01/18 Care time: The patient presented to the Emergency Department on the above date and was hospitalized for further evaluation of their emergent condition. - New Patient This patient is new to me today: No - Critical Care Critical Care patient: No
--- NOTE | 2018-05-15 15:14 | PN ---
Progress Note, Physician History of Present Illness: Pt seen and examined at bedside. She is awake and alert. She denies shortness of breath. - Current Medication List Current Medications: Active Medications Acetaminophen (Tylenol -) 650 mg PO Q6H PRN PRN Reason: PAIN LEVEL 4 - 6 Last Admin: 05/14/18 14:34 Dose: 650 mg Carvedilol (Coreg -) 3.125 mg PO BID [facility] Last Admin: 05/15/18 09:39 Dose: 3.125 mg Collagenase (Santyl -) 1 applic TP DAILY [facility] Last Admin: 05/15/18 12:46 Dose: 1 applic Dexamethasone Sodium Phosphate (Decadron Injection -) 4 mg IVPB TID [facility] Last Admin: 05/15/18 14:23 Dose: 4 mg Docusate Sodium (Colace -) 100 mg PO BID [facility] Last Admin: 05/15/18 09:38 Dose: 100 mg Furosemide (Lasix -) 40 mg PO Q2D [facility] Last Admin: 05/15/18 09:38 Dose: 40 mg Gabapentin (Neurontin -) 100 mg PO DAILY [facility] Last Admin: 05/15/18 09:38 Dose: 100 mg Heparin Sodium (Porcine) (Heparin -) 5,000 unit SQ BID [facility] Last Admin: 05/15/18 09:39 Dose: 5,000 unit Lisinopril (Prinivil) 5 mg PO DAILY [facility] Last Admin: 05/15/18 09:39 Dose: 5 mg Lorazepam (Ativan -) 1 mg PO Q8H PRN PRN Reason: ANXIETY Miscellaneous (Lidoderm Patch Removal) 1 each MC DAILY@2200 [facility] Last Admin: 05/14/18 21:09 Dose: 1 each Morphine Sulfate (Morphine Sulfate) 0.5 mg IM Q6H PRN PRN Reason: PAIN LEVEL 7 - 10 Last Admin: 05/15/18 12:45 Dose: 0.5 mg Nystatin (Nystatin Oral Suspension -) 500,000 units PO Q6HPO [facility] Last Admin: 05/15/18 12:44 Dose: 500,000 units Pantoprazole Sodium (Protonix -) 40 mg PO DAILY [facility] Last Admin: 05/15/18 09:38 Dose: 40 mg Senna (Senna -) 2 tab PO HS [facility] Last Admin: 05/14/18 21:09 Dose: 2 tab Tramadol HCl (Ultram -) 50 mg PO Q8H PRN PRN Reason: PAIN LEVEL 4 - 6 Last Admin: 05/15/18 09:38 Dose: 50 mg - Objective Vital Signs: Vital Signs Temperature 97.4 F L 05/15/18 14:27 Pulse Rate 74 05/15/18 14:27 Respiratory Rate 19 05/15/18 09:00 Blood Pressure 143/72 05/15/18 14:27 O2 Sat by Pulse Oximetry (%) 100 05/15/18 09:00 Constitutional: Yes: Calm Eyes: Yes: Conjunctiva Clear HENT: Yes: Atraumatic Neck: Yes: Supple Cardiovascular: Yes: S1, S2 Respiratory: Yes: CTA Bilaterally Gastrointestinal: Yes: Soft Genitourinary: Yes: WNL Edema: Yes Edema: LLE: Trace, RLE: Trace Neurological: Yes: Oriented Psychiatric: Yes: Oriented Labs: CBC, BMP 05/15/18 06:55 05/15/18 06:55 INR, PTT INR 1.03 (0.82-1.09) 05/08/18 06:00 Problem List - Problems (1) CKD (chronic kidney disease) Code(s): N18.9 - CHRONIC KIDNEY DISEASE, UNSPECIFIED (2) Anemia Code(s): D64.9 - ANEMIA, UNSPECIFIED Qualifiers: Anemia type: other cause Other causes of anemia: chronic disease, 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 (3) Breast CA Code(s): C50.919 - MALIGNANT NEOPLASM OF UNSP SITE OF UNSPECIFIED FEMALE BREAST Qualifiers: Estrogen receptor status: positive Patient sex: female Laterality: right Assessment/Plan Current Medications Generic Name Dose Route Start Last Admin Trade Name Freq PRN Reason Stop Dose Admin Acetaminophen 650 mg 05/13/18 11:47 05/14/18 14:34 Tylenol - PO 650 mg Q6H PRN Administration PAIN LEVEL 4 - 6 Carvedilol 3.125 mg 05/06/18 13:30 05/15/18 09:39 Coreg - PO 3.125 mg BID ELINA Administration Collagenase 1 applic 05/12/18 10:00 05/15/18 12:46 Santyl - TP 1 applic DAILY [facility] Administration Dexamethasone Sodium Phosphate 4 mg 05/07/18 22:15 05/15/18 14:23 Decadron Injection - IVPB 4 mg TID [facility]INA Administration Docusate Sodium 100 mg 05/12/18 10:00 05/15/18 09:38 Colace - PO 100 mg BID [facility]INA Administration Furosemide 40 mg 05/09/18 14:45 05/15/18 09:38 Lasix - PO 40 mg Q2D [facility]INA Administration Gabapentin 100 mg 05/13/18 22:00 05/15/18 09:38 Neurontin - PO 100 mg DAILY [facility] Administration Heparin Sodium (Porcine) 5,000 unit 05/09/18 22:00 05/15/18 09:39 Heparin - SQ 5,000 unit BID [facility]INA Administration Lisinopril 5 mg 05/12/18 10:00 05/15/18 09:39 Prinivil PO 5 mg DAILY [facility] Administration Lorazepam 1 mg 05/13/18 11:01 Ativan - PO Q8H PRN ANXIETY Miscellaneous 1 each 05/13/18 22:00 05/14/18 21:09 Lidoderm Patch Removal MC 1 each DAILY@2200 ELINA Administration Morphine Sulfate 0.5 mg 05/13/18 11:00 05/15/18 12:45 Morphine Sulfate IM 0.5 mg Q6H PRN Administration PAIN LEVEL 7 - 10 Nystatin 500,000 units 05/15/18 00:00 05/15/18 12:44 Nystatin Oral Suspension - PO 500,000 units Q6HPO [facility]INA Administration Pantoprazole Sodium 40 mg 05/11/18 10:00 05/15/18 09:38 Protonix - PO 40 mg DAILY [facility] Administration Senna 2 tab 05/12/18 22:00 05/14/18 21:09 Senna - PO 2 tab HS ELINA Administration Tramadol HCl 50 mg 05/13/18 11:00 05/15/18 09:38 Ultram - PO 50 mg Q8H PRN Administration PAIN LEVEL 4 - 6 Impression 1. likely CKD 2. CHF 3. HTN 4. hx breast cancer 5. dyspnea 6. anemia 7. elevated d-dimer 8. metastatic disease 9. carcinoma Plan - cont current meds - monitor renal function - no great change in management - will follow PRN - discussed with medical team - encourage PO intake Dr Austin
[2018-05-15] MEDS: SENNOSIDES 8.6MG TABLET (FP) PO SCH (21:12)
[2018-05-15] MEDS: LIDOCAINE PATCH REMOVAL MC SCH (21:56)
--- NOTE | 2018-05-15 22:27 | PN ---
Progress Note, Physician Chief Complaint: Pt A&Ox3; OOB in chair; feels "better"--slightly stronger, with less chest pain than usual. History of Present Illness: Patient is an 87 year old white woman with history of right breast cancer s/p surgery and radiotherapy here with upper abdominal pain 2 days. States sensation present whether at rest or on exertion. No shortness of breath, diaphoresis, nausea, vomiting or palpitations. No history of similar symptoms in the past. While in the ED, patient noted to have bilateral lower extremity edema, which patient states she did not notice until she was made aware when she got here. No leg pain, cough, f/c. Also c/o painful sore to R buttocks "for some time". 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 and admits she has not seen a doctor in many years - Current Medication List Current Medications: Active Medications Acetaminophen (Tylenol -) 650 mg PO Q6H PRN PRN Reason: PAIN LEVEL 4 - 6 Last Admin: 05/14/18 14:34 Dose: 650 mg Carvedilol (Coreg -) 3.125 mg PO BID [facility] Last Admin: 05/15/18 21:12 Dose: 3.125 mg Collagenase (Santyl -) 1 applic TP DAILY [facility] Last Admin: 05/15/18 12:46 Dose: 1 applic Dexamethasone Sodium Phosphate (Decadron Injection -) 4 mg IVPB TID [facility] Last Admin: 05/15/18 21:12 Dose: 4 mg Docusate Sodium (Colace -) 100 mg PO BID [facility] Last Admin: 05/15/18 21:12 Dose: 100 mg Furosemide (Lasix -) 40 mg PO Q2D [facility] Last Admin: 05/15/18 09:38 Dose: 40 mg Gabapentin (Neurontin -) 100 mg PO DAILY [facility] Last Admin: 05/15/18 09:38 Dose: 100 mg Heparin Sodium (Porcine) (Heparin -) 5,000 unit SQ BID [facility] Last Admin: 05/15/18 21:12 Dose: 5,000 unit Lisinopril (Prinivil) 5 mg PO DAILY [facility] Last Admin: 05/15/18 09:39 Dose: 5 mg Lorazepam (Ativan -) 1 mg PO Q8H PRN PRN Reason: ANXIETY Miscellaneous (Lidoderm Patch Removal) 1 each MC DAILY@2200 [facility] Last Admin: 05/15/18 21:56 Dose: Not Given Morphine Sulfate (Morphine Sulfate) 0.5 mg IM Q6H PRN PRN Reason: PAIN LEVEL 7 - 10 Last Admin: 05/15/18 12:45 Dose: 0.5 mg Nystatin (Nystatin Oral Suspension -) 500,000 units PO Q6HPO [facility] Last Admin: 05/15/18 17:34 Dose: 500,000 units Pantoprazole Sodium (Protonix -) 40 mg PO DAILY [facility] Last Admin: 05/15/18 09:38 Dose: 40 mg Senna (Senna -) 2 tab PO HS [facility] Last Admin: 05/15/18 21:12 Dose: 2 tab Tramadol HCl (Ultram -) 50 mg PO Q8H PRN PRN Reason: PAIN LEVEL 4 - 6 Last Admin: 05/15/18 09:38 Dose: 50 mg - Objective Vital Signs: Vital Signs Temperature 98.1 F 05/15/18 18:00 Pulse Rate 75 05/15/18 18:00 Respiratory Rate 19 05/15/18 18:00 Blood Pressure 150/71 05/15/18 18:00 O2 Sat by Pulse Oximetry (%) 100 05/15/18 20:16 Constitutional: Yes: No Distress Eyes: Yes: WNL HENT: Yes: WNL Neck: Yes: WNL Cardiovascular: Yes: S1, S2 Respiratory: Yes: Diminished Gastrointestinal: Yes: Soft ...Rectal Exam: Yes: Deferred Genitourinary: No: Anuria Breast(s): Yes: Other Musculoskeletal: Yes: Muscle Weakness Extremities: Yes: Cool Edema: No Integumentary: Yes: Other (s/p right breast surgery) Neurological: Yes: Alert, Oriented, Weakness Psychiatric: Yes: WNL Labs: CBC, BMP 05/15/18 06:55 05/15/18 06:55 INR, PTT INR 1.03 (0.82-1.09) 05/08/18 06:00 Abnormal Lab Results 05/15/18 05/15/18 06:55 06:55 RBC 3.31 L Hgb 9.0 L Hct 27.9 L RDW 18.4 H Neutrophils % 88.7 H Lymphocytes % 3.6 L D BUN 66 H Random Glucose 109 H Calcium 8.3 L Alkaline Phosphatase 172 H D Total Protein 5.8 L Albumin 2.7 L Problem List - Problems (1) Breast CA Assessment/Plan: breast CA with metastases. Chronic "pain in the ribs". CT chest: extensive bone metastases; pathologic fractures throughout the spine. Pain management: discontinued Tylenol due to rising LFTs (which have returned to normal). On oxycodone On radiation therapy. Code(s): C50.919 - MALIGNANT NEOPLASM OF UNSP SITE OF UNSPECIFIED FEMALE BREAST Qualifiers: Estrogen receptor status: positive Patient sex: female Laterality: right (2) Anemia Assessment/Plan: Hb 9.0 today; f/u with hem/onc. 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 Not in acute distress (respiratory-verdin). On ACEI. Now on furosemide again (every other day). F/u BUN/Cr, electrolytes, Is and Os, and daily weight/ Code(s): I50.30 - UNSPECIFIED DIASTOLIC (CONGESTIVE) HEART FAILURE (4) HTN (hypertension) Assessment/Plan: On lisinopril, carvedilol, and furosemide. Adjust doses as needed (BP slightly higher lately). Code(s): I10 - ESSENTIAL (PRIMARY) HYPERTENSION
[2018-05-16] MEDS: DEXAMETHASONE SOD PHOSPHATE 4 MG/1 ML VIAL IVPB SCH ×3 (05:39→21:22)
[2018-05-16] MEDS: NYSTATIN 500,000 UNITS/5 ML SUSPENSION PO SCH ×4 (05:39→23:15)
--- NOTE | 2018-05-16 09:12 | PN ---
Progress Note, Physician Chief Complaint: episode of bradycardia and hypotension History of Present Illness: Patient is an 87 year old woman with history of right breast cancer s/p surgery and radiotherapy here with upper abdominal pain 2 days. States sensation present whether at rest or on exertion. No shortness of breath, diaphoresis, nausea, vomiting or palpitations. No history of similar symptoms in the past. While in the ED, patient noted to have bilateral lower extremity edema, which patient states she did not notice until she was made aware when she got here. No leg pain, cough, f/c. Also c/o painful sore to R buttocks "for some time". 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 have PMD or summer associate and admits she has not seen a doctor in many years - Current Medication List Current Medications: Active Medications Acetaminophen (Tylenol -) 650 mg PO Q6H PRN PRN Reason: PAIN LEVEL 4 - 6 Last Admin: 05/14/18 14:34 Dose: 650 mg Carvedilol (Coreg -) 3.125 mg PO BID [facility] Last Admin: 05/15/18 21:12 Dose: 3.125 mg Collagenase (Santyl -) 1 applic TP DAILY [facility] Last Admin: 05/15/18 12:46 Dose: 1 applic Dexamethasone Sodium Phosphate (Decadron Injection -) 4 mg IVPB TID [facility] Last Admin: 05/16/18 05:39 Dose: 4 mg Docusate Sodium (Colace -) 100 mg PO BID [facility] Last Admin: 05/15/18 21:12 Dose: 100 mg Furosemide (Lasix -) 40 mg PO Q2D [facility] Last Admin: 05/15/18 09:38 Dose: 40 mg Gabapentin (Neurontin -) 100 mg PO DAILY [facility] Last Admin: 05/15/18 09:38 Dose: 100 mg Heparin Sodium (Porcine) (Heparin -) 5,000 unit SQ BID [facility] Last Admin: 05/15/18 21:12 Dose: 5,000 unit Lisinopril (Prinivil) 5 mg PO DAILY [facility] Last Admin: 05/15/18 09:39 Dose: 5 mg Lorazepam (Ativan -) 1 mg PO Q8H PRN PRN Reason: ANXIETY Morphine Sulfate (Morphine Sulfate) 0.5 mg IM Q6H PRN PRN Reason: PAIN LEVEL 7 - 10 Last Admin: 05/15/18 12:45 Dose: 0.5 mg Nystatin (Nystatin Oral Suspension -) 500,000 units PO Q6HPO [facility] Last Admin: 05/16/18 05:39 Dose: 500,000 units Pantoprazole Sodium (Protonix -) 40 mg PO DAILY [facility] Last Admin: 05/15/18 09:38 Dose: 40 mg Senna (Senna -) 2 tab PO HS [facility] Last Admin: 05/15/18 21:12 Dose: 2 tab Tramadol HCl (Ultram -) 50 mg PO Q8H PRN PRN Reason: PAIN LEVEL 4 - 6 Last Admin: 05/15/18 09:38 Dose: 50 mg - Objective Vital Signs: Vital Signs Temperature 98.0 F 05/16/18 06:06 Pulse Rate 65 05/16/18 06:06 Respiratory Rate 20 05/16/18 06:06 Blood Pressure 138/60 05/16/18 06:06 O2 Sat by Pulse Oximetry (%) 100 05/15/18 20:16 Eyes: Yes: WNL, Conjunctiva Clear, EOM Intact HENT: Yes: WNL, Atraumatic, Normocephalic Neck: Yes: WNL, Supple, Trachea Midline Cardiovascular: Yes: WNL, Regular Rate and Rhythm Respiratory: Yes: WNL, Regular, CTA Bilaterally Gastrointestinal: Yes: WNL, Normal Bowel Sounds Genitourinary: Yes: WNL Musculoskeletal: Yes: WNL Extremities: Yes: WNL Edema: No Integumentary: Yes: WNL Neurological: Yes: WNL, Alert, Oriented ...Motor Strength: WNL Psychiatric: Yes: WNL Labs: CBC, BMP 05/15/18 06:55 05/15/18 06:55 INR, PTT INR 1.03 (0.82-1.09) 05/08/18 06:00 Problem List - Problems (1) Fracture, humerus Code(s): S42.309A - UNSP FRACTURE OF SHAFT OF HUMERUS, UNSP ARM, INIT Qualifiers: Encounter type: initial encounter Humerus Location: proximal Fracture type: closed Fracture morphology: unspecified fracture morphology Laterality : right Qualified Code(s): S42.201A - Unspecified fracture of upper end of right humerus, initial encounter for closed fracture Assessment/Plan - Problems (1) Breast CA Assessment/Plan: breast CA with metastases. Chronic "pain in the ribs". CT chest: extensive bone metastases; pathologic fractures throughout the spine. Pain management: discontinued Tylenol due to rising LFTs (which have returned to normal). On oxycodone On radiation therapy. Code(s): C50.919 - MALIGNANT NEOPLASM OF UNSP SITE OF UNSPECIFIED FEMALE BREAST Qualifiers: Estrogen receptor status: positive Patient sex: female Laterality: right (2) Anemia Assessment/Plan: Hb 9.0 today; f/u with hem/onc. 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 Not in acute distress (respiratory-verdin). On ACEI. Now on furosemide again (every other day). F/u BUN/Cr, electrolytes, Is and Os, and daily weight/ Code(s): I50.30 - UNSPECIFIED DIASTOLIC (CONGESTIVE) HEART FAILURE (4) HTN (hypertension) Assessment/Plan: On lisinopril, carvedilol, and furosemide. Adjust doses as needed (BP slightly higher lately). Code(s): I10 - ESSENTIAL (PRIMARY) HYPERTENSION
--- NOTE | 2018-05-16 10:41 | PN ---
Physical Exam: SUBJECTIVE: Patient seen and examined at the bedside. OBJECTIVE: Vital Signs Period Temp Pulse Resp BP Sys/Beltre Pulse Ox Last 24 Hr 97.4 F-98.1 F 65-75 19-20 138-150/60-72 100 GENERAL: The patient is awake, alert, and fully oriented, in no acute distress. HEAD: Normal with no signs of trauma. EYES: PERRL, extraocular movements intact, sclera anicteric, conjunctiva clear. No ptosis. ENT: Ears normal, nares patent, oropharynx clear without exudates, moist mucous membranes. NECK: Trachea midline, full range of motion, supple. LUNGS: Breath sounds equal, clear to auscultation bilaterally HEART: Regular rate and rhythm ABDOMEN: Soft, nontender, nondistended, normoactive bowel sounds, no guarding EXTREMITIES: non pitting lower ext edema bilaterally NEUROLOGICAL: Normal speech, walks with gait, slow steady gait, fall risk PSYCH: Normal mood, normal affect. SKIN: Warm, dry, normal turgor, no rashes or lesions noted Active Medications Generic Name Dose Route Start Last Admin Trade Name Freq PRN Reason Stop Dose Admin Acetaminophen 650 mg 05/13/18 11:47 05/14/18 14:34 Tylenol - PO 650 mg Q6H PRN Administration PAIN LEVEL 4 - 6 Carvedilol 3.125 mg 05/06/18 13:30 05/15/18 21:12 Coreg - PO 3.125 mg BID ELINA Administration Collagenase 1 applic 05/12/18 10:00 05/15/18 12:46 Santyl - TP 1 applic DAILY [facility]INA Administration Dexamethasone Sodium Phosphate 4 mg 05/07/18 22:15 05/16/18 05:39 Decadron Injection - IVPB 4 mg TID [facility]INA Administration Docusate Sodium 100 mg 05/12/18 10:00 05/15/18 21:12 Colace - PO 100 mg BID [facility]INA Administration Furosemide 40 mg 05/09/18 14:45 05/15/18 09:38 Lasix - PO 40 mg Q2D ELINA Administration Gabapentin 100 mg 05/13/18 22:00 05/15/18 09:38 Neurontin - PO 100 mg DAILY [facility]INA Administration Heparin Sodium (Porcine) 5,000 unit 05/09/18 22:00 05/15/18 21:12 Heparin - SQ 5,000 unit BID [facility]INA Administration Lisinopril 5 mg 05/12/18 10:00 05/15/18 09:39 Prinivil PO 5 mg DAILY [facility]INA Administration Lorazepam 1 mg 05/13/18 11:01 Ativan - PO Q8H PRN ANXIETY Morphine Sulfate 0.5 mg 05/13/18 11:00 05/15/18 12:45 Morphine Sulfate IM 0.5 mg Q6H PRN Administration PAIN LEVEL 7 - 10 Nystatin 500,000 units 05/15/18 00:00 05/16/18 05:39 Nystatin Oral Suspension - PO 500,000 units Q6HPO [facility]INA Administration Pantoprazole Sodium 40 mg 05/11/18 10:00 05/15/18 09:38 Protonix - PO 40 mg DAILY [facility] Administration Senna 2 tab 05/12/18 22:00 05/15/18 21:12 Senna - PO 2 tab HS [facility]INA Administration Tramadol HCl 50 mg 05/13/18 11:00 05/15/18 09:38 Ultram - PO 50 mg Q8H PRN Administration PAIN LEVEL 4 - 6 ASSESSMENT/PLAN: Patient is an 87 year old female with a significant past medical history of right breast cancer with lumpectomy with bone mets, diastolic heart failure with severe valvular disease. She presents to the ED on 05/01/2018 with chest pain, acute on chronic CHF. Card: Chest pain, elevated D dimer Chest pain resolved, Seen and evaluated by cardiology, not ACS. Troponins negative. Echo reviewed. Elevated D dimer: Likely not PE as per pulmonary, pt was initially considered for a VQ scan. Diastolic heart failure with severe valvular disease: On Coreq BID, Lasix q48 hours. Monitor intake and output. 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 Elevated tumor markes. 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 On Dexamethasone 4mg q8. Started on Anastrazole. Heme/Onc following. Pain managed with ultram and morphine. Patient refusing oxycodone and valium. Patient has received 4/10 sessions of radiation therapy. Iron-deficiency anemia: CBC low stable @ 08/09. Monitor CBC. s/p 1 unit of prbc 05/04 Anemia, s/p prbcs: CBC in a.m. Renal: CKD, creat stable, Bun elevated: renal following, notes reviewed. On lasix q 48 hours. Monitor fen Tolerating PO monitor electrolytes low salt Prophy: heparin full code Visit type - Emergency Visit Emergency Visit: Yes ED Registration Date: 05/01/18 Care time: The patient presented to the Emergency Department on the above date and was hospitalized for further evaluation of their emergent condition. - New Patient This patient is new to me today: No - Critical Care Critical Care patient: No - Discharge Referral Referred to [facility] Med P.C.: No
[2018-05-16] MEDS: COLLAGENASE CLOSTRIDIUM HIST. 30 GRAMS TUBE TP SCH (11:00)
[2018-05-16] MEDS: LISINOPRIL 5 MG TABLET (FP) PO SCH (11:02)
[2018-05-16] MEDS: HEPARIN NA (PORCINE) 5,000 UNITS/ML 1ML VIAL SQ SCH ×2 (11:02→21:22)
[2018-05-16] MEDS: MORPHINE SULFATE 2 MG/ML VIAL IM PRN (11:02)
[2018-05-16] MEDS: DOCUSATE SODIUM 100 MG CAPSULE (FP) PO SCH ×2 (11:02→21:22)
[2018-05-16] MEDS: CARVEDILOL 3.125 MG TABLET (FP) PO SCH ×2 (11:02→21:37)
[2018-05-16] MEDS: GABAPENTIN 100 MG CAPSULE (FP) PO SCH (11:02)
--- NOTE | 2018-05-16 12:25 | PN ---
Progress Note (short form) - Note Progress Note: Patient seen and examined Feels "worn" Complains of left rib cage pain -- 3-4/10 pain scale No chest pains, SOB, dyspnea Diarrhea- resolved Some dysuria Last Vital Signs Temp Pulse Resp BP Pulse Ox 98.0 F 65 20 138/60 100 05/16/18 06:06 05/16/18 06:06 05/16/18 06:06 05/16/18 06:06 05/15/18 20:16 HEENT: [place], EOM Intact Oropharynx: No thrush, No mucositis Cor: RSR, No murmurs, No gallops Lungs: Clear to P&A Abd: Soft, Normal bowel sounds, No organomegaly Ext:No significant edema Skin: No rashes, Integument intact CBC, BMP 05/15/18 06:55 05/15/18 06:55 Current Medications Generic Name Dose Route Start Last Admin Trade Name Freq PRN Reason Stop Dose Admin Acetaminophen 650 mg 05/13/18 11:47 05/14/18 14:34 Tylenol - PO 650 mg Q6H PRN Administration PAIN LEVEL 4 - 6 Carvedilol 3.125 mg 05/06/18 13:30 05/16/18 11:02 Coreg - PO 3.125 mg BID ELINA Administration Collagenase 1 applic 05/12/18 10:00 05/15/18 12:46 Santyl - TP 1 applic DAILY [facility]INA Administration Dexamethasone Sodium Phosphate 4 mg 05/07/18 22:15 05/16/18 05:39 Decadron Injection - IVPB 4 mg TID ELINA Administration Docusate Sodium 100 mg 05/12/18 10:00 05/16/18 11:02 Colace - PO 100 mg BID ELINA Administration Furosemide 40 mg 05/09/18 14:45 05/15/18 09:38 Lasix - PO 40 mg Q2D ELINA Administration Gabapentin 100 mg 05/13/18 22:00 05/16/18 11:02 Neurontin - PO 100 mg DAILY ELINA Administration Heparin Sodium (Porcine) 5,000 unit 05/09/18 22:00 05/16/18 11:02 Heparin - SQ 5,000 unit BID ELINA Administration Lisinopril 5 mg 05/12/18 10:00 05/16/18 11:02 Prinivil PO 5 mg DAILY ELINA Administration Morphine Sulfate 0.5 mg 05/13/18 11:00 05/16/18 11:02 Morphine Sulfate IM 0.5 mg Q6H PRN Administration PAIN LEVEL 7 - 10 Nystatin 500,000 units 05/15/18 00:00 05/16/18 05:39 Nystatin Oral Suspension - PO 500,000 units Q6HPO ELINA Administration Pantoprazole Sodium 40 mg 05/11/18 10:00 05/15/18 09:38 Protonix - PO 40 mg DAILY ELINA Administration Senna 2 tab 05/12/18 22:00 05/15/18 21:12 Senna - PO 2 tab HS ELINA Administration Tramadol HCl 50 mg 05/13/18 11:00 05/15/18 09:38 Ultram - PO 50 mg Q8H PRN Administration PAIN LEVEL 4 - 6 Impression : Metastatic breast cancer Bone Mets For zometa in future Agree that RT field to left rib cage would be beneficial Anemia 'Dysuria Plan: RT-- include field to cover left rib cage u/a
--- NOTE | 2018-05-16 13:12 | PN ---
Progress Note (short form) - Note Progress Note: patient with increasing pain in the left rib cage. D/W Drs. Padilla and Yasmin. I offered the patient palliative RT to the left rib cage, which we can start tomorrow. I plan 20 Gy in 5 fractions. Problem List - Problems (1) Breast CA Code(s): C50.919 - MALIGNANT NEOPLASM OF UNSP SITE OF UNSPECIFIED FEMALE BREAST Qualifiers: Estrogen receptor status: positive Patient sex: female Laterality: right
[2018-05-16] MEDS: ACETAMINOPHEN 325 MG TABLET (FP) PO PRN (14:06)
[2018-05-16] MEDS: PANTOPRAZOLE 40 MG TABLET (FP) PO SCH (16:58)
[2018-05-16 18:22] LABS: URINE APPEARANCE CLEAR; URINE BILIRUBIN NEGATIVE (<2.0 mg/dL); URINE COLOR YELLOW; URINE GLUCOSE (UA) NEGATIVE (NEGATIVE); URINE KETONE NEGATIVE (NEGATIVE); URINE NITRITE NEGATIVE (NEGATIVE); URINE PROTEIN NEGATIVE (NEGATIVE); URINE UROBILINOGEN NEGATIVE mg/dL (0.2-1.0)
[2018-05-16 18:23] LABS: URINE LEUK ESTERASE 2+ (NEGATIVE)
[2018-05-16 18:25] LABS: EPI CELLS RARE /HPF (FEW); URINE BACTERIA FEW /hpf (NONE SEEN); URINE MUCUS RARE
[2018-05-16] MEDS ORDERED: PT OWN MED DRAWER 7, Y5N ONE (19:30)
[2018-05-16] MEDS ORDERED: VANCOMYCIN 1 GM PREMIX - 1 GM/200 ML BAG IVPB ONE (19:30)
[2018-05-16] MEDS: SENNOSIDES 8.6MG TABLET (FP) PO SCH (21:22)
[2018-05-16] MEDS: traMADol HCL 50 MG TABLET PO PRN (21:23)
[2018-05-17] MEDS: NYSTATIN 500,000 UNITS/5 ML SUSPENSION PO SCH ×4 (05:32→23:26)
[2018-05-17 07:26] LABS: BASO % 0.3 % (0-2.0); EOS % 0.1 % (0-4.5); HEMATOCRIT 28.3 % (32.4-45.2); HEMOGLOBIN 9.2 GM/dL (10.7-15.3); LYMPH % 4.3 % (8-40); MCH 27.3 pg (25.7-33.7); MCHC 32.4 g/dl (32.0-36.0); MEAN CELL VOLUME 84.3 fl (80-96); MEAN PLT VOLUME 8.6 fl (7.5-11.1); MONO % 8.1 % (3.8-10.2); NEUT % 87.2 % (42.8-82.8); PLATELET COUNT 292 K/MM3 (134-434); RBC 3.36 M/mm3 (3.60-5.2); RDW 18.6 % (11.6-15.6); WHITE BLOOD COUNT 7.8 K/mm3 (4.0-10.0)
[2018-05-17 07:56] LABS: ALBUMIN 3.2 g/dl (3.4-5.0); ANION GAP 7 (8-16); BLOOD UREA NITROGEN 58 mg/dL (7-18); CHLORIDE 104 mmol/L (98-107); CO2 28 mmol/L (21-32); GLUCOSE,RANDOM 107 mg/dL (74-106); MAGNESIUM 2.7 mg/dL (1.8-2.4); POTASSIUM 5.4 mmol/L (3.5-5.1); SODIUM 139 mmol/L (136-145)
[2018-05-17 07:59] LABS: ALK PHOS 173 U/L (45-117); BILIRUBIN,TOTAL 0.6 mg/dL (0.2-1.0); CREATININE 1.1 mg/dL (0.55-1.02); SGOT/AST 21 U/L (15-37); SGPT/ALT 49 U/L (12-78); TOT PROT 6.7 g/dl (6.4-8.2)
[2018-05-17] MEDS ORDERED: SODIUM POLYSTYRENE SULFONATE 15 GM/60 ML BOTTLE PO ONE (09:40)
[2018-05-17] MEDS: DEXAMETHASONE SOD PHOSPHATE 4 MG/1 ML VIAL IVPB SCH ×2 (09:51→21:54)
[2018-05-17] MEDS: GABAPENTIN 100 MG CAPSULE (FP) PO SCH (09:51)
[2018-05-17] MEDS: FUROSEMIDE 40 MG TABLET (FP) PO SCH (09:51)
[2018-05-17] MEDS: CARVEDILOL 3.125 MG TABLET (FP) PO SCH (09:51)
[2018-05-17] MEDS: HEPARIN NA (PORCINE) 5,000 UNITS/ML 1ML VIAL SQ SCH ×2 (09:51→22:01)
[2018-05-17] MEDS: DOCUSATE SODIUM 100 MG CAPSULE (FP) PO SCH ×2 (09:51→21:54)
[2018-05-17] MEDS: LISINOPRIL 5 MG TABLET (FP) PO SCH (09:52)
[2018-05-17] MEDS: MORPHINE SULFATE 2 MG/ML VIAL IM PRN (09:52)
[2018-05-17] MEDS ORDERED: PT OWN MED DRAWER 7, Y5N ONE (10:09)
--- NOTE | 2018-05-17 11:22 | CON.ID ---
Consult Consult Specialty:: infectious diseases Reason for Consultation:: mrsa wound infection - History of Present Illness History of Present Illness: 87F w/ hx of R breast cancer s/p surgery and radiation presenting with upper abdominal pain and a painful right buttock "abscess." Per pt, her upper abdominal discomfort began a few months ago, is intermittent, dull in quality, sometimes radiates to her back, and is affected by change in position but not type of food. Her right buttock "abscess" began about 4-6 weeks ago and has remained stable since then. Pt endorses using warm compresses, "aloveri," and tylenol for it without significant relief. It is worsened by sitting or lying directly on it. Pt also endorses occasional pleuritic chest pain and occasional SOB. She denies fevers, chills, headache, palpitations, cough, PND, orthopnea, LE swelling, nausea, emesis, diarrhea, hematochezia, melena, change in stool caliber, dysuria, and urinary frequency. She endorses some constipation. She has not seen her PCP in several years, and has not seen her oncologist in about 12 years. She has never had a colonoscopy. At baseline, she ambulates with a cane and can walk about a half block and 2 flights of stairs, limited by leg weakness. patient buttock wound opened up and the cx were send which was growing mrsa was called to advice about it patient getting radiation treatments - History Source History Provided By: Patient Limitations to Obtaining History: No Limitations - Past Medical History Cardio/Vascular: Yes: CHF - Past Surgical History Past Surgical History: Yes: Cholecystectomy Additional Surgical History: Reports right foot surgery after injury - Alcohol/Substance Use Hx Alcohol Use: No - Smoking History Smoking history: Former smoker Have you smoked in the past 12 months: No If you are a former smoker, when did you quit?: 1997 - Social History Usual Living Arrangement: With Spouse ADL: Support Services 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[employer] [facility] History of Recent Travel: No Home Medications - Allergies Allergies/Adverse Reactions: Allergies Allergy/AdvReac Type Severity Reaction Status Date / Time No Known Allergies Allergy Verified 05/01/18 17:35 - Home Medications Home Medications: Ambulatory Orders RX: Acetaminophen [Tylenol .Regular Strength -] 650 mg PO Q6H PRN tablet RX: Amino Acids/Protein Hydrolys [Prosource No Carb Liquid Pkt] 30 ml PO BID@ 0800,1730 packet 05/18/18 RX: Amox-Tr/K Cl [Augmentin 500-125mg Tablet -] 1 tab PO BID@0800,1730 tablet 05/18/18 RX: Anastrozole [Arimidex -] 1 mg PO DAILY tablet 05/18/18 RX: Calcium 250Mg/Vit-D 125 Units [Oscal 250 mg+D -] 1 tab PO DAILY@0800 tab RX: Carvedilol [Coreg -] 12.5 mg PO BID tablet 05/18/18 RX: Collagenase Clostridium Hist. [Santyl -] 1 applic TP DAILY tube 05/18/18 RX: Dexamethasone [Decadron -] 4 mg PO BID tablet 05/18/18 RX: Docusate Sodium [Colace -] 100 mg PO BID capsule 05/18/18 RX: Doxycycline Hyclate [Vibramycin -] 100 mg PO BID@1000,1800 capsule RX: Furosemide [Lasix -] 40 mg PO Q2D tablet 05/18/18 RX: Gabapentin [Neurontin -] 100 mg PO DAILY capsule 05/18/18 RX: Nystatin Oral Suspension - [Nystatin Oral Susp 770375 Units/5 ML -] 500,000 units PO Q6HPO cup 05/18/18 RX: Pantoprazole Sodium [Protonix -] 40 mg PO DAILY tablet.ec 05/18/18 RX: Sennosides [Senna -] 2 tab PO HS tablet 05/18/18 RX: traMADol HCL [Ultram -] 50 mg PO Q8H PRN #30 tablet MDD 3 tabs 05/18/18 RX: Lidocaine 5% Patch [Lidoderm -] 1 patch TP DAILY patch 05/19/18 Family Disease History - Family Disease History Family Disease History: Heart Disease: Mother ( from [place] at age 60), [place]: Father (Prostate cancer. at age 98), Sister (Breast cancer age 61) Review of Systems - Review of Systems Constitutional: reports: No Symptoms Eyes: reports: No Symptoms HENT: reports: No Symptoms Neck: reports: No Symptoms Cardiovascular: reports: No Symptoms Respiratory: reports: No Symptoms Gastrointestinal: reports: No Symptoms Genitourinary: reports: No Symptoms Musculoskeletal: reports: No Symptoms Integumentary: reports: No Symptoms Neurological: reports: No Symptoms Endocrine: reports: No Symptoms Hematology/Lymphatic: reports: No Symptoms Psychiatric: reports: No Symptoms Physical Exam Vital Signs: Vital Signs Temperature 97.2 F L 05/17/18 10:06 Pulse Rate 77 05/17/18 10:06 Respiratory Rate 17 05/17/18 10:06 Blood Pressure 164/89 05/17/18 10:06 O2 Sat by Pulse Oximetry (%) 100 05/17/18 10:52 Constitutional: Yes: Well Nourished, No Distress, Calm HENT: Yes: Atraumatic Neck: Yes: Supple, Trachea Midline Cardiovascular: Yes: Regular Rate and Rhythm Respiratory: Yes: Regular, CTA Bilaterally Gastrointestinal: Yes: Normal Bowel Sounds, Soft Musculoskeletal: Yes: WNL Extremities: Yes: WNL Wound/Incision: Yes: Clean/Dry, Dressing Removed Neurological: Yes: Alert, Oriented Psychiatric: Yes: Alert, Oriented Labs: CBC, BMP 05/17/18 06:05 05/17/18 06:05 Imaging - Results Chest X-ray: Report Reviewed, Image Reviewed Cat Scan: Report Reviewed, Image Reviewed Ultrasound: Report Reviewed, Image Reviewed Assessment/Plan Problem List - Problems (1) CKD (chronic kidney disease) Code(s): N18.9 - CHRONIC KIDNEY DISEASE, UNSPECIFIED (2) Anemia Code(s): D64.9 - ANEMIA, UNSPECIFIED Qualifiers: Anemia type: other cause Other causes of anemia: chronic disease, 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 (3) Breast CA Code(s): C50.919 - MALIGNANT NEOPLASM OF UNSP SITE OF UNSPECIFIED FEMALE BREAST Qualifiers: Estrogen receptor status: positive Patient sex: female Laterality: right wound infection mrsa plan will start on iv abx will check the wound again if surrounding cellulitis improved will switch to oral patient will need abx for at least 14 days
--- NOTE | 2018-05-17 11:42 | PN ---
Progress Note, Physician Chief Complaint: episode of bradycardia and hypotension History of Present Illness: Patient is an 87 year old woman with history of right breast cancer s/p surgery and radiotherapy here with upper abdominal pain 2 days. States sensation present whether at rest or on exertion. No shortness of breath, diaphoresis, nausea, vomiting or palpitations. No history of similar symptoms in the past. While in the ED, patient noted to have bilateral lower extremity edema, which patient states she did not notice until she was made aware when she got here. No leg pain, cough, f/c. Also c/o painful sore to R buttocks "for some time". 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 have PMD or day care aide and admits she has not seen a doctor in many years - Current Medication List Current Medications: Active Medications Acetaminophen (Tylenol -) 650 mg PO Q6H PRN PRN Reason: PAIN LEVEL 4 - 6 Last Admin: 05/16/18 14:06 Dose: 650 mg Carvedilol (Coreg -) 3.125 mg PO BID [facility] Last Admin: 05/17/18 09:51 Dose: 3.125 mg Collagenase (Santyl -) 1 applic TP DAILY [facility] Last Admin: 05/16/18 11:00 Dose: 1 applic Dexamethasone Sodium Phosphate (Decadron Injection -) 4 mg IVPB BID [facility] Last Admin: 05/17/18 09:51 Dose: 4 mg Docusate Sodium (Colace -) 100 mg PO BID [facility] Last Admin: 05/17/18 09:51 Dose: 100 mg Furosemide (Lasix -) 40 mg PO Q2D [facility] Last Admin: 05/17/18 09:51 Dose: 40 mg Gabapentin (Neurontin -) 100 mg PO DAILY [facility] Last Admin: 05/17/18 09:51 Dose: 100 mg Heparin Sodium (Porcine) (Heparin -) 5,000 unit SQ BID [facility] Last Admin: 05/17/18 09:51 Dose: 5,000 unit Lisinopril (Prinivil) 5 mg PO DAILY [facility] Last Admin: 05/17/18 09:52 Dose: 5 mg Morphine Sulfate (Morphine Sulfate) 0.5 mg IM Q6H PRN PRN Reason: PAIN LEVEL 7 - 10 Last Admin: 05/17/18 09:52 Dose: 0.5 mg Nystatin (Nystatin Oral Suspension -) 500,000 units PO Q6HPO [facility] Last Admin: 05/17/18 05:32 Dose: 500,000 units Pantoprazole Sodium (Protonix -) 40 mg PO DAILY [facility] Last Admin: 05/16/18 16:58 Dose: 40 mg Senna (Senna -) 2 tab PO HS [facility] Last Admin: 05/16/18 21:22 Dose: 2 tab Tramadol HCl (Ultram -) 50 mg PO Q8H PRN PRN Reason: PAIN LEVEL 4 - 6 Last Admin: 05/16/18 21:23 Dose: 50 mg - Objective Vital Signs: Vital Signs Temperature 97.2 F L 05/17/18 10:06 Pulse Rate 77 05/17/18 10:06 Respiratory Rate 17 05/17/18 10:06 Blood Pressure 164/89 05/17/18 10:06 O2 Sat by Pulse Oximetry (%) 100 05/17/18 10:52 Eyes: Yes: WNL, Conjunctiva Clear, EOM Intact HENT: Yes: WNL, Atraumatic, Normocephalic Neck: Yes: WNL, Supple, Trachea Midline Cardiovascular: Yes: Pulse Irregular, Murmur, S1, S2 Respiratory: Yes: WNL, Regular, CTA Bilaterally Gastrointestinal: Yes: WNL, Normal Bowel Sounds Genitourinary: Yes: WNL Musculoskeletal: Yes: WNL Extremities: Yes: WNL Edema: No Integumentary: Yes: WNL Neurological: Yes: WNL, Alert, Oriented ...Motor Strength: WNL Psychiatric: Yes: WNL Labs: CBC, BMP 05/17/18 06:05 05/17/18 06:05 INR, PTT INR 1.03 (0.82-1.09) 05/08/18 06:00 Problem List - Problems (1) Fracture, humerus Code(s): S42.309A - UNSP FRACTURE OF SHAFT OF HUMERUS, UNSP ARM, INIT Qualifiers: Encounter type: initial encounter Humerus Location: proximal Fracture type: closed Fracture morphology: unspecified fracture morphology Laterality : right Qualified Code(s): S42.201A - Unspecified fracture of upper end of right humerus, initial encounter for closed fracture Assessment/Plan - Problems (1) Breast CA Assessment/Plan: breast CA with metastases. Chronic "pain in the ribs". CT chest: extensive bone metastases; pathologic fractures throughout the spine. Pain management: discontinued Tylenol due to rising LFTs (which have returned to normal). On oxycodone On radiation therapy. Code(s): C50.919 - MALIGNANT NEOPLASM OF UNSP SITE OF UNSPECIFIED FEMALE BREAST Qualifiers: Estrogen receptor status: positive Patient sex: female Laterality: right (2) Anemia Assessment/Plan: Hb 9.0 today; f/u with hem/onc. 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 Not in acute distress (respiratory-verdin). On ACEI. Now on furosemide again (every other day). F/u BUN/Cr, electrolytes, Is and Os, and daily weight/ Code(s): I50.30 - UNSPECIFIED DIASTOLIC (CONGESTIVE) HEART FAILURE (4) HTN (hypertension) Assessment/Plan: On lisinopril, carvedilol, and furosemide. Adjust doses as needed (BP slightly higher lately). Code(s): I10 - ESSENTIAL (PRIMARY) HYPERTENSION
--- NOTE | 2018-05-17 12:26 | PN ---
Progress Note, Physician History of Present Illness: Pt seen and examined at bedside. She went to radiation today. She complains of bone pain. - Current Medication List Current Medications: Active Medications Acetaminophen (Tylenol -) 650 mg PO Q6H PRN PRN Reason: PAIN LEVEL 4 - 6 Last Admin: 05/16/18 14:06 Dose: 650 mg Carvedilol (Coreg -) 3.125 mg PO BID [facility] Last Admin: 05/17/18 09:51 Dose: 3.125 mg Collagenase (Santyl -) 1 applic TP DAILY [facility] Last Admin: 05/16/18 11:00 Dose: 1 applic Dexamethasone Sodium Phosphate (Decadron Injection -) 4 mg IVPB BID [facility] Last Admin: 05/17/18 09:51 Dose: 4 mg Docusate Sodium (Colace -) 100 mg PO BID [facility] Last Admin: 05/17/18 09:51 Dose: 100 mg Furosemide (Lasix -) 40 mg PO Q2D [facility] Last Admin: 05/17/18 09:51 Dose: 40 mg Gabapentin (Neurontin -) 100 mg PO DAILY [facility] Last Admin: 05/17/18 09:51 Dose: 100 mg Heparin Sodium (Porcine) (Heparin -) 5,000 unit SQ BID [facility] Last Admin: 05/17/18 09:51 Dose: 5,000 unit Lisinopril (Prinivil) 5 mg PO DAILY [facility] Last Admin: 05/17/18 09:52 Dose: 5 mg Morphine Sulfate (Morphine Sulfate) 0.5 mg IM Q6H PRN PRN Reason: PAIN LEVEL 7 - 10 Last Admin: 05/17/18 09:52 Dose: 0.5 mg Nystatin (Nystatin Oral Suspension -) 500,000 units PO Q6HPO [facility] Last Admin: 05/17/18 05:32 Dose: 500,000 units Pantoprazole Sodium (Protonix -) 40 mg PO DAILY [facility] Last Admin: 05/16/18 16:58 Dose: 40 mg Senna (Senna -) 2 tab PO HS [facility] Last Admin: 05/16/18 21:22 Dose: 2 tab Tramadol HCl (Ultram -) 50 mg PO Q8H PRN PRN Reason: PAIN LEVEL 4 - 6 Last Admin: 05/16/18 21:23 Dose: 50 mg - Objective Vital Signs: Vital Signs Temperature 97.2 F L 07/05/18 10:06 Pulse Rate 77 05/17/18 10:06 Respiratory Rate 17 05/17/18 10:06 Blood Pressure 164/89 05/17/18 10:06 O2 Sat by Pulse Oximetry (%) 100 05/17/18 10:52 Constitutional: Yes: Calm Eyes: Yes: Conjunctiva Clear HENT: Yes: Atraumatic Neck: Yes: Supple Cardiovascular: Yes: S1, S2 Respiratory: Yes: CTA Bilaterally Gastrointestinal: Yes: Normal Bowel Sounds, Soft Genitourinary: Yes: WNL Musculoskeletal: Yes: Other (bone pain) Edema: Yes Edema: LLE: 1+, RLE: 1+ Neurological: Yes: Oriented Psychiatric: Yes: Oriented Labs: CBC, BMP 05/17/18 06:05 05/17/18 06:05 INR, PTT INR 1.03 (0.82-1.09) 05/08/18 06:00 Problem List - Problems (1) CKD (chronic kidney disease) Code(s): N18.9 - CHRONIC KIDNEY DISEASE, UNSPECIFIED (2) Anemia Code(s): D64.9 - ANEMIA, UNSPECIFIED Qualifiers: Anemia type: other cause Other causes of anemia: chronic disease, 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 (3) Breast CA Code(s): C50.919 - MALIGNANT NEOPLASM OF UNSP SITE OF UNSPECIFIED FEMALE BREAST Qualifiers: Estrogen receptor status: positive Patient sex: female Laterality: right Assessment/Plan Current Medications Generic Name Dose Route Start Last Admin Trade Name Freq PRN Reason Stop Dose Admin Acetaminophen 650 mg 05/13/18 11:47 05/16/18 14:06 Tylenol - PO 650 mg Q6H PRN Administration PAIN LEVEL 4 - 6 Carvedilol 3.125 mg 05/06/18 13:30 05/17/18 09:51 Coreg - PO 3.125 mg BID [facility] Administration Collagenase 1 applic 05/12/18 10:00 05/16/18 11:00 Santyl - TP 1 applic DAILY [facility] Administration Dexamethasone Sodium Phosphate 4 mg 05/16/18 22:00 05/17/18 09:51 Decadron Injection - IVPB 4 mg BID [facility] Administration Docusate Sodium 100 mg 05/12/18 10:00 05/17/18 09:51 Colace - PO 100 mg BID [facility] Administration Furosemide 40 mg 05/09/18 14:45 05/17/18 09:51 Lasix - PO 40 mg Q2D [facility] Administration Gabapentin 100 mg 05/13/18 22:00 05/17/18 09:51 Neurontin - PO 100 mg DAILY [facility] Administration Heparin Sodium (Porcine) 5,000 unit 05/09/18 22:00 05/17/18 09:51 Heparin - SQ 5,000 unit BID [facility] Administration Lisinopril 5 mg 05/12/18 10:00 05/17/18 09:52 Prinivil PO 5 mg DAILY [facility] Administration Morphine Sulfate 0.5 mg 05/13/18 11:00 05/17/18 09:52 Morphine Sulfate IM 0.5 mg Q6H PRN Administration PAIN LEVEL 7 - 10 Nystatin 500,000 units 05/15/18 00:00 05/17/18 05:32 Nystatin Oral Suspension - PO 500,000 units Q6HPO [facility] Administration Pantoprazole Sodium 40 mg 05/11/18 10:00 05/16/18 16:58 Protonix - PO 40 mg DAILY [facility] Administration Senna 2 tab 05/12/18 22:00 05/16/18 21:22 Senna - PO 2 tab HS [facility] Administration Tramadol HCl 50 mg 05/13/18 11:00 05/16/18 21:23 Ultram - PO 50 mg Q8H PRN Administration PAIN LEVEL 4 - 6 Impression 1. likely CKD 2. CHF 3. HTN 4. hx breast cancer 5. dyspnea 6. anemia 7. elevated d-dimer 8. metastatic disease 9. carcinoma 10. hyperkalemia Plan - pt received a dose of lasix, that should help waste potassium - stop lisinopril - increase dose of coreg - monitor bp - repeat labs in am - low potassium diet for now Dr Austin
[2018-05-17] MEDS ORDERED: SODIUM POLYSTYRENE SULFONATE 15 GM/60 ML BOTTLE ONE (12:28)
[2018-05-17] MEDS: traMADol HCL 50 MG TABLET PO PRN (12:32)
[2018-05-17] MEDS: PANTOPRAZOLE 40 MG TABLET (FP) PO SCH (12:32)
[2018-05-17] MEDS ORDERED: VANCOMYCIN 1 GM PREMIX - 1 GM/200 ML BAG IVPB SCH (13:15)
[2018-05-17] MEDS ORDERED: cefTRIAXone SODIUM 1 GM VIAL ONE (13:22)
[2018-05-17] MEDS ORDERED: DEXTROSE 5%-WATER - 50 ML IVPB ONE (13:22)
[2018-05-17] MEDS: CEFTRIAXONE 1 GM in DEXTROSE 5%-WATER - 50 ML IVPB SCH (13:39)
--- NOTE | 2018-05-17 14:56 | PN ---
Physical Exam: SUBJECTIVE: Patient seen and examined at the bedside. Feels better today, no pain. OBJECTIVE: +wound cultures with MRSA, started on vanco and ceftriaxone Vital Signs Period Temp Pulse Resp BP Sys/Beltre Pulse Ox Last 24 Hr 97.2 F-97.7 F 72-81 17-19 142-164/62-89 100-100 GENERAL: The patient is awake, alert, and fully oriented, in no acute distress. HEAD: Normal with no signs of trauma. EYES: PERRL, extraocular movements intact, sclera anicteric, conjunctiva clear. No ptosis. ENT: Ears normal, nares patent, oropharynx clear without exudates, moist mucous membranes. NECK: Trachea midline, full range of motion, supple. LUNGS: Breath sounds equal, clear to auscultation bilaterally HEART: Regular rate and rhythm ABDOMEN: Soft, nontender, nondistended, normoactive bowel sounds, no guarding EXTREMITIES: non pitting lower ext edema bilaterally NEUROLOGICAL: Normal speech, walks with gait, slow steady gait, fall risk PSYCH: Normal mood, normal affect. SKIN: stage 3 2cm x 1.5 cm x 0.5, on santyl Laboratory Results - last 24 hr 05/16/18 05/17/18 05/17/18 17:45 06:05 06:05 WBC 7.8 RBC 3.36 L Hgb 9.2 L Hct 28.3 L MCV 84.3 MCH 27.3 MCHC 32.4 RDW 18.6 H Plt Count 292 MPV 8.6 Absolute Neuts (auto) 6.8 Neutrophils % 87.2 H Lymphocytes % 4.3 L Monocytes % 8.1 Eosinophils % 0.1 D Basophils % 0.3 Nucleated RBC % 0 Sodium 139 Potassium 5.4 H Chloride 104 Carbon Dioxide 28 Anion Gap 7 L BUN 58 H Creatinine 1.1 H Creat Clearance w eGFR 47.21 Random Glucose 107 H Calcium 9.0 Magnesium 2.7 H Total Bilirubin 0.6 AST 21 ALT 49 Alkaline Phosphatase 173 H Total Protein 6.7 Albumin 3.2 L Urine Color Yellow Urine Appearance Clear Urine pH 6.0 Ur Specific [place] 1.023 Urine Protein Negative Urine Glucose (UA) Negative Urine Ketones Negative Urine Blood Negative Urine Nitrite Negative Urine Bilirubin Negative Urine Urobilinogen Negative Ur Leukocyte Esterase 2+ H Urine WBC (Auto) 7 Urine RBC (Auto) 6 Ur Epithelial Cells Rare Urine Bacteria Few Urine Mucus Rare Active Medications Generic Name Dose Route Start Last Admin Trade Name Yoni PRN Reason Stop Dose Admin Acetaminophen 650 mg 05/13/18 11:47 05/16/18 14:06 Tylenol - PO 650 mg Q6H PRN Administration PAIN LEVEL 4 - 6 Amino Acids 30 ml 05/17/18 17:30 Prosource No Carb Liquid Pkt PO BID@0800,1730 [facility] Carvedilol 6.25 mg 05/17/18 12:26 Coreg - PO BID [facility] Collagenase 1 applic 05/12/18 10:00 05/16/18 11:00 Santyl - TP 1 applic DAILY [facility] Administration Dexamethasone Sodium Phosphate 4 mg 05/16/18 22:00 05/17/18 09:51 Decadron Injection - IVPB 4 mg BID [facility] Administration Docusate Sodium 100 mg 05/12/18 10:00 05/17/18 09:51 Colace - PO 100 mg BID [facility] Administration Furosemide 40 mg 05/09/18 14:45 05/17/18 09:51 Lasix - PO 40 mg Q2D [facility] Administration Gabapentin 100 mg 05/13/18 22:00 05/17/18 09:51 Neurontin - PO 100 mg DAILY [facility] Administration Heparin Sodium (Porcine) 5,000 unit 05/09/18 22:00 05/17/18 09:51 Heparin - SQ 5,000 unit BID [facility] Administration Ceftriaxone Sodium 1 gm/ 50 mls @ 200 mls/hr 05/17/18 13:15 05/17/18 13:39 Dextrose IVPB 200 mls/hr DAILY [facility] Administration Protocol Vancomycin HCl 1 gm in 200 mls @ 200 mls/hr 05/17/18 13:15 Vancomycin 1 Gm Premix - IVPB Q24H [facility] Protocol Morphine Sulfate 0.5 mg 05/17/18 13:19 Morphine Sulfate IVPUSH Q6H PRN PAIN LEVEL 7 - 10 Nystatin 500,000 units 05/15/18 00:00 05/17/18 12:33 Nystatin Oral Suspension - PO 500,000 units Q6HPO [facility] Administration Pantoprazole Sodium 40 mg 05/11/18 10:00 05/17/18 12:32 Protonix - PO 40 mg DAILY [facility] Administration Senna 2 tab 05/12/18 22:00 05/16/18 21:22 Senna - PO 2 tab HS [facility] Administration Tramadol HCl 50 mg 05/13/18 11:00 05/17/18 12:32 Ultram - PO 50 mg Q8H PRN Administration PAIN LEVEL 4 - 6 ASSESSMENT/PLAN: Patient is an 87 year old female with a significant past medical history of right breast cancer with lumpectomy with bone mets, diastolic heart failure with severe valvular disease. She presents to the ED on 05/01/2018 with chest pain, acute on chronic CHF. 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 Elevated tumor markes. 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 On Dexamethasone 4mg q8. Started on Anastrazole. Heme/Onc following. Pain managed with ultram and morphine. Patient has received 5/10 sessions of radiation therapy. Iron-deficiency anemia: CBC low stable @ 08/09. Monitor CBC. s/p 1 unit of prbc 05/04 Anemia, s/p prbcs: CBC in a.m. ID: + mrsa in sacral wound, stage 3 in the setting of immunocompromised patient. Started on Vanco and Ceftriaxone per ID. Card: Chest pain, elevated D dimer Chest pain resolved, Seen and evaluated by cardiology, not ACS. Troponins negative. Echo reviewed. Elevated D dimer: Likely not PE as per pulmonary, pt was initially considered for a VQ scan. Diastolic heart failure with severe valvular disease: On Coreq BID, Lasix q48 hours. Monitor intake and output. Renal: CKD, creat stable, Bun elevated: renal following, notes reviewed. On lasix q 48 hours. Monitor hyperkalemia: given lasix and kayexalate, seen by renal. Repeat potassium. fen Tolerating PO monitor electrolytes low salt Prophy: heparin full code Visit type - Emergency Visit Emergency Visit: Yes ED Registration Date: 05/01/18 Care time: The patient presented to the Emergency Department on the above date and was hospitalized for further evaluation of their emergent condition. - New Patient This patient is new to me today: No - Critical Care Critical Care patient: No - Discharge Referral Referred to [facility] Med P.C.: No
[2018-05-17] MEDS: COLLAGENASE CLOSTRIDIUM HIST. 30 GRAMS TUBE TP SCH (15:02)
[2018-05-17] MEDS: MORPHINE SULFATE 2 MG/ML VIAL IVPUSH PRN ×2 (16:16→21:54)
[2018-05-17] MEDS: AMINO ACIDS/PROTEIN HYDROLYS 30 ML LIQUID.PKT PO SCH (16:47)
[2018-05-17] MEDS: CARVEDILOL 6.25 MG TABLET (FP) PO SCH (21:54)
[2018-05-17] MEDS: SENNOSIDES 8.6MG TABLET (FP) PO SCH (21:54)
--- NOTE | 2018-05-17 23:24 | PN ---
Progress Note (short form) - Note Progress Note: Patient seen and examined left lower rib cage pain Last Vital Signs Temp Pulse Resp BP Pulse Ox 98.7 F 67 20 156/74 100 05/18/18 05:52 05/18/18 05:52 05/18/18 05:52 05/18/18 05:52 05/17/18 22:00 Cor: RSR, No murmurs, No gallops Lungs: Clear to P&A Abd: Soft, Normal bowel sounds, No organomegaly Ext:No significant edema Breast exam. Rt. lumpectomy scar/RT changes no discrete masses/adenopathy Abnormal Lab Results 05/17/18 05/17/18 06:05 06:05 RBC 3.36 L Hgb 9.2 L Hct 28.3 L RDW 18.6 H Neutrophils % 87.2 H Lymphocytes % 4.3 L Potassium 5.4 H Anion Gap 7 L BUN 58 H Creatinine 1.1 H Random Glucose 107 H Magnesium 2.7 H Alkaline Phosphatase 173 H Albumin 3.2 L Active Medications Generic Name Dose Route Start Last Admin Trade Name Freq PRN Reason Stop Dose Admin Acetaminophen 650 mg 05/13/18 11:47 05/16/18 14:06 Tylenol - PO 650 mg Q6H PRN Administration PAIN LEVEL 4 - 6 Amino Acids 30 ml 05/17/18 17:30 05/17/18 16:47 Prosource No Carb Liquid Pkt PO 30 ml BID@0800,1730 [facility] Administration Carvedilol 6.25 mg 05/17/18 12:26 05/17/18 21:54 Coreg - PO 6.25 mg BID [facility] Administration Collagenase 1 applic 05/12/18 10:00 05/17/18 15:02 Santyl - TP 1 500s DAILY [facility] Administration Dexamethasone Sodium Phosphate 4 mg 05/16/18 22:00 05/17/18 21:54 Decadron Injection - IVPB 4 mg BID [facility] Administration Docusate Sodium 100 mg 05/12/18 10:00 05/17/18 21:54 Colace - PO 100 mg BID [facility] Administration Furosemide 40 mg 05/09/18 14:45 05/17/18 09:51 Lasix - PO 40 mg Q2D [facility] Administration Gabapentin 100 mg 05/13/18 22:00 05/17/18 09:51 Neurontin - PO 100 mg DAILY [facility] Administration Heparin Sodium (Porcine) 5,000 unit 05/09/18 22:00 05/17/18 22:01 Heparin - SQ 5,000 unit BID [facility] Administration Ceftriaxone Sodium 1 gm/ 50 mls @ 200 mls/hr 05/17/18 13:15 05/17/18 13:39 Dextrose IVPB 200 mls/hr DAILY [facility] Administration Protocol Vancomycin HCl 1 gm in 200 mls @ 200 mls/hr 05/17/18 13:15 05/17/18 15:02 Vancomycin 1 Gm Premix - IVPB 200 mls/hr Q24H [facility] Administration Protocol Morphine Sulfate 0.5 mg 05/17/18 13:19 05/17/18 21:54 Morphine Sulfate IVPUSH 0.5 mg Q6H PRN Administration PAIN LEVEL 7 - 10 Nystatin 500,000 units 05/15/18 00:00 05/18/18 05:56 Nystatin Oral Suspension - PO 500,000 units Q6HPO [facility] Administration Pantoprazole Sodium 40 mg 05/11/18 10:00 05/17/18 12:32 Protonix - PO 40 mg DAILY [facility] Administration Senna 2 tab 05/12/18 22:00 05/17/18 21:54 Senna - PO 2 tab HS [facility] Administration Tramadol HCl 50 mg 05/13/18 11:00 05/17/18 12:32 Ultram - PO 50 mg Q8H PRN Administration PAIN LEVEL 4 - 6 A/P 87 y/o patient extensive lytic skeletal disease, rt. humeral fx, vertebral fractures h/o breast cancer 40 yrs. ago,s/p rt. lumpectomy/RT,tamoxifen Biopsy consistent with breast primary -- ER+/AZ+ Will add Her2 testing will start arimidex after RT will dose zometa after RT pain control on vancomycin/rocephin for sacral decub/ UTI, per ID
[2018-05-18] MEDS: NYSTATIN 500,000 UNITS/5 ML SUSPENSION PO SCH ×4 (05:56→23:41)
[2018-05-18] MEDS: AMINO ACIDS/PROTEIN HYDROLYS 30 ML LIQUID.PKT PO SCH ×2 (08:10→17:27)
--- NOTE | 2018-05-18 08:14 | PN ---
Progress Note (short form) - Note Progress Note: pain in the left rib cage persists. Palliative RT to the left rib cage begun yesterday. Will continue for 4 more fractions, one today and three next week, which can be done as an outpatient if patient is discharged Problem List - Problems (1) Breast CA Code(s): C50.919 - MALIGNANT NEOPLASM OF UNSP SITE OF UNSPECIFIED FEMALE BREAST Qualifiers: Estrogen receptor status: positive Patient sex: female Laterality: right
[2018-05-18] MEDS ORDERED: cefTRIAXone SODIUM 1 GM VIAL ONE (09:03)
[2018-05-18] MEDS ORDERED: DEXTROSE 5%-WATER - 50 ML IVPB ONE (09:03)
[2018-05-18] MEDS: CEFTRIAXONE 1 GM in DEXTROSE 5%-WATER - 50 ML IVPB SCH (09:10)
[2018-05-18] MEDS: DEXAMETHASONE SOD PHOSPHATE 4 MG/1 ML VIAL IVPB SCH (09:10)
[2018-05-18] MEDS: HEPARIN NA (PORCINE) 5,000 UNITS/ML 1ML VIAL SQ SCH ×2 (09:11→21:51)
[2018-05-18] MEDS: GABAPENTIN 100 MG CAPSULE (FP) PO SCH (09:11)
[2018-05-18] MEDS: PANTOPRAZOLE 40 MG TABLET (FP) PO SCH (09:11)
[2018-05-18] MEDS: DOCUSATE SODIUM 100 MG CAPSULE (FP) PO SCH ×2 (09:11→21:50)
[2018-05-18] MEDS: CARVEDILOL 6.25 MG TABLET (FP) PO SCH ×2 (09:16→21:50)
[2018-05-18] MEDS: COLLAGENASE CLOSTRIDIUM HIST. 30 GRAMS TUBE TP SCH (09:18)
--- NOTE | 2018-05-18 11:08 | PN ---
Progress Note, Physician History of Present Illness: patient doing well had radiation done no complaints weakness wound looked at the gluteal region which is clean surrounding area looks good - Current Medication List Current Medications: Active Medications Acetaminophen (Tylenol -) 650 mg PO Q6H PRN PRN Reason: PAIN LEVEL 4 - 6 Last Admin: 05/16/18 14:06 Dose: 650 mg Amino Acids (Prosource No Carb Liquid Pkt) 30 ml PO BID@0800,1730 [facility] Last Admin: 05/18/18 08:10 Dose: 30 ml Carvedilol (Coreg -) 6.25 mg PO BID [facility] Last Admin: 05/18/18 09:16 Dose: 6.25 mg Collagenase (Santyl -) 1 applic TP DAILY [facility] Last Admin: 05/18/18 09:18 Dose: 1 applic Dexamethasone Sodium Phosphate (Decadron Injection -) 4 mg IVPB BID [facility] Last Admin: 05/18/18 09:10 Dose: 4 mg Docusate Sodium (Colace -) 100 mg PO BID [facility] Last Admin: 05/18/18 09:11 Dose: 100 mg Furosemide (Lasix -) 40 mg PO Q2D [facility] Last Admin: 05/17/18 09:51 Dose: 40 mg Gabapentin (Neurontin -) 100 mg PO DAILY [facility] Last Admin: 05/18/18 09:11 Dose: 100 mg Heparin Sodium (Porcine) (Heparin -) 5,000 unit SQ BID [facility] Last Admin: 05/18/18 09:11 Dose: 5,000 unit Ceftriaxone Sodium 1 gm/ (Dextrose) 50 mls @ 200 mls/hr IVPB DAILY [facility]; Protocol Last Admin: 05/18/18 09:10 Dose: 200 mls/hr Vancomycin HCl (Vancomycin 1 Gm Premix -) 1 gm in 200 mls @ 200 mls/hr IVPB Q24H [facility]; Protocol Last Admin: 05/17/18 15:02 Dose: 200 mls/hr Morphine Sulfate (Morphine Sulfate) 0.5 mg IVPUSH Q6H PRN PRN Reason: PAIN LEVEL 7 - 10 Last Admin: 05/17/18 21:54 Dose: 0.5 mg Nystatin (Nystatin Oral Suspension -) 500,000 units PO Q6HPO [facility] Last Admin: 05/18/18 05:56 Dose: 500,000 units Pantoprazole Sodium (Protonix -) 40 mg PO DAILY [facility] Last Admin: 05/18/18 09:11 Dose: 40 mg Senna (Senna -) 2 tab PO HS [facility] Last Admin: 05/17/18 21:54 Dose: 2 tab Tramadol HCl (Ultram -) 50 mg PO Q8H PRN PRN Reason: PAIN LEVEL 4 - 6 Last Admin: 05/17/18 12:32 Dose: 50 mg - Objective Vital Signs: Vital Signs Temperature 98.7 F 05/18/18 05:52 Pulse Rate 67 05/18/18 05:52 Respiratory Rate 20 05/18/18 05:52 Blood Pressure 156/74 05/18/18 05:52 O2 Sat by Pulse Oximetry (%) 100 05/17/18 22:00 Constitutional: Yes: No Distress, Calm Cardiovascular: Yes: Regular Rate and Rhythm Respiratory: Yes: Regular, CTA Bilaterally Gastrointestinal: Yes: Normal Bowel Sounds, Soft Musculoskeletal: Yes: WNL Extremities: Yes: WNL Wound/Incision: Yes: Other (clean) Psychiatric: Yes: Alert, Oriented Labs: CBC, BMP 05/17/18 06:05 05/17/18 16:30 INR, PTT INR 1.03 (0.82-1.09) 05/08/18 06:00 Assessment/Plan Problem List - Problems (1) CKD (chronic kidney disease) Code(s): N18.9 - CHRONIC KIDNEY DISEASE, UNSPECIFIED (2) Anemia Code(s): D64.9 - ANEMIA, UNSPECIFIED Qualifiers: Anemia type: other cause Other causes of anemia: chronic disease, 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 (3) Breast CA Code(s): C50.919 - MALIGNANT NEOPLASM OF UNSP SITE OF UNSPECIFIED FEMALE BREAST Qualifiers: Estrogen receptor status: positive Patient sex: female Laterality: right wound infection mrsa plan will switch abx to oral will start patient on doxy and augmentin wound care
[2018-05-18] MEDS: MORPHINE SULFATE 2 MG/ML VIAL IVPUSH PRN (13:26)
--- NOTE | 2018-05-18 13:58 | PN ---
Progress Note, Physician Chief Complaint: episode of bradycardia and hypotension History of Present Illness: Patient is an 87 year old woman with history of right breast cancer s/p surgery and radiotherapy here with upper abdominal pain 2 days. States sensation present whether at rest or on exertion. No shortness of breath, diaphoresis, nausea, vomiting or palpitations. No history of similar symptoms in the past. While in the ED, patient noted to have bilateral lower extremity edema, which patient states she did not notice until she was made aware when she got here. No leg pain, cough, f/c. Also c/o painful sore to R buttocks "for some time". 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 and admits she has not seen a doctor in many years - Current Medication List Current Medications: Active Medications Acetaminophen (Tylenol -) 650 mg PO Q6H PRN PRN Reason: PAIN LEVEL 4 - 6 Last Admin: 05/16/18 14:06 Dose: 650 mg Amino Acids (Prosource No Carb Liquid Pkt) 30 ml PO BID@0800,1730 [facility] Last Admin: 05/18/18 08:10 Dose: 30 ml Amoxicillin/Clavulanate Potassium (Augmentin - 500mg Tablet) 1 tab PO BID@0800, 1730 [facility] Carvedilol (Coreg -) 6.25 mg PO BID [facility] Last Admin: 05/18/18 09:16 Dose: 6.25 mg Collagenase (Santyl -) 1 applic TP DAILY [facility] Last Admin: 05/18/18 09:18 Dose: 1 applic Dexamethasone Sodium Phosphate (Decadron Injection -) 4 mg IVPB BID [facility] Last Admin: 05/18/18 09:10 Dose: 4 mg Docusate Sodium (Colace -) 100 mg PO BID [facility] Last Admin: 05/18/18 09:11 Dose: 100 mg Doxycycline Hyclate (Vibramycin -) 100 mg PO BID@1000,1800 [facility] Furosemide (Lasix -) 40 mg PO Q2D [facility] Last Admin: 05/17/18 09:51 Dose: 40 mg Gabapentin (Neurontin -) 100 mg PO DAILY [facility] Last Admin: 05/18/18 09:11 Dose: 100 mg Heparin Sodium (Porcine) (Heparin -) 5,000 unit SQ BID [facility] Last Admin: 05/18/18 09:11 Dose: 5,000 unit Morphine Sulfate (Morphine Sulfate) 0.5 mg IVPUSH Q6H PRN PRN Reason: PAIN LEVEL 7 - 10 Last Admin: 05/18/18 13:26 Dose: 0.5 mg Nystatin (Nystatin Oral Suspension -) 500,000 units PO Q6HPO [facility] Last Admin: 05/18/18 13:26 Dose: 500,000 units Pantoprazole Sodium (Protonix -) 40 mg PO DAILY [facility] Last Admin: 05/18/18 09:11 Dose: 40 mg Senna (Senna -) 2 tab PO HS [facility] Last Admin: 05/17/18 21:54 Dose: 2 tab Tramadol HCl (Ultram -) 50 mg PO Q8H PRN PRN Reason: PAIN LEVEL 4 - 6 Last Admin: 05/17/18 12:32 Dose: 50 mg - Objective Vital Signs: Vital Signs Temperature 98 F 05/18/18 13:11 Pulse Rate 77 05/18/18 13:11 Respiratory Rate 20 05/18/18 13:11 Blood Pressure 155/73 05/18/18 13:11 O2 Sat by Pulse Oximetry (%) 100 05/18/18 09:00 Eyes: Yes: WNL, Conjunctiva Clear, EOM Intact HENT: Yes: WNL, Atraumatic, Normocephalic Neck: Yes: WNL, Supple, Trachea Midline Cardiovascular: Yes: Pulse Irregular, S1, S2 Respiratory: Yes: WNL, Regular, CTA Bilaterally Gastrointestinal: Yes: WNL, Normal Bowel Sounds Genitourinary: Yes: WNL Musculoskeletal: Yes: WNL Extremities: Yes: WNL Edema: No Integumentary: Yes: WNL Neurological: Yes: WNL, Alert, Oriented ...Motor Strength: WNL Psychiatric: Yes: WNL Labs: CBC, BMP 05/17/18 06:05 05/17/18 16:30 INR, PTT INR 1.03 (0.82-1.09) 05/08/18 06:00 Problem List - Problems (1) Fracture, humerus Code(s): S42.309A - UNSP FRACTURE OF SHAFT OF HUMERUS, UNSP ARM, INIT Qualifiers: Encounter type: initial encounter Humerus Location: proximal Fracture type: closed Fracture morphology: unspecified fracture morphology Laterality : right Qualified Code(s): S42.201A - Unspecified fracture of upper end of right humerus, initial encounter for closed fracture Assessment/Plan - Problems (1) Breast CA Assessment/Plan: breast CA with metastases. Chronic "pain in the ribs". CT chest: extensive bone metastases; pathologic fractures throughout the spine. Pain management: discontinued Tylenol due to rising LFTs (which have returned to normal). On oxycodone On radiation therapy. Code(s): C50.919 - MALIGNANT NEOPLASM OF UNSP SITE OF UNSPECIFIED FEMALE BREAST Qualifiers: Estrogen receptor status: positive Patient sex: female Laterality: right (2) Anemia Assessment/Plan: Hb 9.0 today; f/u with hem/onc. 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 Not in acute distress (respiratory-verdin). On ACEI. Now on furosemide again (every other day). F/u BUN/Cr, electrolytes, Is and Os, and daily weight/ Code(s): I50.30 - UNSPECIFIED DIASTOLIC (CONGESTIVE) HEART FAILURE (4) HTN (hypertension) Assessment/Plan: On lisinopril, carvedilol, and furosemide. Adjust doses as needed (BP slightly higher lately). Code(s): I10 - ESSENTIAL (PRIMARY) HYPERTENSION
[2018-05-18 14:17] LABS: BASO % 0.2 % (0-2.0); EOS % 0.1 % (0-4.5); HEMATOCRIT 29.8 % (32.4-45.2); HEMOGLOBIN 9.6 GM/dL (10.7-15.3); MCH 27.2 pg (25.7-33.7); MCHC 32.1 g/dl (32.0-36.0); MEAN CELL VOLUME 84.8 fl (80-96); MEAN PLT VOLUME 8.4 fl (7.5-11.1); MONO % 4.2 % (3.8-10.2); NEUT % 93.5 % (42.8-82.8); PLATELET COUNT 350 K/MM3 (134-434); RBC 3.51 M/mm3 (3.60-5.2); RDW 18.4 % (11.6-15.6); WHITE BLOOD COUNT 8.5 K/mm3 (4.0-10.0)
[2018-05-18 14:39] LABS: ALBUMIN 3.1 g/dl (3.4-5.0); BILIRUBIN,TOTAL 0.4 mg/dL (0.2-1.0); BLOOD UREA NITROGEN 59 mg/dL (7-18); CALCIUM 8.8 mg/dL (8.5-10.1); CO2 25 mmol/L (21-32); GLUCOSE,RANDOM 174 mg/dL (74-106)
[2018-05-18 14:40] LABS: ALK PHOS 156 U/L (45-117); CREATININE 1.1 mg/dL (0.55-1.02); SGOT/AST 19 U/L (15-37); SGPT/ALT 41 U/L (12-78); TOT PROT 6.5 g/dl (6.4-8.2)
--- NOTE | 2018-05-18 14:49 | PN ---
Physical Exam: SUBJECTIVE: Patient seen and examined at the bedside. No chest pain, not short of breath. More comfortable with the current pain regimen. OBJECTIVE: Likely discharge tomorrow to [facility] Dr. Hoffman to follow outpatient and advised for patient to be started on Anastrazole prior to discharge. Advised to convert dexamethasone IV to Decadron 4mg PO BID throughout radiation and taper off dose slowly over 10 days once RT is complete. Patient to continue Augmentin and Doxycycline as ordered for a total of [address] Quinones (mrsa in wound) Patient's son informed and aware of likely discharge tomorrow. Vital Signs Period Temp Pulse Resp BP Sys/Beltre Pulse Ox Last 24 Hr 98 F-99.5 F 67-88 18-20 140-192/69-93 100-100 GENERAL: The patient is awake, alert, and fully oriented, in no acute distress. HEAD: Normal with no signs of trauma. EYES: PERRL, extraocular movements intact, sclera anicteric, conjunctiva clear. No ptosis. ENT: Ears normal, nares patent, oropharynx clear without exudates, moist mucous membranes. NECK: Trachea midline, full range of motion, supple. LUNGS: Breath sounds equal, clear to auscultation bilaterally HEART: Regular rate and rhythm ABDOMEN: Soft, nontender, nondistended, normoactive bowel sounds, no guarding EXTREMITIES: non pitting lower ext edema bilaterally NEUROLOGICAL: Normal speech, walks with gait, slow steady gait, fall risk PSYCH: Normal mood, normal affect. SKIN: stage 3 2cm x 1.5 cm x 0.5, on santyl Laboratory Results - last 24 hr 05/17/18 05/18/18 05/18/18 16:30 13:34 13:34 WBC 8.5 RBC 3.51 L Hgb 9.6 L Hct 29.8 L MCV 84.8 MCH 27.2 MCHC 32.1 RDW 18.4 H Plt Count 350 MPV 8.4 Absolute Neuts (auto) 7.9 Neutrophils % 93.5 H Lymphocytes % 2.0 L D Monocytes % 4.2 Eosinophils % 0.1 Basophils % 0.2 Nucleated RBC % 0 Potassium 4.7 Carbon Dioxide 25 BUN 59 H Creatinine 1.1 H Creat Clearance w eGFR 47.21 Random Glucose 174 H Calcium 8.8 Magnesium Total Bilirubin 0.4 AST 19 ALT 41 Alkaline Phosphatase 156 H D Total Protein 6.5 Albumin 3.1 L 05/18/18 13:34 WBC RBC Hgb Hct MCV MCH MCHC RDW Plt Count MPV Absolute Neuts (auto) Neutrophils % Lymphocytes % Monocytes % Eosinophils % Basophils % Nucleated RBC % Potassium Carbon Dioxide BUN Creatinine Creat Clearance w eGFR Random Glucose Calcium Magnesium 2.4 Total Bilirubin AST ALT Alkaline Phosphatase Total Protein Albumin Active Medications Generic Name Dose Route Start Last Admin Trade Name Freq PRN Reason Stop Dose Admin Acetaminophen 650 mg 05/13/18 11:47 05/16/18 14:06 Tylenol - PO 650 mg Q6H PRN Administration PAIN LEVEL 4 - 6 Amino Acids 30 ml 05/17/18 17:30 05/18/18 08:10 Prosource No Carb Liquid Pkt PO 30 ml BID@0800,1730 [facility] Administration Amoxicillin/Clavulanate Potassium 1 tab 05/18/18 17:30 Augmentin - 500mg Tablet PO BID@0800,1730 [facility] Carvedilol 6.25 mg 05/17/18 12:26 05/18/18 09:16 Coreg - PO 6.25 mg BID [facility] Administration Collagenase 1 applic 05/12/18 10:00 05/18/18 09:18 Santyl - TP 1 applic DAILY [facility] Administration Dexamethasone Sodium Phosphate 4 mg 05/16/18 22:00 05/18/18 09:10 Decadron Injection - IVPB 4 mg BID [facility] Administration Docusate Sodium 100 mg 05/12/18 10:00 05/18/18 09:11 Colace - PO 100 mg BID [facility] Administration Doxycycline Hyclate 100 mg 05/18/18 18:00 Vibramycin - PO BID@1000,1800 [facility] Furosemide 40 mg 05/09/18 14:45 05/17/18 09:51 Lasix - PO 40 mg Q2D [facility] Administration Gabapentin 100 mg 05/13/18 22:00 05/18/18 09:11 Neurontin - PO 100 mg DAILY [facility] Administration Heparin Sodium (Porcine) 5,000 unit 05/09/18 22:00 05/18/18 09:11 Heparin - SQ 5,000 unit BID [facility] Administration Morphine Sulfate 0.5 mg 05/17/18 13:19 05/18/18 13:26 Morphine Sulfate IVPUSH 0.5 mg Q6H PRN Administration PAIN LEVEL 7 - 10 Nystatin 500,000 units 05/15/18 00:00 05/18/18 13:26 Nystatin Oral Suspension - PO 500,000 units Q6HPO [facility] Administration Pantoprazole Sodium 40 mg 05/11/18 10:00 05/18/18 09:11 Protonix - PO 40 mg DAILY [facility] Administration Senna 2 tab 05/12/18 22:00 05/17/18 21:54 Senna - PO 2 tab HS [facility] Administration Tramadol HCl 50 mg 05/13/18 11:00 05/17/18 12:32 Ultram - PO 50 mg Q8H PRN Administration PAIN LEVEL 4 - 6 ASSESSMENT/PLAN: Patient is an 87 year old female with a significant past medical history of right breast cancer with lumpectomy with bone mets, diastolic heart failure with severe valvular disease. She presents to the ED on 05/01/2018 with chest pain, acute on chronic CHF. Imaging: Chest CT 05/04/2018: extensive skeletal metastatic disease including multiple vertebral bodies. Several of these show posterior cortical destruction. Lumbar spine CT: L1-L2 osteolytic lesions are noted in L1. vertebral bodies with compression pathological fracture. Mild retropulsion of the posterior cortex of L1. Thoracic spine CTT9-10 epidural disease /cord compression on CT Humerus xray: proximal humerus fracture. Hematology/Oncology: Breast cancer with osteolytic mets: Found to have cord compression at t9, epidural and thecal sac compession in lumbar spine. Elevated tumor markers. 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 On Dexamethasone 4mg BID. Started on Anastrazole today. Pain managed with ultram and morphine. Patient has received a total of 6/10 sessions of radiation therapy. Once radiation complete patient can be tapered off decadron 4mg over a course of 10 days as per Oncology. Iron-deficiency anemia: CBC low stable. Monitor CBC. s/p 1 unit of prbc 05/04 Anemia, s/p prbcs: cbc stable ID: + mrsa in stage 3 sacral wound in the setting of immunocompromised patient. IV antibiotics d/c now on Augmentin and Doxycycline to continue for 14 days per ID. Diastolic heart failure with severe valvular disease: On Coreq BID, Lasix q48 hours. Monitor intake and output. Ortho: Humerus xray: proximal humerus fracture. As per ortho, no restrictions. can follow up outpatient. Renal: CKD, creat stable, Bun elevated: renal following, notes reviewed. On lasix q 48 hours. Monitor fen Tolerating PO monitor electrolytes low salt Prophy: heparin full code Disposition: Patient for discharge [facility] tomorrow at [facility]. Patient to continue 4 more doses of RT and follow up outpatient with Dr. Hoffman. Visit type - Emergency Visit Emergency Visit: Yes ED Registration Date: 05/01/18 Care time: The patient presented to the Emergency Department on the above date and was hospitalized for further evaluation of their emergent condition. - New Patient This patient is new to me today: No - Critical Care Critical Care patient: No - Discharge Referral Referred to [facility] Med P.C.: No
[2018-05-18 14:57] LABS: ANION GAP 11 (8-16); CHLORIDE 104 mmol/L (98-107); POTASSIUM 4.3 mmol/L (3.5-5.1); SODIUM 140 mmol/L (136-145)
--- NOTE | 2018-05-18 16:05 | PN ---
Progress Note, Physician History of Present Illness: Pt seen and examined at bedside. She feels that her appetite has improved. She denies shortness of breath. - Current Medication List Current Medications: Active Medications Acetaminophen (Tylenol -) 650 mg PO Q6H PRN PRN Reason: PAIN LEVEL 4 - 6 Last Admin: 05/16/18 14:06 Dose: 650 mg Amino Acids (Prosource No Carb Liquid Pkt) 30 ml PO BID@0800,1730 [facility] Last Admin: 05/18/18 08:10 Dose: 30 ml Amoxicillin/Clavulanate Potassium (Augmentin - 500mg Tablet) 1 tab PO BID@0800, 1730 [facility] Anastrozole (Arimidex -) 1 mg PO DAILY [facility] Carvedilol (Coreg -) 6.25 mg PO BID [facility] Last Admin: 05/18/18 09:16 Dose: 6.25 mg Collagenase (Santyl -) 1 applic TP DAILY [facility] Last Admin: 05/18/18 09:18 Dose: 1 applic Dexamethasone (Decadron -) 4 mg PO BID [facility] Docusate Sodium (Colace -) 100 mg PO BID [facility] Last Admin: 05/18/18 09:11 Dose: 100 mg Doxycycline Hyclate (Vibramycin -) 100 mg PO BID@1000,1800 [facility] Furosemide (Lasix -) 40 mg PO Q2D [facility] Last Admin: 05/17/18 09:51 Dose: 40 mg Gabapentin (Neurontin -) 100 mg PO DAILY [facility] Last Admin: 05/18/18 09:11 Dose: 100 mg Heparin Sodium (Porcine) (Heparin -) 5,000 unit SQ BID [facility] Last Admin: 05/18/18 09:11 Dose: 5,000 unit Morphine Sulfate (Morphine Sulfate) 0.5 mg IVPUSH Q6H PRN PRN Reason: PAIN LEVEL 7 - 10 Last Admin: 05/18/18 13:26 Dose: 0.5 mg Nystatin (Nystatin Oral Suspension -) 500,000 units PO Q6HPO [facility] Last Admin: 05/18/18 13:26 Dose: 500,000 units Pantoprazole Sodium (Protonix -) 40 mg PO DAILY [facility] Last Admin: 05/18/18 09:11 Dose: 40 mg Senna (Senna -) 2 tab PO HS [facility] Last Admin: 05/17/18 21:54 Dose: 2 tab Tramadol HCl (Ultram -) 50 mg PO Q8H PRN PRN Reason: PAIN LEVEL 4 - 6 Last Admin: 05/17/18 12:32 Dose: 50 mg - Objective Vital Signs: Vital Signs Temperature 98.2 F 05/18/18 14:21 Pulse Rate 82 05/18/18 14:21 Respiratory Rate 20 05/18/18 14:21 Blood Pressure 148/69 05/18/18 14:21 O2 Sat by Pulse Oximetry (%) 100 05/18/18 09:00 Constitutional: Yes: Calm Eyes: Yes: Conjunctiva Clear HENT: Yes: Atraumatic Neck: Yes: Supple Cardiovascular: Yes: S1, S2 Respiratory: Yes: CTA Bilaterally Gastrointestinal: Yes: Soft Genitourinary: Yes: WNL Musculoskeletal: Yes: WNL Edema: Yes Edema: LLE: Trace, RLE: Trace Neurological: Yes: Oriented Labs: CBC, BMP 05/18/18 13:34 05/18/18 13:34 INR, PTT INR 1.03 (0.82-1.09) 05/08/18 06:00 Problem List - Problems (1) CKD (chronic kidney disease) Code(s): N18.9 - CHRONIC KIDNEY DISEASE, UNSPECIFIED (2) Anemia Code(s): D64.9 - ANEMIA, UNSPECIFIED Qualifiers: Anemia type: other cause Other causes of anemia: chronic disease, 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 (3) Breast CA Code(s): C50.919 - MALIGNANT NEOPLASM OF UNSP SITE OF UNSPECIFIED FEMALE BREAST Qualifiers: Estrogen receptor status: positive Patient sex: female Laterality: right Assessment/Plan Current Medications Generic Name Dose Route Start Last Admin Trade Name Freq PRN Reason Stop Dose Admin Acetaminophen 650 mg 05/13/18 11:47 05/16/18 14:06 Tylenol - PO 650 mg Q6H PRN Administration PAIN LEVEL 4 - 6 Amino Acids 30 ml 05/17/18 17:30 05/18/18 08:10 Prosource No Carb Liquid Pkt PO 30 ml BID@0800,1730 [facility] Administration Amoxicillin/Clavulanate Potassium 1 tab 05/18/18 17:30 Augmentin - 500mg Tablet PO BID@0800,1730 [facility] Anastrozole 1 mg 05/18/18 15:15 Arimidex - PO DAILY [facility] Carvedilol 6.25 mg 05/17/18 12:26 05/18/18 09:16 Coreg - PO 6.25 mg BID [facility] Administration Collagenase 1 applic 05/12/18 10:00 05/18/18 09:18 Santyl - TP 1 applic DAILY [facility] Administration Dexamethasone 4 mg 05/18/18 22:00 Decadron - PO BID [facility] Docusate Sodium 100 mg 05/12/18 10:00 05/18/18 09:11 Colace - PO 100 mg BID [facility] Administration Doxycycline Hyclate 100 mg 05/18/18 18:00 Vibramycin - PO BID@1000,1800 [facility] Furosemide 40 mg 05/09/18 14:45 05/17/18 09:51 Lasix - PO 40 mg Q2D [facility] Administration Gabapentin 100 mg 05/13/18 22:00 05/18/18 09:11 Neurontin - PO 100 mg DAILY [facility] Administration Heparin Sodium (Porcine) 5,000 unit 05/09/18 22:00 05/18/18 09:11 Heparin - SQ 5,000 unit BID [facility] Administration Morphine Sulfate 0.5 mg 05/17/18 13:19 05/18/18 13:26 Morphine Sulfate IVPUSH 0.5 mg Q6H PRN Administration PAIN LEVEL 7 - 10 Nystatin 500,000 units 05/15/18 00:00 05/18/18 13:26 Nystatin Oral Suspension - PO 500,000 units Q6HPO [facility] Administration Pantoprazole Sodium 40 mg 05/11/18 10:00 05/18/18 09:11 Protonix - PO 40 mg DAILY [facility] Administration Senna 2 tab 05/12/18 22:00 05/17/18 21:54 Senna - PO 2 tab HS [facility] Administration Tramadol HCl 50 mg 05/13/18 11:00 05/17/18 12:32 Ultram - PO 50 mg Q8H PRN Administration PAIN LEVEL 4 - 6 Impression 1. likely CKD 2. CHF 3. HTN 4. hx breast cancer 5. dyspnea 6. anemia 7. elevated d-dimer 8. metastatic disease 9. carcinoma 10. hyperkalemia Plan - can increase dose of coreg further - potassium improved - kanu stopped secondary to hyperkalemia - will follow Dr Austin
[2018-05-18 16:50] LABS: PLATELET ESTIMATE ADEQUATE
[2018-05-18] MEDS: DOXYCYCLINE HYCLATE 100 MG CAPSULE PO SCH (17:27)
[2018-05-18] MEDS: AMOX TR/POT CLAV 500MG/125MG TABLETS (FP) PO SCH (17:27)
[2018-05-18] MEDS: ANASTROZOLE 1 MG TABLET PO SCH (17:28)
--- NOTE | 2018-05-18 18:38 | PN ---
Progress Note (short form) - Note Progress Note: Patient seen and examined left lower rib cage pain with tenderness to palpation ambulating with cane Last Vital Signs Temp Pulse Resp BP Pulse Ox 98.2 F 82 20 148/69 100 05/18/18 14:21 05/18/18 14:21 05/18/18 14:21 05/18/18 14:21 05/18/18 09:00 Cor: RSR, No murmurs, No gallops Lungs: Clear to P&A Abd: Soft, Normal bowel sounds, No organomegaly Ext:2+ edema Breast exam. Rt. lumpectomy scar/RT changes no discrete masses/adenopathy Tenderness to palpation left lateral ribcage at the posterior aspect of mammary fold Abnormal Lab Results 05/18/18 05/18/18 13:34 13:34 RBC 3.51 L Hgb 9.6 L Hct 29.8 L RDW 18.4 H Neutrophils % 93.5 H Neutrophils % (Manual) 94.0 H Lymphocytes % 2.0 L D Lymphocytes % (Manual) 4.0 L BUN 59 H Creatinine 1.1 H Random Glucose 174 H Alkaline Phosphatase 156 H D Albumin 3.1 L Home Medication List Medication Instructions Recorded Confirmed Type Aspirin 324 mg PO PRN 05/01/18 05/01/18 History Active Medications Generic Name Dose Route Start Last Admin Trade Name Yoni PRN Reason Stop Dose Admin Acetaminophen 650 mg 05/13/18 11:47 05/16/18 14:06 Tylenol - PO 650 mg Q6H PRN Administration PAIN LEVEL 4 - 6 Amino Acids 30 ml 05/17/18 17:30 05/18/18 17:27 Prosource No Carb Liquid Pkt PO 30 ml BID@0800,1730 ELINA Administration Amoxicillin/Clavulanate Potassium 1 tab 05/18/18 17:30 05/18/18 17:27 Augmentin - 500mg Tablet PO 1 tab BID@0800,1730 ELINA Administration Anastrozole 1 mg 05/18/18 15:15 05/18/18 17:28 Arimidex - PO 1 mg DAILY ELINA Administration Carvedilol 12.5 mg 05/18/18 16:06 Coreg - PO BID ELINA Collagenase 1 applic 05/12/18 10:00 05/18/18 09:18 Santyl - TP 1 applic DAILY ELINA Administration Dexamethasone 4 mg 05/18/18 22:00 Decadron - PO BID ELINA Docusate Sodium 100 mg 05/12/18 10:00 05/18/18 09:11 Colace - PO 100 mg BID ELINA Administration Doxycycline Hyclate 100 mg 05/18/18 18:00 05/18/18 17:27 Vibramycin - PO 100 mg BID@1000,1800 ELINA Administration Furosemide 40 mg 05/09/18 14:45 05/17/18 09:51 Lasix - PO 40 mg Q2D ELINA Administration Gabapentin 100 mg 05/13/18 22:00 05/18/18 09:11 Neurontin - PO 100 mg DAILY ELINA Administration Heparin Sodium (Porcine) 5,000 unit 05/09/18 22:00 05/18/18 09:11 Heparin - SQ 5,000 unit BID ELINA Administration Morphine Sulfate 0.5 mg 05/17/18 13:19 05/18/18 13:26 Morphine Sulfate IVPUSH 0.5 mg Q6H PRN Administration PAIN LEVEL 7 - 10 Nystatin 500,000 units 05/15/18 00:00 05/18/18 17:27 Nystatin Oral Suspension - PO 500,000 units Q6HPO ELINA Administration Pantoprazole Sodium 40 mg 05/11/18 10:00 05/18/18 09:11 Protonix - PO 40 mg DAILY ELINA Administration Senna 2 tab 05/12/18 22:00 05/17/18 21:54 Senna - PO 2 tab HS ELINA Administration Tramadol HCl 50 mg 05/13/18 11:00 05/17/18 12:32 Ultram - PO 50 mg Q8H PRN Administration PAIN LEVEL 4 - 6 A/P 87 y/o patient with CKD, CHF, extensive lytic skeletal disease, rt. humeral fx , vertebral fractures h/o breast cancer 40 yrs. ago,s/p rt. lumpectomy/RT,tamoxifen Biopsy consistent with breast primary -- ER+/IA+ Added Her2 testing T9-10 cordcompression and thecal sac compression getting RT -- T8-L3 and S1-S3 and to left chest wall rib frctures T3-5 could not be added due to severe kyphosis/patient comfort will start arimidex will dose zometa --3mg IVSS one dose. Discussed in great detail with patient and her son will add oscal with vitamin D On decadron 4mg bid. To taper off over 7 -10 days after RT pain control with tramadol/tylenol Sacrl decubitus /? UTI --on antibiotics Dispo planning -- to rehab with transport for RT To follow up with med-onc in 2weeks Discussed all the details of her care, follow up plan with patient and patients son over the phone. Discussed with primary team
[2018-05-18] MEDS: traMADol HCL 50 MG TABLET PO PRN (19:29)
--- NOTE | 2018-05-18 21:04 | DS ---
Physical Exam: SUBJECTIVE: Patient seen and examined OBJECTIVE: Vital Signs Period Temp Pulse Resp BP Sys/Beltre Pulse Ox Last 24 Hr 98 F-99.5 F 67-89 18-20 140-192/69-81 100-100 PHYSICAL EXAM GENERAL: The patient is awake, alert, and fully oriented, in no acute distress. HEAD: Normal with no signs of trauma. EYES: PERRL, extraocular movements intact, sclera anicteric, conjunctiva clear. ENT: Ears normal, nares patent, oropharynx clear without exudates, moist mucous membranes. NECK: Trachea midline, full range of motion, supple. LUNGS: Breath sounds equal, clear to auscultation bilaterally, no wheezes, no crackles, no accessory muscle use. HEART: Regular rate and rhythm, S1, S2 without murmur, rub or gallop. ABDOMEN: Soft, nontender, nondistended, normoactive bowel sounds, no guarding, no rebound, no hepatosplenomegaly, no masses. EXTREMITIES: 2+ pulses, warm, well-perfused, no edema. NEUROLOGICAL: Cranial nerves II through XII grossly intact. Normal speech, gait not observed. PSYCH: Normal mood, normal affect. SKIN: Warm, dry, normal turgor, no rashes or lesions noted. LABS Laboratory Results - last 24 hr 05/18/18 05/18/18 05/18/18 13:34 13:34 13:34 WBC 8.5 RBC 3.51 L Hgb 9.6 L Hct 29.8 L MCV 84.8 MCH 27.2 MCHC 32.1 RDW 18.4 H Plt Count 350 MPV 8.4 Absolute Neuts (auto) 7.9 Total Counted 100 Neutrophils % 93.5 H Neutrophils % (Manual) 94.0 H Band Neutrophils % 1.0 Lymphocytes % 2.0 L D Lymphocytes % (Manual) 4.0 L Monocytes % 4.2 Eosinophils % 0.1 Eosinophils % (Manual) 1.0 Basophils % 0.2 Nucleated RBC % 0 Differential Comment [employer] Professional Platelet Estimate Adequate Sodium 140 Potassium 4.3 Chloride 104 Carbon Dioxide 25 Anion Gap 11 BUN 59 H Creatinine 1.1 H Creat Clearance w eGFR 47.21 Random Glucose 174 H Calcium 8.8 Magnesium 2.4 Total Bilirubin 0.4 AST 19 ALT 41 Alkaline Phosphatase 156 H D Total Protein 6.5 Albumin 3.1 L HOSPITAL COURSE: Date of Admission:05/01/18 Date of Discharge: 05/18/18 Discharge Summary Reason For Visit: CHEST PAIN,ACUTE ON CHRONIC CONGESTIVE HEART FAIL. Current Active Problems 2-part displaced fracture of surgical neck of right humerus, initial encounter for closed fracture (Acute) Acute kidney injury (Acute) Anemia (Acute) Breast CA (Acute) CKD (chronic kidney disease) (Acute) Cholestasis (Acute) Diastolic CHF (Acute) Elevated d-dimer (Acute) HTN (hypertension) (Acute) Hiatal hernia (Acute) Pancreatic abnormality (Acute) Condition: Stable - Instructions Diet, Activity, Other Instructions: Dear: Mrs Crowder Please follow up with Dr. Dr You, oncology ([facility]). In two weeks [phone]. Please call and make a follow up appointment. RADIATION You have completed 6 doses of radiation and have 4 more doses to complete. Please note that you will be transported to your radiation treatments by your facility. Dr. Flowers's information is listed on your discharge instructions. Please continue the Decadron 5mg twice per day during your radiation treatments. This medication will be tapered off slowly after you complete radiation. SACRAL WOUND/WOUND CARE: cleanse wound with sterile saline and apply Santyl daily. Monitor wound daily for healing. Please continue the Antibiotics of Augmentin and Doxycycline for your sacral wound for 2 more weeks (14 days). BREAST CANCER: You have been started on Anastrazone daily by Dr. Hoffman. Please continue this medication and follow up with Dr. You on discharge. It is advised that you see Dr. You in two weeks for follow up. RIGHT HUMERUS FRACTURE: You were seen and evaluated by Dr. Gay for right arm fracture. He advised you to continue using this arm without restrictions and follow up with him outpatient if you experience pain or discomfort. Please call us with any questions or concerns. Referrals: Aashish Garza MD [Primary Care Provider] - Gamal Gay MD [Staff Physician] - Rahul Flowers MD [Staff Physician] - Disposition: ALF FACILITY - Home Medications Comprehensive Discharge Medication List: Ambulatory Orders Aspirin 324 mg PO PRN 05/01/18 Acetaminophen [Tylenol .Regular Strength -] 650 mg PO Q6H PRN tablet 05/18/18 Amino Acids/Protein Hydrolys [Prosource No Carb Liquid Pkt] 30 ml PO BID@0800, 1730 packet 05/18/18 Amox-Tr/K Cl [Augmentin 500-125mg Tablet -] 1 tab PO BID@0800,1730 tablet 05/18 Anastrozole [Arimidex -] 1 mg PO DAILY tablet 05/18/18 Calcium 250Mg/Vit-D 125 Units [Oscal 250 mg+D -] 1 tab PO DAILY@0800 tab Carvedilol [Coreg -] 12.5 mg PO BID tablet 05/18/18 Collagenase Clostridium Hist. [Santyl -] 1 applic TP DAILY tube 05/18/18 Dexamethasone [Decadron -] 4 mg PO BID tablet 05/18/18 Docusate Sodium [Colace -] 100 mg PO BID capsule 05/18/18 Doxycycline Hyclate [Vibramycin -] 100 mg PO BID@1000,1800 capsule 05/18/18 Furosemide [Lasix -] 40 mg PO Q2D tablet 05/18/18 Gabapentin [Neurontin -] 100 mg PO DAILY capsule 05/18/18 Nystatin Oral Suspension - [Nystatin Oral Susp 568147 Units/5 ML -] 500,000 units PO Q6HPO cup 05/18/18 Pantoprazole Sodium [Protonix -] 40 mg PO DAILY tablet.ec 05/18/18 Sennosides [Senna -] 2 tab PO HS tablet 05/18/18 traMADol HCL [Ultram -] 50 mg PO Q8H PRN #30 tablet MDD 3 tabs 05/18/18 - Discharge Referral Referred to [facility] No
[2018-05-18] MEDS: DEXAMETHASONE 4 MG TABLET (FP) PO SCH (21:51)
[2018-05-18] MEDS: SENNOSIDES 8.6MG TABLET (FP) PO SCH (21:51)
[2018-05-18] MEDS ORDERED: LIDOCAINE PATCH REMOVAL MC SCH (22:00)
[2018-05-19] MEDS: MORPHINE SULFATE 2 MG/ML VIAL IVPUSH PRN (01:45)
[2018-05-19] MEDS: NYSTATIN 500,000 UNITS/5 ML SUSPENSION PO SCH ×2 (05:54→11:23)
[2018-05-19] MEDS: AMOX TR/POT CLAV 500MG/125MG TABLETS (FP) PO SCH (07:57)
[2018-05-19] MEDS: AMINO ACIDS/PROTEIN HYDROLYS 30 ML LIQUID.PKT PO SCH (07:57)
[2018-05-19] MEDS ORDERED: CALCIUM 250MG/VIT-D 125 UNITS 1 COMBO TABLET PO SCH (08:00)
--- NOTE | 2018-05-19 08:42 | PN ---
Progress Note, Physician History of Present Illness: Patient is an 87 year old woman with history of right breast cancer s/p surgery and radiotherapy here with upper abdominal pain 2 days. States sensation present whether at rest or on exertion. No shortness of breath, diaphoresis, nausea, vomiting or palpitations. No history of similar symptoms in the past. While in the ED, patient noted to have bilateral lower extremity edema, which patient states she did not notice until she was made aware when she got here. No leg pain, cough, f/c. Also c/o painful sore to R buttocks "for some time". 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 and admits she has not seen a doctor in many years - Current Medication List Current Medications: Active Medications Acetaminophen (Tylenol -) 650 mg PO Q6H PRN PRN Reason: PAIN LEVEL 4 - 6 Last Admin: 05/16/18 14:06 Dose: 650 mg Amino Acids (Prosource No Carb Liquid Pkt) 30 ml PO BID@0800,1730 [facility] Last Admin: 05/19/18 07:57 Dose: 30 ml Amoxicillin/Clavulanate Potassium (Augmentin - 500mg Tablet) 1 tab PO BID@0800, 1730 [facility] Last Admin: 05/19/18 07:57 Dose: 1 tab Anastrozole (Arimidex -) 1 mg PO DAILY [facility] Last Admin: 05/18/18 17:28 Dose: 1 mg Calcium/Vitamin D (Oscal 250 Mg+D -) 1 tab PO DAILY@0800 [facility] Last Admin: 05/19/18 07:57 Dose: 1 tab Carvedilol (Coreg -) 12.5 mg PO BID [facility] Last Admin: 05/18/18 21:50 Dose: 12.5 mg Collagenase (Santyl -) 1 applic TP DAILY [facility] Last Admin: 05/18/18 09:18 Dose: 1 applic Dexamethasone (Decadron -) 4 mg PO BID [facility] Last Admin: 05/18/18 21:51 Dose: 4 mg Docusate Sodium (Colace -) 100 mg PO BID [facility] Last Admin: 05/18/18 21:50 Dose: 100 mg Doxycycline Hyclate (Vibramycin -) 100 mg PO BID@1000,1800 [facility] Last Admin: 05/18/18 17:27 Dose: 100 mg Furosemide (Lasix -) 40 mg PO Q2D [facility] Last Admin: 05/17/18 09:51 Dose: 40 mg Gabapentin (Neurontin -) 100 mg PO DAILY [facility] Last Admin: 05/18/18 09:11 Dose: 100 mg Heparin Sodium (Porcine) (Heparin -) 5,000 unit SQ BID [facility] Last Admin: 05/18/18 21:51 Dose: 5,000 unit Zoledronic Acid 3 mg/ Sodium (Chloride) 103.75 mls @ 100 mls/hr IVPB ONCE ONE Stop: 05/19/18 11:02 Lidocaine (Lidoderm Patch -) 1 patch TP DAILY [facility] Miscellaneous (Lidoderm Patch Removal) 1 each MC DAILY@2200 [facility] Morphine Sulfate (Morphine Sulfate) 0.5 mg IVPUSH Q6H PRN PRN Reason: PAIN LEVEL 7 - 10 Last Admin: 05/19/18 01:45 Dose: 0.5 mg Nystatin (Nystatin Oral Suspension -) 500,000 units PO Q6HPO [facility] Last Admin: 05/19/18 05:54 Dose: 500,000 units Pantoprazole Sodium (Protonix -) 40 mg PO DAILY [facility] Last Admin: 05/18/18 09:11 Dose: 40 mg Senna (Senna -) 2 tab PO HS [facility] Last Admin: 05/18/18 21:51 Dose: 2 tab Tramadol HCl (Ultram -) 50 mg PO Q8H PRN PRN Reason: PAIN LEVEL 4 - 6 Last Admin: 05/18/18 19:29 Dose: 50 mg - Objective Vital Signs: Vital Signs Temperature 97.0 F L 05/19/18 06:00 Pulse Rate 75 05/19/18 06:00 Respiratory Rate 19 05/19/18 06:00 Blood Pressure 135/75 05/19/18 06:00 O2 Sat by Pulse Oximetry (%) 100 05/18/18 22:00 Eyes: Yes: WNL, Conjunctiva Clear, EOM Intact HENT: Yes: WNL, Atraumatic, Normocephalic Neck: Yes: WNL, Supple, Trachea Midline Cardiovascular: Yes: WNL, Regular Rate and Rhythm Respiratory: Yes: WNL, Regular, CTA Bilaterally Gastrointestinal: Yes: WNL, Normal Bowel Sounds Genitourinary: Yes: WNL Musculoskeletal: Yes: WNL Extremities: Yes: WNL Edema: No Integumentary: Yes: WNL Neurological: Yes: WNL, Alert, Oriented ...Motor Strength: WNL Psychiatric: Yes: WNL Labs: CBC, BMP 05/18/18 13:34 05/18/18 13:34 INR, PTT INR 1.03 (0.82-1.09) 05/08/18 06:00 Problem List - Problems (1) Fracture, humerus Code(s): S42.309A - UNSP FRACTURE OF SHAFT OF HUMERUS, UNSP ARM, INIT Qualifiers: Encounter type: initial encounter Humerus Location: proximal Fracture type: closed Fracture morphology: unspecified fracture morphology Laterality : right Qualified Code(s): S42.201A - Unspecified fracture of upper end of right humerus, initial encounter for closed fracture Assessment/Plan - Problems (1) Breast CA Assessment/Plan: breast CA with metastases. Chronic "pain in the ribs". CT chest: extensive bone metastases; pathologic fractures throughout the spine. Pain management: discontinued Tylenol due to rising LFTs (which have returned to normal). On oxycodone On radiation therapy. Code(s): C50.919 - MALIGNANT NEOPLASM OF UNSP SITE OF UNSPECIFIED FEMALE BREAST Qualifiers: Estrogen receptor status: positive Patient sex: female Laterality: right (2) Anemia Assessment/Plan: Hb 9.0 today; f/u with hem/onc. 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 Not in acute distress (respiratory-verdin). On ACEI. Now on furosemide again (every other day). F/u BUN/Cr, electrolytes, Is and Os, and daily weight/ Code(s): I50.30 - UNSPECIFIED DIASTOLIC (CONGESTIVE) HEART FAILURE (4) HTN (hypertension) Assessment/Plan: On lisinopril, carvedilol, and furosemide. Adjust doses as needed (BP slightly higher lately). Code(s): I10 - ESSENTIAL (PRIMARY) HYPERTENSION
[2018-05-19] MEDS ORDERED: ZOLEDRONIC ACID 3 MG in SODIUM CHLORIDE 100 ML IVPB ONE (10:00)
[2018-05-19] MEDS ORDERED: LIDOCAINE 5% TOPICAL PATCH TP SCH (10:00)
[2018-05-19] MEDS: HEPARIN NA (PORCINE) 5,000 UNITS/ML 1ML VIAL SQ SCH (10:07)
[2018-05-19] MEDS: traMADol HCL 50 MG TABLET PO PRN (10:07)
[2018-05-19] MEDS: DEXAMETHASONE 4 MG TABLET (FP) PO SCH (10:08)
[2018-05-19] MEDS: FUROSEMIDE 40 MG TABLET (FP) PO SCH (10:08)
[2018-05-19] MEDS: PANTOPRAZOLE 40 MG TABLET (FP) PO SCH (10:08)
[2018-05-19] MEDS: GABAPENTIN 100 MG CAPSULE (FP) PO SCH (10:08)
[2018-05-19] MEDS: DOCUSATE SODIUM 100 MG CAPSULE (FP) PO SCH (10:08)
[2018-05-19] MEDS: CARVEDILOL 6.25 MG TABLET (FP) PO SCH (10:08)
[2018-05-19] MEDS: DOXYCYCLINE HYCLATE 100 MG CAPSULE PO SCH (10:08)
[2018-05-19] MEDS: ANASTROZOLE 1 MG TABLET PO SCH (10:09)
[2018-05-19] MEDS: COLLAGENASE CLOSTRIDIUM HIST. 30 GRAMS TUBE TP SCH (10:09)
[2018-05-19] MEDS: ACETAMINOPHEN 325 MG TABLET (FP) PO PRN (11:23)
--- NOTE | 2018-05-19 12:15 | PN ---
Progress Note (short form) - Note Progress Note: asymptomatic. states her dizzyness has improved. was only experiencing when standing up and not having at rest. denies CP, SOB, fever, chills, N/V/C/D Current Medications Generic Name Dose Route Start Last Admin Trade Name Yoni PRN Reason Stop Dose Admin Acetaminophen 650 mg 05/13/18 11:47 05/19/18 11:23 Tylenol - PO 650 mg Q6H PRN Administration PAIN LEVEL 4 - 6 Amino Acids 30 ml 05/17/18 17:30 05/19/18 07:57 Prosource No Carb Liquid Pkt PO 30 ml BID@0800,1730 ELINA Administration Amoxicillin/Clavulanate Potassium 1 tab 05/18/18 17:30 05/19/18 07:57 Augmentin - 500mg Tablet PO 1 tab BID@0800,1730 ELINA Administration Anastrozole 1 mg 05/18/18 15:15 05/19/18 10:09 Arimidex - PO 1 mg DAILY ELINA Administration Calcium/Vitamin D 1 tab 05/19/18 08:00 05/19/18 07:57 Oscal 250 Mg+D - PO 1 tab DAILY@0800 ELINA Administration Carvedilol 12.5 mg 05/18/18 16:06 05/19/18 10:08 Coreg - PO 12.5 mg BID ELINA Administration Collagenase 1 applic 05/12/18 10:00 05/19/18 10:09 Santyl - TP 1 applic DAILY ELINA Administration Dexamethasone 4 mg 05/18/18 22:00 05/19/18 10:08 Decadron - PO 4 mg BID ELINA Administration Docusate Sodium 100 mg 05/12/18 10:00 05/19/18 10:08 Colace - PO 100 mg BID ELINA Administration Doxycycline Hyclate 100 mg 05/18/18 18:00 05/19/18 10:08 Vibramycin - PO 100 mg BID@1000,1800 ELINA Administration Furosemide 40 mg 05/09/18 14:45 05/19/18 10:08 Lasix - PO 40 mg Q2D ELINA Administration Gabapentin 100 mg 05/13/18 22:00 05/19/18 10:08 Neurontin - PO 100 mg DAILY ELINA Administration Heparin Sodium (Porcine) 5,000 unit 05/09/18 22:00 05/19/18 10:07 Heparin - SQ 5,000 unit BID ELINA Administration Lidocaine 1 patch 05/19/18 10:00 05/19/18 10:09 Lidoderm Patch - TP 1 patch DAILY ELINA Administration Miscellaneous 1 each 05/18/18 22:00 Lidoderm Patch Removal MC DAILY@2200 ELINA Morphine Sulfate 0.5 mg 05/17/18 13:19 05/19/18 01:45 Morphine Sulfate IVPUSH 0.5 mg Q6H PRN Administration PAIN LEVEL 7 - 10 Nystatin 500,000 units 05/15/18 00:00 05/19/18 11:23 Nystatin Oral Suspension - PO 500,000 units Q6HPO ELINA Administration Pantoprazole Sodium 40 mg 05/11/18 10:00 05/19/18 10:08 Protonix - PO 40 mg DAILY ELINA Administration Senna 2 tab 05/12/18 22:00 05/18/18 21:51 Senna - PO 2 tab HS ELINA Administration Tramadol HCl 50 mg 05/13/18 11:00 05/19/18 10:07 Ultram - PO 50 mg Q8H PRN Administration PAIN LEVEL 4 - 6 Last Vital Signs Temp Pulse Resp BP Pulse Ox 97.0 F L 75 19 135/75 100 05/19/18 06:00 05/19/18 06:00 05/19/18 06:00 05/19/18 06:00 05/18/18 22:00 General NAD Imaging: Chest CT 05/04/2018: extensive skeletal metastatic disease including multiple vertebral bodies. Several of these show posterior cortical destruction. Lumbar spine CT: L1-L2 osteolytic lesions are noted in L1. vertebral bodies with compression pathological fracture. Mild retropulsion of the posterior cortex of L1. Thoracic spine CTT9-10 epidural disease /cord compression on CT Humerus xray: proximal humerus fracture. A/P 87 year old female with a significant past medical history of right breast cancer with lumpectomy with bone mets, diastolic heart failure with severe valvular disease. She presents to the ED on 05/01/2018 with chest pain, acute on chronic CHF. 1. Breast ca with bone mets. has T9 cord compression. on rtx treatment. has 5 more sessions. will remain on dex 4mg BID and then taper per yvan once Rtx treatment is complete. will need to f/u with Dr Hoffman or Dr Calle of [facility] as outpatient. started on anastazole yesterday. lidoderm patch to rib cage. zometa given today for bone meds 2. stage 3 sacral decubitus- +MRSA. switched to doxy and augmentin. will complete 14day course total. ID on board 3. Proximal humerus fracture- evaluated by ortho. no surgical interventions. no restrictions. pain control. ortho outpatient follow up as needed 4. iron def anemia- s/p 1 unit PRBC this hospital stay. Hgb remains stable. 5. diastolic CHF- no signs of acute excarbation. cont current management 6. dizzyness- liekly due to sitting up quickly. now resolved. seen by neuro. no further interventions planned at this time. can f/u with neuro as outpatient 7. DVT ppx- hep sq 8. d/c planning today to [facility]. awaiting to hear from CM about confirmation. Visit type - Emergency Visit Emergency Visit: Yes ED Registration Date: 05/01/18 Care time: The patient presented to the Emergency Department on the above date and was hospitalized for further evaluation of their emergent condition. - New Patient This patient is new to me today: Yes Date on this admission: 05/19/18 - Critical Care Critical Care patient: No - Discharge Referral Referred to [facility] No
--- NOTE | 2018-05-19 12:35 | PN ---
Progress Note, Physician History of Present Illness: pt seen and examined. Has no specific complaints. No significant gluteal pain, controlled. Tolerating po antibiotics. - Current Medication List Current Medications: Active Medications Acetaminophen (Tylenol -) 650 mg PO Q6H PRN PRN Reason: PAIN LEVEL 4 - 6 Last Admin: 05/19/18 11:23 Dose: 650 mg Amino Acids (Prosource No Carb Liquid Pkt) 30 ml PO BID@0800,1730 [facility] Last Admin: 05/19/18 07:57 Dose: 30 ml Amoxicillin/Clavulanate Potassium (Augmentin - 500mg Tablet) 1 tab PO BID@0800, 1730 [facility] Last Admin: 05/19/18 07:57 Dose: 1 tab Anastrozole (Arimidex -) 1 mg PO DAILY [facility] Last Admin: 05/19/18 10:09 Dose: 1 mg Calcium/Vitamin D (Oscal 250 Mg+D -) 1 tab PO DAILY@0800 [facility] Last Admin: 05/19/18 07:57 Dose: 1 tab Carvedilol (Coreg -) 12.5 mg PO BID [facility] Last Admin: 05/19/18 10:08 Dose: 12.5 mg Collagenase (Santyl -) 1 applic TP DAILY [facility] Last Admin: 05/19/18 10:09 Dose: 1 applic Dexamethasone (Decadron -) 4 mg PO BID [facility] Last Admin: 05/19/18 10:08 Dose: 4 mg Docusate Sodium (Colace -) 100 mg PO BID [facility] Last Admin: 05/19/18 10:08 Dose: 100 mg Doxycycline Hyclate (Vibramycin -) 100 mg PO BID@1000,1800 [facility] Last Admin: 05/19/18 10:08 Dose: 100 mg Furosemide (Lasix -) 40 mg PO Q2D [facility] Last Admin: 05/19/18 10:08 Dose: 40 mg Gabapentin (Neurontin -) 100 mg PO DAILY [facility] Last Admin: 05/19/18 10:08 Dose: 100 mg Heparin Sodium (Porcine) (Heparin -) 5,000 unit SQ BID [facility] Last Admin: 05/19/18 10:07 Dose: 5,000 unit Lidocaine (Lidoderm Patch -) 1 patch TP DAILY [facility] Last Admin: 05/19/18 10:09 Dose: 1 patch Miscellaneous (Lidoderm Patch Removal) 1 each MC DAILY@2200 [facility] Morphine Sulfate (Morphine Sulfate) 0.5 mg IVPUSH Q6H PRN PRN Reason: PAIN LEVEL 7 - 10 Last Admin: 05/19/18 01:45 Dose: 0.5 mg Nystatin (Nystatin Oral Suspension -) 500,000 units PO Q6HPO [facility] Last Admin: 05/19/18 11:23 Dose: 500,000 units Pantoprazole Sodium (Protonix -) 40 mg PO DAILY [facility] Last Admin: 05/19/18 10:08 Dose: 40 mg Senna (Senna -) 2 tab PO HS [facility] Last Admin: 05/18/18 21:51 Dose: 2 tab - Objective Vital Signs: Vital Signs Temperature 98.0 F 05/19/18 10:00 Pulse Rate 76 05/19/18 10:00 Respiratory Rate 20 05/19/18 10:00 Blood Pressure 152/71 05/19/18 10:00 O2 Sat by Pulse Oximetry (%) 96 05/19/18 09:00 Constitutional: Yes: No Distress, Calm Cardiovascular: Yes: Regular Rate and Rhythm Respiratory: Yes: Regular Gastrointestinal: Yes: Normal Bowel Sounds, Soft Extremities: Yes: WNL Integumentary: Yes: Other (gluteal ulceration without purulent drainage, minimal induration, no significant induration) Neurological: Yes: Alert Labs: CBC, BMP 05/18/18 13:34 05/18/18 13:34 INR, PTT INR 1.03 (0.82-1.09) 05/08/18 06:00 Microbiology 05/16/18 17:45 Urine - Urine Clean Catch Urine Culture - Final Contaminated: Please Repeat 05/03/18 14:00 Coccyx Gram Stain - Final 05/03/18 14:00 Coccyx Wound Culture - Final Proteus Mirabilis Mr S Aureus Staphylococcus Coagulase Neg Enterococcus Faecalis Problem List - Problems (1) Anemia Code(s): D64.9 - ANEMIA, UNSPECIFIED Qualifiers: Anemia type: other cause Other causes of anemia: chronic disease, 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 (2) Breast CA Code(s): C50.919 - MALIGNANT NEOPLASM OF UNSP SITE OF UNSPECIFIED FEMALE BREAST Qualifiers: Estrogen receptor status: positive Patient sex: female Laterality: right (3) CKD (chronic kidney disease) Code(s): N18.9 - CHRONIC KIDNEY DISEASE, UNSPECIFIED Assessment/Plan 87 y.o. female with PMH of Breast Ca s/p RT, CKD, anemia noted to have a gluteal ulcer with erythema. Appears to be improving. Afebrile, without leukocytosis. Polymicrobial ulcer including MRSA -- continue doxycycline and augmentin po -- clinically improving
--- NOTE | 2018-05-19 13:02 | PN ---
Progress Note (short form) - Note Progress Note: Neurology Progress Note (short form) NEUROLOGY FOLLOW-UP: Previously seen by Dr. Frank, asked for follow up prior to discharge Patient ambulating without lightheadedness and stable neurologically Dr. Frank recommended walker with discharge, agree with this Is on gabapentin Pt denies sig pain Active Medications Acetaminophen (Tylenol -) 650 mg PO Q6H PRN PRN Reason: PAIN LEVEL 4 - 6 Last Admin: 05/19/18 11:23 Dose: 650 mg Amino Acids (Prosource No Carb Liquid Pkt) 30 ml PO BID@0800,1730 [facility] Last Admin: 05/19/18 07:57 Dose: 30 ml Amoxicillin/Clavulanate Potassium (Augmentin - 500mg Tablet) 1 tab PO BID@0800, 1730 [facility] Last Admin: 05/19/18 07:57 Dose: 1 tab Anastrozole (Arimidex -) 1 mg PO DAILY [facility] Last Admin: 05/19/18 10:09 Dose: 1 mg Calcium/Vitamin D (Oscal 250 Mg+D -) 1 tab PO DAILY@0800 [facility] Last Admin: 05/19/18 07:57 Dose: 1 tab Carvedilol (Coreg -) 12.5 mg PO BID [facility] Last Admin: 05/19/18 10:08 Dose: 12.5 mg Collagenase (Santyl -) 1 applic TP DAILY [facility] Last Admin: 05/19/18 10:09 Dose: 1 applic Dexamethasone (Decadron -) 4 mg PO BID [facility] Last Admin: 05/19/18 10:08 Dose: 4 mg Docusate Sodium (Colace -) 100 mg PO BID [facility] Last Admin: 05/19/18 10:08 Dose: 100 mg Doxycycline Hyclate (Vibramycin -) 100 mg PO BID@1000,1800 [facility] Last Admin: 05/19/18 10:08 Dose: 100 mg Furosemide (Lasix -) 40 mg PO Q2D [facility] Last Admin: 05/19/18 10:08 Dose: 40 mg Gabapentin (Neurontin -) 100 mg PO DAILY [facility] Last Admin: 05/19/18 10:08 Dose: 100 mg Heparin Sodium (Porcine) (Heparin -) 5,000 unit SQ BID [facility] Last Admin: 05/19/18 10:07 Dose: 5,000 unit Lidocaine (Lidoderm Patch -) 1 patch TP DAILY [facility] Last Admin: 05/19/18 10:09 Dose: 1 patch Miscellaneous (Lidoderm Patch Removal) 1 each MC DAILY@2200 [facility] Morphine Sulfate (Morphine Sulfate) 0.5 mg IVPUSH Q6H PRN PRN Reason: PAIN LEVEL 7 - 10 Last Admin: 05/19/18 01:45 Dose: 0.5 mg Nystatin (Nystatin Oral Suspension -) 500,000 units PO Q6HPO [facility] Last Admin: 05/19/18 11:23 Dose: 500,000 units Pantoprazole Sodium (Protonix -) 40 mg PO DAILY [facility] Last Admin: 05/19/18 10:08 Dose: 40 mg Senna (Senna -) 2 tab PO HS [facility] Last Admin: 05/18/18 21:51 Dose: 2 tab Vital Signs Period Temp Pulse Resp BP Sys/Beltre Pulse Ox Last 24 Hr 97.0 F-99.3 F 74-89 19-20 117-155/69-77 96-100 Awake, alert, strenght intact, 1+ reflexes in lower ext, sensory intact to LT in lower ext, slow antalgic gait, requires assistive device Plan: For discharge, agree with prior note Walker may be of benefit Outpatient PT/OT if able Fall precautions Discussed with primary and patient
[2018-05-19 15:19] VITALS: BP 163/71; PULSE 75; TEMP 97.2
== END 2018-05-19 15:55 | DRG 542 ==
LOC: JER 17:17 → JERBED 21:01 → JER 22:31 → OBSVTOIN 22:38 → J4W 23:55 → J7W 05-04 10:57 → J4W 05-04 12:29 → J4S 05-06 20:00 → J6S 05-12 06:42
PROVIDERS: ADMIT Internal Medicine; ATTEND Internal Medicine
PROC: 30233N1 Transfusion of Nonautologous Red Blood Cells into Peripheral Vein, Percutaneous Approach (ICD-10-PCS; principal; 2018-05-04)
PROC: DPYC7ZZ Contact Radiation of Other Bone (ICD-10-PCS; 2018-05-11)
DX: M84.521A Pathological fracture in neoplastic disease, right humerus, initial encounter for fracture (principal); L89.153 Pressure ulcer of sacral region, stage 3; I50.31 Acute diastolic (congestive) heart failure; K83.1 Obstruction of bile duct; L89.313 Pressure ulcer of right buttock, stage 3; L89.893 Pressure ulcer of other site, stage 3; N17.9 Acute kidney failure, unspecified; C79.51 Secondary malignant neoplasm of bone; I13.0 Hypertensive heart and chronic kidney disease with heart failure and stage 1 through stage 4 chronic kidney disease, or unspecified chronic kidney disease; B37.0 Candidal stomatitis; G95.29 Other cord compression; M84.58XA Pathological fracture in neoplastic disease, other specified site, initial encounter for fracture; I95.9 Hypotension, unspecified; K86.89 Other specified diseases of pancreas; E87.5 Hyperkalemia; I27.20 Pulmonary hypertension, unspecified; I36.1 Nonrheumatic tricuspid (valve) insufficiency; C50.911 Malignant neoplasm of unspecified site of right female breast; I34.0 Nonrheumatic mitral (valve) insufficiency; R00.1 Bradycardia, unspecified; B95.62 Methicillin resistant Staphylococcus aureus infection as the cause of diseases classified elsewhere; Z17.0 Estrogen receptor positive status [ER+]; Z87.891 Personal history of nicotine dependence; Z85.3 Personal history of malignant neoplasm of breast; R07.89 Other chest pain; N18.9 Chronic kidney disease, unspecified; K44.9 Diaphragmatic hernia without obstruction or gangrene; D50.9 Iron deficiency anemia, unspecified; M40.294 Other kyphosis, thoracic region; B95.2 Enterococcus as the cause of diseases classified elsewhere
CPT/HCPCS: 20225; 36415; 36430; 36511; 36600; 70450-TC; 71045-TC-FY; 71250-TC; 72125-TC; 72128-TC; 72131-TC; 74176-TC; 76700-TC; 76775-TC; 76856-TC; 80048; 80053; 80061; 81003; 81015; 82378; 82436; 82550; 82570; 82607; 82728; 82784; 82803; 82962; 82977; 83036; 83540; 83550; 83615; 83721; 83735; 83880; 83883; 83970; 84100; 84132; 84133; 84155; 84156; 84157; 84165; 84300; 84484; 84540; 84550; 85025; 85027; 85044; 85379; 85610; 85730; 86300; 86301; 86304; 86334; 86850; 86900; 86901; 86922; 87070; 87086; 87186; 87205; 87899; 88305-TC; 90670; 93005; 93010; 93225; 93226; 93306-TC; 93970-TC; 97116-GP; 97162-GP; 99285-25; G0378; J1644; J3489; P9038; P9058

== ENCOUNTER 2018-08-15 07:35 | Day surgery (SDC) | payer OTHER ==
[2018-08-15] MEDS ORDERED: FULVESTRANT 250 MG/5 ML SYRINGE IM ONE (09:00)
[2018-08-15] MEDS ORDERED: DENOSUMAB 120 MG/1.7 ML VIAL SQ ONE (09:10)
[2018-08-15 11:16] LABS: BASO % 0.7 % (0-2.0); EOS % 3.4 % (0-4.5); HEMATOCRIT 35.5 % (32.4-45.2); HEMOGLOBIN 11.3 GM/dL (10.7-15.3); LYMPH % 15.3 % (8-40); MCH 27.4 pg (25.7-33.7); MCHC 31.8 g/dl (32.0-36.0); MEAN CELL VOLUME 86.1 fl (80-96); MEAN PLT VOLUME 7.1 fl (7.5-11.1); MONO % 13.1 % (3.8-10.2); NEUT % 67.5 % (42.8-82.8); PLATELET COUNT 294 K/MM3 (134-434); RBC 4.13 M/mm3 (3.60-5.2)
[2018-08-15 12:02] LABS: ANISOCYTOSIS 2+; OVALOCYTE 1+; PLATELET ESTIMATE ADEQUATE; TARGET CELLS 1+
[2018-08-15 12:13] LABS: ALBUMIN 3.4 g/dl (3.4-5.0); ALK PHOS 138 U/L (45-117); ANION GAP 8 MMOL/L (8-16); BILIRUBIN,DIRECT < 0.2 mg/dL (0.0-0.2); BILIRUBIN,TOTAL 0.5 mg/dL (0.2-1); BLOOD UREA NITROGEN 27 mg/dL (7-18); CALCIUM 8.3 mg/dL (8.5-10.1); CHLORIDE 112 mmol/L (98-107); CO2 22 mmol/L (21-32); CREATININE 1.2 mg/dL (0.55-1.3); GLUCOSE,RANDOM 116 mg/dL (74-106); MAGNESIUM 2.5 mg/dL (1.8-2.4); POTASSIUM 4.5 mmol/L (3.5-5.1); SGOT/AST 19 U/L (15-37); SGPT/ALT 20 U/L (13-61); SODIUM 142 mmol/L (136-145)
[2018-08-15 13:42] VITALS: BP 188/65; PULSE 66
[2018-08-15 13:43] VITALS: TEMP 97.9
[2018-08-16 14:15] LABS: CARCINOEMBRYONIC ANTIGEN 9.6 ng/mL (0.0-4.7)
--- NOTE | 2018-08-20 13:09 | PATH ---
Surgical Pathology Report Patient Name: DARIA MCKENNA Med. Rec. #: [id number] /Age/Gender: 1930 (Age: 87) / F Account: [id number] Location: [facility] MED/SURG Taken: 08/15/2018 Received: 08/15/2018 Reported: 08/20/2018 Physicians: Yasmin Anne M.D. 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 No evidence of deletion 7q or monosomy 7 is present. No evidence of trisomy 8 (+8) is present. No evidence of deletion 13q14.2 is present. No evidence of rearrangement of 11q23. No evidence of a deletion of the p53 (17p13) locus. No evidence of deletion 20q12 is present COMPREHENSIVE FLOW PANEL [facility] [place] ([id number]) shows the following: INTERPRETATION: RELATIVE GRANULOCYTOSIS WITH NO DISCRETE ATYPICAL FLOW CYTOMETRIC FINDINGS SEEN. Additional Tests: Cytogenetics See [facility] reports ([id number] and [id number]) for additional details. Electronically Signed Cherelle Levin M.D. Gross Description Received is one green top tube of blood which is sent to [facility]. /08/15/2018 saudi/08/15/2018
== END 2018-08-15 12:20 | disposition home or self-care (01) ==
LOC: JONCCHEMO 07:35 → J7W 11:43 → JONCCHEMO 12:20
PROVIDERS: ATTEND Internal Medicine Hematology & Oncology
PROC: 3E02305 Introduction of Other Antineoplastic into Muscle, Percutaneous Approach (ICD-10-PCS; principal; 2018-08-15)
PROC: 3E013GC Introduction of Other Therapeutic Substance into Subcutaneous Tissue, Percutaneous Approach (ICD-10-PCS; 2018-08-15)
DX: Z51.11 Encounter for antineoplastic chemotherapy (principal); C50.819 Malignant neoplasm of overlapping sites of unspecified female breast; C79.51 Secondary malignant neoplasm of bone
CPT/HCPCS: 36415; 80053; 80076; 82306; 82378; 82607; 82728; 83540; 83550; 83735; 85025; 86300; 88300-TC; 96372; 96402; J0897; J9395

== ENCOUNTER 2018-09-13 07:51 | Day surgery (SDC) | payer OTHER ==
[~2018-09-13 07:51] MED LIST: DENOSUMAB 120 MG/1.7 ML VIAL SQ ONE; FULVESTRANT 250 MG/5 ML SYRINGE IM ONE
[2018-09-13 12:29] LABS: BASO % 0.5 % (0-2.0); HEMATOCRIT 37.6 % (32.4-45.2); HEMOGLOBIN 11.8 GM/dL (10.7-15.3); LYMPH % 15.6 % (8-40); MCH 26.8 pg (25.7-33.7); MCHC 31.4 g/dl (32.0-36.0); MEAN CELL VOLUME 85.4 fl (80-96); MEAN PLT VOLUME 7.2 fl (7.5-11.1); MONO % 10.2 % (3.8-10.2); NEUT % 69.7 % (42.8-82.8); PLATELET COUNT 265 K/MM3 (134-434); RDW 18.4 % (11.6-15.6); WHITE BLOOD COUNT 5.8 K/mm3 (4.0-10.0)
[2018-09-13 13:09] LABS: ALBUMIN 3.6 g/dl (3.4-5.0); ALK PHOS 118 U/L (45-117); ANION GAP 9 MMOL/L (8-16); BILIRUBIN,DIRECT 0.1 mg/dL (0.0-0.2); BILIRUBIN,TOTAL 0.5 mg/dL (0.2-1); BLOOD UREA NITROGEN 33 mg/dL (7-18); CALCIUM 8.9 mg/dL (8.5-10.1); CHLORIDE 107 mmol/L (98-107); CO2 25 mmol/L (21-32); CREATININE 1.3 mg/dL (0.55-1.3); GLUCOSE,RANDOM 114 mg/dL (74-106); POTASSIUM 4.5 mmol/L (3.5-5.1); SGOT/AST 19 U/L (15-37); SGPT/ALT 15 U/L (13-61); SODIUM 141 mmol/L (136-145); TOT PROT 7.2 g/dl (6.4-8.2)
[2018-09-13 14:53] VITALS: BP 149/68; PULSE 66; TEMP 98.1
[2018-09-14 08:08] LABS: SERUM IRON SATURATION 23 % (15-55); TOTAL IRON BINDING CAPACITY 301 ug/dL (250-450); UIBC 231 ug/dL (118-369)
== END 2018-09-13 13:00 | disposition home or self-care (01) ==
LOC: JONCCHEMO 07:51 → J7W 12:51 → JONCCHEMO 13:00
PROVIDERS: ATTEND Internal Medicine Hematology & Oncology
DX: Z51.11 Encounter for antineoplastic chemotherapy (principal); C50.819 Malignant neoplasm of overlapping sites of unspecified female breast; C79.51 Secondary malignant neoplasm of bone
CPT/HCPCS: 36415; 80053; 80076; 82728; 83540; 83550; 85025; 86300; 96372; 96402; J0897; J9395

== ENCOUNTER 2018-10-11 07:19 | Day surgery (SDC) | payer OTHER ==
[2018-10-11] MEDS ORDERED: FULVESTRANT 250 MG/5 ML SYRINGE IM ONE (10:00)
[2018-10-11] MEDS ORDERED: DENOSUMAB 120 MG/1.7 ML VIAL SQ ONE (10:00)
[2018-10-11 10:51] LABS: BASO % 0.5 % (0-2.0); EOS % 4.1 % (0-4.5); HEMATOCRIT 37.5 % (32.4-45.2); HEMOGLOBIN 12.9 GM/dL (10.7-15.3); LYMPH % 17.5 % (8-40); MCH 29.6 pg (25.7-33.7); MCHC 34.4 g/dl (32.0-36.0); MEAN CELL VOLUME 85.9 fl (80-96); MEAN PLT VOLUME 7.1 fl (7.5-11.1); MONO % 9.5 % (3.8-10.2); NEUT % 68.4 % (42.8-82.8); PLATELET COUNT 299 K/MM3 (134-434); RBC 4.37 M/mm3 (3.60-5.2); RDW 18.1 % (11.6-15.6); WHITE BLOOD COUNT 5.8 K/mm3 (4.0-10.0)
[2018-10-11] MEDS ORDERED: amLODIPine BESYLATE 2.5 MG TABLET (FP) PO ONE (11:05)
[2018-10-11 11:40] LABS: ALK PHOS 133 U/L (45-117); ANION GAP 11 MMOL/L (8-16); BILIRUBIN,DIRECT 0.1 mg/dL (0.0-0.2); BILIRUBIN,TOTAL 0.3 mg/dL (0.2-1); BLOOD UREA NITROGEN 30 mg/dL (7-18); CHLORIDE 109 mmol/L (98-107); CO2 22 mmol/L (21-32); CREATININE 1.3 mg/dL (0.55-1.3); GLUCOSE,RANDOM 109 mg/dL (74-106); MAGNESIUM 2.4 mg/dL (1.8-2.4); POTASSIUM 4.3 mmol/L (3.5-5.1); SGOT/AST 32 U/L (15-37); SGPT/ALT 35 U/L (13-61); SODIUM 142 mmol/L (136-145); TOT PROT 7.3 g/dl (6.4-8.2)
[2018-10-11] MEDS ORDERED: amLODIPine BESYLATE 5 MG TABLET (FP) PO ONE (12:15)
[2018-10-11 15:39] VITALS: TEMP 97.5
[2018-10-11 15:45] VITALS: BP 165/81; PULSE 87
== END 2018-10-11 12:30 | disposition home or self-care (01) ==
LOC: JONCCHEMO 07:19 → J7W 11:47 → JONCCHEMO 12:30
PROVIDERS: ATTEND Internal Medicine Hematology & Oncology
DX: Z51.11 Encounter for antineoplastic chemotherapy (principal); C50.819 Malignant neoplasm of overlapping sites of unspecified female breast; C79.51 Secondary malignant neoplasm of bone
CPT/HCPCS: 36415; 80053; 80076; 83735; 85025; 96372; 96402; J0897; J9395

== ENCOUNTER 2018-11-08 05:30 | Day surgery (SDC) | payer OTHER, MEDICARE ==
[2018-11-08] MEDS ORDERED: FULVESTRANT 250 MG/5 ML SYRINGE IM ONE (09:00)
[2018-11-08] MEDS ORDERED: DENOSUMAB 120 MG/1.7 ML VIAL SQ ONE (09:15)
[2018-11-08 11:54] LABS: BASO % 0.2 % (0-2.0); EOS % 1.8 % (0-4.5); HEMATOCRIT 37.4 % (32.4-45.2); LYMPH % 13.8 % (8-40); MCH 29.9 pg (25.7-33.7); MCHC 34.6 g/dl (32.0-36.0); MEAN CELL VOLUME 86.5 fl (80-96); MEAN PLT VOLUME 7.2 fl (7.5-11.1); MONO % 11.3 % (3.8-10.2); NEUT % 72.9 % (42.8-82.8); PLATELET COUNT 310 K/MM3 (134-434); RBC 4.33 M/mm3 (3.60-5.2); RDW 17.9 % (11.6-15.6); WHITE BLOOD COUNT 6.9 K/mm3 (4.0-10.0)
[2018-11-08 12:23] LABS: ALBUMIN 3.9 g/dl (3.4-5.0); ALK PHOS 106 U/L (45-117); ANION GAP 8 MMOL/L (8-16); BILIRUBIN,DIRECT 0.2 mg/dL (0.0-0.2); BILIRUBIN,TOTAL 0.5 mg/dL (0.2-1); BLOOD UREA NITROGEN 41 mg/dL (7-18); CALCIUM 8.7 mg/dL (8.5-10.1); CHLORIDE 104 mmol/L (98-107); CO2 27 mmol/L (21-32); CREATININE 1.6 mg/dL (0.55-1.3); GLUCOSE,RANDOM 107 mg/dL (74-106); MAGNESIUM 2.5 mg/dL (1.8-2.4); POTASSIUM 4.5 mmol/L (3.5-5.1); SGOT/AST 20 U/L (15-37); SGPT/ALT 23 U/L (13-61); SODIUM 138 mmol/L (136-145); TOT PROT 7.2 g/dl (6.4-8.2)
[2018-11-08 13:24] VITALS: BP 148/76; PULSE 96; TEMP 97.5
== END 2018-11-08 13:30 | disposition home or self-care (01) ==
LOC: JONCCHEMO 05:30 → J7W 12:47 → JONCCHEMO 13:30
PROVIDERS: ATTEND Internal Medicine Hematology & Oncology
DX: Z51.11 Encounter for antineoplastic chemotherapy (principal); C50.819 Malignant neoplasm of overlapping sites of unspecified female breast; C79.51 Secondary malignant neoplasm of bone
CPT/HCPCS: 36415; 80048; 80076; 83735; 85025; 86300; 96402; J9395

== ENCOUNTER 2018-12-12 07:21 | Day surgery (SDC) | payer OTHER, MEDICARE ==
[2018-12-12] MEDS ORDERED: DENOSUMAB 120 MG/1.7 ML VIAL SQ ONE (10:00)
[2018-12-12] MEDS ORDERED: FULVESTRANT 250 MG/5 ML SYRINGE IM ONE (10:00)
[2018-12-12 10:46] LABS: BASO % 0.3 % (0-2.0); EOS % 2.1 % (0-4.5); HEMOGLOBIN 13.2 GM/dL (10.7-15.3); LYMPH % 10.7 % (8-40); MCH 30.6 pg (25.7-33.7); MCHC 33.8 g/dl (32.0-36.0); MEAN CELL VOLUME 90.6 fl (80-96); MEAN PLT VOLUME 7.2 fl (7.5-11.1); NEUT % 76.9 % (42.8-82.8); PLATELET COUNT 268 K/MM3 (134-434); RDW 16.8 % (11.6-15.6); WHITE BLOOD COUNT 6.8 K/mm3 (4.0-10.0)
[2018-12-12 11:26] LABS: ALK PHOS 97 U/L (45-117); ANION GAP 10 MMOL/L (8-16); BILIRUBIN,DIRECT 0.2 mg/dL (0.0-0.2); BILIRUBIN,TOTAL 0.6 mg/dL (0.2-1); BLOOD UREA NITROGEN 33 mg/dL (7-18); CALCIUM 9.7 mg/dL (8.5-10.1); CHLORIDE 108 mmol/L (98-107); CO2 24 mmol/L (21-32); CREATININE 1.3 mg/dL (0.55-1.3); GLUCOSE,RANDOM 109 mg/dL (74-106); MAGNESIUM 2.5 mg/dL (1.8-2.4); POTASSIUM 4.3 mmol/L (3.5-5.1); SGOT/AST 26 U/L (15-37); SGPT/ALT 23 U/L (13-61); SODIUM 142 mmol/L (136-145); TOT PROT 7.2 g/dl (6.4-8.2)
[2018-12-12 16:25] VITALS: BP 158/56; PULSE 86; TEMP 97.9
== END 2018-12-12 12:20 | disposition home or self-care (01) ==
LOC: JONCCHEMO 07:21 → J7W 11:13 → JONCCHEMO 12:20
PROVIDERS: ATTEND Internal Medicine Hematology & Oncology
PROC: 3E02305 Introduction of Other Antineoplastic into Muscle, Percutaneous Approach (ICD-10-PCS; principal; 2018-12-12)
PROC: 3E013GC Introduction of Other Therapeutic Substance into Subcutaneous Tissue, Percutaneous Approach (ICD-10-PCS; 2018-12-12)
DX: Z51.11 Encounter for antineoplastic chemotherapy (principal); C50.819 Malignant neoplasm of overlapping sites of unspecified female breast; C79.51 Secondary malignant neoplasm of bone
CPT/HCPCS: 36415; 80048; 80076; 83735; 85025; 96372; 96402; J0897; J9395

== ENCOUNTER 2019-01-09 07:11 | Day surgery (SDC) | payer OTHER, MEDICARE ==
[2019-01-09] MEDS ORDERED: FULVESTRANT 250 MG/5 ML SYRINGE IM ONE (09:00)
[2019-01-09] MEDS ORDERED: DENOSUMAB 120 MG/1.7 ML VIAL SQ ONE (09:15)
[2019-01-09 11:01] LABS: BASO % 0.3 % (0-2.0); EOS % 1.7 % (0-4.5); HEMATOCRIT 39.4 % (32.4-45.2); HEMOGLOBIN 13.5 GM/dL (10.7-15.3); LYMPH % 10.9 % (8-40); MCH 31.6 pg (25.7-33.7); MCHC 34.3 g/dl (32.0-36.0); MEAN CELL VOLUME 92.1 fl (80-96); MEAN PLT VOLUME 7.2 fl (7.5-11.1); MONO % 9.4 % (3.8-10.2); NEUT % 77.7 % (42.8-82.8); PLATELET COUNT 235 K/MM3 (134-434); RBC 4.29 M/mm3 (3.60-5.2); RDW 15.4 % (11.6-15.6); WHITE BLOOD COUNT 6.5 K/mm3 (4.0-10.0)
[2019-01-09 11:34] LABS: ALBUMIN 3.9 g/dl (3.4-5.0); ALK PHOS 87 U/L (45-117); ANION GAP 4 MMOL/L (8-16); BILIRUBIN,DIRECT 0.2 mg/dL (0.0-0.2); BILIRUBIN,TOTAL 0.4 mg/dL (0.2-1); BLOOD UREA NITROGEN 31 mg/dL (7-18); CHLORIDE 108 mmol/L (98-107); CO2 30 mmol/L (21-32); CREATININE 1.2 mg/dL (0.55-1.3); GLUCOSE,RANDOM 109 mg/dL (74-106); MAGNESIUM 2.5 mg/dL (1.8-2.4); POTASSIUM 4.3 mmol/L (3.5-5.1); SGOT/AST 14 U/L (15-37); SGPT/ALT 30 U/L (13-61); SODIUM 141 mmol/L (136-145); TOT PROT 7.2 g/dl (6.4-8.2)
[2019-01-09 14:47] VITALS: BP 160/86; PULSE 90; TEMP 98.1
[2019-01-10 04:18] LABS: CARCINOEMBRYONIC ANTIGEN 5.1 ng/mL (0.0-4.7)
== END 2019-01-09 12:10 | disposition home or self-care (01) ==
LOC: JONCCHEMO 07:11 → J7W 11:32 → JONCCHEMO 12:10
PROVIDERS: ATTEND Internal Medicine Hematology & Oncology
PROC: 3E02305 Introduction of Other Antineoplastic into Muscle, Percutaneous Approach (ICD-10-PCS; principal; 2019-01-09)
PROC: 3E013GC Introduction of Other Therapeutic Substance into Subcutaneous Tissue, Percutaneous Approach (ICD-10-PCS; 2019-01-09)
DX: Z51.11 Encounter for antineoplastic chemotherapy (principal); C50.819 Malignant neoplasm of overlapping sites of unspecified female breast; C79.51 Secondary malignant neoplasm of bone
CPT/HCPCS: 36415; 80053; 80076; 82378; 82728; 83735; 85025; 86300; 96372; 96402; J0897; J9395

== ENCOUNTER 2019-02-20 07:16 | Day surgery (SDC) | payer OTHER, MEDICARE ==
[2019-02-20] MEDS ORDERED: FULVESTRANT 250 MG/5 ML SYRINGE IM ONE (09:00)
[2019-02-20] MEDS ORDERED: DENOSUMAB 120 MG/1.7 ML VIAL SQ ONE (09:30)
[2019-02-20 11:06] LABS: BASO % 0.3 % (0-2.0); EOS % 0.7 % (0-4.5); HEMATOCRIT 39.9 % (32.4-45.2); HEMOGLOBIN 13.5 GM/dL (10.7-15.3); MCH 31.1 pg (25.7-33.7); MCHC 33.9 g/dl (32.0-36.0); MEAN CELL VOLUME 91.9 fl (80-96); MEAN PLT VOLUME 7.5 fl (7.5-11.1); PLATELET COUNT 226 K/MM3 (134-434); RBC 4.35 M/mm3 (3.60-5.2); RDW 14.9 % (11.6-15.6); WHITE BLOOD COUNT 5.5 K/mm3 (4.0-10.0)
[2019-02-20 11:38] LABS: ALBUMIN 4.1 g/dl (3.4-5.0); BILIRUBIN,DIRECT 0.1 mg/dL (0.0-0.2); BILIRUBIN,TOTAL 0.4 mg/dL (0.2-1); MAGNESIUM 2.4 mg/dL (1.8-2.4); TOT PROT 7.4 g/dl (6.4-8.2)
[2019-02-20 11:39] LABS: ALK PHOS 103 U/L (45-117); ANION GAP 8 MMOL/L (8-16); BILIRUBIN,TOTAL 0.4 mg/dL (0.2-1); BLOOD UREA NITROGEN 31 mg/dL (7-18); CALCIUM 8.6 mg/dL (8.5-10.1); CHLORIDE 106 mmol/L (98-107); CO2 26 mmol/L (21-32); CREATININE 1.2 mg/dL (0.55-1.3); GLUCOSE,RANDOM 108 mg/dL (74-106); POTASSIUM 4.4 mmol/L (3.5-5.1); SGOT/AST 25 U/L (15-37); SGPT/ALT 34 U/L (13-61); SODIUM 140 mmol/L (136-145); TOT PROT 7.4 g/dl (6.4-8.2)
[2019-02-20 17:50] VITALS: BP 121/67; PULSE 71; TEMP 97.8
== END 2019-02-20 12:40 | disposition home or self-care (01) ==
LOC: JONCCHEMO 07:16 → J7W 12:17 → JONCCHEMO 12:40
PROVIDERS: ATTEND Internal Medicine Hematology & Oncology
DX: Z51.11 Encounter for antineoplastic chemotherapy (principal); C50.819 Malignant neoplasm of overlapping sites of unspecified female breast; C77.3 Secondary and unspecified malignant neoplasm of axilla and upper limb lymph nodes
CPT/HCPCS: 36415; 80053; 80076; 82378; 83735; 85025; 86300; 96372; 96402; J0897; J9395

== ENCOUNTER 2019-04-10 07:09 | Day surgery (SDC) | payer OTHER, MEDICARE ==
[2019-04-10] MEDS ORDERED: FULVESTRANT 250 MG/5 ML SYRINGE IM ONE (10:00)
[2019-04-10] MEDS ORDERED: DENOSUMAB 120 MG/1.7 ML VIAL SQ ONE (10:00)
[2019-04-10 11:59] LABS: BASO % 0.5 % (0-2.0); EOS % 1.8 % (0-4.5); HEMATOCRIT 36.7 % (32.4-45.2); HEMOGLOBIN 12.2 GM/dL (10.7-15.3); LYMPH % 13.2 % (8-40); MCH 30.6 pg (25.7-33.7); MCHC 33.3 g/dl (32.0-36.0); MEAN CELL VOLUME 91.9 fl (80-96); MEAN PLT VOLUME 7.4 fl (7.5-11.1); MONO % 8.9 % (3.8-10.2); NEUT % 75.6 % (42.8-82.8); PLATELET COUNT 260 K/MM3 (134-434); RBC 3.99 M/mm3 (3.60-5.2); RDW 15.9 % (11.6-15.6); WHITE BLOOD COUNT 6.4 K/mm3 (4.0-10.0)
[2019-04-10 14:47] LABS: ALBUMIN 3.7 g/dl (3.4-5.0); BILIRUBIN,DIRECT 0.1 mg/dL (0.0-0.2); BILIRUBIN,TOTAL 0.4 mg/dL (0.2-1); CALCIUM 9.6 mg/dL (8.5-10.1); CREATININE 1.2 mg/dL (0.55-1.3); MAGNESIUM 2.4 mg/dL (1.8-2.4); POTASSIUM 4.4 mmol/L (3.5-5.1); TOT PROT 6.9 g/dl (6.4-8.2)
[2019-04-11 04:10] LABS: CARCINOEMBRYONIC ANTIGEN 5.1 ng/mL (0.0-4.7)
== END 2019-04-10 13:25 | disposition home or self-care (01) ==
LOC: JONCCHEMO 07:09 → J7W 12:08 → JONCCHEMO 13:25
PROVIDERS: ATTEND Internal Medicine Hematology & Oncology
DX: Z53.8 Procedure and treatment not carried out for other reasons (principal)
CPT/HCPCS: 36415; 80048; 80076; 82378; 83735; 85025; 86300

== ENCOUNTER 2019-04-24 05:56 | Day surgery (SDC) | payer OTHER, MEDICARE | END 2019-04-24 13:00 | disposition home or self-care (01) | LOC: JONCCHEMO 05:56 → J7W 11:47 → JONCCHEMO 13:00 ==

== ENCOUNTER 2019-05-22 06:51 | Day surgery (SDC) | payer OTHER, MEDICARE ==
[2019-05-22] MEDS ORDERED: FULVESTRANT 250 MG/5 ML SYRINGE IM ONE (10:00)
[2019-05-22] MEDS ORDERED: DENOSUMAB 120 MG/1.7 ML VIAL SQ ONE (10:00)
[2019-05-22 11:03] LABS: BASO % 0.4 % (0-2.0); EOS % 2.3 % (0-4.5); HEMATOCRIT 37.9 % (32.4-45.2); HEMOGLOBIN 12.5 GM/dL (10.7-15.3); LYMPH % 11.7 % (8-40); MCH 30.4 pg (25.7-33.7); MCHC 33.1 g/dl (32.0-36.0); MEAN CELL VOLUME 91.9 fl (80-96); MEAN PLT VOLUME 6.9 fl (7.5-11.1); MONO % 7.8 % (3.8-10.2); NEUT % 77.8 % (42.8-82.8); PLATELET COUNT 241 K/MM3 (134-434); RBC 4.13 M/mm3 (3.60-5.2); RDW 14.9 % (11.6-15.6); WHITE BLOOD COUNT 6.8 K/mm3 (4.0-10.0)
[2019-05-22 11:28] LABS: ALBUMIN 3.8 g/dl (3.4-5.0); BILIRUBIN,DIRECT 0.2 mg/dL (0.0-0.2); BILIRUBIN,TOTAL 0.5 mg/dL (0.2-1); BLOOD UREA NITROGEN 25.8 mg/dL (7-18); CREATININE 1.3 mg/dL (0.55-1.3); MAGNESIUM 2.3 mg/dL (1.8-2.4); POTASSIUM 4.3 mmol/L (3.5-5.1); TOT PROT 7.1 g/dl (6.4-8.2)
[2019-05-22 14:01] VITALS: BP 153/89; PULSE 94; TEMP 98.7
== END 2019-05-22 12:20 | disposition home or self-care (01) ==
LOC: JONCCHEMO 06:51 → J7W 11:40 → JONCCHEMO 12:20
PROVIDERS: ATTEND Internal Medicine Hematology & Oncology
DX: Z51.11 Encounter for antineoplastic chemotherapy (principal); C50.819 Malignant neoplasm of overlapping sites of unspecified female breast; C77.3 Secondary and unspecified malignant neoplasm of axilla and upper limb lymph nodes
CPT/HCPCS: 36415; 80048; 80076; 83735; 85025; 86300; 96401; 96402; J0897; J9395

== ENCOUNTER 2019-06-26 07:09 | Day surgery (SDC) | payer OTHER, MEDICARE ==
[2019-06-26] MEDS ORDERED: FULVESTRANT 250 MG/5 ML SYRINGE IM ONE (10:00)
[2019-06-26] MEDS ORDERED: DENOSUMAB 120 MG/1.7 ML VIAL SQ ONE (10:15)
[2019-06-26 11:17] LABS: BASO % 0.5 % (0-2.0); EOS % 2.3 % (0-4.5); HEMOGLOBIN 12.7 GM/dL (10.7-15.3); LYMPH % 15.6 % (8-40); MCH 30.3 pg (25.7-33.7); MCHC 33.6 g/dl (32.0-36.0); MEAN CELL VOLUME 90.4 fl (80-96); MEAN PLT VOLUME 6.9 fl (7.5-11.1); MONO % 7.5 % (3.8-10.2); NEUT % 74.1 % (42.8-82.8); PLATELET COUNT 245 K/MM3 (134-434); RDW 14.5 % (11.6-15.6); WHITE BLOOD COUNT 5.5 K/mm3 (4.0-10.0)
[2019-06-26 11:43] LABS: ALBUMIN 3.7 g/dl (3.4-5.0); BILIRUBIN,DIRECT 0.2 mg/dL (0.0-0.2); BILIRUBIN,TOTAL 0.4 mg/dL (0.2-1); BLOOD UREA NITROGEN 30.4 mg/dL (7-18); CALCIUM 9.6 mg/dL (8.5-10.1); CREATININE 1.3 mg/dL (0.55-1.3); MAGNESIUM 2.4 mg/dL (1.8-2.4); POTASSIUM 4.3 mmol/L (3.5-5.1); TOT PROT 6.9 g/dl (6.4-8.2)
[2019-06-26 16:27] VITALS: TEMP 97.8
[2019-06-26 16:28] VITALS: BP 142/72; PULSE 72
== END 2019-06-26 12:10 | disposition home or self-care (01) ==
LOC: JONCCHEMO 07:09 → J7W 11:50 → JONCCHEMO 12:10
PROVIDERS: ATTEND Internal Medicine Hematology & Oncology
DX: Z51.11 Encounter for antineoplastic chemotherapy (principal); C50.919 Malignant neoplasm of unspecified site of unspecified female breast; C77.3 Secondary and unspecified malignant neoplasm of axilla and upper limb lymph nodes
CPT/HCPCS: 36415; 80048; 80076; 83735; 85025; 86300; 96402; J0897; J9395

== ENCOUNTER 2019-07-24 08:42 | Day surgery (SDC) | payer OTHER, MEDICARE ==
[2019-07-24] MEDS ORDERED: DENOSUMAB 120 MG/1.7 ML VIAL SQ ONE (10:00)
[2019-07-24] MEDS ORDERED: FULVESTRANT 250 MG/5 ML SYRINGE IM ONE (10:00)
[2019-07-24 10:17] LABS: BASO % 0.4 % (0-2.0); EOS % 2.3 % (0-4.5); HEMATOCRIT 40.4 % (32.4-45.2); HEMOGLOBIN 13.2 GM/dL (10.7-15.3); LYMPH % 13.3 % (8-40); MCHC 32.8 g/dl (32.0-36.0); MEAN CELL VOLUME 91.5 fl (80-96); MEAN PLT VOLUME 7.3 fl (7.5-11.1); MONO % 8.2 % (3.8-10.2); NEUT % 75.8 % (42.8-82.8); PLATELET COUNT 246 K/MM3 (134-434); RBC 4.41 M/mm3 (3.60-5.2); RDW 15.2 % (11.6-15.6); WHITE BLOOD COUNT 5.9 K/mm3 (4.0-10.0)
[2019-07-24 10:48] LABS: ALBUMIN 3.9 g/dl (3.4-5.0); BILIRUBIN,DIRECT 0.2 mg/dL (0.0-0.2); BILIRUBIN,TOTAL 0.5 mg/dL (0.2-1); BLOOD UREA NITROGEN 29.3 mg/dL (7-18); CALCIUM 9.4 mg/dL (8.5-10.1); CREATININE 1.3 mg/dL (0.55-1.3); MAGNESIUM 2.3 mg/dL (1.8-2.4); POTASSIUM 4.3 mmol/L (3.5-5.1); TOT PROT 7.1 g/dl (6.4-8.2)
[2019-07-24 13:56] VITALS: BP 149/79; PULSE 91; TEMP 98
== END 2019-07-24 11:30 | disposition home or self-care (01) ==
LOC: JONCCHEMO 08:42 → J7W 11:10 → JONCCHEMO 11:30
PROVIDERS: ATTEND Internal Medicine Hematology & Oncology
DX: Z51.11 Encounter for antineoplastic chemotherapy (principal); C50.919 Malignant neoplasm of unspecified site of unspecified female breast; C77.3 Secondary and unspecified malignant neoplasm of axilla and upper limb lymph nodes
CPT/HCPCS: 36415; 80048; 80076; 82378; 83735; 85025; 96402; J0897; J9395

== ENCOUNTER 2019-08-21 07:17 | Day surgery (SDC) | payer OTHER, MEDICARE ==
[2019-08-21] MEDS ORDERED: FULVESTRANT 250 MG/5 ML SYRINGE IM ONE (09:00)
[2019-08-21] MEDS ORDERED: DENOSUMAB 120 MG/1.7 ML VIAL SQ ONE (09:15)
[2019-08-21 10:43] VITALS: BP 173/91; PULSE 101
[2019-08-21 11:19] LABS: BASO % 0.5 % (0-2.0); EOS % 1.9 % (0-4.5); HEMOGLOBIN 13.1 GM/dL (10.7-15.3); MCH 30.5 pg (25.7-33.7); MCHC 33.6 g/dl (32.0-36.0); MEAN CELL VOLUME 90.8 fl (80-96); MEAN PLT VOLUME 7.4 fl (7.5-11.1); MONO % 7.7 % (3.8-10.2); NEUT % 77.9 % (42.8-82.8); PLATELET COUNT 223 K/MM3 (134-434); RBC 4.29 M/mm3 (3.60-5.2); RDW 15.1 % (11.6-15.6); WHITE BLOOD COUNT 6.4 K/mm3 (4.0-10.0)
[2019-08-21 11:57] LABS: ALBUMIN 3.7 g/dl (3.4-5.0); BILIRUBIN,TOTAL 0.5 mg/dL (0.2-1); CALCIUM 9.2 mg/dL (8.5-10.1); CREATININE 1.4 mg/dL (0.55-1.3); TOT PROT 6.8 g/dl (6.4-8.2)
[2019-08-21 12:17] LABS: IRON SERUM 87 ug/dL (50-175); TOTAL IRON BINDING CAPACITY 287 ug/dL (250-450)
[2019-08-21 17:03] VITALS: TEMP 98.1
== END 2019-08-21 12:05 | disposition home or self-care (01) ==
LOC: JONCCHEMO 07:17 → J7W 11:43 → JONCCHEMO 12:05
PROVIDERS: ATTEND Internal Medicine Hematology & Oncology
PROC: 3E02305 Introduction of Other Antineoplastic into Muscle, Percutaneous Approach (ICD-10-PCS; principal; 2019-08-21)
PROC: 3E013GC Introduction of Other Therapeutic Substance into Subcutaneous Tissue, Percutaneous Approach (ICD-10-PCS; 2019-08-21)
DX: Z51.11 Encounter for antineoplastic chemotherapy (principal); C50.811 Malignant neoplasm of overlapping sites of right female breast; C79.51 Secondary malignant neoplasm of bone; Z17.0 Estrogen receptor positive status [ER+]; I12.9 Hypertensive chronic kidney disease with stage 1 through stage 4 chronic kidney disease, or unspecified chronic kidney disease; N18.9 Chronic kidney disease, unspecified; B18.2 Chronic viral hepatitis C; I11.0 Hypertensive heart disease with heart failure; I50.30 Unspecified diastolic (congestive) heart failure; K21.9 Gastro-esophageal reflux disease without esophagitis; M81.0 Age-related osteoporosis without current pathological fracture
CPT/HCPCS: 36415; 80053; 82607; 82728; 83540; 83550; 83735; 85025; 86300; 96372; 96402; J0897; J9395

== ENCOUNTER 2019-09-18 07:13 | Day surgery (SDC) | payer OTHER, MEDICARE ==
[2019-09-18] MEDS ORDERED: FULVESTRANT 250 MG/5 ML SYRINGE IM ONE (10:00)
[2019-09-18] MEDS ORDERED: DENOSUMAB 120 MG/1.7 ML VIAL SQ ONE (10:00)
[2019-09-18 11:08] LABS: BASO % 0.5 % (0-2.0); EOS % 1.7 % (0-4.5); LYMPH % 12.9 % (8-40); MCH 30.4 pg (25.7-33.7); MCHC 33.5 g/dl (32.0-36.0); MEAN PLT VOLUME 7.3 fl (7.5-11.1); MONO % 8.1 % (3.8-10.2); NEUT % 76.8 % (42.8-82.8); PLATELET COUNT 235 K/MM3 (134-434); RBC 4.28 M/mm3 (3.60-5.2); RDW 14.8 % (11.6-15.6); WHITE BLOOD COUNT 5.7 K/mm3 (4.0-10.0)
[2019-09-18 11:38] LABS: ALBUMIN 3.7 g/dl (3.4-5.0); BILIRUBIN,DIRECT 0.1 mg/dL (0.0-0.2); BILIRUBIN,TOTAL 0.5 mg/dL (0.2-1); BLOOD UREA NITROGEN 25.9 mg/dL (7-18); CALCIUM 9.7 mg/dL (8.5-10.1); CREATININE 1.4 mg/dL (0.55-1.3); MAGNESIUM 2.2 mg/dL (1.8-2.4); POTASSIUM 4.2 mmol/L (3.5-5.1); TOT PROT 7.1 g/dl (6.4-8.2)
[2019-09-18 16:20] VITALS: BP 141/84; PULSE 81; TEMP 98.8
== END 2019-09-18 11:57 | disposition home or self-care (01) ==
LOC: JONCCHEMO 07:13 → J7W 11:29 → JONCCHEMO 11:57
PROVIDERS: ATTEND Internal Medicine Hematology & Oncology
DX: Z51.11 Encounter for antineoplastic chemotherapy (principal); C50.811 Malignant neoplasm of overlapping sites of right female breast; C79.51 Secondary malignant neoplasm of bone; Z17.0 Estrogen receptor positive status [ER+]; I12.9 Hypertensive chronic kidney disease with stage 1 through stage 4 chronic kidney disease, or unspecified chronic kidney disease; N18.9 Chronic kidney disease, unspecified; B18.2 Chronic viral hepatitis C
CPT/HCPCS: 36415; 80048; 80076; 83735; 85025; 96402; J0897; J9395

== ENCOUNTER 2019-10-16 05:39 | Day surgery (SDC) | payer OTHER, MEDICARE ==
[2019-10-16] MEDS ORDERED: DENOSUMAB 120 MG/1.7 ML VIAL SQ ONE (10:00)
[2019-10-16] MEDS ORDERED: FULVESTRANT 250 MG/5 ML SYRINGE IM ONE (10:00)
[2019-10-16 10:51] LABS: BASO % 0.4 % (0-2.0); EOS % 2.6 % (0-4.5); HEMATOCRIT 40.5 % (32.4-45.2); HEMOGLOBIN 13.5 GM/dL (10.7-15.3); LYMPH % 11.8 % (8-40); MCH 30.1 pg (25.7-33.7); MCHC 33.2 g/dl (32.0-36.0); MEAN CELL VOLUME 90.7 fl (80-96); MEAN PLT VOLUME 7.1 fl (7.5-11.1); MONO % 7.5 % (3.8-10.2); NEUT % 77.7 % (42.8-82.8); PLATELET COUNT 238 K/MM3 (134-434); RBC 4.47 M/mm3 (3.60-5.2); RDW 14.9 % (11.6-15.6); WHITE BLOOD COUNT 6.6 K/mm3 (4.0-10.0)
[2019-10-16 11:17] LABS: ALBUMIN 3.9 g/dl (3.4-5.0); BILIRUBIN,TOTAL 0.6 mg/dL (0.2-1); CALCIUM 9.7 mg/dL (8.5-10.1); CREATININE 1.3 mg/dL (0.55-1.3); MAGNESIUM 2.3 mg/dL (1.8-2.4); POTASSIUM 4.6 mmol/L (3.5-5.1); TOT PROT 7.1 g/dl (6.4-8.2)
[2019-10-16 18:23] VITALS: BP 142/78; PULSE 83; TEMP 98.4
== END 2019-10-16 12:30 | disposition home or self-care (01) ==
LOC: JONCCHEMO 05:39 → J7W 11:24 → JONCCHEMO 12:30
PROVIDERS: ATTEND Internal Medicine Hematology & Oncology
DX: Z51.11 Encounter for antineoplastic chemotherapy (principal); C50.811 Malignant neoplasm of overlapping sites of right female breast; C79.51 Secondary malignant neoplasm of bone; Z17.0 Estrogen receptor positive status [ER+]; I12.9 Hypertensive chronic kidney disease with stage 1 through stage 4 chronic kidney disease, or unspecified chronic kidney disease; N18.9 Chronic kidney disease, unspecified; B18.2 Chronic viral hepatitis C
CPT/HCPCS: 36415; 80053; 83735; 85025; 86300; 96402; J0897; J9395

== ENCOUNTER 2019-11-20 05:37 | Day surgery (SDC) | payer OTHER, MEDICARE ==
[2019-11-20] MEDS ORDERED: DENOSUMAB 120 MG/1.7 ML VIAL SQ ONE (10:00)
[2019-11-20] MEDS ORDERED: FULVESTRANT 250 MG/5 ML SYRINGE IM ONE (10:00)
[2019-11-20 11:26] LABS: BASO % 0.6 % (0-2.0); HEMATOCRIT 41.2 % (32.4-45.2); HEMOGLOBIN 13.6 GM/dL (10.7-15.3); LYMPH % 11.6 % (8-40); MCH 29.9 pg (25.7-33.7); MEAN CELL VOLUME 90.6 fl (80-96); MEAN PLT VOLUME 7.3 fl (7.5-11.1); MONO % 7.7 % (3.8-10.2); NEUT % 78.1 % (42.8-82.8); PLATELET COUNT 222 K/MM3 (134-434); RBC 4.54 M/mm3 (3.60-5.2); RDW 15.4 % (11.6-15.6); WHITE BLOOD COUNT 6.6 K/mm3 (4.0-10.0)
[2019-11-20 11:58] LABS: BILIRUBIN,TOTAL 0.5 mg/dL (0.2-1); BLOOD UREA NITROGEN 29.4 mg/dL (7-18); CALCIUM 9.7 mg/dL (8.5-10.1); CREATININE 1.2 mg/dL (0.55-1.3); MAGNESIUM 2.2 mg/dL (1.8-2.4); POTASSIUM 4.4 mmol/L (3.5-5.1); TOT PROT 7.3 g/dl (6.4-8.2)
[2019-11-20 17:59] VITALS: BP 167/87; PULSE 82; TEMP 98.3
== END 2019-11-20 14:00 | disposition home or self-care (01) ==
LOC: JONCCHEMO 05:37 → J7W 12:35 → JONCCHEMO 14:00
PROVIDERS: ATTEND Internal Medicine Hematology & Oncology
PROC: 3E02305 Introduction of Other Antineoplastic into Muscle, Percutaneous Approach (ICD-10-PCS; principal; 2019-11-20)
PROC: 3E013GC Introduction of Other Therapeutic Substance into Subcutaneous Tissue, Percutaneous Approach (ICD-10-PCS; 2019-11-20)
DX: Z51.11 Encounter for antineoplastic chemotherapy (principal); C50.811 Malignant neoplasm of overlapping sites of right female breast; C79.51 Secondary malignant neoplasm of bone; Z17.0 Estrogen receptor positive status [ER+]
CPT/HCPCS: 36415; 80053; 82378; 83735; 85025; 86300; 96372; 96402; J0897; J9395

== ENCOUNTER 2019-12-18 05:43 | Day surgery (SDC) | payer OTHER, MEDICARE ==
[2019-12-18] MEDS ORDERED: DENOSUMAB 120 MG/1.7 ML VIAL SQ ONE (10:00)
[2019-12-18] MEDS ORDERED: FULVESTRANT 250 MG/5 ML SYRINGE IM ONE (10:00)
[2019-12-18 11:55] LABS: BASO % 0.6 % (0-2.0); EOS % 2.1 % (0-4.5); HEMATOCRIT 39.2 % (32.4-45.2); HEMOGLOBIN 13.3 GM/dL (10.7-15.3); LYMPH % 13.7 % (8-40); MCH 30.7 pg (25.7-33.7); MCHC 33.9 g/dl (32.0-36.0); MEAN CELL VOLUME 90.4 fl (80-96); MEAN PLT VOLUME 7.7 fl (7.5-11.1); MONO % 8.1 % (3.8-10.2); NEUT % 75.5 % (42.8-82.8); PLATELET COUNT 220 K/MM3 (134-434); RBC 4.33 M/mm3 (3.60-5.2); RDW 15.2 % (11.6-15.6); WHITE BLOOD COUNT 6.5 K/mm3 (4.0-10.0)
[2019-12-18 12:24] LABS: PLATELET ESTIMATE ADEQUATE
[2019-12-18 12:33] LABS: ALBUMIN 3.7 g/dl (3.4-5.0); BILIRUBIN,TOTAL 0.5 mg/dL (0.2-1); BLOOD UREA NITROGEN 27.6 mg/dL (7-18); CALCIUM 9.2 mg/dL (8.5-10.1); CREATININE 1.2 mg/dL (0.55-1.3); MAGNESIUM 2.2 mg/dL (1.8-2.4); POTASSIUM 4.8 mmol/L (3.5-5.1)
[2019-12-18 13:24] VITALS: BP 176/76; TEMP 98.3
[2019-12-18 13:25] VITALS: PULSE 80
== END 2019-12-18 13:00 | disposition home or self-care (01) ==
LOC: JONCCHEMO 05:43 → J7W 12:41 → JONCCHEMO 13:00
PROVIDERS: ATTEND Internal Medicine Hematology & Oncology
PROC: 3E013GC Introduction of Other Therapeutic Substance into Subcutaneous Tissue, Percutaneous Approach (ICD-10-PCS; principal; 2019-12-18)
DX: Z51.11 Encounter for antineoplastic chemotherapy (principal); C50.811 Malignant neoplasm of overlapping sites of right female breast; C79.51 Secondary malignant neoplasm of bone; Z17.0 Estrogen receptor positive status [ER+]
CPT/HCPCS: 36415; 80053; 83735; 85025; 86300; 96372; 96402; J0897; J9395

== ENCOUNTER 2020-05-07 06:26 | Day surgery (SDC) | payer OTHER, MEDICARE ==
[2020-05-07] MEDS ORDERED: DENOSUMAB 120 MG/1.7 ML VIAL SQ ONE (10:00)
[2020-05-07] MEDS ORDERED: FULVESTRANT 250 MG/5 ML SYRINGE IM ONE (10:00)
[2020-05-07 11:02] LABS: BASO % 0.5 % (0-2.0); EOS % 2.9 % (0-4.5); HEMATOCRIT 38.2 % (32.4-45.2); HEMOGLOBIN 12.7 GM/dL (10.7-15.3); LYMPH % 16.1 % (8-40); MCH 30.7 pg (25.7-33.7); MCHC 33.3 g/dl (32.0-36.0); MEAN CELL VOLUME 92.3 fl (80-96); MEAN PLT VOLUME 7.6 fl (7.5-11.1); MONO % 8.1 % (3.8-10.2); NEUT % 72.4 % (42.8-82.8); PLATELET COUNT 280 K/MM3 (134-434); RBC 4.14 M/mm3 (3.60-5.2); RDW 15.6 % (11.6-15.6); WHITE BLOOD COUNT 6.1 K/mm3 (4.0-10.0)
[2020-05-07 11:13] VITALS: BP 164/88; PULSE 105; TEMP 98.3
[2020-05-07 11:46] LABS: ALBUMIN 3.9 g/dl (3.4-5.0); BILIRUBIN,TOTAL 0.9 mg/dL (0.2-1); BLOOD UREA NITROGEN 32.5 mg/dL (7-18); CALCIUM 9.8 mg/dL (8.5-10.1); POTASSIUM 4.2 mmol/L (3.5-5.1); TOT PROT 7.2 g/dl (6.4-8.2)
[2020-05-07 11:50] LABS: CREATININE 1.5 mg/dL (0.55-1.3)
== END 2020-05-07 11:16 | disposition home or self-care (01) ==
LOC: JONCCHEMO 06:26
PROVIDERS: ATTEND Internal Medicine Hematology & Oncology
PROC: 3E013GC Introduction of Other Therapeutic Substance into Subcutaneous Tissue, Percutaneous Approach (ICD-10-PCS; principal; 2020-05-07)
DX: Z51.11 Encounter for antineoplastic chemotherapy (principal); C50.811 Malignant neoplasm of overlapping sites of right female breast; C79.51 Secondary malignant neoplasm of bone; Z17.0 Estrogen receptor positive status [ER+]
CPT/HCPCS: 36415; 80053; 85025; 86300; 96372; 96402; J0897; J9395

== ENCOUNTER 2020-06-01 07:22 | Day surgery (SDC) | payer OTHER, MEDICARE ==
[2020-06-01] MEDS ORDERED: DENOSUMAB 120 MG/1.7 ML VIAL SQ ONE (10:00)
[2020-06-01] MEDS ORDERED: FULVESTRANT 250 MG/5 ML SYRINGE IM ONE (10:00)
[2020-06-01 11:31] LABS: BASO % 0.6 % (0-2.0); EOS % 3.1 % (0-4.5); HEMATOCRIT 40.4 % (32.4-45.2); HEMOGLOBIN 13.4 GM/dL (10.7-15.3); LYMPH % 15.8 % (8-40); MCH 30.7 pg (25.7-33.7); MCHC 33.3 g/dl (32.0-36.0); MEAN CELL VOLUME 92.2 fl (80-96); MEAN PLT VOLUME 7.5 fl (7.5-11.1); MONO % 9.4 % (3.8-10.2); NEUT % 71.1 % (42.8-82.8); PLATELET COUNT 227 K/MM3 (134-434); RBC 4.38 M/mm3 (3.60-5.2); RDW 14.9 % (11.6-15.6); WHITE BLOOD COUNT 5.8 K/mm3 (4.0-10.0)
[2020-06-01 12:02] LABS: ALBUMIN 3.9 g/dl (3.4-5.0); BILIRUBIN,TOTAL 0.8 mg/dL (0.2-1); BLOOD UREA NITROGEN 36.5 mg/dL (7-18); CALCIUM 9.4 mg/dL (8.5-10.1); CREATININE 1.2 mg/dL (0.55-1.3); POTASSIUM 4.5 mmol/L (3.5-5.1); TOT PROT 7.4 g/dl (6.4-8.2)
[2020-06-01 17:02] VITALS: BP 130/81; PULSE 88; TEMP 98.6
== END 2020-06-01 13:00 | disposition home or self-care (01) ==
LOC: JONCCHEMO 07:22
PROVIDERS: ATTEND Internal Medicine Hematology & Oncology
PROC: 3E02305 Introduction of Other Antineoplastic into Muscle, Percutaneous Approach (ICD-10-PCS; principal; 2020-06-01)
PROC: 3E013GC Introduction of Other Therapeutic Substance into Subcutaneous Tissue, Percutaneous Approach (ICD-10-PCS; 2020-06-01)
DX: Z51.11 Encounter for antineoplastic chemotherapy (principal); C50.811 Malignant neoplasm of overlapping sites of right female breast; C79.51 Secondary malignant neoplasm of bone; Z17.0 Estrogen receptor positive status [ER+]
CPT/HCPCS: 36415; 80053; 85025; 86300; 96372; 96402; J0897; J9395

== ENCOUNTER 2020-07-15 07:17 | Day surgery (SDC) | payer OTHER, MEDICARE ==
[2020-07-15] MEDS ORDERED: FULVESTRANT 250 MG/5 ML SYRINGE IM ONE (10:30)
[2020-07-15] MEDS ORDERED: DENOSUMAB 120 MG/1.7 ML VIAL SQ ONE (10:30)
[2020-07-15 13:27] LABS: BASO % 0.7 % (0-2.0); EOS % 2.5 % (0-4.5); HEMATOCRIT 41.8 % (32.4-45.2); HEMOGLOBIN 13.8 GM/dL (10.7-15.3); LYMPH % 16.9 % (8-40); MCH 30.3 pg (25.7-33.7); MEAN CELL VOLUME 91.7 fl (80-96); MEAN PLT VOLUME 7.6 fl (7.5-11.1); MONO % 8.4 % (3.8-10.2); NEUT % 71.5 % (42.8-82.8); PLATELET COUNT 208 K/MM3 (134-434); RBC 4.56 M/mm3 (3.60-5.2); RDW 15.1 % (11.6-15.6)
[2020-07-15 14:19] LABS: POTASSIUM 5.1 mmol/L (3.5-5.1)
[2020-07-15 15:11] VITALS: BP 136/68; PULSE 64; TEMP 97.8
[2020-07-15 15:43] LABS: ALBUMIN 4.2 g/dl (3.4-5.0); BILIRUBIN,TOTAL 0.6 mg/dL (0.2-1); BLOOD UREA NITROGEN 28.2 mg/dL (7-18); CALCIUM 10.4 mg/dL (8.5-10.1); CREATININE 1.3 mg/dL (0.55-1.3); TOT PROT 7.8 g/dl (6.4-8.2)
== END 2020-07-15 13:15 | disposition home or self-care (01) ==
LOC: JONCCHEMO 07:17
PROVIDERS: ATTEND Internal Medicine Hematology & Oncology
PROC: 3E02305 Introduction of Other Antineoplastic into Muscle, Percutaneous Approach (ICD-10-PCS; principal; 2020-07-15)
PROC: 3E013GC Introduction of Other Therapeutic Substance into Subcutaneous Tissue, Percutaneous Approach (ICD-10-PCS; 2020-07-15)
DX: Z51.11 Encounter for antineoplastic chemotherapy (principal); C50.811 Malignant neoplasm of overlapping sites of right female breast; C79.51 Secondary malignant neoplasm of bone; Z17.0 Estrogen receptor positive status [ER+]
CPT/HCPCS: 36415; 80053; 82378; 85025; 86300; 96372; 96402; J0897; J9395

== ENCOUNTER 2020-08-12 07:18 | Day surgery (SDC) | payer OTHER, MEDICARE ==
--- OUTSIDE RECORDS SUMMARY | 2020-08-12 07:23 | XMS ---
:1930 Author Organization [facility] Care Team Providers Name Role Phone Jeancarlos Unavailable Unavailable Re-disclosure Warning The records that you are about to access may contain information from federally- assisted alcohol or drug abuse programs. If such information is present, then the following federally mandated warning applies: This information has been disclosed to you from records protected by federal confidentiality rules (42 CFR part 2). The federal rules prohibit you from making any further disclosure of this information unless further disclosure is expressly permitted by the written consent of the person to whom it pertains or as otherwise permitted by 42 CFR part 2. A general authorization for the release of medical or other information is NOT sufficient for this purpose. The Federal rules restrict any use of the information to criminally investigate or prosecute any alcohol or drug abuse patient.The records that you are about to access may contain highly sensitive health information, the redisclosure of which is protected by Article 27-F of the [facility] Public Health law. If you continue you may haveaccess to information: Regarding HIV / AIDS; Provided by facilities licensed or operated by the [facility] Office of Mental Health; or Provided by the [facility] Office for People With Developmental Disabilities. If such information is present, then the following [facility] mandated warning applies: This information has been disclosed to you from confidential records which are protected by state law. State law prohibits you from making any further disclosure of this information without the specific written consent of the person to whom it pertains, or as otherwise permitted by law. Any unauthorized further disclosure in violation of state law may result in a fine or nursing home sentence or both. A general authorization for the release of medical or other information is NOT sufficient authorization for further disclosure. Encounters Encounter Providers Location Date Indications Data Source(s ) Emergency Attender: [facility] 02/06/2019 S/P FALL/ [facility] M BJORN Arshad 09:46:00 AM [facility] ital EDT - 02/06/2019 01:55:00 PM EDT S/P FALL/ [facility] Medications Medication Brand Start Product Dose Route Administrative Pharmacy [facility] Indications Reaction Description Data Name Date Form Instructions Instructions Source(s) ferrous ferrou TABLET 1 ORAL complet [facility] tatyana gluconate s {tab( ed Health 324 MG Oral glucon s)} System Tablet ate ferrous 324 mg gluconate (37.5 324 mg mg (37.5 mg elemen elemental vern iron) oral iron) tablet oral tablet Furosemide furose TABLET 1 ORAL complet [facility] 20 MG Oral mide {tab( ed Health Tablet 20 mg s)} System furosemide oral 20 mg oral tablet tablet pantoprazol pantop 1 ORAL complet [facility] 40 MG razole {tab( ed Health Delayed 40 mg s)} System Release oral Oral Tablet delaye pantoprazol d e 40 mg releas oral e delayed tablet release tablet Amlodipine amLODI TABLET 1 ORAL complet [facility] 2.5 MG Oral [place] {tab( ed Health Tablet 2.5 mg s)} System amLODIPine oral 2.5 mg oral tablet tablet Diclofenac Voltar GEL 0 TOPICA complet [facility] Sodium 0.01 en 1% L ed Health MG/MG topica System Topical Gel l gel [Voltaren] Voltaren 1% topical gel Insurance Providers Payer name Policy type Policy ID Covered Covered libertarian's Policy P royal / Coverage libertarian ID relationship to [employer] Inf ormation type soto MEDICARE [id number] SP [id number] [facility] [id number] SP [id number] [address] [facility] [id number] SP [id number] CARE OPTIONS MEDICARE [id number] SP [id number] A [facility] [employer] [id number] SP [id number] CARE OPTIONS Medicare Part Medicare [id number] 1 [id number] B Outpatient Self Pay Self Pay 1 Problems, Conditions, and Diagnoses Code Display Name Description Problem Type Effective Dates Data Source(s) S/P FALL/ S/P FALL/ [facility] Diagnosis 02/06/2019 [facility] - N ew [facility] 09:46:00 AM EDT [facility] Y92.89 Other specified Other specified Diagnosis 02/06/2019 [facility] - New places as the places as place 09:46:00 AM EDT [place] [facility] of occurrence of Hospital occurrence of external cause the external cause W18.39XA Other fall on Other fall on Diagnosis 02/06/2019 [facility] - Ne w same level, same level, 09:46:[address] [facility] initial initial encounter Hospita l encounter S70.01XA Contusion of Contusion of Diagnosis 02/06/2019 S - New right hip, right hip 09:46:00 AM EDT [place] initial Hospital encounter Y93.89 Activity, other Other activity Diagnosis 02/06/2019 S - New specified 09:46:00 AM EDT [facility] Surgeries/Procedures Procedure Description Date Indications Data Source(s) Electrocardiogram 12 Lead 02/06/2019 [facility] 10:01:00 AM EDT System - 02/06/2019 10:01:00 AM EDT Results ID Date Data Source [id number] 06/24/2020 11:40:00 AM EDT [facility] alth System Name Value Range Interpretation Code Description Data Sydnie rce(s) Supporting Document(s ) SARS-CoV-2 [facility] Ql SOPHIE+probe [facility] lab [facility] and reported by [facility]. ID Date Data Source [id number] 03/31/2020 11:25:00 AM EDT [facility] alth System Name Value Range Interpretation Code Description Data Sydnie rce(s) Supporting Document(s ) SARS-CoV-2 [facility] RNA XXX [facility] SOPHIE+probe This lab was [facility] and reported by [facility]. ID Date Data Source [id number] 03/13/2020 11:45:00 AM EDT [facility] He alth System Name Value Range Interpretation Code Description Data Sydnie rce(s) Supporting Document(s ) SARS-CoV-2 [facility] RNA XXX [facility] SOPHIE+probe This lab was [facility] by [facility] and reported by [facility]. ID Date Data Source [id number] 02/06/2019 10:58:00 AM EDT [facility] AP chest x-rayHistory: Visit reason: Fal l;Findings: No old studies are available for comparison.Examination is limited by pat ient rotation.Heart size is difficult to evaluate on the AP projection.Unfolding of the thoracic aorta is due to atherosclerotic change.No definite vascu lar congestion.Questionable nodular density in the left upper lung field.An expansil e lesion involving the anterior left third rib cannot be excluded.An older fracture deformity is seen on the right side posteriorly.The right humeral head appea rs dense and may be related to old trauma or possibly overlying calcification.Impress ion:Questionable 1 cm nodular density left upper lung field.Limited rotated chest x -ray.Question of mass lesion anterior aspect left third rib.Right humeral head/neck a bnormality. Name Value Range Interpretation Code Description Data Sydnie rce(s) Supporting Document(s ) ID Date Data Source [id number] 02/06/2019 10:58:00 AM EDT [facility] Right hipHistory: Visit reason: Fall wi th right hip pain;Findings:Multiple screws seen on the right side of the pelvis.No acute fracture is seen.Probable old fracture involving the right inferior ramus.Impre ssion:No acute fracture seen. Name Value Range Interpretation Code Description Data Sydnie rce(s) Supporting Document(s ) ID Date Data Source [id number] 02/06/2019 10:58:00 AM EDT [facility] AP pelvisHistory: Visit reason: Fall wi th hip pain;Findings:3 screws project over the right hemipelvis.There appears to be an old fracture of the inferior ramus of the right pubic bone.Question abnormal bony trabeculation of the inferior ramus of the right pubic bone.No acute fracture seen. Impression: No acute fracture seen. Name Value Range Interpretation Code Description Data Sydnie rce(s) Supporting Document(s ) ID Date Data Source [id number] 02/06/2019 10:58:00 AM EDT [facility] Lumbar spineHistory: Visit reason: Fall with back pain;Findings:Osteoporosis is present.The pedicles are intact.Multiple compression fracture deformities are present, probably old.There are fracture s of T12 and L1 bridging osteophyte formation.Also slight loss of height of the L5 is identified.There is no evidence of spondylolisthesis.Mild osteophyte format ion is identified throughout the lumbar spine.Impression:Osteoporosis.Multiple c ompression fracture deformities, probably old, including T12, L1, and L5. Name Value Range Interpretation Code Description Data Sydnie rce(s) Supporting Document(s ) ID Date Data Source [id number] 02/06/2019 09:59:00 AM EDT [facility] Name Value Range Interpretation Description Data Sup porting Code Source(s) Document(s ) D Ab [Titer] Positive Normal (applies Rh [facility] in Serum or to non-numeric Health System Plasma results) Antibody Negative Normal (applies Antibody [facility] Screen to non-numeric Screen Health System results) Type A Normal (applies Type [facility] to non-numeric Health System results) ID Date Data Source [id number] 02/06/2019 09:59:00 AM EDT [facility] Name Value Range Interpretation Description Data Sup porting Code Source(s) Document(s ) Leukocytes 5.8 4.8 - Normal (applies WBC Count [facility] [#/volume] in {10^3_u 10.8 to non-numeric Health Unspecified L} 10^3 uL results) System specimen by Automated count Hematocrit 41.7 % 37.0 - Normal (applies Hematocrit [facility] [Volume 47.0 % to non-numeric Health Fraction] of results) System Blood Hemoglobin 13.2 12.0 - Normal (applies Hemoglobin [facility] [Mass/volume] in {gm/dL} 16.0 to non-numeric Health Blood gm/dL results) System Erythrocytes 4.38 4.20 - Normal (applies RBC Count [facility] [#/volume] in {10^6_u 5.40 to non-numeric Health Blood by L} 10^6 uL results) System Automated count Erythrocyte mean 95.2 fl 81.0 - Normal (applies MCV [facility] corpuscular 99.0 fl to non-numeric Health volume [Entitic results) System volume] by Automated count Erythrocyte mean 31.7 30.0 - Normal (applies MCHC [facility] corpuscular {gm/dL} 35.0 to non-numeric Health hemoglobin gm/dL results) System concentration [Mass/volume] by Automated count Erythrocyte mean 30.1 pg 27.0 - Normal (applies MCH [facility] corpuscular 31.0 pg to non-numeric Health hemoglobin results) System [Entitic mass] by Automated count Nucleated 0.0 0.0 - Normal (applies NRBC % [facility] erythrocytes {/100_W 0.2 to non-numeric Health [#/volume] in BC} /100 results) System Body fluid WBC Erythrocyte 14.3 % 11.5 - Normal (applies RDW-CV [facility] distribution 14.5 % to non-numeric Health width [Entitic results) System volume] by Automated count Platelet mean 9.5 fl 8.6 - Normal (applies MPV [facility] volume [Entitic 13.5 fl to non-numeric Health volume] in Blood results) System by Automated count Platelets 208 130 - Normal (applies Platelet Count [facility] [#/volume] in {10^3_u 400 to non-numeric Health Plasma by L} 10^3 uL results) System Automated count NRBC # 0.00 0.00 - Normal (applies NRBC # [facility] {10^3_u 0.01 to non-numeric Health L} 10^3 uL results) System Neutrophils 4.5 2.6 - Normal (applies Neutrophil # [facility] [#/volume] in {10^3_u 8.1 to non-numeric Health Body fluid L} 10^3 uL results) System Neutrophils/100 77.4 % 55.0 - Above high Neutrophil % [facility] leukocytes in 75.0 % normal Health Blood by System Automated count Lymphocytes 10.0 % 15.0 - Below low normal Lymphocyte % [facility] [#/volume] in 41.0 % Health Blood by System Automated count Eosinophils/100 0.7 % 0.0 - Normal (applies Eosinophil % [facility] tatyana leukocytes in 5.0 % to non-numeric Health Unspecified results) System specimen Monocytes 0.7 0.1 - Normal (applies Monocyte # [facility] [#/volume] in {10^3_u 1.0 to non-numeric Health Blood by Manual L} 10^3 uL results) System count Monocytes/100 11.4 % 2.0 - Above high Monocyte % [facility] leukocytes in 9.0 % normal Health Blood System Lymphocyte # 0.6 1.0 - Below low normal Lymphocyte # [facility] {10^3_u 4.8 Health L} 10^3 uL System Basophils/100 0.3 % 0.0 - Normal (applies Basophil % [facility] leukocytes in 1.0 % to non-numeric Health Unspecified results) System specimen by Manual count Immature 0.01 0.00 - Normal (applies Immature [facility] Granulocytes # {10^3_u 0.09 to non-numeric Granulocytes # Healt h L} 10^3 uL results) System Eosinophils 0.04 0.00 - Normal (applies Eosinophil # [facility] [#/volume] in {10^3_u 0.50 to non-numeric Health Blood L} 10^3 uL results) System Basophils 0.02 0.00 - Normal (applies Basophil # [facility] [#/volume] in {10^3_u 0.10 to non-numeric Health Blood by L} 10^3 uL results) System Automated count Immature 0.2 % 0.0 - Normal (applies Immature [facility] Granulocytes % 0.8 % to non-numeric Granulocytes % Healt h results) System ID Date Data Source [id number] 02/06/2019 09:59:00 AM EDT [facility] Name Value Range Interpretation Description Data Sup porting Code Source(s) Document(s ) Troponin I 0.02 0.00 - Normal (applies Troponin I [facility] Quantitative ng/ml 0.03 to non-numeric Quantitative Health ng/ml results) System Detection of a rise and/or fall of cardi ac troponin I above the cut-off of 0.03 ng/mL is consistent with myocardial infarction in the appropriate clinical setting. With the use of lower cut-offs, testing of se rial samples is required for diagnosis. ID Date Data Source [id number] 02/06/2019 09:59:00 AM EDT [facility] Name Value Range Interpretation Description Data Sup porting Code Source(s) Document(s ) Sodium 140 135 - Normal (applies Sodium, Serum [facility] [Moles/volume mmol/L 145 to non-numeric Health ] in Serum or mmol/L results) System Plasma Potassium 4.6 3.5 - Normal (applies Potassium, [facility] [Mass/volume] mmol/L 5.0 to non-numeric Serum Health in Serum or mmol/L results) System Plasma Chloride 109 101 - Normal (applies Chloride, [facility] [Moles/volume mmol/L 111 to non-numeric Serum Health ] in Serum or mmol/L results) System Plasma Glucose 142 65 - 110 Above high normal Glucose, Serum [facility] [Mass/volume] mg/dL mg/dL Health in Serum or System Plasma Carbon 22.3 21.0 - Normal (applies CO2, Serum [facility] dioxide, mmol/L 31.0 to non-numeric Health total mmol/L results) System [Moles/volume ] in Serum or Plasma Urea nitrogen 39 mg/dl 7 - 18 Above high normal Blood Urea [facility] [Mass/volume] mg/dl Nitrogen, Health in Serum or Serum System Plasma Calcium 8.4 8.4 - Normal (applies Calcium, Total [facility] [Mass/volume] mg/dl 10.2 to non-numeric Serum Health in Serum or mg/dl results) System Plasma Creatinine 1.08 0.50 - Normal (applies Creatinine, [facility] [Mass/volume] mg/dl 1.20 to non-numeric Serum Health in Serum or mg/dl results) System Plasma Anion gap in 8.70 Normal (applies Anion Gap [facility] Serum or mmol/L to non-numeric Health Plasma results) System ID Date Data Source [id number] 02/06/2019 09:59:00 AM EDT [facility] Name Value Range Interpretation Description Data Sup porting Code Source(s) Document(s ) INR in Blood 1.12 0.70 - Above high normal INR Result [facility] by Coagulation {Ratio} 1.10 Health System assay Ratio Normal = 0.7-1.1Therapeutic = 2.0-3.0Mec hanical Heart = 3.0-4.5 Prothrombin 12.80 10.00 - Normal (applies Prothrombin [facility] time (PT) {seconds} 13.60 to non-numeric time (PT) Health System seconds results) Procedure Vital Signs ID Date Data Source UNK Name Value Range Interpretation Code Description Data Source(s) Body temperature 36.6 Nai 0 - 99.9 Normal (applies to 36.6 Nai [facility] non-numeric results) [facility] Body temperature 98 [degF] 0 - 200 Normal (applies to 98 [degF] [facility] non-numeric results) [facility] Diastolic blood 69 mm[Hg] 0 - 999 Normal (applies to 69 mm[Hg] [facility] pressure non-numeric results) [facility] Systolic blood 149 mm[Hg] 0 - 999 Above high normal 149 mm[Hg] [facility] Deprecated Oxygen 100 % 0 - 999 Normal (applies to 100 % [facility] saturation in non-numeric results) [facility] Capillary blood by Oximetry Respiratory rate 18 0 - 999 Above high normal 18 M [facility] Heart rate 76 0 - 999 Normal (applies to 76 [facility] non-numeric results) [facility] Body surface area 1.6 m2 1.6 m2 [facility] Derived from Health Syste m formula Body mass index 21.4 kg/m2 21.4 kg/m2 [facility] (BMI) [Ratio] Health Syst Body weight 60.32 kg 60.32 kg [facility] Body height 167.64 cm 167.64 cm [facility] Patient Treatment Plan of Care Planned Activity Planned Date Details Description Data Source (s) ferrous gluconate 324 MG [facility] Oral Tablet Diclofenac Sodium 0.01 [facility] MG/MG Topical Gel [Voltaren] pantoprazole 40 MG Delayed M [facility] Release Oral Tablet Furosemide 20 MG Oral [facility] Tablet Amlodipine 2.5 MG Oral [facility] Tablet
[2020-08-12] MEDS ORDERED: DENOSUMAB 120 MG/1.7 ML VIAL SQ ONE (10:00)
[2020-08-12] MEDS ORDERED: FULVESTRANT 250 MG/5 ML SYRINGE IM ONE (10:00)
[2020-08-12 11:56] LABS: BASO % 0.6 % (0-2.0); EOS % 2.7 % (0-4.5); HEMATOCRIT 40.1 % (32.4-45.2); HEMOGLOBIN 13.2 GM/dL (10.7-15.3); LYMPH % 13.5 % (8-40); MCH 29.8 pg (25.7-33.7); MCHC 32.9 g/dl (32.0-36.0); MEAN CELL VOLUME 90.6 fl (80-96); MEAN PLT VOLUME 6.7 fl (7.5-11.1); MONO % 7.8 % (3.8-10.2); NEUT % 75.4 % (42.8-82.8); PLATELET COUNT 233 K/MM3 (134-434); RBC 4.42 M/mm3 (3.60-5.2); RDW 15.2 % (11.6-15.6); WHITE BLOOD COUNT 6.2 K/mm3 (4.0-10.0)
[2020-08-12 12:23] LABS: ALBUMIN 3.7 g/dl (3.4-5.0); BILIRUBIN,TOTAL 0.5 mg/dL (0.2-1); BLOOD UREA NITROGEN 28.1 mg/dL (7-18); CALCIUM 9.8 mg/dL (8.5-10.1); CREATININE 1.4 mg/dL (0.55-1.3); POTASSIUM 4.4 mmol/L (3.5-5.1); TOT PROT 7.2 g/dl (6.4-8.2)
[2020-08-12 14:25] VITALS: BP 174/88; PULSE 84; TEMP 98.1
== END 2020-08-12 12:15 | disposition home or self-care (01) ==
LOC: JONCCHEMO 07:18
PROVIDERS: ATTEND Internal Medicine Hematology & Oncology
PROC: 3E02305 Introduction of Other Antineoplastic into Muscle, Percutaneous Approach (ICD-10-PCS; principal; 2020-08-12)
PROC: 3E013GC Introduction of Other Therapeutic Substance into Subcutaneous Tissue, Percutaneous Approach (ICD-10-PCS; 2020-08-12)
DX: Z51.11 Encounter for antineoplastic chemotherapy (principal); C50.811 Malignant neoplasm of overlapping sites of right female breast; C79.51 Secondary malignant neoplasm of bone; Z17.0 Estrogen receptor positive status [ER+]
CPT/HCPCS: 36415; 80053; 85025; 86300; 96372; 96402; J0897; J9395

== ENCOUNTER 2020-10-05 07:14 | Day surgery (SDC) | payer OTHER, MEDICARE ==
[2020-10-05] MEDS ORDERED: FULVESTRANT 250 MG/5 ML SYRINGE IM ONE (10:00)
[2020-10-05] MEDS ORDERED: DENOSUMAB 120 MG/1.7 ML VIAL SQ ONE (10:00)
[2020-10-05 10:52] LABS: BASO % 0.8 % (0-2.0); EOS % 1.9 % (0-4.5); HEMATOCRIT 42.9 % (32.4-45.2); HEMOGLOBIN 14.3 GM/dL (10.7-15.3); LYMPH % 13.7 % (8-40); MCH 30.7 pg (25.7-33.7); MCHC 33.4 g/dl (32.0-36.0); MEAN CELL VOLUME 91.8 fl (80-96); MEAN PLT VOLUME 7.5 fl (7.5-11.1); MONO % 8.6 % (3.8-10.2); PLATELET COUNT 236 K/MM3 (134-434); RBC 4.68 M/mm3 (3.60-5.2); RDW 15.2 % (11.6-15.6); WHITE BLOOD COUNT 6.9 K/mm3 (4.0-10.0)
[2020-10-05 11:09] LABS: ALBUMIN 4.2 g/dl (3.4-5.0); BLOOD UREA NITROGEN 32.4 mg/dL (7-18); CALCIUM 10.2 mg/dL (8.5-10.1)
[2020-10-05 11:14] LABS: CREATININE 1.4 mg/dL (0.55-1.3)
[2020-10-05 11:15] LABS: TOT PROT 7.8 g/dl (6.4-8.2)
[2020-10-05 11:17] LABS: BILIRUBIN,TOTAL 0.6 mg/dL (0.2-1)
[2020-10-05 13:52] VITALS: BP 165/82; PULSE 91; TEMP 97.9
== END 2020-10-05 11:55 | disposition home or self-care (01) ==
LOC: JONCCHEMO 07:14
PROVIDERS: ATTEND Internal Medicine Hematology & Oncology
PROC: 3E013GC Introduction of Other Therapeutic Substance into Subcutaneous Tissue, Percutaneous Approach (ICD-10-PCS; principal; 2020-10-05)
PROC: 3E02305 Introduction of Other Antineoplastic into Muscle, Percutaneous Approach (ICD-10-PCS; 2020-10-05)
DX: Z51.11 Encounter for antineoplastic chemotherapy (principal); C50.811 Malignant neoplasm of overlapping sites of right female breast; C79.51 Secondary malignant neoplasm of bone; Z17.0 Estrogen receptor positive status [ER+]
CPT/HCPCS: 36415; 80053; 82306; 85025; 86300; 96372; 96402; J0897; J9395

== ENCOUNTER 2020-12-24 07:53 | Day surgery (SDC) | payer OTHER, MEDICARE ==
[2020-12-24] MEDS ORDERED: FULVESTRANT 250 MG/5 ML SYRINGE IM ONE (10:00)
[2020-12-24] MEDS ORDERED: DENOSUMAB 120 MG/1.7 ML VIAL SQ ONE (10:00)
[2020-12-24 14:43] LABS: BASO % 0.8 % (0-2.0); EOS % 2.4 % (0-4.5); HEMATOCRIT 38.5 % (32.4-45.2); HEMOGLOBIN 13.1 GM/dL (10.7-15.3); LYMPH % 15.4 % (8-40); MCH 30.6 pg (25.7-33.7); MEAN CELL VOLUME 90.1 fl (80-96); MEAN PLT VOLUME 7.7 fl (7.5-11.1); MONO % 9.4 % (3.8-10.2); PLATELET COUNT 322 K/MM3 (134-434); RBC 4.27 M/mm3 (3.60-5.2); RDW 14.2 % (11.6-15.6); WHITE BLOOD COUNT 7.5 K/mm3 (4.0-10.0)
[2020-12-24 15:06] LABS: POTASSIUM 4.2 mmol/L (3.5-5.1)
[2020-12-24 15:08] LABS: CALCIUM 9.9 mg/dL (8.5-10.1)
[2020-12-24 15:09] LABS: ALBUMIN 3.9 g/dl (3.4-5.0); BLOOD UREA NITROGEN 40.2 mg/dL (7-18); MAGNESIUM 2.2 mg/dL (1.8-2.4)
[2020-12-24 15:13] LABS: CREATININE 1.7 mg/dL (0.55-1.3)
[2020-12-24 15:14] LABS: TOT PROT 7.7 g/dl (6.4-8.2)
[2020-12-24 15:15] LABS: BILIRUBIN,TOTAL 0.6 mg/dL (0.2-1)
[2020-12-24 16:12] VITALS: BP 179/86; PULSE 102; TEMP 98.6
== END 2020-12-24 13:45 | disposition home or self-care (01) ==
LOC: JONCCHEMO 07:53
PROVIDERS: ATTEND Internal Medicine Hematology & Oncology
PROC: 3E02305 Introduction of Other Antineoplastic into Muscle, Percutaneous Approach (ICD-10-PCS; principal; 2020-12-24)
PROC: 3E013GC Introduction of Other Therapeutic Substance into Subcutaneous Tissue, Percutaneous Approach (ICD-10-PCS; 2020-12-24)
DX: Z51.11 Encounter for antineoplastic chemotherapy (principal); C50.811 Malignant neoplasm of overlapping sites of right female breast; C79.51 Secondary malignant neoplasm of bone; Z17.0 Estrogen receptor positive status [ER+]
CPT/HCPCS: 36415; 80053; 83735; 85025; 86300; 96372; 96402; J0897; J9395

== ENCOUNTER 2021-01-21 07:36 | Day surgery (SDC) | payer OTHER, MEDICARE ==
[2021-01-21] MEDS ORDERED: DENOSUMAB 120 MG/1.7 ML VIAL SQ ONE (10:00)
[2021-01-21] MEDS ORDERED: FULVESTRANT 250 MG/5 ML SYRINGE IM ONE (10:00)
[2021-01-21 11:29] LABS: BASO % 0.8 % (0-2.0); EOS % 2.6 % (0-4.5); HEMATOCRIT 36.2 % (32.4-45.2); HEMOGLOBIN 12.3 GM/dL (10.7-15.3); LYMPH % 16.4 % (8-40); MCH 30.7 pg (25.7-33.7); MCHC 33.9 g/dl (32.0-36.0); MEAN CELL VOLUME 90.4 fl (80-96); MONO % 7.6 % (3.8-10.2); NEUT % 72.6 % (42.8-82.8); PLATELET COUNT 274 K/MM3 (134-434); RDW 15.8 % (11.6-15.6); WHITE BLOOD COUNT 6.3 K/mm3 (4.0-10.0)
[2021-01-21 11:44] LABS: POTASSIUM 4.1 mmol/L (3.5-5.1)
[2021-01-21 11:47] LABS: ALBUMIN 3.8 g/dl (3.4-5.0); BLOOD UREA NITROGEN 38.7 mg/dL (7-18)
[2021-01-21 11:49] LABS: CALCIUM 9.2 mg/dL (8.5-10.1)
[2021-01-21 11:50] LABS: CREATININE 1.7 mg/dL (0.55-1.3)
[2021-01-21 11:56] LABS: BILIRUBIN,TOTAL 0.5 mg/dL (0.2-1); TOT PROT 7.3 g/dl (6.4-8.2)
[2021-01-21 17:26] VITALS: BP 175/80; PULSE 83; TEMP 98.5
== END 2021-01-21 13:50 | disposition home or self-care (01) ==
LOC: JONCCHEMO 07:36
PROVIDERS: ATTEND Internal Medicine Hematology & Oncology
PROC: 3E02305 Introduction of Other Antineoplastic into Muscle, Percutaneous Approach (ICD-10-PCS; principal; 2021-01-21)
PROC: 3E013GC Introduction of Other Therapeutic Substance into Subcutaneous Tissue, Percutaneous Approach (ICD-10-PCS; 2021-01-21)
DX: Z51.11 Encounter for antineoplastic chemotherapy (principal); C50.811 Malignant neoplasm of overlapping sites of right female breast; C79.51 Secondary malignant neoplasm of bone; Z17.0 Estrogen receptor positive status [ER+]
CPT/HCPCS: 36415; 80053; 85025; 86300; 96372; 96402; J0897; J9395

== ENCOUNTER 2021-02-18 08:38 | Day surgery (SDC) | payer OTHER, MEDICARE ==
[2021-02-18] MEDS ORDERED: DENOSUMAB 120 MG/1.7 ML VIAL SQ ONE (10:00)
[2021-02-18] MEDS ORDERED: FULVESTRANT 250 MG/5 ML SYRINGE IM ONE (10:00)
[2021-02-18 11:34] LABS: BASO % 0.6 % (0-2.0); EOS % 2.8 % (0-4.5); HEMOGLOBIN 12.7 GM/dL (10.7-15.3); LYMPH % 18.1 % (8-40); MCH 31.3 pg (25.7-33.7); MCHC 34.2 g/dl (32.0-36.0); MEAN CELL VOLUME 91.6 fl (80-96); NEUT % 68.5 % (42.8-82.8); PLATELET COUNT 294 K/MM3 (134-434); RBC 4.04 M/mm3 (3.60-5.2); RDW 16.4 % (11.6-15.6); WHITE BLOOD COUNT 6.9 K/mm3 (4.0-10.0)
[2021-02-18 11:54] LABS: CALCIUM 10.1 mg/dL (8.5-10.1)
[2021-02-18 11:58] LABS: CREATININE 1.8 mg/dL (0.55-1.3)
[2021-02-18 11:59] LABS: BILIRUBIN,TOTAL 0.6 mg/dL (0.2-1); TOT PROT 7.5 g/dl (6.4-8.2)
[2021-02-18 14:00] VITALS: BP 167/87; PULSE 90; TEMP 98.4
== END 2021-02-18 12:30 | disposition home or self-care (01) ==
LOC: JONCCHEMO 08:38
PROVIDERS: ATTEND Internal Medicine Hematology & Oncology
PROC: 3E02305 Introduction of Other Antineoplastic into Muscle, Percutaneous Approach (ICD-10-PCS; principal; 2021-02-18)
PROC: 3E013GC Introduction of Other Therapeutic Substance into Subcutaneous Tissue, Percutaneous Approach (ICD-10-PCS; 2021-02-18)
DX: Z51.11 Encounter for antineoplastic chemotherapy (principal); C50.811 Malignant neoplasm of overlapping sites of right female breast; C79.51 Secondary malignant neoplasm of bone; Z17.0 Estrogen receptor positive status [ER+]
CPT/HCPCS: 36415; 80053; 85025; 96372; 96402; J0897; J9395

== ENCOUNTER 2021-03-24 07:15 | Day surgery (SDC) | payer OTHER, MEDICARE ==
[2021-03-24] MEDS ORDERED: DENOSUMAB 120 MG/1.7 ML VIAL SQ ONE (10:45)
[2021-03-24] MEDS ORDERED: FULVESTRANT 250 MG/5 ML SYRINGE IM ONE (10:45)
[2021-03-24 11:38] LABS: BASO % 0.5 % (0-2.0); HEMATOCRIT 39.3 % (32.4-45.2); HEMOGLOBIN 13.5 GM/dL (10.7-15.3); MCH 31.2 pg (25.7-33.7); MCHC 34.5 g/dl (32.0-36.0); MEAN CELL VOLUME 90.6 fl (80-96); MEAN PLT VOLUME 7.1 fl (7.5-11.1); MONO % 8.3 % (3.8-10.2); NEUT % 75.2 % (42.8-82.8); PLATELET COUNT 243 K/MM3 (134-434); RBC 4.34 M/mm3 (3.60-5.2); RDW 14.8 % (11.6-15.6); WHITE BLOOD COUNT 7.2 K/mm3 (4.0-10.0)
[2021-03-24 12:09] LABS: CALCIUM 9.8 mg/dL (8.5-10.1)
[2021-03-24 12:10] LABS: ALBUMIN 4.2 g/dl (3.4-5.0); BLOOD UREA NITROGEN 34.9 mg/dL (7-18)
[2021-03-24 12:13] LABS: CREATININE 1.7 mg/dL (0.55-1.3)
[2021-03-24 12:14] LABS: BILIRUBIN,TOTAL 0.5 mg/dL (0.2-1)
[2021-03-24 12:15] LABS: TOT PROT 7.6 g/dl (6.4-8.2)
[2021-03-24 15:59] VITALS: PULSE 89; TEMP 98.7
[2021-03-24 16:01] VITALS: BP 166/83
== END 2021-03-24 12:40 | disposition home or self-care (01) ==
LOC: JONCCHEMO 07:15
PROVIDERS: ATTEND Internal Medicine Hematology & Oncology
PROC: 3E02305 Introduction of Other Antineoplastic into Muscle, Percutaneous Approach (ICD-10-PCS; principal; 2021-03-24)
PROC: 3E013GC Introduction of Other Therapeutic Substance into Subcutaneous Tissue, Percutaneous Approach (ICD-10-PCS; 2021-03-24)
DX: Z51.11 Encounter for antineoplastic chemotherapy (principal); C50.811 Malignant neoplasm of overlapping sites of right female breast; C79.51 Secondary malignant neoplasm of bone; Z17.0 Estrogen receptor positive status [ER+]
CPT/HCPCS: 36415; 80053; 85025; 96372; 96402; J0897; J9395

== ENCOUNTER 2021-04-21 06:56 | Day surgery (SDC) | payer OTHER, MEDICARE ==
[2021-04-21] MEDS ORDERED: FULVESTRANT 250 MG/5 ML SYRINGE IM ONE (10:00)
[2021-04-21] MEDS ORDERED: DENOSUMAB 120 MG/1.7 ML VIAL SQ ONE (10:00)
[2021-04-21 12:03] LABS: BASO % 0.6 % (0-2.0); HEMATOCRIT 38.7 % (32.4-45.2); MCHC 33.5 g/dl (32.0-36.0); MEAN CELL VOLUME 89.4 fl (80-96); MEAN PLT VOLUME 7.3 fl (7.5-11.1); MONO % 9.3 % (3.8-10.2); NEUT % 70.1 % (42.8-82.8); PLATELET COUNT 225 K/MM3 (134-434); RBC 4.32 M/mm3 (3.60-5.2); RDW 14.4 % (11.6-15.6); WHITE BLOOD COUNT 6.7 K/mm3 (4.0-10.0)
[2021-04-21 12:32] LABS: CALCIUM 9.7 mg/dL (8.5-10.1)
[2021-04-21 12:33] LABS: BLOOD UREA NITROGEN 32.4 mg/dL (7-18)
[2021-04-21 12:36] LABS: CREATININE 1.7 mg/dL (0.55-1.3)
[2021-04-21 12:37] LABS: BILIRUBIN,TOTAL 0.5 mg/dL (0.2-1); TOT PROT 7.6 g/dl (6.4-8.2)
[2021-04-21 19:11] VITALS: BP 187/82; PULSE 81; TEMP 98.3
== END 2021-04-21 13:00 | disposition home or self-care (01) ==
LOC: JONCCHEMO 06:56
PROVIDERS: ATTEND Internal Medicine Hematology & Oncology
PROC: 3E02305 Introduction of Other Antineoplastic into Muscle, Percutaneous Approach (ICD-10-PCS; principal; 2021-04-21)
PROC: 3E013GC Introduction of Other Therapeutic Substance into Subcutaneous Tissue, Percutaneous Approach (ICD-10-PCS; 2021-04-21)
DX: C50.811 Malignant neoplasm of overlapping sites of right female breast (principal); C79.51 Secondary malignant neoplasm of bone; Z17.0 Estrogen receptor positive status [ER+]
CPT/HCPCS: 36415; 80053; 82306; 85025; 86300; 96372; 96402; J0897; J9395

== ENCOUNTER 2021-06-03 06:51 | Day surgery (SDC) | payer OTHER, MEDICARE ==
[2021-06-03] MEDS ORDERED: DENOSUMAB 120 MG/1.7 ML VIAL SQ ONE (10:00)
[2021-06-03] MEDS ORDERED: FULVESTRANT 250 MG/5 ML SYRINGE IM ONE (10:00)
[2021-06-03 10:53] LABS: BASO % 0.5 % (0-2.0); EOS % 1.9 % (0-4.5); HEMOGLOBIN 12.6 GM/dL (10.7-15.3); LYMPH % 15.1 % (8-40); MCH 29.7 pg (25.7-33.7); MCHC 33.1 g/dl (32.0-36.0); MEAN CELL VOLUME 89.5 fl (80-96); MEAN PLT VOLUME 7.5 fl (7.5-11.1); MONO % 9.3 % (3.8-10.2); NEUT % 73.2 % (42.8-82.8); PLATELET COUNT 293 10^3/uL (134-434); RBC 4.24 M/mm3 (3.60-5.2); RDW 15.1 % (11.6-15.6); WHITE BLOOD COUNT 6.7 K/mm3 (4.0-10.0)
[2021-06-03 11:15] LABS: ALBUMIN 3.8 g/dl (3.4-5.0); BLOOD UREA NITROGEN 37.4 mg/dL (7-18); CALCIUM 9.4 mg/dL (8.5-10.1)
[2021-06-03 11:18] LABS: CREATININE 1.9 mg/dL (0.55-1.3)
[2021-06-03 11:21] LABS: BILIRUBIN,TOTAL 0.7 mg/dL (0.2-1); TOT PROT 7.3 g/dl (6.4-8.2)
[2021-06-03 16:31] VITALS: BP 141/76; PULSE 85; TEMP 98.3
== END 2021-06-03 12:05 | disposition home or self-care (01) ==
LOC: JONCCHEMO 06:51
PROVIDERS: ATTEND Internal Medicine Hematology & Oncology
PROC: 3E02305 Introduction of Other Antineoplastic into Muscle, Percutaneous Approach (ICD-10-PCS; principal; 2021-06-03)
PROC: 3E013GC Introduction of Other Therapeutic Substance into Subcutaneous Tissue, Percutaneous Approach (ICD-10-PCS; 2021-06-03)
DX: Z51.11 Encounter for antineoplastic chemotherapy (principal); C50.811 Malignant neoplasm of overlapping sites of right female breast; C79.51 Secondary malignant neoplasm of bone; Z17.0 Estrogen receptor positive status [ER+]
CPT/HCPCS: 36415; 80053; 85025; 96372; 96402; J0897; J9395

== ENCOUNTER 2021-07-08 07:24 | Day surgery (SDC) | payer OTHER, MEDICARE ==
[2021-07-08] MEDS ORDERED: FULVESTRANT 250 MG/5 ML SYRINGE IM ONE (10:00)
[2021-07-08] MEDS ORDERED: DENOSUMAB 120 MG/1.7 ML VIAL SQ ONE (10:00)
[2021-07-08 12:16] LABS: BASO % 0.5 % (0-2.0); EOS % 2.5 % (0-4.5); HEMATOCRIT 36.9 % (32.4-45.2); HEMOGLOBIN 12.6 GM/dL (10.7-15.3); LYMPH % 16.7 % (8-40); MCH 30.7 pg (25.7-33.7); MCHC 34.1 g/dl (32.0-36.0); MEAN CELL VOLUME 90.1 fl (80-96); MEAN PLT VOLUME 7.3 fl (7.5-11.1); MONO % 9.2 % (3.8-10.2); NEUT % 71.1 % (42.8-82.8); PLATELET COUNT 313 10^3/uL (134-434); RBC 4.09 M/mm3 (3.60-5.2); RDW 15.7 % (11.6-15.6); WHITE BLOOD COUNT 6.8 K/mm3 (4.0-10.0)
[2021-07-08 12:38] LABS: ALBUMIN 3.8 g/dl (3.4-5.0); BLOOD UREA NITROGEN 39.5 mg/dL (7-18); CALCIUM 9.6 mg/dL (8.5-10.1)
[2021-07-08 12:42] LABS: CREATININE 1.7 mg/dL (0.55-1.3)
[2021-07-08 12:43] LABS: BILIRUBIN,TOTAL 0.4 mg/dL (0.2-1); TOT PROT 7.6 g/dl (6.4-8.2)
[2021-07-08 17:20] VITALS: BP 180/86; PULSE 87; TEMP 98.9
== END 2021-07-08 14:15 | disposition home or self-care (01) ==
LOC: JONCCHEMO 07:24
PROVIDERS: ATTEND Internal Medicine Hematology & Oncology
DX: Z51.11 Encounter for antineoplastic chemotherapy (principal); C50.811 Malignant neoplasm of overlapping sites of right female breast; C79.51 Secondary malignant neoplasm of bone; Z17.0 Estrogen receptor positive status [ER+]
CPT/HCPCS: 36415; 80053; 85025; 86300; 96402; J9395

== ENCOUNTER 2021-08-12 09:01 | Day surgery (SDC) | payer OTHER, MEDICARE ==
[2021-08-12 10:58] LABS: BASO % 0.4 % (0-2.0); EOS % 2.5 % (0-4.5); HEMATOCRIT 38.2 % (32.4-45.2); HEMOGLOBIN 12.8 GM/dL (10.7-15.3); LYMPH % 12.4 % (8-40); MCH 30.2 pg (25.7-33.7); MCHC 33.4 g/dl (32.0-36.0); MEAN CELL VOLUME 90.4 fl (80-96); MEAN PLT VOLUME 6.8 fl (7.5-11.1); MONO % 8.4 % (3.8-10.2); NEUT % 76.3 % (42.8-82.8); PLATELET COUNT 261 10^3/uL (134-434); RBC 4.23 M/mm3 (3.60-5.2); RDW 15.7 % (11.6-15.6); WHITE BLOOD COUNT 7.5 K/mm3 (4.0-10.0)
[2021-08-12 11:21] LABS: ALBUMIN 3.7 g/dl (3.4-5.0); CALCIUM 9.4 mg/dL (8.5-10.1)
[2021-08-12 11:22] LABS: BLOOD UREA NITROGEN 34.2 mg/dL (7-18)
[2021-08-12 11:25] LABS: CREATININE 1.6 mg/dL (0.55-1.3)
[2021-08-12 11:26] LABS: BILIRUBIN,TOTAL 0.8 mg/dL (0.2-1); TOT PROT 7.4 g/dl (6.4-8.2)
[2021-08-12] MEDS ORDERED: FULVESTRANT 250 MG/5 ML SYRINGE IM ONE (12:00)
[2021-08-12] MEDS ORDERED: DENOSUMAB 120 MG/1.7 ML VIAL SQ ONE (12:00)
[2021-08-12 17:28] VITALS: BP 187/90; PULSE 85; TEMP 98.2
== END 2021-08-12 13:15 | disposition home or self-care (01) ==
LOC: JONCCHEMO 09:01
PROVIDERS: ATTEND Internal Medicine Hematology & Oncology
PROC: 3E013GC Introduction of Other Therapeutic Substance into Subcutaneous Tissue, Percutaneous Approach (ICD-10-PCS; principal; 2021-08-12)
PROC: 3E02305 Introduction of Other Antineoplastic into Muscle, Percutaneous Approach (ICD-10-PCS; 2021-08-12)
DX: Z51.11 Encounter for antineoplastic chemotherapy (principal); C50.811 Malignant neoplasm of overlapping sites of right female breast; C79.9 Secondary malignant neoplasm of unspecified site; M81.0 Age-related osteoporosis without current pathological fracture
CPT/HCPCS: 36415; 73030-TC-LT-FY; 73060-TC-LT-FY; 80053; 85025; 86300; 96372; 96402; J0897; J9395

== ENCOUNTER → 2021-09-29 | Day surgery (SDC) | payer OTHER, MEDICARE ==
[2021-09-29 11:31] LABS: CALCIUM 10.2 mg/dL (8.5-10.1)
[2021-09-29 11:32] LABS: ALBUMIN 3.9 g/dl (3.4-5.0)
[2021-09-29 11:35] LABS: CREATININE 1.7 mg/dL (0.55-1.3)
[2021-09-29 11:36] LABS: BILIRUBIN,TOTAL 0.5 mg/dL (0.2-1)
[2021-09-29 11:37] LABS: TOT PROT 7.7 g/dl (6.4-8.2)
== END | disposition home or self-care (01) ==
LOC: JONCCHEMO 09-02 07:12
PROVIDERS: ATTEND Internal Medicine Hematology & Oncology
DX: Z53.8 Procedure and treatment not carried out for other reasons (principal)
CPT/HCPCS: 80053; 96365

== ENCOUNTER 2021-11-17 07:25 | Day surgery (SDC) | payer OTHER, MEDICARE ==
[2021-11-17 10:20] LABS: BASO % 0.5 % (0-2.0); EOS % 2.1 % (0-4.5); HEMATOCRIT 39.5 % (32.4-45.2); HEMOGLOBIN 13.1 GM/dL (10.7-15.3); LYMPH % 15.8 % (8-40); MCH 29.6 pg (25.7-33.7); MCHC 33.2 g/dl (32.0-36.0); MEAN CELL VOLUME 89.1 fl (80-96); MEAN PLT VOLUME 6.9 fl (7.5-11.1); MONO % 8.5 % (3.8-10.2); NEUT % 73.1 % (42.8-82.8); PLATELET COUNT 296 10^3/uL (134-434); RBC 4.43 M/mm3 (3.60-5.2); RDW 15.1 % (11.6-15.6); WHITE BLOOD COUNT 8.1 K/mm3 (4.0-10.0)
[2021-11-17 10:39] LABS: CALCIUM 9.9 mg/dL (8.5-10.1)
[2021-11-17 10:40] LABS: ALBUMIN 3.4 g/dl (3.4-5.0); BLOOD UREA NITROGEN 36.2 mg/dL (7-18)
[2021-11-17 10:43] LABS: CREATININE 1.7 mg/dL (0.55-1.3)
[2021-11-17 10:44] LABS: BILIRUBIN,TOTAL 0.5 mg/dL (0.2-1); TOT PROT 7.4 g/dl (6.4-8.2)
[2021-11-17] MEDS ORDERED: FULVESTRANT 250 MG/5 ML SYRINGE IM ONE (10:45)
[2021-11-17] MEDS ORDERED: DENOSUMAB 120 MG/1.7 ML VIAL SQ ONE (10:45)
[2021-11-17 16:11] VITALS: BP 189/95; PULSE 94; TEMP 97.7
== END 2021-11-17 11:10 | disposition home or self-care (01) ==
LOC: JONCCHEMO 07:25
PROVIDERS: ATTEND Internal Medicine Hematology & Oncology
PROC: 3E02305 Introduction of Other Antineoplastic into Muscle, Percutaneous Approach (ICD-10-PCS; principal; 2021-11-17)
PROC: 3E013GC Introduction of Other Therapeutic Substance into Subcutaneous Tissue, Percutaneous Approach (ICD-10-PCS; 2021-11-17)
DX: Z51.11 Encounter for antineoplastic chemotherapy (principal); C50.811 Malignant neoplasm of overlapping sites of right female breast; C79.9 Secondary malignant neoplasm of unspecified site; M81.0 Age-related osteoporosis without current pathological fracture
CPT/HCPCS: 36415; 80053; 85025; 86300; 96372; 96402; J0897; J9395

== ENCOUNTER 2022-02-04 07:55 | Day surgery (SDC) | payer OTHER, MEDICARE ==
[2022-02-04] MEDS ORDERED: DENOSUMAB 120 MG/1.7 ML VIAL SQ ONE (10:00)
[2022-02-04] MEDS ORDERED: FULVESTRANT 250 MG/5 ML SYRINGE IM ONE (10:00)
[2022-02-04 10:34] LABS: BASO % 0.7 % (0-2.0); EOS % 2.1 % (0-4.5); HEMATOCRIT 37.9 % (32.4-45.2); HEMOGLOBIN 12.8 GM/dL (10.7-15.3); LYMPH % 13.7 % (8-40); MCH 29.8 pg (25.7-33.7); MCHC 33.6 g/dl (32.0-36.0); MEAN CELL VOLUME 88.7 fl (80-96); MEAN PLT VOLUME 6.8 fl (7.5-11.1); NEUT % 75.5 % (42.8-82.8); PLATELET COUNT 271 10^3/uL (134-434); RBC 4.28 M/mm3 (3.60-5.2); RDW 15.1 % (11.6-15.6); WHITE BLOOD COUNT 5.9 K/mm3 (4.0-10.0)
[2022-02-04 10:58] LABS: ALBUMIN 3.7 g/dl (3.4-5.0); CALCIUM 9.8 mg/dL (8.5-10.1)
[2022-02-04 10:59] LABS: BLOOD UREA NITROGEN 38.1 mg/dL (7-18)
[2022-02-04 11:02] LABS: CREATININE 1.7 mg/dL (0.55-1.3)
[2022-02-04 11:03] LABS: BILIRUBIN,TOTAL 0.4 mg/dL (0.2-1); TOT PROT 7.2 g/dl (6.4-8.2)
[2022-02-04 17:34] VITALS: BP 209/84; PULSE 89
== END 2022-02-04 11:30 | disposition home or self-care (01) ==
LOC: JONCCHEMO 07:55
PROVIDERS: ATTEND Internal Medicine Hematology & Oncology
PROC: 3E02305 Introduction of Other Antineoplastic into Muscle, Percutaneous Approach (ICD-10-PCS; principal; 2022-02-04)
PROC: 3E013GC Introduction of Other Therapeutic Substance into Subcutaneous Tissue, Percutaneous Approach (ICD-10-PCS; 2022-02-04)
DX: Z51.11 Encounter for antineoplastic chemotherapy (principal); C50.811 Malignant neoplasm of overlapping sites of right female breast; C79.9 Secondary malignant neoplasm of unspecified site; M81.0 Age-related osteoporosis without current pathological fracture
CPT/HCPCS: 36415; 80053; 85025; 86300; 96372; 96402; J0897; J9395

== ENCOUNTER 2022-03-17 06:55 | Day surgery (SDC) | payer OTHER, MEDICARE ==
[2022-03-17] MEDS ORDERED: FULVESTRANT 250 MG/5 ML SYRINGE IM ONE (10:15)
[2022-03-17] MEDS ORDERED: DENOSUMAB 120 MG/1.7 ML VIAL SQ ONE (10:15)
[2022-03-17 12:53] LABS: BASO % 0.5 % (0-2.0); EOS % 2.1 % (0-4.5); HEMATOCRIT 36.7 % (32.4-45.2); HEMOGLOBIN 12.3 GM/dL (10.7-15.3); LYMPH % 15.5 % (8-40); MCH 29.5 pg (25.7-33.7); MCHC 33.4 g/dl (32.0-36.0); MEAN CELL VOLUME 88.2 fl (80-96); MONO % 10.2 % (3.8-10.2); NEUT % 71.7 % (42.8-82.8); PLATELET COUNT 233 10^3/uL (134-434); RBC 4.16 M/mm3 (3.60-5.2); RDW 15.5 % (11.6-15.6); WHITE BLOOD COUNT 6.7 K/mm3 (4.0-10.0)
[2022-03-17 13:21] LABS: CALCIUM 9.7 mg/dL (8.5-10.1)
[2022-03-17 13:22] LABS: ALBUMIN 3.5 g/dl (3.4-5.0); BLOOD UREA NITROGEN 36.5 mg/dL (7-18)
[2022-03-17 13:25] LABS: BILIRUBIN,TOTAL 0.4 mg/dL (0.2-1); CREATININE 1.7 mg/dL (0.55-1.3)
[2022-03-17 15:42] VITALS: BP 177/81; PULSE 88; TEMP 98.5
== END 2022-03-17 13:30 | disposition home or self-care (01) ==
LOC: JONCCHEMO 06:55
PROVIDERS: ATTEND Internal Medicine Hematology & Oncology
PROC: 3E02305 Introduction of Other Antineoplastic into Muscle, Percutaneous Approach (ICD-10-PCS; principal; 2022-03-17)
PROC: 3E013GC Introduction of Other Therapeutic Substance into Subcutaneous Tissue, Percutaneous Approach (ICD-10-PCS; 2022-03-17)
DX: Z51.11 Encounter for antineoplastic chemotherapy (principal); C50.811 Malignant neoplasm of overlapping sites of right female breast; C79.9 Secondary malignant neoplasm of unspecified site; M81.0 Age-related osteoporosis without current pathological fracture
CPT/HCPCS: 36415; 80053; 85025; 96372; 96402; J0897; J9395

== ENCOUNTER 2022-04-28 08:53 | Day surgery (SDC) | payer OTHER, MEDICARE ==
[2022-04-28] MEDS ORDERED: FULVESTRANT 250 MG/5 ML SYRINGE IM ONE (11:00)
[2022-04-28] MEDS ORDERED: DENOSUMAB 120 MG/1.7 ML VIAL SQ ONE (11:00)
[2022-04-28 11:06] LABS: BASO % 0.6 % (0-2.0); EOS % 2.2 % (0-4.5); HEMATOCRIT 37.8 % (32.4-45.2); HEMOGLOBIN 12.5 GM/dL (10.7-15.3); LYMPH % 16.6 % (8-40); MCH 29.3 pg (25.7-33.7); MCHC 33.1 g/dl (32.0-36.0); MEAN CELL VOLUME 88.6 fl (80-96); MEAN PLT VOLUME 7.2 fl (7.5-11.1); MONO % 11.5 % (3.8-10.2); NEUT % 69.1 % (42.8-82.8); PLATELET COUNT 259 10^3/uL (134-434); RBC 4.27 M/mm3 (3.60-5.2); RDW 15.4 % (11.6-15.6); WHITE BLOOD COUNT 4.9 K/mm3 (4.0-10.0)
[2022-04-28 11:30] LABS: ALBUMIN 3.6 g/dl (3.4-5.0); CALCIUM 10.1 mg/dL (8.5-10.1)
[2022-04-28 11:31] LABS: BLOOD UREA NITROGEN 37.2 mg/dL (7-18)
[2022-04-28 11:33] LABS: CREATININE 1.7 mg/dL (0.55-1.3)
[2022-04-28 11:35] LABS: BILIRUBIN,TOTAL 0.4 mg/dL (0.2-1); TOT PROT 7.4 g/dl (6.4-8.2)
[2022-04-28 18:29] VITALS: BP 199/88; PULSE 91; TEMP 98.7
== END 2022-04-28 12:00 | disposition home or self-care (01) ==
LOC: JONCCHEMO 08:53
PROVIDERS: ATTEND Internal Medicine Hematology & Oncology
PROC: 3E02305 Introduction of Other Antineoplastic into Muscle, Percutaneous Approach (ICD-10-PCS; principal; 2022-04-28)
PROC: 3E013GC Introduction of Other Therapeutic Substance into Subcutaneous Tissue, Percutaneous Approach (ICD-10-PCS; 2022-04-28)
DX: Z51.11 Encounter for antineoplastic chemotherapy (principal); C50.811 Malignant neoplasm of overlapping sites of right female breast; C79.9 Secondary malignant neoplasm of unspecified site; M81.0 Age-related osteoporosis without current pathological fracture
CPT/HCPCS: 36415; 80053; 85025; 96372; 96402; J0897; J9395

== ENCOUNTER 2022-06-02 07:22 | Day surgery (SDC) | payer OTHER, MEDICARE ==
[2022-06-02] MEDS ORDERED: FULVESTRANT 250 MG/5 ML SYRINGE IM ONE (10:00)
[2022-06-02] MEDS ORDERED: DENOSUMAB 120 MG/1.7 ML VIAL SQ ONE (10:00)
[2022-06-02 11:24] LABS: BASO % 0.7 % (0-2.0); EOS % 2.8 % (0-4.5); HEMATOCRIT 40.3 % (32.4-45.2); HEMOGLOBIN 13.2 GM/dL (10.7-15.3); LYMPH % 21.5 % (8-40); MCH 28.9 pg (25.7-33.7); MCHC 32.8 g/dl (32.0-36.0); MEAN CELL VOLUME 88.1 fl (80-96); MEAN PLT VOLUME 7.3 fl (7.5-11.1); MONO % 11.3 % (3.8-10.2); NEUT % 63.7 % (42.8-82.8); PLATELET COUNT 255 10^3/uL (134-434); RBC 4.58 M/mm3 (3.60-5.2); RDW 15.3 % (11.6-15.6); WHITE BLOOD COUNT 5.9 K/mm3 (4.0-10.0)
[2022-06-02 11:47] LABS: ALBUMIN 3.5 g/dl (3.4-5.0); BLOOD UREA NITROGEN 38.6 mg/dL (7-18); CALCIUM 10.3 mg/dL (8.5-10.1)
[2022-06-02 11:50] LABS: CREATININE 1.9 mg/dL (0.55-1.3)
[2022-06-02 11:52] LABS: BILIRUBIN,TOTAL 0.6 mg/dL (0.2-1); TOT PROT 7.2 g/dl (6.4-8.2)
[2022-06-02 17:02] VITALS: BP 188/84; PULSE 89; TEMP 97.4
== END 2022-06-02 11:45 | disposition home or self-care (01) ==
LOC: JONCCHEMO 07:22
PROVIDERS: ATTEND Internal Medicine Hematology & Oncology
PROC: 3E02305 Introduction of Other Antineoplastic into Muscle, Percutaneous Approach (ICD-10-PCS; principal; 2022-06-02)
PROC: 3E013GC Introduction of Other Therapeutic Substance into Subcutaneous Tissue, Percutaneous Approach (ICD-10-PCS; 2022-06-02)
DX: Z51.11 Encounter for antineoplastic chemotherapy (principal); C50.811 Malignant neoplasm of overlapping sites of right female breast; C79.9 Secondary malignant neoplasm of unspecified site; M81.0 Age-related osteoporosis without current pathological fracture
CPT/HCPCS: 36415; 80053; 85025; 96372; 96402; J0897; J9395

== ENCOUNTER 2022-06-30 06:42 | Day surgery (SDC) | payer OTHER, MEDICARE ==
[2022-06-30] MEDS ORDERED: FULVESTRANT 250 MG/5 ML SYRINGE IM ONE (10:00)
[2022-06-30] MEDS ORDERED: DENOSUMAB 120 MG/1.7 ML VIAL SQ ONE (10:00)
[2022-06-30 10:42] LABS: BASO % 0.5 % (0-2.0); EOS % 5.3 % (0-4.5); HEMATOCRIT 37.5 % (32.4-45.2); HEMOGLOBIN 12.8 GM/dL (10.7-15.3); LYMPH % 16.9 % (8-40); MCH 29.8 pg (25.7-33.7); MCHC 34.2 g/dl (32.0-36.0); MEAN CELL VOLUME 87.2 fl (80-96); MONO % 10.4 % (3.8-10.2); NEUT % 66.9 % (42.8-82.8); PLATELET COUNT 260 10^3/uL (134-434); RDW 15.6 % (11.6-15.6); WHITE BLOOD COUNT 5.3 K/mm3 (4.0-10.0)
[2022-06-30 11:01] LABS: CALCIUM 10.1 mg/dL (8.5-10.1)
[2022-06-30 11:02] LABS: ALBUMIN 3.4 g/dl (3.4-5.0); BLOOD UREA NITROGEN 40.3 mg/dL (7-18)
[2022-06-30 11:05] LABS: CREATININE 1.9 mg/dL (0.55-1.3)
[2022-06-30 11:06] LABS: TOT PROT 7.2 g/dl (6.4-8.2)
[2022-06-30 11:07] LABS: BILIRUBIN,TOTAL 0.7 mg/dL (0.2-1)
[2022-06-30 11:43] VITALS: RESP 18; TEMP 98.7
[2022-06-30 11:49] VITALS: BP 169/72; PULSE 88
== END 2022-06-30 11:49 | disposition home or self-care (01) ==
LOC: JONCCHEMO 06:42
PROVIDERS: ATTEND Internal Medicine Hematology & Oncology
PROC: 3E02305 Introduction of Other Antineoplastic into Muscle, Percutaneous Approach (ICD-10-PCS; principal; 2022-06-30)
PROC: 3E013GC Introduction of Other Therapeutic Substance into Subcutaneous Tissue, Percutaneous Approach (ICD-10-PCS; 2022-06-30)
DX: Z51.11 Encounter for antineoplastic chemotherapy (principal); C50.811 Malignant neoplasm of overlapping sites of right female breast; C79.9 Secondary malignant neoplasm of unspecified site; M81.0 Age-related osteoporosis without current pathological fracture
CPT/HCPCS: 36415; 80053; 84439; 84443; 85025; 96372; 96402; J0897; J9395

== ENCOUNTER 2022-06-30 11:57 | Observation (INO) | payer OTHER, MEDICARE ==
[2022-06-30 13:36] LABS: BASO % 0.7 % (0-2.0); EOS % 2.8 % (0-4.5); HEMATOCRIT 38.5 % (32.4-45.2); LYMPH % 14.9 % (8-40); MCH 29.6 pg (25.7-33.7); MCHC 33.8 g/dl (32.0-36.0); MEAN CELL VOLUME 87.5 fl (80-96); MEAN PLT VOLUME 7.5 fl (7.5-11.1); MONO % 9.6 % (3.8-10.2); PLATELET COUNT 246 10^3/uL (134-434); RDW 15.8 % (11.6-15.6)
[2022-06-30 13:58] LABS: ALBUMIN 3.6 g/dl (3.4-5.0); BLOOD UREA NITROGEN 42.1 mg/dL (7-18); CALCIUM 11.2 mg/dL (8.5-10.1); MAGNESIUM 2.2 mg/dL (1.8-2.4)
[2022-06-30 14:01] LABS: CREATININE 1.9 mg/dL (0.55-1.3)
[2022-06-30 14:03] LABS: BILIRUBIN,TOTAL 0.7 mg/dL (0.2-1); TOT PROT 7.8 g/dl (6.4-8.2)
[2022-06-30] MEDS ORDERED: LOSARTAN POTASSIUM 50 MG TABLET PO SCH (17:45)
[2022-06-30] MEDS ORDERED: ACETAMINOPHEN 325 MG TABLET (FP) PO PRN (19:03)
[2022-06-30] MEDS ORDERED: traMADol HCL 50 MG TABLET PO PRN (19:04)
[2022-06-30] MEDS ORDERED: amLODIPine BESYLATE 10 MG TABLET (FP) ONE (19:06)
[2022-06-30] MEDS: amLODIPine BESYLATE 10 MG TABLET (FP) PO SCH (19:06)
[2022-06-30] MEDS ORDERED: LIDOCAINE 5% TOPICAL PATCH ONE (22:00)
[2022-06-30] MEDS ORDERED: HEPARIN NA (PORCINE) 5,000 UNITS/ML 1ML VIAL ONE (22:00)
[2022-06-30] MEDS: BUDESONIDE/FORMETEROL FUMARATE 80/4.5 mcg INHALER IH SCH (22:14)
[2022-06-30] MEDS: HEPARIN NA (PORCINE) 5,000 UNITS/ML 1ML VIAL SQ SCH (22:28)
[2022-06-30] MEDS: LIDOCAINE PATCH REMOVAL MC SCH ×2 (22:28→23:53)
[2022-07-01 00:54] VITALS: BMI 22.4
[2022-07-01] MEDS: HEPARIN NA (PORCINE) 5,000 UNITS/ML 1ML VIAL SQ SCH ×3 (05:42→22:01)
[2022-07-01 08:13] LABS: BASO % 0.8 % (0-2.0); EOS % 5.2 % (0-4.5); HEMATOCRIT 35.8 % (32.4-45.2); LYMPH % 18.2 % (8-40); MCH 29.1 pg (25.7-33.7); MCHC 33.6 g/dl (32.0-36.0); MEAN CELL VOLUME 86.7 fl (80-96); MEAN PLT VOLUME 7.8 fl (7.5-11.1); MONO % 9.6 % (3.8-10.2); NEUT % 66.2 % (42.8-82.8); PLATELET COUNT 223 10^3/uL (134-434); RBC 4.13 M/mm3 (3.60-5.2); RDW 15.7 % (11.6-15.6); WHITE BLOOD COUNT 5.3 K/mm3 (4.0-10.0)
[2022-07-01 08:41] LABS: ALBUMIN 3.3 g/dl (3.4-5.0); BLOOD UREA NITROGEN 39.5 mg/dL (7-18); CALCIUM 9.9 mg/dL (8.5-10.1); MAGNESIUM 2.1 mg/dL (1.8-2.4)
[2022-07-01 08:44] LABS: CREATININE 1.5 mg/dL (0.55-1.3); PHOSPHOROUS 3.6 mg/dL (2.5-4.9)
[2022-07-01 08:45] LABS: BILIRUBIN,TOTAL 0.6 mg/dL (0.2-1)
[2022-07-01 08:46] LABS: TOT PROT 6.9 g/dl (6.4-8.2)
[2022-07-01] MEDS: LIDOCAINE 5% TOPICAL PATCH TP SCH (10:37)
[2022-07-01] MEDS: LOSARTAN POTASSIUM 50 MG TABLET PO SCH (10:37)
[2022-07-01] MEDS: amLODIPine BESYLATE 10 MG TABLET (FP) PO SCH (10:37)
[2022-07-01] MEDS: BUDESONIDE/FORMETEROL FUMARATE 80/4.5 mcg INHALER IH SCH ×2 (12:00→22:24)
[2022-07-01] MEDS: LIDOCAINE PATCH REMOVAL MC SCH (22:01)
[2022-07-02] MEDS: HEPARIN NA (PORCINE) 5,000 UNITS/ML 1ML VIAL SQ SCH ×3 (06:17→21:57)
[2022-07-02 07:41] LABS: ALBUMIN 3.2 g/dl (3.4-5.0)
[2022-07-02 07:44] LABS: CREATININE 1.5 mg/dL (0.55-1.3)
[2022-07-02 07:46] LABS: BILIRUBIN,TOTAL 0.9 mg/dL (0.2-1); TOT PROT 6.7 g/dl (6.4-8.2)
[2022-07-02 08:02] LABS: BLOOD UREA NITROGEN 33.9 mg/dL (7-18)
[2022-07-02 08:57] LABS: BASO % 1.3 % (0-2.0); EOS % 5.3 % (0-4.5); HEMATOCRIT 35.7 % (32.4-45.2); LYMPH % 20.1 % (8-40); MCH 29.7 pg (25.7-33.7); MCHC 33.5 g/dl (32.0-36.0); MEAN CELL VOLUME 88.7 fl (80-96); MEAN PLT VOLUME 7.5 fl (7.5-11.1); NEUT % 62.3 % (42.8-82.8); PLATELET COUNT 229 10^3/uL (134-434); RBC 4.03 M/mm3 (3.60-5.2); RDW 16.1 % (11.6-15.6); WHITE BLOOD COUNT 5.6 K/mm3 (4.0-10.0)
[2022-07-02] MEDS: LOSARTAN POTASSIUM 50 MG TABLET PO SCH (10:17)
[2022-07-02] MEDS: amLODIPine BESYLATE 10 MG TABLET (FP) PO SCH (10:17)
[2022-07-02] MEDS: LIDOCAINE 5% TOPICAL PATCH TP SCH (10:18)
[2022-07-02] MEDS: BUDESONIDE/FORMETEROL FUMARATE 80/4.5 mcg INHALER IH SCH ×2 (10:18→21:57)
[2022-07-02 20:03] VITALS: RESP 18
[2022-07-02] MEDS: LIDOCAINE PATCH REMOVAL MC SCH (21:57)
[2022-07-03] MEDS: HEPARIN NA (PORCINE) 5,000 UNITS/ML 1ML VIAL SQ SCH ×3 (06:30→22:13)
[2022-07-03 07:27] LABS: BASO % 0.6 % (0-2.0); EOS % 5.9 % (0-4.5); HEMATOCRIT 35.8 % (32.4-45.2); HEMOGLOBIN 12.1 GM/dL (10.7-15.3); LYMPH % 21.2 % (8-40); MCH 29.4 pg (25.7-33.7); MCHC 33.7 g/dl (32.0-36.0); MEAN CELL VOLUME 87.1 fl (80-96); MEAN PLT VOLUME 7.4 fl (7.5-11.1); MONO % 10.3 % (3.8-10.2); PLATELET COUNT 243 10^3/uL (134-434); RBC 4.11 M/mm3 (3.60-5.2); RDW 15.8 % (11.6-15.6); WHITE BLOOD COUNT 5.5 K/mm3 (4.0-10.0)
[2022-07-03] MEDS: LIDOCAINE 5% TOPICAL PATCH TP SCH (09:46)
[2022-07-03] MEDS: LOSARTAN POTASSIUM 50 MG TABLET PO SCH (09:47)
[2022-07-03] MEDS: amLODIPine BESYLATE 10 MG TABLET (FP) PO SCH (09:47)
[2022-07-03] MEDS: BUDESONIDE/FORMETEROL FUMARATE 80/4.5 mcg INHALER IH SCH ×2 (10:57→22:13)
[2022-07-03] MEDS: LIDOCAINE PATCH REMOVAL MC SCH (22:13)
[2022-07-04] MEDS ORDERED: ACETAMINOPHEN 325 MG TABLET (FP) PO PRN (00:54)
[2022-07-04] MEDS: HEPARIN NA (PORCINE) 5,000 UNITS/ML 1ML VIAL SQ SCH ×2 (06:20→16:12)
[2022-07-04] MEDS ORDERED: BUDESONIDE/FORMETEROL FUMARATE 80/4.5 mcg INHALER IH SCH (10:00)
[2022-07-04] MEDS ORDERED: FUROSEMIDE 20 MG TABLET (FP) PO SCH (10:00)
[2022-07-04] MEDS ORDERED: amLODIPine BESYLATE 10 MG TABLET (FP) PO SCH (10:00)
[2022-07-04] MEDS ORDERED: LOSARTAN POTASSIUM 50 MG TABLET PO SCH (10:00)
[2022-07-04] MEDS ORDERED: LIDOCAINE 5% TOPICAL PATCH TP SCH (10:00)
[2022-07-04 18:57] VITALS: BP 150/88; PULSE 72; TEMP 98
[2022-07-04] MEDS ORDERED: LIDOCAINE PATCH REMOVAL MC SCH (22:00)
== END 2022-07-04 16:45 ==
LOC: JER 11:57 → JERBED 16:36 → J4W 23:48 → J5S 07-04 00:41
PROVIDERS: ADMIT Internal Medicine; ATTEND Internal Medicine
PROC: 3E023GC Introduction of Other Therapeutic Substance into Muscle, Percutaneous Approach (ICD-10-PCS; principal; 2022-06-30)
PROC: 3E023GC Introduction of Other Therapeutic Substance into Muscle, Percutaneous Approach (ICD-10-PCS; 2022-06-30)
DX: R07.9 Chest pain, unspecified (principal); C50.919 Malignant neoplasm of unspecified site of unspecified female breast; I13.0 Hypertensive heart and chronic kidney disease with heart failure and stage 1 through stage 4 chronic kidney disease, or unspecified chronic kidney disease; N18.9 Chronic kidney disease, unspecified; I50.9 Heart failure, unspecified; I16.0 Hypertensive urgency
CPT/HCPCS: 36415; 71045-TC-FY; 71250-TC; 74176-TC; 80053; 80061; 83735; 84100; 84443; 84484; 85025; 87081; 93005; 93010; 93306-TC; 96372; 99285-25; C9803-CS; G0378; J1644; U0003; U0005